=== PATIENT | male | born 1965 | race Caucasian/White ===

== ENCOUNTER 2019-10-26 20:51 | Inpatient (IN) ==
[2019-10-26] MEDS ORDERED: SODIUM CHLORIDE 0.9% 1000ML 1,000 ML IV ONE ×2 (21:19→22:14)
--- NOTE | 2019-10-26 21:23 | Emergency Department Note ---
History of Present Illness General Chief complaint: Weakness Stated complaint: AMS Time Seen by Provider: 10/26/19 21:08 Source: patient and family Limitations: altered mental status History of Present Illness Provider complaint: Foot pain Onset (ago): month(s) Location: lower extremity and right Radiation: non-radiation Severity: moderate Pain Consistency: + constant Exacerbated By: + movement Associated symptoms: + confusion; no chest pain, no cough, no fever/chills, no headaches, no nausea/vomiting and no shortness of breath This is a 54-year-old male brought in by his daughter after they found him in his house jaundiced and lethargic. The family has not seen him in 3 days. They state that he has had a prior history of alcohol abuse but has not drank for 3 weeks. Today he was in his house and his eyes were yellow and his skin was jaundiced. He has no known history of liver disease. He denies drinking alcohol today. His only complaint is that he has right foot pain after he fell on it weeks ago. He states he was seen here and was told he broke several toes. He denies falling again. He has no headache, chest pain, shortness of breath, fever, cough or cold symptoms, abdominal pain, vomiting, diarrhea or recent alcohol use. The patient's daughter states that his right leg has been hubert colored for several weeks and was like that before he came to the emergency department for his fracture. The patient also states he has not been eating or drinking very much for a while as he has trouble walking to a stove because of his leg pain. Home Medications Home Medications Medication Instructions Recorded Confirmed Type No Known Home Medications 09/25/19 10/26/19 History Allergies Allergy/AdvReac Type Severity Reaction Status Date / Time No Known Allergies Allergy Unverified 10/26/19 21:35 Past Med/Surg History Medical History No significant past medical history Surgical History No significant past surgical history Social History Smoking Status: Current every day smoker marital status: Single Current Living Situation: Alone current occupational status: unemployed Feels Safe at Home: Yes Review of Systems See HPI for pertinent positives & negatives. and A total of 10 systems reviewed and were otherwise negative Physical Exam Vital Signs Vital Signs - 24 hr 10/26/19 21:00 10/26/19 21:02 10/26/19 21:04 Temperature 34.1 C L Temperature Source Rectal Pulse Rate 71 74 70 Pulse Rate from SpO2 Sensor 71 71 Respiratory Rate 36 H 30 H 31 H Respiratory Depth Shallow Respiratory Pattern Tachypnea Blood Pressure 83/50 L 94/57 L Blood Pressure Mean 67 69 Blood Pressure Position Sitting Pulse Oximetry 96 96 96 Oxygen Delivery Method Room Air Sepsis Recent Fever Within 48 Hours No Sepsis New/Unexplained Change in Mental Status Yes Sepsis Action Taken by Nursing Physician Notified 10/26/19 21:06 10/26/19 21:08 10/26/19 21:10 Temperature 34.1 C L Temperature Source Rectal Pulse Rate 72 71 Pulse Rate from SpO2 Sensor 72 71 Respiratory Rate 25 H 25 H Respiratory Depth Respiratory Pattern Blood Pressure 89/55 L Blood Pressure Mean 58 Blood Pressure Position Pulse Oximetry 96 96 Oxygen Delivery Method Sepsis Recent Fever Within 48 Hours Sepsis New/Unexplained Change in Mental Status Sepsis Action Taken by Nursing 10/26/19 21:15 10/26/19 21:20 10/26/19 21:28 Temperature Temperature Source Pulse Rate 69 71 Pulse Rate from SpO2 Sensor 69 71 Respiratory Rate 25 H 31 H Respiratory Depth Respiratory Pattern Blood Pressure 80/50 L Blood Pressure Mean 56 Blood Pressure Position Pulse Oximetry 97 96 97 Oxygen Delivery Method Room Air Sepsis Recent Fever Within 48 Hours Sepsis New/Unexplained Change in Mental Status Sepsis Action Taken by Nursing 10/26/19 21:30 10/26/19 21:31 10/26/19 21:40 Temperature Temperature Source Pulse Rate 69 67 68 Pulse Rate from SpO2 Sensor 69 67 Respiratory Rate 29 H 28 H 21 Respiratory Depth Respiratory Pattern Blood Pressure 75/52 L Blood Pressure Mean 58 Blood Pressure Position Pulse Oximetry 96 97 Oxygen Delivery Method Sepsis Recent Fever Within 48 Hours Sepsis New/Unexplained Change in Mental Status Sepsis Action Taken by Nursing 10/26/19 21:41 10/26/19 21:50 10/26/19 21:51 Temperature Temperature Source Pulse Rate 78 60 70 Pulse Rate from SpO2 Sensor 72 62 70 Respiratory Rate 29 H 27 H 28 H Respiratory Depth Respiratory Pattern Blood Pressure 66/44 L 63/34 L Blood Pressure Mean 52 36 Blood Pressure Position Pulse Oximetry 97 94 96 Oxygen Delivery Method Sepsis Recent Fever Within 48 Hours Sepsis New/Unexplained Change in Mental Status Sepsis Action Taken by Nursing 10/26/19 22:00 10/26/19 22:01 10/26/19 22:10 Temperature Temperature Source Pulse Rate 69 68 67 Pulse Rate from SpO2 Sensor 67 Respiratory Rate 28 H 24 23 Respiratory Depth Respiratory Pattern Blood Pressure 77/40 L 63/42 L Blood Pressure Mean 45 43 Blood Pressure Position Pulse Oximetry 95 Oxygen Delivery Method Sepsis Recent Fever Within 48 Hours Sepsis New/Unexplained Change in Mental Status Sepsis Action Taken by Nursing 10/26/19 22:11 10/26/19 22:15 10/26/19 22:20 Temperature Temperature Source Pulse Rate 67 74 77 Pulse Rate from SpO2 Sensor 67 74 Respiratory Rate 29 H 24 30 H Respiratory Depth Respiratory Pattern Blood Pressure 89/59 L Blood Pressure Mean 63 Blood Pressure Position Pulse Oximetry 97 97 Oxygen Delivery Method Sepsis Recent Fever Within 48 Hours Sepsis New/Unexplained Change in Mental Status Sepsis Action Taken by Nursing 10/26/19 22:22 10/26/19 22:23 10/26/19 22:30 Temperature Temperature Source Pulse Rate 79 78 78 Pulse Rate from SpO2 Sensor 78 78 78 Respiratory Rate 23 31 H 30 H Respiratory Depth Respiratory Pattern Blood Pressure 97/65 L 103/61 Blood Pressure Mean 82 68 Blood Pressure Position Pulse Oximetry 97 96 95 Oxygen Delivery Method Sepsis Recent Fever Within 48 Hours Sepsis New/Unexplained Change in Mental Status Sepsis Action Taken by Nursing 10/26/19 22:31 10/26/19 22:40 10/26/19 22:41 Temperature 34.0 C L Temperature Source Pulse Rate 79 74 75 Pulse Rate from SpO2 Sensor 79 74 Respiratory Rate 26 H 28 H 27 H Respiratory Depth Respiratory Pattern Blood Pressure 98/60 L Blood Pressure Mean 68 Blood Pressure Position Pulse Oximetry 95 95 Oxygen Delivery Method Sepsis Recent Fever Within 48 Hours Sepsis New/Unexplained Change in Mental Status Sepsis Action Taken by Nursing 10/26/19 22:51 10/26/19 23:01 10/26/19 23:02 Temperature Temperature Source Pulse Rate 77 79 80 Pulse Rate from SpO2 Sensor 79 Respiratory Rate 22 21 30 H Respiratory Depth Respiratory Pattern Blood Pressure 87/55 L 71/55 L Blood Pressure Mean 63 65 Blood Pressure Position Pulse Oximetry 95 95 95 Oxygen Delivery Method Room Air Room Air Sepsis Recent Fever Within 48 Hours Sepsis New/Unexplained Change in Mental Status Sepsis Action Taken by Nursing 10/26/19 23:08 Temperature Temperature Source Pulse Rate Pulse Rate from SpO2 Sensor Respiratory Rate Respiratory Depth Respiratory Pattern Blood Pressure Blood Pressure Mean Blood Pressure Position Pulse Oximetry Oxygen Delivery Method Room Air Sepsis Recent Fever Within 48 Hours Sepsis New/Unexplained Change in Mental Status Sepsis Action Taken by Nursing Constitutional: Vital signs reviewed. Patient is hypotensive and hypothermic. Eyes: Pupils are equal round reactive to light. Sclera are icteric. ENT: Pharynx is clear without erythema or exudate. Mucous membranes are dry. Neck supple without meningeal signs. Respiratory: Clear to auscultation bilaterally. Breath sounds are equal bilaterally. Cardiovascular: Regular rate and rhythm. No rubs or gallops. GI: Soft, nondistended and nontender. Bowel sounds are present. Musculoskeletal: Violaceous discoloration of the right lower extremity extending into the foot but not including the toes. Distal cap refill is less than 2 seconds. Diffuse swelling of the right lower extremity and foot. Integumentary: Jaundiced. Neurological: The patient is somnolent but easily arousable. He answers all questions. Psychiatric: Unable to assess. Course Administered Medications Norepinephrine Bitartrate 8 mg (/ Dextrose) 508 mls @ 10.001 mls/hr IV .Q24H PIEDAD; Protocol Stop: 11/25/19 21:59 Last Titration: 10/26/19 23:00 Dose: 0.07 mcg/kg/min, 14 mls/hr Documented by: [id number] Admin: 10/26/19 22:07 Dose: 0.05 mcg/kg/min, 10 mls/hr Documented by: [id number] Cosigned by: [id number] Albumin Human (Albumin 25%) 50 mls @ 50 mls/hr IV Q1H PIEDAD Stop: 10/27/19 00:44 Last Admin: 10/26/19 23:22 Dose: 50 mls/hr Documented by: [id number] Infusion: 10/26/19 23:21 Dose: 0 mls/hr Documented by: [id number] Admin: 10/26/19 22:42 Dose: 50 mls/hr Documented by: [id number] Infusion: 10/26/19 22:42 Dose: 50 mls/hr Documented by: [id number] Admin: 10/26/19 21:52 Dose: 50 mls/hr Documented by: [id number] Discontinued Medications Sodium Chloride (Nss 1000ml) 1,000 mls @ 999 mls/hr IV .Q1H1M ONE Stop: 10/26/19 22:19 Last Infusion: 10/26/19 22:53 Dose: 0 mls/hr Documented by: [id number] Admin: 10/26/19 21:27 Dose: 999 mls/hr Documented by: [id number] Piperacillin Sod/Tazobactam Sod (Zosyn) 4.5 gm in 120 mls @ 240 mls/hr IV NOW ONE Stop: 10/26/19 22:42 Last Infusion: 10/26/19 23:15 Dose: 0 mls/hr Documented by: [id number] Admin: 10/26/19 22:40 Dose: 240 mls/hr Documented by: [id number] Sodium Chloride (Nss 1000ml) 1,000 mls @ 999 mls/hr IV .Q1H1M ONE Stop: 10/26/19 23:14 Last Admin: 10/26/19 22:40 Dose: Not Given Documented by: [id number] Miscellaneous () 1 ea N/A NOW STA Stop: 10/26/19 21:42 Last Admin: 10/26/19 21:55 Dose: Not Given Documented by: [id number] Critical Care Time Critical Care Time: Yes Total Critical Care Time: 40 I have personally spent approximately 40 minutes of critical care time in the direct management of this patient. This includes bedside care, interpretation of diagnostic studies, and testing, discussion with consultants, patient, and family members, and other required patient management activities. These minutes are in excess of all separately billable procedures. Medical Decision Making Differential Diagnosis Acute kidney injury, metabolic derangement, electrolyte abnormality, dehydration, sepsis, DVT, rhabdomyolysis Medical Records Attestation: I reviewed the patient's medical records. The patient was seen here September 22 after an injury to his right leg. He had x- rays of the foot and tib-fib which demonstrated metatarsal fractures. No fractures in the tibia or fibula. Home Medications Current Medication List: was personally reviewed by me Laboratory Data Attestation: I reviewed the patient's lab results. Result diagrams: 10/26/19 22:56 10/26/19 22:03 Lab Results 10/26/19 10/26/19 10/26/19 Range/Units 21:49 22:02 22:03 WBC (4.8-10.8) K/uL RBC (4.7-6.1) M/uL Hgb (14.0-18.0) g/dL POC Hgb (14.0-18.0) g/dl Hct (42-52) % POC Hct (42-52) % MCV (80-100) fL MCH (25-34) pg MCHC (32-36) g/dL RDW Std Deviation (36.4-46.3) fL RDW Coeff of Bina (11.5-14.5) % Plt Count (130-400) K/uL MPV (7.4-10.4) fL Immature Gran % (Auto) % Neut % (Auto) % Lymph % (Auto) % Ceiba % (Auto) % Eos % (Auto) % Baso % (Auto) % Neut # (Auto) (1.4-6.5) K/uL Lymph # (Auto) (1.2-3.4) K/uL Ceiba # (Auto) (0.11-0.59) K/uL Eos # (Auto) (0-0.5) K/uL Baso # (Auto) (0-0.2) K/uL Immature Gran # (Auto) (0.00-0.02) K/uL Platelet Estimate (Normal) Echinocytes PT (9.0-12.0) Seconds INR (0.9-1.1) APTT (21.0-31.0) Seconds PTT Ratio POC pH (7.35-7.45) POC pCO2 (35-46) mmHg POC pO2 (80-95) mmHg POC HCO3 (19-24) eddie/L POC Total CO2 (24-31) mmol/L POC Base Excess (-9-1.8) eddie/L POC ABG O2 Sat (90-95) % POC Sodium (135-144) mmol/L Sodium 119 L* (136-145) mmol/L POC Potassium (3.3-5.0) mmol/L Potassium 3.4 L (3.5-5.1) mmol/L Chloride 92 L (98-107) mmol/L Carbon Dioxide 12 L (21-32) mmol/L Anion Gap 15.0 H (3-11) BUN 18 (7-18) mg/dl Creatinine 0.98 (0.6-1.4) mg/dl Est Cr Clr Drug Dosing 62.3 ml/min Est GFR ( Amer) 99.5 Est GFR (Non-Af Amer) 85.8 BUN/Creatinine Ratio 18.9 (10-20) Glucose 87 (70-99) mg/dl Lactate (0.4-2.0) mmol/L Calcium 7.3 L (8.5-10.1) mg/dl Magnesium 1.9 (1.8-2.4) mg/dl Total Bilirubin 3.0 H (0.2-1) mg/dl AST 68 H (15-37) U/L ALT 23 (12-78) U/L Alkaline Phosphatase 93 (45-117) U/L Ammonia (11-32) umol/L Total Creatine Kinase 562 H (39-308) U/L Troponin I 0.090 H* (0-0.045) ng/ml Total Protein 4.8 L (6.4-8.2) gm/dl Albumin 1.9 L (3.4-5.0) gm/dl Globulin 2.9 (2.5-4.0) gm/dl Albumin/Globulin Ratio 0.6 L (0.9-2) Ethyl Alcohol mg/dL (0-3) mg/dl COVID-19 PCR NEGATIVE (Negative) Blood Type O Positive Antibody Screen NEGATIVE Crossmatch See Detail 10/26/19 10/26/19 10/26/19 Range/Units 22:03 22:03 22:03 WBC 2.50 L (4.8-10.8) K/uL RBC 1.54 L (4.7-6.1) M/uL Hgb 4.9 L* (14.0-18.0) g/dL POC Hgb (14.0-18.0) g/dl Hct 13.6 L* (42-52) % POC Hct (42-52) % MCV 88.3 (80-100) fL MCH 31.8 (25-34) pg MCHC 36.0 (32-36) g/dL RDW Std Deviation 43.7 (36.4-46.3) fL RDW Coeff of Bina 13.6 (11.5-14.5) % Plt Count 96 L (130-400) K/uL MPV 10.7 H (7.4-10.4) fL Immature Gran % (Auto) 0.8 % Neut % (Auto) 73.2 % Lymph % (Auto) 21.6 % Ceiba % (Auto) 3.6 % Eos % (Auto) 0.8 % Baso % (Auto) 0.0 % Neut # (Auto) 1.83 (1.4-6.5) K/uL Lymph # (Auto) 0.54 L (1.2-3.4) K/uL Ceiba # (Auto) 0.09 L (0.11-0.59) K/uL Eos # (Auto) 0.02 (0-0.5) K/uL Baso # (Auto) 0.00 (0-0.2) K/uL Immature Gran # (Auto) 0.02 (0.00-0.02) K/uL Platelet Estimate Decreased L (Normal) Echinocytes 1+ PT 15.6 H (9.0-12.0) Seconds INR 1.5 H (0.9-1.1) APTT 35.4 H (21.0-31.0) Seconds PTT Ratio 1.3 POC pH (7.35-7.45) POC pCO2 (35-46) mmHg POC pO2 (80-95) mmHg POC HCO3 (19-24) eddie/L POC Total CO2 (24-31) mmol/L POC Base Excess (-9-1.8) eddie/L POC ABG O2 Sat (90-95) % POC Sodium (135-144) mmol/L Sodium (136-145) mmol/L POC Potassium (3.3-5.0) mmol/L Potassium (3.5-5.1) mmol/L Chloride (98-107) mmol/L Carbon Dioxide (21-32) mmol/L Anion Gap (3-11) BUN (7-18) mg/dl Creatinine (0.6-1.4) mg/dl Est Cr Clr Drug Dosing ml/min Est GFR ( Amer) Est GFR (Non-Af Amer) BUN/Creatinine Ratio (10-20) Glucose (70-99) mg/dl Lactate 1.9 (0.4-2.0) mmol/L Calcium (8.5-10.1) mg/dl Magnesium (1.8-2.4) mg/dl Total Bilirubin (0.2-1) mg/dl AST (15-37) U/L ALT (12-78) U/L Alkaline Phosphatase (45-117) U/L Ammonia (11-32) umol/L Total Creatine Kinase (39-308) U/L Troponin I (0-0.045) ng/ml Total Protein (6.4-8.2) gm/dl Albumin (3.4-5.0) gm/dl Globulin (2.5-4.0) gm/dl Albumin/Globulin Ratio (0.9-2) Ethyl Alcohol mg/dL (0-3) mg/dl COVID-19 PCR (Negative) Blood Type Antibody Screen Crossmatch 10/26/19 10/26/19 10/26/19 Range/Units 22:03 22:03 22:03 WBC (4.8-10.8) K/uL RBC (4.7-6.1) M/uL Hgb (14.0-18.0) g/dL POC Hgb (14.0-18.0) g/dl Hct (42-52) % POC Hct (42-52) % MCV (80-100) fL MCH (25-34) pg MCHC (32-36) g/dL RDW Std Deviation (36.4-46.3) fL RDW Coeff of Bina (11.5-14.5) % Plt Count (130-400) K/uL MPV (7.4-10.4) fL Immature Gran % (Auto) % Neut % (Auto) % Lymph % (Auto) % Ceiba % (Auto) % Eos % (Auto) % Baso % (Auto) % Neut # (Auto) (1.4-6.5) K/uL Lymph # (Auto) (1.2-3.4) K/uL Ceiba # (Auto) (0.11-0.59) K/uL Eos # (Auto) (0-0.5) K/uL Baso # (Auto) (0-0.2) K/uL Immature Gran # (Auto) (0.00-0.02) K/uL Platelet Estimate (Normal) Echinocytes PT (9.0-12.0) Seconds INR (0.9-1.1) APTT (21.0-31.0) Seconds PTT Ratio POC pH (7.35-7.45) POC pCO2 (35-46) mmHg POC pO2 (80-95) mmHg POC HCO3 (19-24) eddie/L POC Total CO2 (24-31) mmol/L POC Base Excess (-9-1.8) eddie/L POC ABG O2 Sat (90-95) % POC Sodium (135-144) mmol/L Sodium (136-145) mmol/L POC Potassium (3.3-5.0) mmol/L Potassium (3.5-5.1) mmol/L Chloride (98-107) mmol/L Carbon Dioxide (21-32) mmol/L Anion Gap (3-11) BUN (7-18) mg/dl Creatinine (0.6-1.4) mg/dl Est Cr Clr Drug Dosing ml/min Est GFR ( Amer) Est GFR (Non-Af Amer) BUN/Creatinine Ratio (10-20) Glucose (70-99) mg/dl Lactate (0.4-2.0) mmol/L Calcium (8.5-10.1) mg/dl Magnesium Cancelled (1.8-2.4) mg/dl Total Bilirubin (0.2-1) mg/dl AST (15-37) U/L ALT (12-78) U/L Alkaline Phosphatase (45-117) U/L Ammonia 14.5 (11-32) umol/L Total Creatine Kinase Cancelled (39-308) U/L Troponin I (0-0.045) ng/ml Total Protein (6.4-8.2) gm/dl Albumin (3.4-5.0) gm/dl Globulin (2.5-4.0) gm/dl Albumin/Globulin Ratio (0.9-2) Ethyl Alcohol mg/dL < 3.0 (0-3) mg/dl COVID-19 PCR (Negative) Blood Type Antibody Screen Crossmatch 10/26/19 10/26/19 Range/Units 22:03 22:56 WBC (4.8-10.8) K/uL RBC (4.7-6.1) M/uL Hgb 5.4 L* (14.0-18.0) g/dL POC Hgb 5.4 L* (14.0-18.0) g/dl Hct 16.0 L* (42-52) % POC Hct 16 L* (42-52) % MCV (80-100) fL MCH (25-34) pg MCHC (32-36) g/dL RDW Std Deviation (36.4-46.3) fL RDW Coeff of Bina (11.5-14.5) % Plt Count (130-400) K/uL MPV (7.4-10.4) fL Immature Gran % (Auto) % Neut % (Auto) % Lymph % (Auto) % Ceiba % (Auto) % Eos % (Auto) % Baso % (Auto) % Neut # (Auto) (1.4-6.5) K/uL Lymph # (Auto) (1.2-3.4) K/uL Ceiba # (Auto) (0.11-0.59) K/uL Eos # (Auto) (0-0.5) K/uL Baso # (Auto) (0-0.2) K/uL Immature Gran # (Auto) (0.00-0.02) K/uL Platelet Estimate (Normal) Echinocytes PT (9.0-12.0) Seconds INR (0.9-1.1) APTT (21.0-31.0) Seconds PTT Ratio POC pH 7.52 H* (7.35-7.45) POC pCO2 15 L (35-46) mmHg POC pO2 78 L (80-95) mmHg POC HCO3 12 L (19-24) eddie/L POC Total CO2 12 L (24-31) mmol/L POC Base Excess -11.0 L (-9-1.8) eddie/L POC ABG O2 Sat 97.0 H (90-95) % POC Sodium 117 L* (135-144) mmol/L Sodium (136-145) mmol/L POC Potassium 3.6 (3.3-5.0) mmol/L Potassium (3.5-5.1) mmol/L Chloride (98-107) mmol/L Carbon Dioxide (21-32) mmol/L Anion Gap (3-11) BUN (7-18) mg/dl Creatinine (0.6-1.4) mg/dl Est Cr Clr Drug Dosing ml/min Est GFR ( Amer) Est GFR (Non-Af Amer) BUN/Creatinine Ratio (10-20) Glucose (70-99) mg/dl Lactate (0.4-2.0) mmol/L Calcium (8.5-10.1) mg/dl Magnesium (1.8-2.4) mg/dl Total Bilirubin (0.2-1) mg/dl AST (15-37) U/L ALT (12-78) U/L Alkaline Phosphatase (45-117) U/L Ammonia (11-32) umol/L Total Creatine Kinase (39-308) U/L Troponin I (0-0.045) ng/ml Total Protein (6.4-8.2) gm/dl Albumin (3.4-5.0) gm/dl Globulin (2.5-4.0) gm/dl Albumin/Globulin Ratio (0.9-2) Ethyl Alcohol mg/dL (0-3) mg/dl COVID-19 PCR (Negative) Blood Type Antibody Screen Crossmatch Imaging Data Attestation: I personally reviewed and interpreted this imaging study as follows: My Impression: Chest x-ray per my interpretation shows a left lower lobe infiltrate concerning for pneumonia. No pneumothorax. X-ray of the right foot demonstrates fractures of the second and third metatars al bones. ECG Data Attestation: I personally reviewed and interpreted this ECG as follows: Indication: + other (Hypotension) Rate (beats per minute): 71 Rhythm: + normal sinus ECG Intervals/blocks: + Prolonged QT ECG ST segments: no ST elevation ECG Findings: + Other (Baseline motion artifact); no PVCs Blood Pressure Blood Pressure Findings: Low blood pressure Blood Pressure Disposition: further management by hospitalist [facility] Gayathri I did evaluate the patient as noted above. The patient is hypotensive and hypothermic. He is tachypneic as well. He was placed on a warming blanket. I did order sepsis labs. IV access was established. He was given 2 L of normal saline IV. I did place an order for continuous cardiac monitoring. The monitor showed normal sinus rhythm at a rate of 80. I did order and personally review the patient's 12-lead EKG as described above. There is some baseline motion artifact but there is no evidence of ST elevations or acute ischemia. I did order and personally reviewed the images of the patient's right foot/chest x-ray as described above. He does have metatarsal fractures to the right foot. He appears to have a left lower lobe infiltrate. He was placed in respiratory isolation. A COVID test was obtained which was negative. I did order a urine analysis. Blood cultures were ordered. I did treat him with Levaquin and Zosyn IV. I did order and review the patient's blood work as noted in the electronic medical record. He has a sodium of 119. He does not require hypertonic saline at this time. He is able to answer questions and has had no history of seizures. His troponin is slightly elevated but he does not have any chest pain or shortness of breath or acute ischemia on twelve-lead EKG. CPK is 562. Blood gas shows a pH of 7.52. CO2 is 15. Hemoglobin is 5.4. Dr. Eaton saw the patient and consulted the ICU. He did obtain informed consent for blood transfusion from the daughter. He was placed on Levophed IV for blood pressure control. I did order a CT of the head. I did review the images myself. Radiology report is pending at this time. The patient was transferred to the ICU for further care and placement of a central line. Impression & Plan Septic shock, Sepsis, Left lower lobe pneumonia, Severe anemia, Acute hyponatremia, Hyperbilirubinemia Discharge Plan Visit Data Chief Complaint: Weakness Stated Complaint: AMS ED Provider: Ariel Garcia Discharge Problem: Septic shock, Sepsis, Left lower lobe pneumonia, Severe anemia, Acute hyponatremia, Hyperbilirubinemia Discharge Instructions Interventions: ED Discharge Assessment Last Done: 10/26/19 23:08 Forms Stand Alone Forms: [employer] Prescriptions Prescriptions: No Action No Known Home Medications RF: 0 Referrals Referrals: PCP,NO [Primary Care Provider] - Discharge Problem: Sepsis Qualifiers: Sepsis type: sepsis due to unspecified organism Sepsis acute organ dysfunction status: with acute organ dysfunction Severe sepsis acute organ dysfunction type: encephalopathy Severe sepsis shock status: with septic shock Qualified Code(s): A41.9 - Sepsis, unspecified organism Left lower lobe pneumonia Qualifiers: Pneumonia type: due to unspecified organism Qualified Code(s): J18.9 - Pne umonia, unspecified organism
[2019-10-26] MEDS ORDERED: STAT IV Infusion **Titration per Protocol STA (21:41)
[2019-10-26] MEDS: ALBUMIN 25% 50 ML IV SCH ×3 (21:52→23:22)
[2019-10-26] MEDS: NOREPINEPHRINE BIT INJ 8 MG in DEXTROSE 5% 500 ML IV SCH (22:07)
[2019-10-26] MEDS ORDERED: PIPERACILLIN/TAZOBACTAM 4.5 GM/120 ML BAG IV ONE (22:13)
[2019-10-26] MEDS ORDERED: LEVOFLOXACIN/D5W 750 MG/150 ML BAG IV STA (22:13)
[2019-10-26] MEDS ORDERED: PIPERACILL/TAZOBAC CONSULT ACTIVE PRN ×2 (22:13→22:15)
[2019-10-26] MEDS ORDERED: VANCOMYCIN CONSULT ACTIVE PRN (22:15)
[2019-10-26 22:19] LABS: iSTAT Arterial Blood Gas HCO3 12 meg/L (19-24); iSTAT Arterial Blood Gas pCO2 15 mmHg (35-46); iSTAT Arterial Blood Gas pH 7.52 (7.35-7.45); iSTAT Arterial Blood Gas pO2 78 mmHg (80-95); iSTAT Carbon Dioxide 12 mmol/L (24-31); iSTAT Hematocrit 16 % (42-52); iSTAT Hemoglobin 5.4 g/dl (14.0-18.0); iSTAT Potassium 3.6 mmol/L (3.3-5.0); iSTAT Sodium 117 mmol/L (135-144)
[2019-10-26 22:29] LABS: Mean Corpuscular Hemoglobin 31.8 pg (25-34); Mean Corpuscular Volume 88.3 fL (80-100); Mean Platelet Volume 10.7 fL (7.4-10.4); Platelet Count 96 K/uL (130-400); RDW Coefficient of Variation 13.6 % (11.5-14.5); RDW Standard Deviation 43.7 fL (36.4-46.3); Red Blood Count 1.54 M/uL (4.7-6.1)
[2019-10-26 22:30] LABS: INR 1.5 (0.9-1.1); Partial Thromboplastin Ratio 1.3; Partial Thromboplastin Time 35.4 Seconds (21.0-31.0); Prothrombin Time 15.6 Seconds (9.0-12.0)
[2019-10-26] MEDS ORDERED: SODIUM CHLORIDE 0.9% 250 ML IV PRN ×3 (22:33→23:57)
[2019-10-26] MEDS ORDERED: PANTOPRAZOLE BOLUS/DRIP 1 EA IV STA (22:34)
[2019-10-26] MEDS ORDERED: PANTOprazole 80 MG in DEXTROSE 5% 100 ML IV STA (22:42)
[2019-10-26 22:53] LABS: Albumin Globulin Ratio 0.6 (0.9-2); Albumin Level 1.9 gm/dl (3.4-5.0); BUN Creatinine Ratio 18.9 (10-20); Calcium 7.3 mg/dl (8.5-10.1); Creatinine Clr Calc Pharmacy 62.3 ml/min; Eosinophils # (auto) 0.02 K/uL (0-0.5); Eosinophils % (auto) 0.8 %; Est GFR (African American) 99.5; Est GFR (Non-African American) 85.8; Globulin 2.9 gm/dl (2.5-4.0); Immature Granulocytes # (auto) 0.02 K/uL (0.00-0.02); Immature Granulocytes % (auto) 0.8 %; Lymphocytes # (auto) 0.54 K/uL (1.2-3.4); Lymphocytes % (auto) 21.6 %; Magnesium 1.9 mg/dl (1.8-2.4); Monocytes # (auto) 0.09 K/uL (0.11-0.59); Monocytes % (auto) 3.6 %; Neutrophils # (auto) 1.83 K/uL (1.4-6.5); Neutrophils % (auto) 73.2 %; Potassium 3.4 mmol/L (3.5-5.1); Total Protein 4.8 gm/dl (6.4-8.2); Troponin I 0.09 ng/ml (0-0.045)
[2019-10-26 22:54] LABS: Hematocrit (blood only) 13.6 % (42-52); Hemoglobin 4.9 g/dL (14.0-18.0)
[2019-10-26 22:56] LABS: Echinocytes 1+; Platelet Estimate Decreased (Normal)
[2019-10-26] MEDS ORDERED: OCTREOTIDE ACETATE 50 MCG in SYRINGE 9.5 ML IV STA (22:58)
--- NOTE | 2019-10-26 23:03 | History & Physical Report ---
Date of Service October 26, 2019 Assessment & Plan (1) Septic shock: Septic shock/left lower lobe pneumonia/hypovolemia- COVID-19 testing negative in the ED Continue Levophed infusion begun in the ED. Continue aggressive fluid rehydration: Received 2 L normal saline in the ED, followed by NSS plus KCl 20 mEq at 150 mils per hour. Placed on vancomycin IV per pharmacokinetic monitoring. Zosyn 4.5 g IV every 8 hours Levofloxacin 5 mg IV daily Duonebs every 4 hours while awake and every 2 hours when necessary. Nasal cannula 2 L oxygen, titrate to keep pulse ox 94 to 95%. Consult flight information expediter team Dr. Wheeler. Present on Admission?: Yes (2) Left lower lobe pneumonia: See above Present on Admission?: Yes (3) Severe anemia: Hemoglobin 4.9 upon admission. Patient typed and crossed for 3 units PRBCs. H&H every 6 hours x4 Repeat laboratories 1 hour after third unit. Patient's daughter notes that he did have a transfusion in 2018 at [facility]. With associated alcohol history, it is possible he may have some esophageal varices. He has been started on Protonix bolus then drip. If any obvious signs of bleeding, may require the addition of an octreotide drip CT imaging whole body to assess for potential loss of blood Present on Admission?: Yes (4) Acute hyponatremia: Sodium 117 upon admission. He received initial normal saline IV fluid rehydration due to hypotension and sepsis protocol. Follow BMP, phosphorus and magnesium levels every 6 hours. NSS + KCl 20 mEq at 150 mils per hour Present on Admission?: Yes (5) Hyperbilirubinemia: History of alcoholism. Ordered CT of abdomen pelvis for this look at liver structure. With associated coagulopathy, may expect some element of cirrhosis. Present on Admission?: Yes (6) Admitted to intensive care unit: Consulted ICU team as noted above Present on Admission?: Yes (7) Coagulopathy: INR 1.5 upon admission. We will do a trial of vitamin K 10 mg IV Present on Admission?: Yes (8) Hypokalemia: Potassium 3.4 upon admission. We will replace with IV fluids as noted and follow serially Present on Admission?: Yes (9) Non-STEMI (non-ST elevated myocardial infarction): Follow serial troponins, and monitor for arrhythmias. Order complete echocardiogram Consult cardiology. Present on Admission?: Yes (10) Hypoalbuminemia: Albumin 1.9 upon admission. Patient did receive empirically albumin 25 g IV x3 due to hypotension in the ED. Present on Admission?: Yes (11) COVID-19 ruled out by laboratory testing: COVID-19 testing negative while in the ED Present on Admission?: Yes History of Present Illness Chief Complaint: The patient is brought into the emergency department by his daughter after they found him in his house lethargic, unkempt, and appearing jaundiced. Primary Care Provider: NO PCP The patient is a 54-year-old male with a past medical history significant for alcohol abuse, and daughter reports that he does not follow with any physician or office routinely in the medical system. The daughter brought the patient into the ED after checking on him, when she had not seen him for 3 days, and found that he was lethargic, unkempt and jaundiced in his house. She reports that has not had alcohol to drink in 3 weeks. He was in the emergency department on 09/25/2019, and was noted to have twisted his ankle 1 week previous to that visit, and x-rays performed on 09/25/2019 revealed nondisplaced fractures in the distal aspects of the second and third metatarsals with a potential cortical fracture at the base of the proximal phalanx of the second toe. The patient did not follow-up with orthopedic surgery as advised. Upon arrival in the ED, he was noted to have a severe cellulitis of the right lower extremity, and the patient's blood pressure was noted to be 80/50. Despite the first 1 L of IV normal saline, his pressure continued to decrease to 63/43, and he was empirically started on Levophed infusion for blood pressure support at that time, and the ICU was called to be notified of his impending admission. Allergies Allergy/AdvReac Type Severity Reaction Status Date / Time No Known Allergies Allergy Unverified 10/26/19 21:35 Home Medications Home Medications Medication Instructions Recorded Confirmed Type No Known Home Medications 09/25/19 10/26/19 History Past Med/Surg History Medical History No significant past medical history Surgical History No significant past surgical history Social History Smoking Status: Current every day smoker Cigarettes Per Day: 20; Second Hand Exposure: No; Do You Dip or Chew Tobacco: No; Tobacco Cessation Education Requested by Patient: No Hx Alcohol Use: Yes Alcohol type: beer Hx Substance Use: Yes Last Used Substance: Unknown Preferred Language: Chinese Communication Ability: Effective Vision Rehabilitation Therapist Required: No Beliefs That Will Affect Care: None marital status: Single Current Living Situation: Alone current occupational status: unemployed Other Information That Helps Us Care for You: No Feels Safe at Home: Yes Safety Concerns: Feels Safe At This Time Review of Systems Review of Systems: Review of systems is somewhat limited due to cognitive state. Physical Exam Physical Exam: The patient is awake, lethargic, unkempt, emaciated appearing, pale, normocephalic and atraumatic, lying in bed and in no acute distress. HEENT--PERRL, EOMI, mucous membranes and oropharynx dry. Neck--supple. No JVD. No bruits. Thyroid normal, trachea midline, no adenopathy. Heart--normal S1 and S2. No murmurs, rubs or gallops. Lungs--decreased breath sounds left base, with scattered coarse breath sounds throughout. No respiratory distress, no accessory muscle use. Abdomen--normal bowel sounds and soft. Nontender. Nondistended. Extremities/dermatologic-moderately severe erythema right lower extremity. 3+ pitting edema right lower extremity. Skin is jaundiced Neurologic--cranial nerves II through XII grossly intact. Rheumatologic--limited exam Psychiatric--lethargic Results & Data Results & Data ([facility]) Vital Signs (Past 12 Hours) Vital Signs Temp Pulse Resp BP Pulse Ox 10/26/19 22:41 93.2 F L 75 27 H 10/26/19 22:40 74 28 H 98/60 L 95 10/26/19 22:31 79 26 H 95 10/26/19 22:30 78 30 H 103/61 95 10/26/19 22:23 78 31 H 96 10/26/19 22:22 79 23 97/65 L 97 10/26/19 22:20 77 30 H 10/26/19 22:15 74 24 89/59 L 97 10/26/19 22:11 67 29 H 97 10/26/19 22:10 67 23 63/42 L 95 10/26/19 22:01 68 24 10/26/19 22:00 69 28 H 77/40 L 10/26/19 21:51 70 28 H 96 10/26/19 21:50 60 27 H 63/34 L 94 10/26/19 21:41 78 29 H 66/44 L 97 10/26/19 21:40 68 21 10/26/19 21:31 67 28 H 97 10/26/19 21:30 69 29 H 75/52 L 96 10/26/19 21:28 97 10/26/19 21:20 71 31 H 96 10/26/19 21:15 69 25 H 80/50 L 97 10/26/19 21:10 71 25 H 96 10/26/19 21:08 72 25 H 89/55 L 96 10/26/19 21:06 93.4 F L 10/26/19 21:04 70 31 H 96 10/26/19 21:02 93.4 F L 74 30 H 94/57 L 96 10/26/19 21:00 71 36 H 83/50 L 96 Laboratory Results Laboratory Results WBC 2.50 K/uL (4.8-10.8) L 10/26/19 22:03 RBC 1.54 M/uL (4.7-6.1) L 10/26/19 22:03 Hgb 5.4 g/dL (14.0-18.0) L* 10/26/19 22:56 POC Hgb 5.4 g/dl (14.0-18.0) L* 10/26/19 22:03 Hct 16.0 % (42-52) L* 10/26/19 22:56 POC Hct 16 % (42-52) L* 10/26/19 22:03 MCV 88.3 fL (80-100) 10/26/19 22:03 MCH 31.8 pg (25-34) 10/26/19 22:03 MCHC 36.0 g/dL (32-36) 10/26/19 22:03 RDW Std Deviation 43.7 fL (36.4-46.3) 10/26/19 22:03 RDW Coeff of Bina 13.6 % (11.5-14.5) 10/26/19 22:03 Plt Count 96 K/uL (130-400) L 10/26/19 22:03 MPV 10.7 fL (7.4-10.4) H 10/26/19 22:03 Immature Gran % (Auto) 0.8 % 10/26/19 22:03 Neut % (Auto) 73.2 % 10/26/19 22:03 Lymph % (Auto) 21.6 % 10/26/19 22:03 [place] % (Auto) 3.6 % 10/26/19 22:03 Eos % (Auto) 0.8 % 10/26/19 22:03 Baso % (Auto) 0.0 % 10/26/19 22:03 Neut # (Auto) 1.83 K/uL (1.4-6.5) 10/26/19 22:03 Lymph # (Auto) 0.54 K/uL (1.2-3.4) L 10/26/19 22:03 [place] # (Auto) 0.09 K/uL (0.11-0.59) L 10/26/19 22:03 Eos # (Auto) 0.02 K/uL (0-0.5) 10/26/19 22:03 Baso # (Auto) 0.00 K/uL (0-0.2) 10/26/19 22:03 Immature Gran # (Auto) 0.02 K/uL (0.00-0.02) 10/26/19 22:03 Platelet Estimate Decreased (Normal) L 10/26/19 22:03 Echinocytes 1+ 10/26/19 22:03 PT 15.6 Seconds (9.0-12.0) H 10/26/19 22:03 INR 1.5 (0.9-1.1) H 10/26/19 22:03 APTT 35.4 Seconds (21.0-31.0) H 10/26/19 22:03 PTT Ratio 1.3 10/26/19 22:03 POC pH 7.52 (7.35-7.45) H* 10/26/19 22:03 POC pCO2 15 mmHg (35-46) L 10/26/19 22:03 POC pO2 78 mmHg (80-95) L 10/26/19 22:03 POC HCO3 12 eddie/L (19-24) L 10/26/19 22:03 POC Total CO2 12 mmol/L (24-31) L 10/26/19 22:03 POC Base Excess -11.0 eddie/L (-9-1.8) L 10/26/19 22:03 POC ABG O2 Sat 97.0 % (90-95) H 10/26/19 22:03 POC Sodium 117 mmol/L (135-144) L* 10/26/19 22:03 Sodium 120 mmol/L (136-145) L 10/27/19 01:17 POC Potassium 3.6 mmol/L (3.3-5.0) 10/26/19 22:03 Potassium 3.6 mmol/L (3.5-5.1) 10/27/19 01:17 Chloride 92 mmol/L (98-107) L 10/27/19 01:17 Carbon Dioxide 12 mmol/L (21-32) L 10/27/19 01:17 Anion Gap 16.0 (3-11) H 10/27/19 01:17 BUN 18 mg/dl (7-18) 10/27/19 01:17 Creatinine 1.00 mg/dl (0.6-1.4) 10/27/19 01:17 Est Cr Clr Drug Dosing 60.8 ml/min 10/27/19 01:17 Est GFR ( Amer) 97.1 10/27/19 01:17 Est GFR (Non-Af Amer) 83.8 10/27/19 01:17 BUN/Creatinine Ratio 18.3 (10-20) 10/27/19 01:17 Glucose 115 mg/dl (70-99) H 10/27/19 01:17 Lactate 1.9 mmol/L (0.4-2.0) 10/26/19 22:03 Calcium 7.0 mg/dl (8.5-10.1) L 10/27/19 01:17 Phosphorus 4.6 mg/dl (2.5-4.9) 10/27/19 01:17 Magnesium 1.9 mg/dl (1.8-2.4) 10/27/19 01:17 Total Bilirubin 3.0 mg/dl (0.2-1) H 10/26/19 22:03 AST 68 U/L (15-37) H 10/26/19 22:03 ALT 23 U/L (12-78) 10/26/19 22:03 Alkaline Phosphatase 93 U/L (45-117) 10/26/19 22:03 Ammonia 14.5 umol/L (11-32) 10/26/19 22:03 Total Creatine Kinase 560 U/L (39-308) H 10/27/19 01:17 Troponin I 0.099 ng/ml (0-0.045) H* 10/26/19 22:56 Total Protein 4.8 gm/dl (6.4-8.2) L 10/26/19 22:03 Albumin 1.9 gm/dl (3.4-5.0) L 10/26/19 22:03 Globulin 2.9 gm/dl (2.5-4.0) 10/26/19 22:03 Albumin/Globulin Ratio 0.6 (0.9-2) L 10/26/19 22:03 Vitamin B12 1749 pg/ml (211-911) H 10/26/19 22:56 Folate 4.52 ng/ml (>5.38) L 10/26/19 22:56 Procalcitonin 0.69 ng/ml (0-0.5) H 10/26/19 22:56 Random Cortisol 21.66 mcg/dl 10/26/19 22:56 Urine Color [place] 10/27/19 00:55 Urine Appearance Turbid (Clear) A 10/27/19 00:55 Urine pH 5.0 (4.5-7.5) 10/27/19 00:55 Ur Specific [place] 1.021 (1.000-1.030) 10/27/19 00:55 Urine Protein 2+ (Negative) H 10/27/19 00:55 Urine Glucose (UA) Negative (Negative) 10/27/19 00:55 Urine Ketones Trace (Negative) H 10/27/19 00:55 Urine Blood Negative (Negative) 10/27/19 00:55 Urine Nitrite Positive (Negative) A 10/27/19 00:55 Urine Bilirubin 2+ (Negative) H 10/27/19 00:55 Urine Urobilinogen Negative (Negative) 10/27/19 00:55 Ur Leukocyte Esterase 1+ (Negative) H 10/27/19 00:55 Nasal Screen MRSA (PCR) Negative (Negative) 10/27/19 00:05 Salicylates Cancelled 10/27/19 01:17 Acetaminophen Cancelled 10/27/19 01:17 Ethyl Alcohol mg/dL < 3.0 mg/dl (0-3) 10/26/19 22:03 COVID-19 PCR NEGATIVE (Negative) 10/26/19 21:49 Hep Bs Antigen Neg (Neg) 10/27/19 01:17 Hepatitis C Ab Screen Neg (Neg) 10/27/19 01:17 Hepatitis C Antibody Neg (Neg) 10/27/19 01:17 Blood Type O Positive 10/26/19 22:02 Blood Type Recheck O Positive 10/26/19 22:57 Antibody Screen NEGATIVE 10/26/19 22:02 Crossmatch See Detail 10/26/19 22:02 Code Status & VTE Plan Code Status Full code VTE Prophylaxis Plan VTE Prophylaxis will be ordered: Yes Critical Care Time Critical Care Time: Yes Total Critical Care Time: 70 Total critical care time was 70 minutes PG Care Time/CCT Total # of Minutes Spent Total Time Spent with Patient: Total time spent is greater than 50% in coordination of care (as documented) at patient's floor/unit and/or counseling patient: Critical Care Time: Yes Total Critical Care Time: 70 Coding Level of Care Code 10387 Initial Inpt Care Lvl 3 Diagnoses Septic shock A41.9; R65.21 Left lower lobe pneumonia J18.9 Pneumonia type: due to unspecified organism Severe anemia D64.9 Acute hyponatremia E87.1 Hyperbilirubinemia E80.6 Admitted to intensive care unit Z78.9 Coagulopathy D68.9 Hypokalemia E87.6 Non-STEMI (non-ST elevated myocardial infarction) I21.4 Hypoalbuminemia E88.09 COVID-19 ruled out by laboratory testing Z03.818 Additional Codes Critical Care Time - Critical Care Time: Yes ([id number]) Time Spent (min) 70 (1) Left lower lobe pneumonia Pneumonia type: due to unspecified organism Qualified Code(s): J18.9 - Pneumonia, unspecified organism
[2019-10-26 23:14] LABS: Hemoglobin 5.4 g/dL (14.0-18.0)
[2019-10-26] MEDS ORDERED: VANCOMYCIN HCL 1,250 MG in SODIUM CHLORIDE 0.9% 250 ML IV STA (23:25)
[2019-10-26 23:40] LABS: Folate (Folic Acid) 4.52 ng/ml (>5.38)
[2019-10-26] MEDS ORDERED: ICU PROTOCOL FOR HYPERGLYCEMIA PRN (23:57)
[2019-10-27] MEDS: OCTREOTIDE ACETATE 500 MCG in 0.9 % SODIUM CHLORIDE 100 ML IV SCH ×3 (00:06→19:06)
[2019-10-27] MEDS: PANTOprazole 40 MG in DEXTROSE 5% 100 ML IV SCH ×5 (00:13→19:05)
[2019-10-27] MEDS: NSS + 20MEQ KCL 20 MEQ/1,000 ML BAG IV SCH ×2 (00:47→07:44)
--- NOTE | 2019-10-27 00:50 | Critical Care Consultation ---
Date of Consultation October 27, 2019 Assessment & Plan (1) Admitted to intensive care unit: Reason Critically Ill: 54-year-old male presenting with profound weakness and jaundice he was found to be profoundly anemic with elevated troponin, LEFT lower lobe pneumonia, septic shock, hyponatremia, and hypokalemia NEURO - * CAM ICU: POSITIVE * Altered mental status: * Multifactorial in the setting of severe sepsis as well as profound anemia and possible alcohol withdrawal. * CT head unremarkable. * No focal neurological deficits. * Consider contribution from hyponatremia as well. CARDIAC/VASCULAR - * Hypotension: * Secondary to severe sepsis from pulmonary versus integumentary versus both sources. * Additionally, patient with profound hypovolemic state in the setting of profound anemia. * Initially resuscitated with crystalloid boluses. * Currently on Levophed. * Hopes for improvement of blood pressure with blood product volume expansion. * NSTEMI: * Without acute EKG changes or complaints of chest pain. * Likely global ischemia in the profoundly anemic patient. * Trend troponins. * Hopeful for resolve with transfusion of PRBCs. * EKG: Normal sinus rhythm without acute ST or T wave changes. * Monitor on telemetry. RESPIRATORY - * LEFT lower lobe pneumonia: * Concerns for aspiration in the alcoholic patient. * Currently covered with Levaquin, vancomycin, and Zosyn. * Would continue Zosyn for anaerobic coverage with suspicion of aspiration. * Daily smoker. GI/NUTRITION - * Jaundice with concerns for liver failure: * LFTs relatively normal. * Concerning elevated INR and jaundice. * Evaluate other possible sources including acetaminophen and hepatitis. * GI bleed: * Scantly Hemoccult positive on exam. * Previously started on Protonix and octreotide. * Per conversation with daughter, the patient has had anemia secondary to alcoholism in the past. She is uncertain of any prior GI procedures. * Patient is certainly at high risk for varices. RENAL/LYTES - * Hyponatremia: * ??Beer potomania. * Clinically, patient appears malnourished. * Certainly could be secondary to poor diet intake as well. * Regardless, patient received 2 L IV crystalloid bolus in the emergency department. * Will hold off on further crystalloid replacement as to avoid ODS. * Hypokalemia: * Replace appropriately. - * Ceja in place - Strict I&Os. ENDO - * No history of diabetes or thyroid disease. * BSGs per unit protocol. ISS --> gtt per unit policy. HEME - * Symptomatic anemia: * Profound anemia of uncertain ideology at this time. * Question degree of bone marrow suppression in the chronic alcoholic given pancytopenic presentation with thrombocytopenia as well. * Stool slightly positive on Hemoccult testing. * Do not disagree with GI bleeding coverage in the acutely ill patient. * Transfuse PRBCs. ID - * Severe sepsis with septic shock: * Secondary to pulmonary versus integumentary sources. * Initially received vancomycin, Zosyn, and Levaquin. * Can likely discontinue vancomycin with negative nasal MRSA. * Consider transitioning from Levaquin to doxycycline which may offer incr easing benefits from the patient's RIGHT lower extremity cellulitis. * Would remain with Zosyn currently given his high risk for aspiration event. * Repeat lactate. * Procalcitonin mildly elevated. LINES/IV ACCESS - * PIVs x2 * Ceja catheter * RIGHT IJ * LEFT radial art line DVT PROPHYLAXIS - * Hold secondary to profound anemia and currently elevated INR. * SCDs I have personally spent 65 minutes of critical care time in the direct management of this patient. This is a life/limb threatening event. This includes time spent evaluating patient, direct bedside care, chart review, placing orders, interpretation of diagnostic studies, discussion with consultants, patient, and family members, as well as other required patient management activities. This time is exclusive of all separately billable procedures, and teaching time and separate from and in addition to any other critical care service time. Thank you for allowing us to participate in the care of this patient. Please refer to my attending physician's documentation for any further recommendations. (2) Severe sepsis: (3) Septic shock: (4) Severe anemia: (5) Left lower lobe pneumonia: (6) Acute hyponatremia: (7) Hypokalemia: (8) Non-STEMI (non-ST elevated myocardial infarction): (9) Cellulitis of right leg: (10) Alcohol abuse: Supervising Physician Co-Signing Physician Notes I have personally evaluated and examined this patient. I agree with assessment and plan of Diamond Moore PA-C. I was advised of this patient via telephone, see supplemental communication for additional critical care time which was performed after signout. History of Present Illness Attending Physician: Steve Reardon MD History of Present Illness Patient is a 54-year-old male with a past medical history of alcoholism who presents to the emergency department with a chief complaint of weakness. Patient was also felt to be altered from baseline per his family. In conversation with the patient's daughter, she reports that she had last seen him on Wednesday. He did not reach out to her by phone over the last few days which prompted her to evaluate him in his home. She found him to be jaundiced and appearing generally weak. She states that he had a fracture to his RIGHT foot approximately 1 month ago, and since that time he has had decreased ambulation and she is afraid that he has not eaten or drank much in the last few days. Patient complains of pain to the RIGHT foot. He is pleasantly confused. He does not provide significant historical information for past medical history. He denies any other complaints of pain otherwise. Allergies Allergy/AdvReac Type Severity Reaction Status Date / Time No Known Allergies Allergy Unverified 10/26/19 21:35 Home Medications Home Medications Medication Instructions Recorded Confirmed Type No Known Home Medications 09/25/19 10/26/19 History Patient History Medical History No significant past medical history Surgical History No significant past surgical history Social History Smoking Status: Current every day smoker Cigarettes Per Day: 20; Second Hand Exposure: No; Do You Dip or Chew Tobacco: No; Tobacco Cessation Education Requested by Patient: No Hx Alcohol Use: Yes Alcohol type: beer Hx Substance Use: Yes Last Used Substance: Unknown Preferred Language: Peruvian Communication 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 All else were negative. Physical Exam Physical Exam: VITAL SIGNS - Vital signs and nursing notes were reviewed. GENERAL - 54-year-old male appearing older than his stated age who is in moderate distress. Pleasantly confused, but does answer simple questions appropriately. Occasionally nonsensical. SKIN -circumferential erythema from the RIGHT foot extending to just below the knee. Warm to touch. No serosanguineous drainage appreciated. HEAD - NC/AT. EYES - PERRL with EOMI bilaterally. Sclera mildly icteric. Palpebral conjunctiva pink and moist with no injection noted. EARS - No deformities of external structures noted on gross examination bilaterally. NOSE - Midline and without cyanosis. No epistaxis or purulent drainage noted. MOUTH/OROPHARYNX - Without perioral cyanosis. Buccal mucosa pink and dry. Tongue midline with equal elevation of palate bilaterally. NECK - Neck with FROM. Supple to palpation. No nuchal rigidity. LUNGS - Chest wall symmetric without accessory muscle use, intercostals retractions, or central cyanosis. Coarse rhonchi noted at the LEFT lung base. CARDIAC - RRR with S1/S2. No murmur, rubs, or gallops appreciated. ABDOMEN - Abdominal contour flat without pulsations or visible masses. BS normoactive all four quadrants. No tenderness, palpable masses, hepatosplenomegaly, or ascites noted. EXTREMITIES -circumferential erythema with warmth to touch noted to the RIGHT lower extremity extending from just below the knee to the foot. Area is warm to touch and tender to palpation. No clubbing or peripheral cyanosis. No pretibial edema present. +3/5 radial pulses palpated throughout. Dopplerable pedal pulses bilaterally. NEUROLOGIC - Cranial nerves II through XII grossly intact. Sensory intact to light touch throughout. PSYCH -Patient is awake and alert. He is oriented to name, location, and year. He is uncertain of the date. He answers simple questions appropriately. He is occasionally nonsensical and difficult to understand. Results & Data Results & Data ([facility]) Vital Signs (Past 12 Hours) Vital Signs Temp Pulse Pulse Resp BP BP Pulse Ox 10/27/19 00:30 35.0 C L 10/27/19 00:26 80 10/27/19 00:16 84 22 104/69 92 10/27/19 00:15 86 19 93 10/27/19 00:08 34.7 C L 83 18 109/68 93 10/27/19 00:01 92 H 30 H 109/68 87 L 10/26/19 23:53 87 25 H 99/61 L 95 10/26/19 23:47 84 27 H 10/26/19 23:02 80 30 H 95 10/26/19 23:01 79 21 71/55 L 95 10/26/19 22:51 77 22 87/55 L 95 10/26/19 22:41 34.0 C L 75 27 H 10/26/19 22:40 74 28 H 98/60 L 95 10/26/19 22:31 79 26 H 95 10/26/19 22:30 78 30 H 103/61 95 10/26/19 22:23 78 31 H 96 10/26/19 22:22 79 23 97/65 L 97 10/26/19 22:20 77 30 H 10/26/19 22:15 74 24 89/59 L 97 10/26/19 22:11 67 29 H 97 10/26/19 22:10 67 23 63/42 L 95 10/26/19 22:01 68 24 10/26/19 22:00 69 28 H 77/40 L 10/26/19 21:51 70 28 H 96 10/26/19 21:50 60 27 H 63/34 L 94 10/26/19 21:41 78 29 H 66/44 L 97 10/26/19 21:40 68 21 10/26/19 21:31 67 28 H 97 10/26/19 21:30 69 29 H 75/52 L 96 10/26/19 21:28 97 10/26/19 21:20 71 31 H 96 10/26/19 21:15 69 25 H 80/50 L 97 10/26/19 21:10 71 25 H 96 10/26/19 21:08 72 25 H 89/55 L 96 10/26/19 21:06 34.1 C L 10/26/19 21:04 70 31 H 96 10/26/19 21:02 34.1 C L 74 30 H 94/57 L 96 10/26/19 21:00 71 36 H 83/50 L 96 Coding Level of Care Code Critical Care 1st 30-74 mins Diagnoses Admitted to intensive care unit Z78.9 Severe sepsis A41.9; R65.20 Septic shock A41.9; R65.21 Severe anemia D64.9 Left lower lobe pneumonia J18.9 Pneumonia type: due to unspecified organism Acute hyponatremia E87.1 Hypokalemia E87.6 Non-STEMI (non-ST elevated myocardial infarction) I21.4 Cellulitis of right leg L03.115 Alcohol abuse F10.10 Time Spent (min) 65 (1) Left lower lobe pneumonia Pneumonia type: due to unspecified organism Qualified Code(s): J18.9 - Pneumonia, unspecified organism
--- NOTE | 2019-10-27 00:54 | Procedure Note ---
Procedure Note Date of Service October 27, 2019 Procedure: Internal Jugular Central Line Placement Attending: Dr. Wheeler APC: Kaiser Moore PA-C Indication: Central Drug Administration, Poor Venous Access, Multiple Lab Draws Necessary, etc. Anesthesia: Lidocaine 1% Emergent consent implied in the setting of ultimately status, sepsis, h ypotension, need for vasopressors, frequent blood draws, etc. This was discussed with the patient healthcare proxy, Sarai. Additionally, I discussed this with the patient. The verbal consent. They agree and understand risks, benefits, alternatives, and possible complications. Despite this, they agree with proceeding. A time-out was completed verifying correct patient, procedure, site, posit ioning, and implants(s) or special equipment if applicable. Patients RIGHT Neck was cleansed and draped in the typical sterile fashion using Chloraprep. The Internal Jugular Vein and Carotid Artery were identified using ultrasound. The superficial tissue was anesthetized using 3.0 mL of 1% lidocaine without epinephrine under direct visualization with the ultrasound. After adequate anesthetization was achieved, the Internal Jugular vein was cannulated under direct ultrasound guidance using an introducer needle on a syringe. Good venous blood return was maintained prior to removal of syringe from introducer needle. Using Seldinger Technique, a guide wire was advanced through the introducer needle without resistance. The introducer needle was removed and ultrasound images were obtained of the guide wire within the Internal Jugular Vein and saved to the patients medical record. The dilator was advanced to the vessel without resistance. The dilator was exchanged for the triple lumen catheter which was advanced into the vessel without resistance. The guide wire was removed intact from the catheter without issue. Claves were placed on each catheter tip with confirmation of good blood flow from each lumen. Each port was easily flushed with sterile saline. The catheter was placed at 15 cm and sutured in place. BioPatch was applied to the catheter and a sterile Tegaderm dressing was applied over the catheter with careful attention to sterility. Patient tolerated procedure well. No immediate complications were met. Post procedure x-ray was completed, placement was appropriate and no pneumothorax was noted. Images obtained are saved for permanent record Procedural Ultrasound Guidance: Procedure Date: 10/27/2019 Indication: Pressors, Blood, Multiple Drugs, Frequent Labs, Poor peripheral access Attending: Dr. Wheeler APC: Kaiser Moore PA-C Artery AND Vein visualized: YES Compressible Vein: YES Guidewire or Short Catheter seen in vein prior to dilation: YES Line confirmed in Vein with ultrasound: YES Images obtained are saved for permanent record. Coding CPT Codes Tubes, Drains, and Vasc Access - Tubes, Drains, and Vasc Access: [id number] Insertion Of Non-tunneled Catheter Age 5 Yrs> ([id number]) Tubes, Drains, and Vasc Access - Tubes, Drains, and Vasc Access: [id number] Ultrasound Guidance For Vascular ([id number]) [facility] [place] Procedure Codes (Charges) Tubes, Drains, and Vasc Access Procedure 1: Tubes, Drains, and Vasc Access: [id number] Insertion Of Non-tunneled Catheter Age 3 Yrs> Procedure 2: Tubes, Drains, and Vasc Access: [id number] Ultrasound Guidance For Vascular
[2019-10-27 01:08] LABS: Appearance Urine Turbid (Clear); Blood Urine Negative (Negative); Color Urine Orange; Glucose Urine UA Negative (Negative); Ketones Urine Trace (Negative); Leukocyte Esterase Urine 1+ (Negative); Nitrite Urine Positive (Negative); Protein Urine 2+ (Negative); Specific Gravity Urine 1.021 (1.000-1.030); Urobilinogen Urine Negative (Negative)
[2019-10-27 01:23] LABS: Bilirubin Urine 2+ (Negative)
[2019-10-27 01:25] LABS: Ictotest Urine Positive (Negative)
[2019-10-27] MEDS ORDERED: LEVOFLOXACIN/D5W 500 MG/100 ML BAG IV SCH (02:00)
[2019-10-27 02:02] LABS: BUN Creatinine Ratio 18.3 (10-20); Creatinine Clr Calc Pharmacy 60.8 ml/min; Est GFR (African American) 97.1; Est GFR (Non-African American) 83.8; Magnesium 1.9 mg/dl (1.8-2.4); Potassium 3.6 mmol/L (3.5-5.1)
[2019-10-27 02:05] LABS: Phosphorus 4.6 mg/dl (2.5-4.9)
[2019-10-27 02:22] LABS: Hepatitis B Surface Antigen Neg (Neg)
[2019-10-27] MEDS ORDERED: IOVERSOL 100ml IV ONE (02:32)
[2019-10-27 02:51] LABS: Hepatitis C IgG 13Yrs+Old_Rflx Neg (Neg)
--- NOTE | 2019-10-27 03:11 | Procedure Note ---
Procedure Note Date of Service October 27, 2019 Procedure: Arterial Line Placement Attending: Dr. Wheeler APC: Kaiser Moore PA-C Indication: Monitoring on Pressors Anesthesia: Lidocaine 1% Emergent consent implied in the setting of need for vasoactive medications, frequent lab draws, close hemodynamic monitoring, and poor peripheral access. Verbal consent obtained from healthcare proxy prior to performing procedure as patient is pleasantly altered. A time-out was completed verifying correct patient, procedure, site, positioning, and implant(s) or special equipment if applicable. Allens test was performed to ensure adequate perfusion. Patients LEFT wrist was prepped and draped in the usual sterile fashion. Ultrasound guidance was used to aid needle placement. A 20g Arrow arterial line was introduced into the LEFT Radial artery. Catheter was threaded, and the needle was removed with appropriate blood return. Good waveform was observed. The patient tolerated the procedure well. Confirmation of placement with ultrasound. Blood Loss: Minimal Complications: None Procedural Ultrasound Guidance: Procedure Date: 10/27/2019 Indication: Pressors, Frequent labs, hemodynamic monitoring Attending: Dr. Wheeler APC: Kaiser Moore PA-C Artery Identified: YES Line confirmed in Artery with ultrasound: YES Complications: NONE Patient tolerated procedure: WELL Coding CPT Codes Tubes, Drains, and Vasc Access - Tubes, Drains, and Vasc Access: [id number] Place Catheter In Artery ([id number]) [facility] [place] Procedure Codes (Charges) Tubes, Drains, and Vasc Access Procedure 3: Tubes, Drains, and Vasc Access: [id number] Place Catheter In Artery
[2019-10-27] MEDS: PIPERACILLIN/TAZOBACTAM 4.5 GM in DEXTROSE 5% 100 ML IV SCH ×3 (04:24→19:06)
--- NOTE | 2019-10-27 06:24 | Communication Note ---
Date of Service: October 27, [address] studies obtained, there is concern for multiple rib fractures as well as possible hemothorax as well as prior sternal fracture. Given this amount of trauma and concerns for profound anemia with possible hemothorax, I did feel that it was appropriate to obtain repeat imaging modalities of the chest to include IV contrast for possible sources of intrathoracic bleeding. CT of the chest and abdomen were obtained with IV contrast. Additionally, completion of trauma scans were obtained including cervical, thoracic, and lumbar spines. On reassessment of the patient at bedside, he does appear to have some slight bruising to the LEFT-sided chest wall with mild tenderness to palpation. Otherwise, no significant findings. Patient is titrating down his Levophed at this point. He is resting comfortably. I have personally spent 32 minutes of critical care time in the direct management of this patient. This is a life/limb threatening event. This includes time spent evaluating patient, direct bedside care, chart review, placing orders, interpretation of diagnostic studies, discussion with consultants, patient, and family members, as well as other required patient management activities. This time is exclusive of all separately billable procedures, and teaching time and separate from and in addition to any other critical care service time. Coding Level of Care Code Critical Care char zapatat'l 30 min Time Spent (min) 32
--- NOTE | 2019-10-27 06:52 | XRay Report ---
XR foot RT min 3V routine CLINICAL HISTORY: Right foot pain. Possible fracture COMPARISON: 09/25/2019 DISCUSSION: The bones are severely osteopenic. There are subacute fractures of the second and third m etatarsal necks. There is no dislocation.. IMPRESSION: 1. Subacute fractures of the right second and third metatarsal necks. 2. Severe osteopenia ACT 112: Negative or not required by law. Electronically signed by: Hector Tomas M.D. 10/27/2019 6:51 AM
--- NOTE | 2019-10-27 06:54 | XRay Report ---
XR chest 1V portable CLINICAL HISTORY: SEPSIS COMPARISON STUDY: No previous studies for comparison. FINDINGS: The heart is normal in size. There are multiple bilateral rib fractures and differing stage s of healing. There is a small left pleural effusion with associated left basilar airspace opacities. No pneumothorax is visualized IMPRESSION: Small left pleural effusion with associated left basilar airspace opacities, atelectasis versus pneumonia ACT 112: Negative or not required by law. Electronically signed by: Hector Tomas M.D. 10/27/2019 6:53 AM
--- NOTE | 2019-10-27 06:58 | Ultrasound Report ---
US venous doppler LE RT CLINICAL HISTORY: Right leg swelling COMPARISON STUDY: No previous studies for comparison. FINDINGS: Real-time and color flow Doppler imaging were performed. Flow was seen within the femoral, popliteal and calf veins with no intraluminal thrombus demonstrated. The saphenous vein is patent. Th ere is minor chronic wall thickening. IMPRESSION: No evidence of right lower extremity DVT ACT 112: Negative or not required by law. Electronically signed by: Hector Tomas M.D. 10/27/2019 6:56 AM
--- NOTE | 2019-10-27 06:59 | XRay Report ---
XR chest 1V portable CLINICAL HISTORY: S/P central line placement COMPARISON STUDY: 10/26/2019 FINDINGS: There are persistent left basilar airspace opacities. Multiple rib fractures again evident. There is been interval placement of a right internal jugular central venous catheter. The tip projec ts at the superior vena cava. There is no pneumothorax.[ IMPRESSION: No pneumothorax status post placement of right internal jugular central venous catheter. ACT 112: Negative or not required by law. Electronically signed by: Hector Tomas M.D. 10/27/2019 6:57 AM
--- NOTE | 2019-10-27 07:01 | Ultrasound Report ---
US gallbladder CLINICAL HISTORY: Elevated LFTs. Alcohol abuse. COMPARISON STUDY: CT scan dated 10/27/2019 FINDINGS: The study was difficult for technical standpoint. The patient was unable to cooperate with breath-hol ding. The pancreas appears sonographically normal. No focal hepatic masses were visualized. There is no ductal dilatation. The common bile duct measured 4 mm. There is no right-sided hydronephrosis. There was cholelithiasis. There is no gallbladder wall thickening. Technologist reports a negative so nographic Briscoe sign. IMPRESSION: Cholelithiasis. No evidence of ductal dilatation. ACT 112: Negative or not required by law. Electronically signed by: Hector Tomas M.D. 10/27/2019 6:59 AM
[2019-10-27] MEDS ORDERED: PERFLUTREN LIPID MICROSPHERE (DEFINITY) IV ONE (07:06)
--- NOTE | 2019-10-27 07:14 | Critical Care Progress Note ---
Date of Service October 27, 2019 Assessment & Plan (1) Septic shock: Reason Critically Ill: 54 yo M no noted PMHx presenting with profound weakness and AMS, found to be severely anemic and hypotensive. Admitted for severe sepsis, symptomatic anemia, and AMS. NEURO - CAM ICU: POSITIVE Altered mental status: - Differentials include severe sepsis, hyponatremia, severe anemia, alcohol withdrawal. - Treatment for these outlined below. - CT Head negative for acute process. - No focal neurological deficits on physical exam. - At time of interview patient alert and fairly oriented, improved from ER and admission exam. History of chronic alcohol abuse at risk of withdrawal: - Though the patient's family reports that he has not had alcohol in a week, this AM he reports having had alcohol as recently as day of admission. - 2:1 AST/ALT ratio suggestive of alcohol abuse. T Bili elevated on admission and further elevated this AM to 5.7 - Alcohol level in ER negative. - No outward signs of withdrawal on admission, however this AM with AWSS score 8. - AWSS at risk IV Ativan protocol started. - No history of seizures, and no seizures while in hospital. - Thiamine, folate daily. - Hepatitis panel pending. - Care Management to discuss alcohol rehabilitation options with patient while admitted. CARDIOVASCULAR - Hypotension: - On admission with severe sepsis from pulmonary vs. skin/soft tissue infection. - Also likely 2/2 volume depletion given severe anemia with Hgb 5.4; patient is s/p 3u PRBCs. - In ED received NSS 2L bolus, and overnight was on NSS with KCl 20meq @ 150cc/hr. - Transitioned this AM to Normosol 100cc/hr, held at this time due to hyponatremia. - Was on Levophed overnight, however was weaned off this afternoon with BP 100s/50s. - A line in place for close BP monitoring. NSTEMI: - Elevated troponin on arrival to 0.090 -> 0.099 - 0.188 -> 0.215. - EKG without ST elevation this AM, nonspecific T wave abnormality in anterior leads. - Patient is without complaints of chest pain or anginal equivalents. - Echo this AM: EF >70%, LV hyperdynamic, no wall motion abnormalities, no valvular abnormalities. - Elevated troponin likely 2/2 severe anemia vs. severe sepsis and hypotension causing demand ischemia. - Continue telemetry monitoring, trend troponin q8h to peak. RESPIRATORY - ? Pneumonia: - CXR showed small left pleural effusion with associated left basilar airspace opacities, atelectasis versus pneumonia. - CT Chest showed left lower lobe airspace opacities, atelectasis vs. pneumonia. - On review with Dr. Wheeler, lung opacity possible 2/2 hemothorax. - Given alcoholic patient with weakness and confusion, aspiration event is possible. - Initial antibiotic coverage was Levaquin, vancomycin, Zosyn. - MRSA nares negative, vancomycin discontinued. - Levaquin d/c'ed as unlikely to be atypical bacterial pneumonia, continue Zosyn monotherapy. - Biofire panel negative. - COVID 19 testing negative. - Currently on Oxymask 6L, continue to wean as tolerated. Hx Smoking Abuse: - Patient is a daily smoker and has findings on CT Chest suggestive of emphysema. - Continue to wean oxygen as tolerated. - Encourage smoking cessation. GI/NUTRITION - Jaundice with Hx chronic alcohol abuse: - LFTs with AST minimal elevation, however with AST:ALT >2:1 ratio suggestive of alcoholic cirrhosis. - Elevated T Bili and INR, as well as jaundice also support likelihood of alcoholic cirrhosis. - Acetaminophen level negative. - Acute Hepatitis panel negative. - Encourage alcohol cessation while admitted. GI bleed: - Scantly Hemoccult positive on exam. - Continue Protonix and Octreotide. - Patient's daughter relays that patient has "a history of anemia from alcohol abuse". - Reticulocyte count normal. - Hemoglobin stable following 3u PRBCs (~10). - Continue to monitor CBC. RENAL/LYTES - Hyponatremia: - Etiologies include beer potomania, as patient appears malnourished and drinks a 6 pack or more per day, as well as malnutrition. - Patient received 2 L IV crystalloid bolus in the emergency department. - This AM NSS transitioned to normosol @ decreased rate of 100cc/hr, and then held in the setting of Hypokalemia: Replace appropriately. - - Ceja in place - Strict I&Os. ENDO - - No history of diabetes or thyroid disease, however has not seen a PCP in over 10 years. - ICU hyperglycemia protocol. HEME - Pancytopenia with symptomatic anemia: - Profound anemia to ~5 on admission, increased to ~10 with 3u PRBCs. - No signs of bleeding on CT Head, CTAP. - Possible source of bleeding could be hemothorax as above. - Likely 2/2 bone marrow suppression in the chronic alcoholic given pancytopenic presentation. - Reticulocyte count is normal, unlikely to be 2/2 myeloproliferative disorder. - Stool slightly positive on Hemoccult testing. - Octreotide/PPI for potential GIB. - No melena, bloody vomitus, or bright red blood in stool. - Completed transfusion, monitor CBC daily. ID - Severe sepsis with septic shock: - Secondary to pulmonary vs SSI vs UTI source. - With mild elevation in procalcitonin. - Initially received vancomycin, Zosyn, and Levaquin. - Vancomycin discontinued due to negative MRSA nares. - Levaquin d/c'ed, continue Zosyn monotherapy. TRAUMA/MSK - Severe Osteopenia on Imaging with Multiple Fractures: - Patient with several rib fractures, healing sternal fracture, and several RLE metatarsal fractures. - no signs of flail chest. - Likely due to frequent falls while intoxicated. - Patient has severe osteopenia on imaging, putting him at increased fracture risk. - Patient is without pain. Consider PRN pain medication. LINES/IV ACCESS - - PIVs x2. - R IJ triple lumen. - L radial arterial line. DVT PROPHYLAXIS - - Holding Heparin DVT prophylaxis due to significant anemia and elevated INR. - SCDs. Thank you for allowing us to participate in the care of this patient. Please refer to Dr. Wheeler's documentation for any further recommendations. (2) Severe anemia: (3) Acute hyponatremia: (4) Hyperbilirubinemia: (5) Hypokalemia: (6) Non-STEMI (non-ST elevated myocardial infarction): (7) COVID-19 ruled out by laboratory testing: (8) Cellulitis of right leg: (9) Alcohol abuse: (10) Ribs, multiple fractures: (11) Metatarsal stress fracture of right foot: (12) Left lower lobe pneumonia: (13) Sternal fracture: (14) Altered mental state: Admission and Anticipated Discharge Date Admission Date: October 26, 2019 Supervising Physician Co-Signing Physician Notes Dr. Suazo was resident physician during care of patient. I separately evaluated patient for zavaleta portions of the history and the exam. I was present during the critical portion of medical decision making, and I discussed the case with the resident. I generally agree with the findings and plan. Severe hyponatremia, improving with crystalloid infusion and DDAVP. critically ill, alcohol withdrawal precautions. Subjective Patient was admitted overnight for confusion and weakness via EMS, found to be hypotensive, hypothermic, severely anemic, and with several fractures. Stable at this time, alert to name, city but not that he is in the hospital. Complaining of R leg pain. States that about 4 weeks ago he was walking outside and he twisted his R leg in a hole in the ground, but did not want to see a doctor. States it hurts less now than it did several weeks ago. At time of interview denies CP, SOB, fevers or chills, constipation or diarrhea, nausea, headache or dizziness, anxiety, agitation, hallucinations. States that last alcohol beverage (he usually drinks "a bunch of Regina") was yesterday early in the day prior to arrival in the ER. Denies ingestion of other types of alcohol, and denies ingestion of other substances such as hand pamphlet distributor, mouthwash, windshield washer fluid. Review of Systems Review of Systems: All systems reviewed & are unremarkable except as noted in Subjective Physical Exam Constitutional: well developed, + ill appearing and + thin Eyes: scleral icterus PERRL No scleral abnormality ENMT: external ear and nose normal poor dentition Neck: normal visual inspection Respiratory: + cough Normal respiratory effort, though tachypneic Bilateral diffuse coarse crackles/rhonchi inspiratory>expiratory O2 saturation 94% on 6L Oxymask Cardiovascular: Rate/Rhythm: regular rate and regular rhythm Heart Sounds: no murmur Extremities: no edema Bilateral DP/PT pulses nonpalpable Bilateral DP/PT pulses dopplerable Gastrointestinal (Abdomen): Inspection/Auscultation: abdomen normal to inspection and normal bowel sounds Percussion/Palpation: abdomen soft and + hepatomegaly; abdomen nontender Musculoskeletal: Head/Neck/Chest: normocephalic Extremities: no clubbing Skin: RLE red, warm to the touch diffuse ecchymoses at different levels of healing on bilateral arms, legs Jaundice diffuse Neurologic: moves all extremities Speech / Cognition: + abnormal speech No asterixis Mild tremor Does not know the date Psychiatric: Orientation: alert Affect: + anxious affect Oriented to name, city. Did not know he was in the hospital or what day it is. Tangential but redirectable. Genitourinary: Ceja draining clear yellow urine Results & Data Results & Data ([facility]) Vital Signs (Past 12 Hours) Vital Signs Temp Pulse Pulse Resp BP BP Pulse Ox 10/27/19 06:48 35.6 C L 92 H 28 H 114/55 L 90 10/27/19 06:18 35.6 C L 90 27 H 106/49 L 91 10/27/19 06:03 35.4 C L 87 28 H 106/47 L 93 10/27/19 05:48 35.2 C L 84 29 H 96/45 L 94 10/27/19 05:43 35.2 C L 84 23 98/42 L 94 10/27/19 05:38 35.2 C L 86 34 H 99/71 L 94 10/27/19 05:00 78 25 H 96 10/27/19 04:45 84 23 94 10/27/19 04:38 35.0 C L 85 32 H 121/78 93 10/27/19 04:30 85 25 H 92 10/27/19 04:28 88 20 121/78 92 10/27/19 04:15 83 26 H 94 10/27/19 04:08 35.1 C L 83 28 H 133/57 L 94 10/27/19 04:00 86 23 91 10/27/19 03:53 35.2 C L 85 20 119/59 L 91 10/27/19 03:45 87 21 94 10/27/19 03:32 35.2 C L 85 29 H 125/59 L 94 10/27/19 03:30 83 21 94 10/27/19 03:28 83 23 111/69 94 10/27/19 03:22 35.3 C L 83 34 H 124/58 L 93 10/27/19 03:21 35.3 C L 83 30 H 113/71 93 10/27/19 03:16 86 30 H 113/71 93 10/27/19 03:04 35.3 C L 85 22 111/41 L 90 10/27/19 03:01 89 29 H 113/67 91 10/27/19 03:00 89 20 89 L 10/27/19 02:46 88 24 97/64 L 91 10/27/19 02:33 88 30 H 98/60 L 92 10/27/19 02:15 77/46 L 10/27/19 02:04 35.7 C L 84 20 77/46 L 95 10/27/19 01:34 35.6 C L 90 30 H 82/61 L 93 10/27/19 01:31 89 22 82/61 L 93 10/27/19 01:30 89 25 H 94 10/27/19 01:19 35.6 C L 86 20 93/65 L 94 10/27/19 01:16 88 28 H 93/65 L 94 10/27/19 01:15 88 24 94 10/27/19 01:03 35.5 C L 85 20 89/62 L 94 10/27/19 01:01 86 28 H 89/62 L 92 10/27/19 01:00 86 23 92 10/27/19 00:46 85 23 82/62 L 93 10/27/19 00:45 83 22 93 10/27/19 00:31 87 26 H 98/66 L 96 10/27/19 00:30 35.0 C L 87 19 97 10/27/19 00:26 80 10/27/19 00:17 88 23 92 10/27/19 00:16 84 22 104/69 92 10/27/19 00:15 86 19 93 10/27/19 00:08 34.7 C L 83 18 109/68 93 10/27/19 00:01 92 H 30 H 109/68 87 L 10/26/19 23:53 87 25 H 99/61 L 95 10/26/19 23:47 84 27 H 10/26/19 23:02 80 30 H 95 10/26/19 23:01 79 21 71/55 L 95 10/26/19 22:51 77 22 87/55 L 95 10/26/19 22:41 34.0 C L 75 27 H 10/26/19 22:40 74 28 H 98/60 L 95 10/26/19 22:31 79 26 H 95 10/26/19 22:30 78 30 H 103/61 95 10/26/19 22:23 78 31 H 96 10/26/19 22:22 79 23 97/65 L 97 10/26/19 22:20 77 30 H 10/26/19 22:15 74 24 89/59 L 97 10/26/19 22:11 67 29 H 97 10/26/19 22:10 67 23 63/42 L 95 10/26/19 22:01 68 24 10/26/19 22:00 69 28 H 77/40 L 10/26/19 21:51 70 28 H 96 10/26/19 21:50 60 27 H 63/34 L 94 10/26/19 21:41 78 29 H 66/44 L 97 10/26/19 21:40 68 21 10/26/19 21:31 67 28 H 97 10/26/19 21:30 69 29 H 75/52 L 96 10/26/19 21:28 97 10/26/19 21:20 71 31 H 96 10/26/19 21:15 69 25 H 80/50 L 97 10/26/19 21:10 71 25 H 96 10/26/19 21:08 72 25 H 89/55 L 96 10/26/19 21:06 34.1 C L 10/26/19 21:04 70 31 H 96 10/26/19 21:02 34.1 C L 74 30 H 94/57 L 96 10/26/19 21:00 71 36 H 83/50 L 96 Resident Activity Tracking Resident Involvement: Resident Care Provided Care Provided: Adult Hospital Medicine (1) Ribs, multiple fractures Encounter type: initial encounter Fracture type: closed Laterality: unspecified laterality Qualified Code(s): S22.49XA - Multiple fractures of ribs, unspecified side, initial encounter for closed fracture (2) Metatarsal stress fracture of right foot Encounter type: initial encounter Qualified Code(s): M84.374A - Stress fracture, right foot, initial encounter for fracture (3) Altered mental state Altered mental status type: delirium Qualified Code(s): R41.0 - Disorientation, unspecified (4) Sternal fracture Encounter type: initial encounter Fracture type: closed Sternal location: unspecified Qualified Code(s): S22.20XA - Unspecified fracture of sternum, initial encounter for closed fracture (5) Left lower lobe pneumonia Pneumonia type: due to unspecified organism Qualified Code(s): J18.9 - Pneumonia, unspecified organism
--- NOTE | 2019-10-27 07:14 | CT Scan Report ---
CT SCAN OF THE BRAIN WITHOUT IV CONTRAST CLINICAL HISTORY: Change in mental status. COMPARISON STUDY: No priors. TECHNIQUE: Unenhanced axial CT scan of the brain is performed from the vertex to the skull base. A do se lowering technique was utilized adhering to the principles of ALARA. FINDINGS: Brain parenchyma: There is mild subcortical and periventricular microangiopathic change. There is no hemorrhage, mass effect, or evidence of acute territorial ischemia by CT criteria. Valdez-white matter differentiation is preserved. No extra-axial fluid collection is seen. Ventricles, sulci, cisterns: Prominent secondary to involutional change. Intracranial vasculature: There is atherosclerotic calcification of the cavernous carotid and vertebr al arteries. Calvarium: Unremarkable. Sinuses and mastoids: The visualized paranasal sinuses are clear. There are small mastoid effusions. Orbits: The bony orbits are grossly intact. IMPRESSION: There is no hemorrhage, mass effect, or evidence of acute territorial ischemia by CT ab josue. ACT 112: Negative or not required by law. Electronically signed by: Glenroy Henry M.D. 10/27/2019 7:13 AM
--- NOTE | 2019-10-27 07:25 | CT Scan Report ---
CT chest wo con CLINICAL HISTORY: pneumonia COMPARISON STUDY: Chest x-ray dated 10/26/2019 CT DOSE: 539.87 mGy.cm TECHNIQUE: CT of the thorax was performed from the thoracic inlet to the lung bases. Images are revi ewed in the axial, sagittal, and coronal planes. IV contrast was not administered for this examinatio n. A dose lowering technique was utilized adhering to the principles of ALARA. FINDINGS: Thyroid: Imaged portions of the thyroid gland are normal in appearance. Thoracic aorta: The thoracic aorta is normal in course and caliber, noting standard 3 vessel arch emily fern. Heart: Heart is normal in size. There is no pericardial effusion. There are coronary artery calcifica tions. Lungs and pleural spaces: There is a left pleural effusion. There is pulmonary emphysema. There are l eft lower lobe airspace opacities, atelectasis versus pneumonia. There is moderate respiratory motion artifact. There is minor groundglass opacity within the anterior aspect of both upper lobes. Mediastinum: There is a subcarinal lymph node the upper limits of normal in size. Alia: There is no evidence of pathologic hilar adenopathy given the limitations of a noncontrast stud y Axilla: There is no evidence of pathologic axillary lymphadenopathy Upper abdomen: Partially visualized upper abdominal viscera is within normal limits. Skeletal structures: There are multiple rib fractures of differing ages. The left rib fractures appea r acute/subacute with adjacent pleural reaction. There is a comminuted ununited sternal body fracture . IMPRESSION: 1. Motion degraded study 2. Left pleural effusion with associated left lower lobe airspace opacities, atelectasis versus pneum onia 3. Multiple bilateral rib fractures. The left fractures appear acute/subacute with adjacent pleural r eaction 4. Ununited sternal fracture 5. Nonspecific subpleural groundglass opacities within the lungs. Diagnostic considerations include p ulmonary contusion, atelectasis, or atypical infection. ACT 112: Negative or not required by law. Electronically signed by: Hector Tomas M.D. 10/27/2019 7:24 AM
--- NOTE | 2019-10-27 07:26 | CT Scan Report ---
CT SCAN OF THE CERVICAL SPINE CLINICAL HISTORY: Falls. COMPARISON STUDY: No priors. TECHNIQUE: CT scan of the cervical spine is performed from the skull base to the upper thoracic spine . Images are reviewed in the axial, sagittal, and coronal planes. IV contrast was not administered fo r this examination. A dose lowering technique was utilized adhering to the principles of ALARA. CT DOSE: 261.36 mGy.cm FINDINGS: Skeletal structures: The skeletal structures are osteopenic. There is no evidence of fracture or subl uxation involving the cervical spine. Vertebral body height and alignment are maintained. Small anter ior osteophytes are noted in the lower cervical region. The odontoid process and lateral masses are i ntact. The atlantoaxial articulation is preserved noting productive degenerative change. The spinous processes appear intact. Mild facet arthropathy is noted. Intervertebral discs: The disc spaces are maintained. Central canal: Grossly patent. Soft tissues: The prevertebral and paraspinous soft tissues are within normal limits. There is athero sclerotic calcification of the carotid bulbs. A right internal jugular central venous catheter is in place. Calvarium: The visualized calvarium at the skull base appears intact. Brain parenchyma: Partially visualized brain parenchyma the skull base is within normal limits. Sinuses and mastoids: The visualized paranasal sinuses are clear. There are trace mastoid effusions. Lung apices: Emphysematous change is noted at the apices. Apical lung parenchyma is otherwise clear. IMPRESSION: There is no evidence of fracture or subluxation involving the cervical spine ACT 112: Negative or not required by law. Electronically signed by: Glenroy Henry M.D. 10/27/2019 7:25 AM
--- NOTE | 2019-10-27 07:28 | CT Scan Report ---
CT SCAN OF THE ABDOMEN AND PELVIS WITHOUT CONTRAST CLINICAL HISTORY: hypovolemic shock COMPARISON STUDY: No previous studies for comparison. TECHNIQUE: CT scan of the abdomen and pelvis was performed from the lung bases to the proximal femurs . Images are reviewed in the axial, sagittal, and coronal planes. IV contrast was not administered fo r this examination. A dose lowering technique was utilized adhering to the principles of ALARA. CT DOSE: FINDINGS: Lower chest: There is a left pleural effusion with associated left lower lobe atelectasis/consolidati on. Liver: The unenhanced liver is normal in size, contour, and attenuation. There is no intrahepatic ammon iary ductal dilatation. Gallbladder: Cholelithiasis Spleen: Normal in size and attenuation. Pancreas: Unremarkable. Adrenal glands: Unremarkable. Kidneys: The unenhanced kidneys are normal in size without hydronephrosis. There is no contour deform ing renal mass lesion. No renal calculi are identified. Bowel: There are no transition zones indicate bowel obstruction. No acute inflammatory changes are vi sualized Peritoneum: There is a small amount of pelvic free fluid. No free intraperitoneal air is visualized Vasculature: The abdominal aorta is normal in course and caliber. Adenopathy: None. Pelvic viscera: The bladder, and pelvic viscera are unremarkable. Skeletal structures: There are bilateral rib fractures IMPRESSION: 1. Significantly motion degraded study 2. Cholelithiasis 3. No evidence of bowel obstruction. No evidence of free air 4. Small amount of free pelvic fluid. ACT 112: Negative or not required by law. Electronically signed by: Hector Tomas M.D. 10/27/2019 7:26 AM
--- NOTE | 2019-10-27 07:33 | CT Scan Report ---
CT OF THE CHEST WITH IV CONTRAST CLINICAL HISTORY: Left-sided rib fractures. Possible hemothorax. COMPARISON STUDY: 10/26/2019 TECHNIQUE: Following the IV administration of 92 mL of Optiray-320, CT of the thorax was performed f rom the thoracic inlet to the lung bases. Images are reviewed in the axial, sagittal, and coronal [place]. IV contrast was administered without complication. A dose lowering technique was utilized adher ing to the principles of ALARA. CT DOSE: FINDINGS: Thyroid: Imaged portions of the thyroid gland are normal in appearance. Thoracic aorta: The thoracic aorta is normal in course and caliber, noting standard 3-vessel arch emily fern. No aneurysm or dissection is seen. Pulmonary vasculature: The pulmonary trunk is normal in caliber. There are no central filling defects identified to suggest pulmonary embolus. Note that this examination was not protocoled for the evalu ation of pulmonary emboli. HEART: The heart is normal in size and configuration, without pericardial effusion. Lungs and pleural spaces: There is a small left pleural effusion and trace right pleural effusion. Th ere are left lower lobe airspace opacities, atelectasis versus pneumonia. There are a few scattered g roundglass opacities present with a subpleural distribution. These can be atelectatic, secondary to p ulmonary contusion, or secondary to atypical infectious process. Mediastinum: Mediastinal lymph nodes are the upper limits of normal in size Alia: There is no evidence of pathologic hilar adenopathy Axilla: There is no evidence of pathologic axillary lymphadenopathy Upper abdomen: Cholelithiasis Skeletal structures: There are multiple bilateral rib fractures. The left-sided rib fractures appear acute/subacute with adjacent pleural reaction. There is an ununited sternal fracture. There is a right internal jugular central venous catheter within the superior vena cava IMPRESSION: 1. Acute/subacute distracted left fourth through seventh rib fractures with associated pleural reacti on 2. Additional old bilateral rib fractures 3. Ununited old sternal fracture 4. Bilateral pleural effusions left greater than right 5. Left lower lobe airspace opacities, atelectasis versus pneumonia 6. Scattered subpleural groundglass opacities, likely atelectatic although pulmonary contusion or an atypical infection could appear similar 7. Cholelithiasis ACT 112: Negative or not required by law. Electronically signed by: Hector Tomas M.D. 10/27/2019 7:31 AM
--- NOTE | 2019-10-27 07:39 | CT Scan Report ---
CT SCAN OF THE ABDOMEN AND PELVIS WITH IV CONTRAST; CT SCAN OF THE LUMBAR SPINE CLINICAL HISTORY: Fall. Trauma. COMPARISON STUDY: Abdominal CT dated 10/26/2019. TECHNIQUE: Following the IV administration of 92 cc of Optiray 320, CT scan of the abdomen and pelvi s is performed from the lung bases to the proximal femora. Additionally, CT scan of the lumbar spine is performed from the lower thoracic spine to the sacrum. Images for both examinations are reviewed i n the axial, sagittal, and coronal planes. IV contrast was administered without complication. A dose lowering technique was utilized adhering to the principles of ALARA. The examination is degraded by s treak artifact from the arms which could not be elevated above the chest. FINDINGS: Lung bases: The heart is normal in size and without pericardial effusion. There are small left and tr aracely right pleural effusions with associated left basilar consolidation. A small hiatal hernia is note d. Liver: The contrast-enhanced liver is normal in size, contour, and attenuation. There is no intrahepa tic biliary ductal dilatation. The hepatic veins and portal veins are patent. Gallbladder: There are calcified gallstones with no CT evidence of acute cholecystitis. Spleen: Normal in size and attenuation. There is a calcified splenic granuloma. Pancreas: Moderately atrophic and grossly unremarkable. Adrenal glands: Unremarkable. Kidneys: The contrast enhanced kidneys demonstrate mild cortical atrophy and are without hydronephros is. The kidneys enhance symmetrically. Abdominal vasculature: The abdominal aorta is normal in course and caliber noting advanced atheroscle rotic calcification. Bowel: The small bowel and colon are normal in course and caliber. The appendix is normal as visuali zed. Peritoneum: No intraperitoneal free air is seen. There is a small volume of pelvic ascites. There is a small fat-containing umbilical hernia. Lymphadenopathy: None. Pelvic viscera: The bladder is decompressed around a Ceja catheter and not well evaluated. Foci of i ntraluminal gas are likely related to instrumentation. The prostate and seminal vesicles are normal a s imaged. Skeletal structures: The skeletal structures are osteopenic. There are subacute to chronic bilateral rib fractures. No acute fracture is clearly identified. See below for discussion of the lumbar spine. The sacrum, bony pelvis, and proximal femora appear intact. No lytic or blastic lesions are seen. LUMBAR SPINE: Vertebral body height and alignment are maintained throughout the lumbar spine. Small a nterior and lateral marginal osteophytes are seen throughout. The transverse and spinous processes ar e intact. There is no evidence of spondylolysis. The disc spaces are preserved. A posterior disc bulg e is noted at L4-L5. The paraspinous soft tissues are within normal limits. IMPRESSION: 1. There is no evidence of solid organ injury in the abdomen or pelvis. 2. Small volume of pelvic ascites. 3. Small left and trace right pleural effusions with associated left basilar consolidation. This coul d represent atelectasis versus an infectious/inflammatory pneumonitis and clinical correlation will b e required. 4. There is no evidence of fracture or malalignment involving the lumbar spine. 5. Cholelithiasis. 6. Additional findings as above. ACT 112: Negative or not required by law. Electronically signed by: Glenroy Henry M.D. 10/27/2019 7:37 AM
--- NOTE | 2019-10-27 08:00 | Ultrasound Report ---
DOPPLER ULTRASOUND OF THE HEPATIC AND PORTAL VASCULATURE CLINICAL HISTORY: Elevated hepatic transaminases. COMPARISON STUDY: Abdominal CT performed the same day 10/27/2019. FINDINGS: Real-time, grayscale, and color Doppler sonography of the hepatic and portal vasculature is performed. The hepatic veins and portal veins are patent with normal direction of flow. The hepatic artery is patent IMPRESSION: Normal Doppler ultrasound of the hepatic and portal vasculature. This was better assessed on today's contrast-enhanced abdominal CT scan. Electronically signed by: Glenroy Henry M.D. 10/27/2019 7:59 AM
--- NOTE | 2019-10-27 08:43 | CT Scan Report ---
CT SCAN OF THE THORACIC SPINE WITHOUT IV CONTRAST CLINICAL HISTORY: Trauma. Falls. COMPARISON STUDY: Chest CT performed concurrently on 10/27/2019. TECHNIQUE: CT scan of the thoracic spine is performed from the lower cervical spine to the upper lumb ar spine. Images are reviewed in the axial, sagittal, and coronal planes. IV contrast was not adminis tered specifically for this examination. A dose lowering technique was utilized adhering to the princ iplari of YARIEL. CT DOSE: 617.38 mGy.cm FINDINGS: The skeletal structures are osteopenic. There are minimal and chronic appearing superior en dplate compression deformities of T2 and T3. Vertebral body height is otherwise maintained throughout the thoracic spine. Alignment is preserved. Mild hyperkyphosis is observed. Small anterior osteophyt es are seen throughout. The transverse and spinous processes appear intact. No lytic or blastic lesio n is seen. The disc spaces appear maintained. There is no CT evidence of central canal stenosis. Ther e are healed bilateral posterior rib fractures. The paraspinous soft tissues are normal as imaged. Em physematous change is noted. There are small to moderate left and small right pleural effusions with associated left basilar consolidation. IMPRESSION: 1. There is no evidence of acute fracture or malalignment involving the thoracic spine. 2. Osteopenia and chronic changes as above. 3. Emphysema. 4. Left larger than right pleural effusions with associated left basilar consolidation. ACT 112: Negative or not required by law. Dictated: 10/27/2019 7:49 AM Transcribed: 10/27/2019 8:33 AM Yoli [id number] [email or web address] Electronically signed by: Glenroy Henry M.D. 10/27/2019 8:42 AM
[2019-10-27 08:53] LABS: Base Excess ABG -11.8 mEq/L (-9-1.8); HCO3 ABG 12 mmol/L (19-24); PCO2 ABG 20 mmHg (35-46); PO2 ABG 68 mmHg (80-95); pH ABG 7.38 (7.35-7.45)
[2019-10-27 08:54] LABS: Allen Test ALINE (Pos)
[2019-10-27 09:10] LABS: INR 1.4 (0.9-1.1); Partial Thromboplastin Ratio 1.3; Partial Thromboplastin Time 36.8 Seconds (21.0-31.0); Prothrombin Time 14.8 Seconds (9.0-12.0)
[2019-10-27 09:22] LABS: Hematocrit (blood only) 29.9 % (42-52); Hemoglobin 10.5 g/dL (14.0-18.0); Mean Corpuscular Hemoglobin 30.3 pg (25-34); Mean Corpuscular Hgb Conc 35.1 g/dL (32-36); Mean Corpuscular Volume 86.2 fL (80-100); Mean Platelet Volume 11.1 fL (7.4-10.4); Platelet Count 93 K/uL (130-400); RDW Coefficient of Variation 13.4 % (11.5-14.5); RDW Standard Deviation 41.7 fL (36.4-46.3); Red Blood Count 3.47 M/uL (4.7-6.1); White Blood Count 3.54 K/uL (4.8-10.8)
[2019-10-27 09:24] LABS: Albumin Globulin Ratio 0.8 (0.9-2); Albumin Level 2.4 gm/dl (3.4-5.0); BUN Creatinine Ratio 13.9 (10-20); Bilirubin,Total 5.7 mg/dl (0.2-1); Calcium 7.4 mg/dl (8.5-10.1); Creatinine Clr Calc Pharmacy 60.2 ml/min; Est GFR (African American) 95.9; Est GFR (Non-African American) 82.8; Globulin 3.2 gm/dl (2.5-4.0); Magnesium 1.9 mg/dl (1.8-2.4); Phosphorus 3.6 mg/dl (2.5-4.9); Total Protein 5.6 gm/dl (6.4-8.2)
[2019-10-27 09:48] LABS: Echinocytes 1+; Eosinophils # (auto) 0.04 K/uL (0-0.5); Eosinophils % (auto) 1.1 %; Immature Granulocytes # (auto) 0.02 K/uL (0.00-0.02); Immature Granulocytes % (auto) 0.6 %; Lymphocytes % (auto) 16.9 %; Monocytes # (auto) 0.21 K/uL (0.11-0.59); Monocytes % (auto) 5.9 %; Neutrophils # (auto) 2.67 K/uL (1.4-6.5); Neutrophils % (auto) 75.5 %
[2019-10-27] MEDS ORDERED: PHYTONADIONE 5 MG in SODIUM CHLORIDE 0.9% 50 ML IV STA (09:53)
[2019-10-27] MEDS ORDERED: NORMOSOL-R 1,000 ML IV SCH (10:00)
[2019-10-27] MEDS ORDERED: HYDROCORTISONE SOD 100 MG in SYRINGE 0 ML IV ONE (10:00)
[2019-10-27 10:03] LABS: Reticulocyte % 2.6 % (0.5-2.0); Reticulocytes # 0.09 10^6/uL (0.02-0.10)
[2019-10-27 10:17] LABS: iSTAT Blood Urea Nitrogen 16 mg/dl (7-18); iSTAT Carbon Dioxide 12 mmol/L (24-31); iSTAT Chloride 89 mmol/L (101-112); iSTAT Creatinine 1.1 mg/dl (0.6-1.3); iSTAT Glucose 89 mg/dl (70-99); iSTAT Hematocrit < 15 % (42-52); iSTAT Potassium 3.4 mmol/L (3.3-5.0); iSTAT Sodium 117 mmol/L (135-144)
--- NOTE | 2019-10-27 10:42 | XCELERA ---
[id number]
[2019-10-27] MEDS: THIAMINE HCL 100 MG TAB PO SCH (11:15)
[2019-10-27] MEDS: FOLIC ACID 1 MG TAB PO SCH (11:15)
[2019-10-27] MEDS: INSULIN ASPART 100 UNITS/ML 3 ML PEN SC SCH ×3 (11:19→21:03)
[2019-10-27 11:22] LABS: Estimated Average Glucose 80 mg/dl; Hemoglobin A1C 4.4 % (4.5-5.6)
[2019-10-27 12:55] LABS: Adenovirus PCR Not Detected (NotDetected); Bordetella parapertussis PCR Not Detected (NotDetected); Bordetella pertussis PCR Not Detected (NotDetected); Chlamydia pneumoniae PCR Not Detected (NotDetected); Coronavirus 229E PCR Not Detected (NotDetected); Coronavirus HKU1 PCR Not Detected (NotDetected); Coronavirus NL63 PCR Not Detected (NotDetected); Coronavirus OC43PCR Not Detected (NotDetected); Human Metapneumovirus PCR Not Detected (NotDetected); Influenza A PCR Not Detected (NotDetected); Influenza B PCR Not Detected (NotDetected); Mycoplasma pneumoniae PCR Not Detected (NotDetected); Parainfluenza Virus 1 PCR Not Detected (NotDetected); Parainfluenza Virus 2 PCR Not Detected (NotDetected); Parainfluenza Virus 3 PCR Not Detected (NotDetected); Parainfluenza Virus 4 PCR Not Detected (NotDetected); Respiratory Syncytial VirusPCR Not Detected (NotDetected); Rhinovirus/Enterovirus PCR Not Detected (NotDetected)
[2019-10-27 13:06] LABS: Calcium 7.1 mg/dl (8.5-10.1); Creatinine Clr Calc Pharmacy 67.5 ml/min; Est GFR (African American) 110.3; Est GFR (Non-African American) 95.1
--- NOTE | 2019-10-27 13:24 | Electrocardiogram Report ---
Test Reason : Blood Pressure : / mmHG Vent. Rate : 071 BPM Atrial Rate : 071 BPM P-R Int : 170 ms QRS Dur : 080 ms QT Int : 456 ms P-R-T Axes : 053 069 079 degrees QTc Int : 495 ms Normal sinus rhythm Prolonged QT Abnormal ECG No previous ECGs available Confirmed by Charles Caballero ([id number]) on 10/27/2019 1:24:43 PM Referred By: REFERRED SELF Confirmed By:Peter Caballero
--- NOTE | 2019-10-27 13:28 | Electrocardiogram Report ---
Test Reason : Blood Pressure : / mmHG Vent. Rate : 090 BPM Atrial Rate : 090 BPM P-R Int : 210 ms QRS Dur : 066 ms QT Int : 376 ms P-R-T Axes : 055 061 082 degrees QTc Int : 459 ms Sinus rhythm with 1st degree A-V block Low voltage QRS Borderline ECG When compared with ECG of 26-OCT-2019 21:00, (unconfirmed) GA interval has increased ST no longer elevated in Inferior leads ST no longer elevated in Lateral leads Nonspecific T wave abnormality now evident in Anterior leads Confirmed by Charles Caballero ([id number]) on 10/27/2019 1:28:18 PM Referred By: REFERRED SELF Confirmed By:Peter Caballero
[2019-10-27] MEDS: DESMOPRESSIN ACETATE 2 MCG in SODIUM CHLORIDE 0.9% 50 ML IV SCH ×2 (14:03→20:40)
[2019-10-27 16:14] LABS: Hematocrit (blood only) 28.6 % (42-52); Hemoglobin 10.2 g/dL (14.0-18.0)
--- NOTE | 2019-10-27 16:23 | Hospitalist Progress Note ---
Date of Service October 27, 2019 Assessment & Plan (1) Septic shock: abx coverage, supportive care, appears to be improving (2) Left lower lobe pneumonia: See above (3) Severe anemia: Hemoglobin 4.9 upon admission. Patient typed and crossed for 3 units PRBCs. continue to follow closely but appears to be stabilizing (4) Acute hyponatremia: Sodium 117 upon admission. follow closely w fluids/fluid shifting (5) Hyperbilirubinemia: follow along with other liver markers (6) Admitted to intensive care unit: care predominantly managed by ICU at this time (7) Coagulopathy: only minimally corrected w vitamin K (8) Hypokalemia: Potassium 3.4 upon admission. We will replace with IV fluids as noted and follow serially (9) Non-STEMI (non-ST elevated myocardial infarction): likely demand (10) Hypoalbuminemia: likely relates to liver disease (11) COVID-19 ruled out by laboratory testing: COVID-19 testing negative while in the ED Admission and Anticipated Discharge Date Admission Date: October 26, 2019 Subjective awake and talkative, but either large communication barrier or quite confused - as he asks for coffee, and when i inform him that we'll have to hold off on that for now (and try to explain why) he then explains that he likes cream and a little sugar. (later it appears that ICU advanced diet to regular) Review of Systems Review of Systems: All systems reviewed & are unremarkable except as noted in HPI & below Physical Exam Physical Exam: gen awake, pleasant frail and fairly disheveled appearing but nad. heent nc at mmm breathing unlabored no accessory muscles good effort. Results & Data Results & Data ([facility]) Vital Signs (Past 12 Hours) Vital Signs Temp Pulse Resp BP Pulse Ox 10/27/19 16:02 98.6 F 88 24 113/61 97 10/27/19 16:00 89 116/74 10/27/19 15:00 97.9 F 89 27 H 132/79 92 10/27/19 14:00 96.6 F L 89 27 H 116/74 90 10/27/19 13:00 95.5 F L 87 34 H 118/86 89 L 10/27/19 12:00 95.9 F L 88 30 H 112/71 90 10/27/19 11:00 96.3 F L 87 31 H 106/78 93 10/27/19 10:00 96.8 F L 92 H 30 H 110/71 92 10/27/19 09:00 97.3 F L 93 H 35 H 103/95 93 10/27/19 08:00 97.7 F 90 24 111/98 92 10/27/19 07:35 97.5 F L 89 29 H 122/57 L 92 10/27/19 07:28 97.2 F L 88 28 H 129/82 92 10/27/19 06:48 96.1 F L 92 H 28 H 114/55 L 90 10/27/19 06:18 96.1 F L 90 27 H 106/49 L 91 10/27/19 06:03 95.7 F L 87 28 H 106/47 L 93 10/27/19 05:48 95.4 F L 84 29 H 96/45 L 94 10/27/19 05:43 95.4 F L 84 23 98/42 L 94 10/27/19 05:38 95.4 F L 86 34 H 99/71 L 94 10/27/19 05:00 78 25 H 96 10/27/19 04:45 84 23 94 10/27/19 04:38 95.0 F L 85 32 H 121/78 93 10/27/19 04:30 85 25 H 92 10/27/19 04:28 88 20 121/78 92 PG Care Time/CCT Total # of Minutes Spent Total Time Spent with Patient: Total time spent is greater than 50% in coordination of care (as documented) at patient's floor/unit and/or counseling patient: Coding Level of Care Code 35504 Subseq Hosp Care Lvl 1 Diagnoses Septic shock A41.9; R65.21 Left lower lobe pneumonia J18.9 Pneumonia type: due to unspecified organism Severe anemia D64.9 Acute hyponatremia E87.1 Hyperbilirubinemia E80.6 Admitted to intensive care unit Z78.9 Coagulopathy D68.9 Hypokalemia E87.6 Non-STEMI (non-ST elevated myocardial infarction) I21.4 Hypoalbuminemia E88.09 COVID-19 ruled out by laboratory testing Z03.818 (1) Left lower lobe pneumonia Pneumonia type: due to unspecified organism Qualified Code(s): J18.9 - Pne umonia, unspecified organism
[2019-10-27 16:37] LABS: BUN Creatinine Ratio 12.2 (10-20); Calcium 7.2 mg/dl (8.5-10.1); Creatinine Clr Calc Pharmacy 66.1 ml/min; Est GFR (African American) 107.4; Est GFR (Non-African American) 92.6; Potassium 4.1 mmol/L (3.5-5.1)
[2019-10-27] MEDS: NOREPINEPHRINE BIT INJ 8 MG in DEXTROSE 5% 500 ML IV SCH (21:03)
[2019-10-27 21:19] LABS: Hematocrit (blood only) 28.3 % (42-52); Hemoglobin 10.1 g/dL (14.0-18.0)
[2019-10-27 21:40] LABS: BUN Creatinine Ratio 11.1 (10-20); Calcium 7.4 mg/dl (8.5-10.1); Creatinine Clr Calc Pharmacy 63.3 ml/min; Magnesium 1.9 mg/dl (1.8-2.4); Phosphorus 3.5 mg/dl (2.5-4.9); Potassium 4.2 mmol/L (3.5-5.1)
[2019-10-28] MEDS: PANTOprazole 40 MG in DEXTROSE 5% 100 ML IV SCH ×5 (00:10→19:39)
[2019-10-28] MEDS: PIPERACILLIN/TAZOBACTAM 4.5 GM in DEXTROSE 5% 100 ML IV SCH ×3 (03:32→19:40)
[2019-10-28 04:18] LABS: Hematocrit (blood only) 29.1 % (42-52); Hemoglobin 9.9 g/dL (14.0-18.0); Mean Corpuscular Hemoglobin 29.5 pg (25-34); Mean Corpuscular Volume 86.6 fL (80-100); RDW Coefficient of Variation 14.2 % (11.5-14.5); RDW Standard Deviation 44.3 fL (36.4-46.3); Red Blood Count 3.36 M/uL (4.7-6.1); White Blood Count 3.15 K/uL (4.8-10.8)
[2019-10-28 04:22] LABS: Base Excess ABG -9.5 mEq/L (-9-1.8); HCO3 ABG 15 mmol/L (19-24); PCO2 ABG 25 mmHg (35-46); PO2 ABG 67 mmHg (80-95); pH ABG 7.37 (7.35-7.45)
[2019-10-28 04:29] LABS: INR 1.4 (0.9-1.1); Partial Thromboplastin Ratio 1.3; Partial Thromboplastin Time 36.1 Seconds (21.0-31.0); Prothrombin Time 14.4 Seconds (9.0-12.0)
[2019-10-28 04:35] LABS: Allen Test POS (Pos)
[2019-10-28 04:40] LABS: Albumin Globulin Ratio 0.7 (0.9-2); Albumin Level 2.1 gm/dl (3.4-5.0); Bilirubin,Total 8.5 mg/dl (0.2-1); Calcium 6.7 mg/dl (8.5-10.1); Creatinine Clr Calc Pharmacy 73.2 ml/min; Est GFR (Non-African American) 98.4; Globulin 3.2 gm/dl (2.5-4.0); Magnesium 1.8 mg/dl (1.8-2.4); Phosphorus 3.3 mg/dl (2.5-4.9); Potassium 4.2 mmol/L (3.5-5.1); Total Protein 5.3 gm/dl (6.4-8.2)
[2019-10-28 04:42] LABS: Platelet Count 84 K/uL (130-400)
[2019-10-28 04:43] LABS: Immature Granulocytes # (auto) 0.04 K/uL (0.00-0.02); Immature Granulocytes % (auto) 1.3 %; Lymphocytes # (auto) 0.41 K/uL (1.2-3.4); Monocytes # (auto) 0.16 K/uL (0.11-0.59); Monocytes % (auto) 5.1 %; Neutrophils # (auto) 2.54 K/uL (1.4-6.5); Neutrophils % (auto) 80.6 %
[2019-10-28] MEDS: DESMOPRESSIN ACETATE 2 MCG in SODIUM CHLORIDE 0.9% 50 ML IV SCH (05:01)
[2019-10-28 05:26] LABS: Hepatitis A Antibody IgM NON-REACTIVE (NON-REACTIVE); Hepatitis B Core Antibody IgM NON-REACTIVE (NON-REACTIVE)
[2019-10-28] MEDS: OCTREOTIDE ACETATE 500 MCG in 0.9 % SODIUM CHLORIDE 100 ML IV SCH ×2 (05:43→15:30)
--- NOTE | 2019-10-28 07:03 | Critical Care Progress Note ---
Date of Service October 28, 2019 Assessment & Plan (1) Septic shock: Reason Critically Ill: 54 yo M no noted PMHx presenting with profound weakness and AMS, found to be severely anemic and hypotensive. Admitted for severe sepsis, symptomatic anemia, and AMS. NEURO - CAM ICU: NEGATIVE Altered mental status: - Differentials include severe sepsis, hyponatremia, severe anemia, alcohol withdrawal. - Treatment for these outlined below. - CT Head negative for acute process. - No focal neurological deficits on physical exam. - With continued improvement in his mental status. History of chronic alcohol abuse at risk of withdrawal: - Though the patient's family reports that he has not had alcohol in a week, the patient reports having had alcohol as recently as day of admission. - 2:1 AST/ALT ratio suggestive of alcohol abuse. T Bili elevated on admission and further elevated this AM to 8.5. - Alcohol level in ER negative. - No outward signs of withdrawal on admission, however 10/27 AM with AWSS score 8. - AWSS at risk IV Ativan protocol started. Has not required any Ativan PRN overnight. - No history of seizures, and no seizures while in hospital. - Thiamine, folate daily. - Hepatitis panel negative. - Care Management to discuss alcohol rehabilitation options with patient while admitted. CARDIOVASCULAR - Hypotension: - On admission with severe sepsis from pulmonary vs. skin/soft tissue infection. - Also likely 2/2 volume depletion given severe anemia with Hgb 5.4; patient is s/p 3u PRBCs. - In ED received NSS 2L bolus, and overnight was on NSS with KCl 20meq @ 150cc/hr. - Patient was not on Levophed overnight, with BP 80-90s/40-50s, asymptomatic. - Arterial line in place for close BP monitoring. - Fluids held for most of 10/26 due to close monitoring of hyponatremia and increase in Na. - Resume fluids this AM, Normosol 80cc/hr. - Consider downgrade later today if patient improves with gentle fluids. NSTEMI: - Patient is without complaints of chest pain or anginal equivalents. - Elevated troponin on arrival to 0.090 -> 0.099 - 0.188 -> 0.215 -> 0.117. - EKG without ST elevation, nonspecific T wave abnormality in anterior leads. - Echo this AM: EF >70%, LV hyperdynamic, no wall motion abnormalities, no v alvular abnormalities. - Elevated troponin likely 2/2 severe anemia vs. severe sepsis and hypotension causing demand ischemia. - Continue telemetry monitoring. RESPIRATORY - ? Pneumonia: - CXR showed small left pleural effusion with associated left basilar airspace opacities, atelectasis versus pneumonia. - CT Chest showed left lower lobe airspace opacities, atelectasis vs. pneumonia. - On review with Dr. Wheeler, lung opacity possibly 2/2 hemothorax. - Given alcoholic patient with weakness and confusion, aspiration event is possible. - Initial antibiotic coverage was Levaquin, vancomycin, Zosyn. - MRSA nares negative, vancomycin discontinued. - Levaquin d/c'ed as unlikely to be atypical bacterial pneumonia, continue Zosyn monotherapy. - Biofire panel negative. - COVID 19 testing negative. - Currently on Oxymask 6L, continue to wean as tolerated. - Expect continued improvement with resolution of ? hemothorax vs. pneumonia. Hx Smoking Abuse: - Patient is a daily smoker and has findings on CT Chest suggestive of emphysema. - Continue to wean oxygen as tolerated. - Encourage smoking cessation. - Patient may have an element of underlying COPD/emphysema given robust smoking for decades. - May benefit from sleep study in outpatient setting to determine need for CPAP. GI/NUTRITION - Jaundice with Hx chronic alcohol abuse: - LFTs with AST minimal elevation, however with AST:ALT >2:1 ratio suggestive of alcoholic cirrhosis. - Elevated T Bili and INR, as well as jaundice also support likelihood of alcoholic cirrhosis. - CTAP and gallbladder US showed cholelithiasis but no evidence of ductal dilatation. - Acute Hepatitis panel negative. - Encourage alcohol cessation while admitted. GI bleed: - Scantly Hemoccult positive on exam. - Continue Protonix and Octreotide. - Patient's daughter relays that patient has "a history of anemia from alcohol abuse". - Reticulocyte count high, likely 2/2 increased RBC production in the setting of severe anemia. - Hemoglobin stable following 3u PRBCs (~10). - Continue to monitor CBC. RENAL/LYTES - Hyponatremia: - Etiologies include beer potomania, as patient drinks a 6 pack or more per day, as well as malnutrition. - Patient received 2 L IV crystalloid bolus in the emergency department. - Yesterday fluids held for large portion of the day with close Na monitoring to ensure no rapid overcorrection. - Na 120 -> 127 over 24 hours. - Resume Normosol at rate of 80cc/hr, recheck BMP 4 hours later (4PM today). - Goal of increase 6-8mmol/L in 24 hour period. - Encourage PO intake of fluids. Hypokalemia: - Replace as needed to maintain K > 4. - - Ceja in place - Strict Is/Os. ENDO - - No history of diabetes or thyroid disease, however has not seen a PCP in over 10 years. - ICU hyperglycemia protocol. HEME - Pancytopenia with symptomatic anemia: - Profound anemia to ~5 on admission, increased to ~10 with 3u PRBCs. - No signs of bleeding on CT Head, CTAP. - Possible source of bleeding could be hemothorax as above. - Likely some element of chronic bone marrow suppression due to chronic alcohol abuse given pancytopenic presentation. - Reticulocyte count is appropriately elevated in the setting of acute bleeding. - Stool slightly positive on Hemoccult testing. - Octreotide/PPI for potential GIB. - No melena, bloody vomitus, or bright red blood in stool. - Completed transfusions and H/H stable; monitor CBC daily. ID - Severe sepsis with septic shock: - Secondary to pulmonary vs SSI vs UTI source. - With mild elevation in procalcitonin, which did downtrend slightly on repeat check. - Initially received vancomycin, Zosyn, and Levaquin. - Vancomycin discontinued due to negative MRSA nares. - Levaquin d/c'ed, continue Zosyn monotherapy. TRAUMA/MSK - Severe Osteopenia on Imaging with Multiple Fractures: - Patient with several rib fractures, healing sternal fracture, and several RLE metatarsal fractures. - no signs of flail chest on exam. - Likely due to frequent falls while intoxicated. - Patient has severe osteopenia on imaging, putting him at increased fracture risk. - Patient is without pain. LINES/IV ACCESS - - PIVs x2. - R IJ triple lumen. - L radial arterial line. DVT PROPHYLAXIS - - Resume Heparin DVT ppx (5000u SQ q12h). - SCDs. For possible downgrade later today if continued improvement with regard to hyp otension and hyponatremia. Thank you for allowing us to participate in the care of this patient. Please refer to Dr. Shippert's documentation for any further recommendations. (2) Severe anemia: (3) Acute hyponatremia: (4) Hyperbilirubinemia: (5) Hypokalemia: (6) Non-STEMI (non-ST elevated myocardial infarction): (7) COVID-19 ruled out by laboratory testing: (8) Cellulitis of right leg: (9) Alcohol abuse: (10) Ribs, multiple fractures: (11) Metatarsal stress fracture of right foot: (12) Left lower lobe pneumonia: (13) Sternal fracture: (14) Altered mental state: Admission and Anticipated Discharge Date Admission Date: October 26, 2019 Supervising Physician Co-Signing Physician Notes Dr. Suazo was resident physician during care of patient. I separately evaluated patient for zavaleta portions of the history and the exam. I was present during the critical portion of medical decision making, and I discussed the case with the resident. I generally agree with the findings and plan. Hyponatremia has improved, encourage p.o. intake. Stable for downgrade. Subjective Patient overnight had an episode of bradycardia to the 40s, though at the time was asymptomatic and this quickly improved. He has had BP 80s/40s overnight, not on Levophed drip. Feels comfortable in bed, no complaints of SOB on 6L Oxymask, no chest pain or palpitations. Denies fevers or chills, dizziness or headaches, nausea. Denies pain in his leg. Knows he is at [facility], but does not know what day it is. Review of Systems Review of Systems: All systems reviewed & are unremarkable except as noted in Subjective Physical Exam Constitutional: well developed and + thin Eyes: scleral icterus PERRL ENMT: external ear and nose normal poor dentition Neck: normal visual inspection Respiratory: + cough Normal respiratory effort, RR 23 Bilateral diffuse coarse crackles/rhonchi inspiratory>expiratory; improved from yesterday O2 saturation 91% on 6L Oxymask Cardiovascular: Rate/Rhythm: regular rate and regular rhythm Heart Sounds: no murmur Extremities: no edema Bilateral DP/PT pulses nonpalpable Bilateral DP/PT pulses dopplerable Gastrointestinal (Abdomen): Inspection/Auscultation: abdomen normal to inspection and normal bowel sounds Percussion/Palpation: abdomen soft and + hepatomegaly; abdomen nontender Musculoskeletal: Head/Neck/Chest: normocephalic Extremities: no clubbing Skin: RLE red, warm to the touch diffuse ecchymoses at different levels of healing on bilateral arms, legs Jaundice diffuse Neurologic: moves all extremities Speech / Cognition: + abnormal speech (some garbled speech, but this is not acute) No asterixis No tremor Psychiatric: Orientation: alert, oriented to person, oriented to place and oriented to time (not to date) Tangential but redirectable. Genitourinary: Ceja draining clear yellow urine Results & Data Results & [facility] ([facility]) Vital Signs (Past 12 Hours) Vital Signs Temp Pulse Resp BP Pulse Ox 10/28/19 06:30 35.6 C L 77 31 H 93 10/28/19 06:00 35.6 C L 79 27 H 97/63 L 96 10/28/19 05:30 35.6 C L 82 22 94 10/28/19 05:00 35.7 C L 79 25 H 90/56 L 86 L 10/28/19 04:30 35.7 C L 76 23 91 10/28/19 04:00 35.7 C L 78 19 94/59 L 92 10/28/19 03:31 35.8 C L 79 22 86/60 L 93 10/28/19 03:00 35.6 C L 75 20 93 10/28/19 02:30 35.6 C L 78 28 H 94 10/28/19 02:01 35.6 C L 79 26 H 101/64 93 10/28/19 01:30 35.5 C L 77 27 H 94 10/28/19 01:01 35.6 C L 79 30 H 107/66 91 10/28/19 00:30 35.6 C L 79 21 90 10/28/19 00:03 35.5 C L 80 24 90/50 L 91 10/28/19 00:01 35.5 C L 79 24 80/64 L 90 10/28/19 00:00 35.5 C L 78 26 H 90 10/27/19 23:30 35.5 C L 81 27 H 85 L 10/27/19 23:01 35.6 C L 80 17 92/67 L 90 10/27/19 23:00 35.6 C L 79 24 90 10/27/19 22:30 35.6 C L 82 23 93 10/27/19 22:00 35.7 C L 83 20 101/75 93 10/27/19 21:30 35.7 C L 83 19 94 10/27/19 21:01 35.7 C L 83 30 H 109/73 92 10/27/19 21:00 35.7 C L 84 24 92 10/27/19 20:30 35.7 C L 83 22 96 10/27/19 20:02 35.9 C L 84 29 H 95 10/27/19 20:01 35.9 C L 84 21 106/75 95 10/27/19 20:00 35.9 C L 84 25 H 95 Resident Activity Tracking Resident Involvement: Resident Care Provided Care Provided: Adult Hospital Medicine (1) Ribs, multiple fractures Encounter type: initial encounter Fracture type: closed Laterality: unspecified laterality Qualified Code(s): S22.49XA - Multiple fractures of ribs, unspecified side, initial encounter for closed fracture (2) Metatarsal stress fracture of right foot Encounter type: initial encounter Qualified Code(s): M84.374A - Stress fracture, right foot, initial encounter for fracture (3) Altered mental state Altered mental status type: delirium Qualified Code(s): R41.0 - Disorien tation, unspecified (4) Sternal fracture Encounter type: initial encounter Fracture type: closed Sternal location: unspecified Qualified Code(s): S22.20XA - Unspecified fracture of sternum, initial encounter for closed fracture (5) Left lower lobe pneumonia Pneumonia type: due to unspecified organism Qualified Code(s): J18.9 - Pneumonia, unspecified organism
--- NOTE | 2019-10-28 07:05 | XRay Report ---
XR chest 1V portable CLINICAL HISTORY: f/u dyspnea COMPARISON STUDY: 10/27/2019 FINDINGS: Central catheter in superior vena cava. Interstitial changes throughout the left hemithorax persist and are unchanged. Right lateral disc time is grossly clear. Slight interstitial parenchymal prominence right midlung. Several left-sided rib fractures which have been described previously. IMPRESSION: Central catheter remains in superior vena cava. No evidence pneumothorax. Unchanging the left and to a lesser extent right parenchymal interstitial infiltrative change. Multiple left-sided rib fractures with no evidence of pneumothorax. ACT 112: Negative or not required by law. The above report was generated using voice recognition software. It may contain grammatical, syntax or spelling errors. Electronically signed by: Mukund Brower M.D. 10/28/2019 7:04 AM
[2019-10-28] MEDS: FOLIC ACID 1 MG TAB PO SCH (08:07)
[2019-10-28] MEDS: INSULIN ASPART 100 UNITS/ML 3 ML PEN SC SCH ×4 (08:07→21:00)
[2019-10-28] MEDS: THIAMINE HCL 100 MG TAB PO SCH (08:07)
--- NOTE | 2019-10-28 10:23 | Electrocardiogram Report ---
Test Reason : Blood Pressure : / mmHG Vent. Rate : 073 BPM Atrial Rate : 073 BPM P-R Int : 202 ms QRS Dur : 078 ms QT Int : 470 ms P-R-T Axes : 065 070 065 degrees QTc Int : 517 ms Normal sinus rhythm with 1st degree AV block T wave abnormality, consider anterior ischemia Prolonged QT Abnormal ECG When compared with ECG of 27-OCT-2019 07:17, T wave inversion now evident in Anterior leads QT has lengthened Confirmed by Charles Caballero ([id number]) on 10/28/2019 10:23:12 AM Referred By: REFERRED SELF Confirmed By:Peter Caballero
--- NOTE | 2019-10-28 11:31 | Billing Data ---
Date of Service October 28, 2019 Coding Level of Care Code 14376 Subseq Hosp Care Lvl 3
[2019-10-28] MEDS: NORMOSOL-R 1,000 ML IV SCH (12:09)
--- NOTE | 2019-10-28 13:08 | Hospitalist Progress Note ---
Date of Service October 28, 2019 Assessment & Plan (1) Septic shock: abx coverage, supportive care, shows improvement (2) Left lower lobe pneumonia: See above (3) Severe anemia: Hemoglobin 4.9 upon admission. Patient typed and crossed for 3 units PRBCs. stabilizing (4) Acute hyponatremia: Sodium 117 upon admission now up to 127 follow closely w fluids/fluid shifting (5) Hyperbilirubinemia: follow along with other liver markers (6) Admitted to intensive care unit: care predominantly managed by ICU at this time (7) Coagulopathy: only minimally corrected w vitamin K (8) Hypokalemia: Potassium 3.4 upon admission, now 4.2 (9) Non-STEMI (non-ST elevated myocardial infarction): likely demand related (10) Hypoalbuminemia: likely relates to liver disease (11) COVID-19 ruled out by laboratory testing: COVID-19 testing negative while in the ED Admission and Anticipated Discharge Date Admission Date: October 26, 2019 Subjective sleeping comfortably. doesn't really arouse to stim - but in d/w nursing no new problems or issues noted. pt progressing well. ICU management greatly appreciated Physical Exam Physical Exam: sleeping comfortably no distress breathing unlabored no accessory muscles good spontaneous effort no rashes no pallor or icterus no focal neuro deficits Results & Data [facility] ([facility]) Vital Signs (Past 12 Hours) Vital Signs Temp Pulse Resp BP Pulse Ox 10/28/19 10:00 95.7 F L 78 20 93/61 L 91 10/28/19 09:00 95.9 F L 78 24 90/61 L 94 10/28/19 08:00 95.7 F L 77 19 93/67 L 93 10/28/19 07:01 95.9 F L 80 31 H 85/69 L 90 10/28/19 06:30 96.1 F L 77 31 H 93 10/28/19 06:00 96.1 F L 79 27 H 97/63 L 96 10/28/19 05:30 96.1 F L 82 22 94 10/28/19 05:00 96.3 F L 79 25 H 90/56 L 86 L 10/28/19 04:30 96.3 F L 76 23 91 10/28/19 04:00 96.3 F L 78 19 94/59 L 92 10/28/19 03:31 96.4 F L 79 22 86/60 L 93 10/28/19 03:00 96.1 F L 75 20 93 10/28/19 02:30 96.1 F L 78 28 H 94 10/28/19 02:01 96.1 F L 79 26 H 101/64 93 10/28/19 01:30 95.9 F L 77 27 H 94 PG Care Time/CCT Total # of Minutes Spent Total Time Spent with Patient: Total time spent is greater than 50% in coordination of care (as documented) at patient's floor/unit and/or counseling patient: Coding Level of Care Code 62347 Subseq Hosp Care Lvl 1 Diagnoses Septic shock A41.9; R65.21 Left lower lobe pneumonia J18.9 Pneumonia type: due to unspecified organism Severe anemia D64.9 Acute hyponatremia E87.1 Hyperbilirubinemia E80.6 Admitted to intensive care unit Z78.9 Coagulopathy D68.9 Hypokalemia E87.6 Non-STEMI (non-ST elevated myocardial infarction) I21.4 Hypoalbuminemia E88.09 COVID-19 ruled out by laboratory testing Z03.818 (1) Left lower lobe pneumonia Pneumonia type: due to unspecified organism Qualified Code(s): J18.9 - Pneumonia, unspecified organism
[2019-10-28] MEDS ORDERED: MoRPHine SULFATE 2 MG/ML CARP IV STA (15:02)
[2019-10-28 17:03] LABS: BUN Creatinine Ratio 11.6 (10-20); Calcium 7.7 mg/dl (8.5-10.1); Creatinine Clr Calc Pharmacy 67.8 ml/min; Est GFR (African American) 110.3; Est GFR (Non-African American) 95.1; Potassium 3.8 mmol/L (3.5-5.1)
[2019-10-28] MEDS: HEPARIN SOD 5,000 UNIT/0.5 ML VIAL SQ SCH (21:00)
[2019-10-28 22:56] LABS: BUN Creatinine Ratio 11.4 (10-20); Calcium 7.6 mg/dl (8.5-10.1); Creatinine Clr Calc Pharmacy 67.1 ml/min; Est GFR (African American) 108.8; Est GFR (Non-African American) 93.9; Potassium 3.6 mmol/L (3.5-5.1)
[2019-10-29] MEDS: NORMOSOL-R 1,000 ML IV SCH ×2 (00:31→18:04)
[2019-10-29] MEDS: PANTOprazole 40 MG in DEXTROSE 5% 100 ML IV SCH ×2 (01:58→07:40)
[2019-10-29] MEDS: OCTREOTIDE ACETATE 500 MCG in 0.9 % SODIUM CHLORIDE 100 ML IV SCH (01:59)
--- NOTE | 2019-10-29 03:00 | Critical Care Progress Note ---
Date of Service October 29, 2019 Assessment & Plan (1) Septic shock: Reason Critically Ill: 54 yo M no noted PMHx presenting with profound weakness and AMS, found to be severely anemic and hypotensive. Admitted for severe sepsis, symptomatic anemia, and AMS. NEURO - CAM ICU: NEGATIVE Altered mental status: - Differentials include severe sepsis, hyponatremia, severe anemia, alcohol withdrawal. - Treatment for these outlined below. - CT Head negative for acute process. - No focal neurological deficits on physical exam. - With continued improvement in his mental status with hydration and antibiotics. History of chronic alcohol abuse at risk of withdrawal: - Though the patient's family reports that he has not had alcohol in a week, the patient reports having had alcohol as recently as day of admission. - 2:1 AST/ALT ratio suggestive of alcohol abuse. T Bili elevated on admission and further elevated this AM to 8.5. - Alcohol level in ER negative. - No outward signs of withdrawal on admission, however 10/26 AM with AWSS score 8. - AWSS at risk IV Ativan protocol started. Has not required any Ativan PRN overnight. - No history of seizures, and no seizures while in hospital. - Thiamine, folate daily. - Hepatitis panel negative. - Care Management to discuss alcohol rehabilitation options with patient while admitted. CARDIOVASCULAR - Hypotension: - On admission with severe sepsis from pulmonary vs. skin/soft tissue infection. - Also likely 2/2 volume depletion given severe anemia with Hgb 5.4; patient is s/p 3u PRBCs. - With frequent changes in his fluid type and infusion rate since admission to titrate based on Na level. - Patient has not been on Levophed for over 24 hours, with stable BP in the 90-100s/50-60s. - Arterial line in place for close BP monitoring. - Fluids held for most of 10/26 due to close monitoring of hyponatremia and increase in Na. - Continue Normosol, titrating as needed to correct Na appropriately and fluid replete. NSTEMI: - Patient is without complaints of chest pain or anginal equivalents. - Elevated troponin on arrival to 0.090 -> 0.099 - 0.188 -> 0.215 -> 0.117. - EKG without ST elevation, nonspecific T wave abnormality in anterior leads. - Echo this AM: EF >70%, LV hyperdynamic, no wall motion abnormalities, no valvular abnormalities. - Elevated troponin likely 2/2 severe anemia vs. severe sepsis and hypotension causing demand ischemia. - Continue telemetry monitoring. RESPIRATORY - ? Pneumonia: - CXR showed small left pleural effusion with associated left basilar airspace opacities, atelectasis versus pneumonia. - CT Chest showed left lower lobe airspace opacities, atelectasis vs. pneumonia. - On review with Dr. Wheeler, lung opacity possibly 2/2 hemothorax. - Given alcoholic patient with weakness and confusion, aspiration event is p ossible. - Initial antibiotic coverage was Levaquin, vancomycin, Zosyn. - MRSA nares negative, vancomycin discontinued. - Levaquin d/c'ed as unlikely to be atypical bacterial pneumonia, continue Zo syn monotherapy. - Biofire panel negative. - COVID 19 testing negative. - Continue to wean oxygen as tolerated. Patient is not on O2 at home. - Expect continued improvement with resolution of ? hemothorax vs. pneumonia. - Lung findings on exam suggestive of secretions in the lungs that the patient is struggling to clear. - Chest percussion, incentive spirometry if patient will tolerate. Hx Smoking Abuse: - Patient is a daily smoker and has findings on CT Chest suggestive of emphysema. - Continue to wean oxygen as tolerated. - Encourage smoking cessation. - Patient may have an element of underlying COPD/emphysema given robust smoking for decades. - May benefit from sleep study in outpatient setting to determine need for CPAP. GI/NUTRITION - Jaundice with Hx chronic alcohol abuse: - LFTs with AST minimal elevation, however with AST:ALT >2:1 ratio suggestive of alcoholic cirrhosis. - Elevated T Bili and INR, as well as jaundice also support likelihood of alcoholic cirrhosis. - CTAP and gallbladder US showed cholelithiasis but no evidence of ductal dilatation. - Acute Hepatitis panel negative. - TBili has started to downtrend this AM from a peak of 8.5 to 6.8 this AM. - Encourage alcohol cessation while admitted. GI bleed: - Scantly Hemoccult positive on exam. - Hgb on arrival as below, this AM with slight decrease however has been receiving fluids, and all cell counts are down. - Complete 3 days Octreotide and Protonix high dose therapy. - Patient's daughter relays that patient has "a history of anemia from alcohol abuse". - Reticulocyte count high, likely 2/2 increased RBC production in the setting of severe anemia. - Hemoglobin stable following 3u PRBCs (~10). - Continue to monitor CBC. RENAL/LYTES - Hyponatremia: - Etiologies include beer potomania, as patient drinks a 6 pack or more per day, as well as malnutrition. - Patient received 2 L IV crystalloid bolus in the emergency department. - Has had continued close Na monitoring to ensure no rapid overcorrection. - Na 130 from admission level of 119. - Continue Normosol at rate of 80cc/hr, recheck BMP this afternoon. - Goal of increase 6-8mmol/L in 24 hour period. - Encourage PO intake of fluids. Hypokalemia: - Replace as needed to maintain K > 4. - - Ceja in place - Strict Is/Os. ENDO - - No history of diabetes or thyroid disease, however has not seen a PCP in over 10 years. - ICU hyperglycemia protocol. HEME - Pancytopenia with symptomatic anemia: - Profound anemia to ~5 on admission, increased to ~10 with 3u PRBCs. - This AM with slight decrease to 9.2 however has been receiving fluids, and all cell counts are down from yesterday. - No signs of bleeding on CT Head, CTAP. - Possible source of bleeding could be hemothorax as above. - Likely some element of chronic bone marrow suppression due to chronic alcohol abuse given pancytopenic presentation. - Reticulocyte count is appropriately elevated in the setting of acute bleeding. - Stool slightly positive on Hemoccult testing. - Octreotide/PPI as above. for potential GIB. - No melena, bloody vomitus, or bright red blood in stool. - Completed transfusions and H/H relatively stable; monitor CBC daily. ID - Severe sepsis with septic shock: - Secondary to pulmonary vs SSI vs UTI source. - With mild elevation in procalcitonin, which did downtrend slightly on repeat check. - Initially received vancomycin, Zosyn, and Levaquin. - Vancomycin discontinued due to negative MRSA nares. - Levaquin d/c'ed, continue Zosyn monotherapy. - Continue Normosol gentle fluid resuscitation as above given hyponatremia correction. TRAUMA/MSK - Severe Osteopenia on Imaging with Multiple Fractures: - Patient with several rib fractures, healing sternal fracture, and several RLE metatarsal fractures. - no signs of flail chest on exam. - Likely due to frequent falls while intoxicated. - Patient has severe osteopenia on imaging, putting him at increased fracture risk. - Patient is without pain. LINES/IV ACCESS - - PIVs x2. - R IJ triple lumen. - L radial arterial line will be discontinued later today. DVT PROPHYLAXIS - - Continue Heparin DVT ppx (5000u SQ q12h). - SCDs. At this time, patient is stable for downgrade from ICU status. Will continue to follow patient until downgraded, and then will sign off. Thank you for allowing us to participate in the care of this patient. Please refer to Dr. Wheeler's documentation for any further recommendations. (2) Severe anemia: (3) Acute hyponatremia: (4) Hyperbilirubinemia: (5) Hypokalemia: (6) Non-STEMI (non-ST elevated myocardial infarction): (7) COVID-19 ruled out by laboratory testing: (8) Cellulitis of right leg: (9) Alcohol abuse: (10) Ribs, multiple fractures: (11) Metatarsal stress fracture of right foot: (12) Left lower lobe pneumonia: (13) Sternal fracture: (14) Altered mental state: Admission and Anticipated Discharge Date Admission Date: October 26, 2019 Supervising Physician Co-Signing Physician Notes Dr. Suazo was resident physician during care of patient. I separately evaluated patient for zavaleta portions of the history and the exam. I was present during the critical portion of medical decision making, and I discussed the case with the resident. I generally agree with the findings and plan. Increased activity today, PT OT consults, no growth in cultures, will discontinue antibiotics. Do not believe he has a gastric ulcer or bleeding varices as a cause of his anemia, bone marrow suppression from heavy alcohol consumption is most likely I will discontinue the PPI and octreotide today. Stable for downgrade out of ICU Subjective Patient without acute events overnight. BP overnight consistently in the 90-100s/50-60s. Oxygen was weaned from 6L Oxymask to 2LNC overnight with good saturation. This morning was sleepy but arousable. Denies CP, SOB, nausea, abdominal pain, dizziness or headache, fevers or chills. Endorses some intermittent R leg pain with certain positions. Review of Systems Review of Systems: All systems reviewed & are unremarkable except as noted in Subjective Physical Exam Constitutional: well developed and + thin Eyes: scleral icterus PERRL ENMT: external ear and nose normal poor dentition Neck: normal visual inspection Respiratory: + cough Normal respiratory effort, RR 23 Bilateral diffuse coarse crackles/rhonchi inspiratory>expiratory O2 saturation 4% on 2LNC Weak cough Cardiovascular: Rate/Rhythm: regular rate and regular rhythm Heart Sounds: no murmur Extremities: no edema Bilateral DP/PT pulses weakly palpable Gastrointestinal (Abdomen): Inspection/Auscultation: abdomen normal to inspection and normal bowel sounds Percussion/Palpation: abdomen soft and + hepatomegaly; abdomen nontender Musculoskeletal: Head/Neck/Chest: normocephalic Extremities: no clubbing Skin: RLE red, warm to the touch diffuse ecchymoses at different levels of healing on bilateral arms, legs Jaundice diffuse Neurologic: moves all extremities Speech / Cognition: + abnormal speech (some garbled speech, but this is not acute) No asterixis No tremor Psychiatric: Orientation: alert, oriented to person, oriented to place and oriented to time (not to date) Tangential but redirectable. Tired this AM and so not amenable to many questions being answered. Genitourinary: Ceja draining clear yellow urine Results & Data Results & Data ([facility]) Vital Signs (Past 12 Hours) Vital Signs Temp Pulse Resp BP Pulse Ox 10/29/19 01:50 37.2 C 85 26 H 94/67 L 94 10/29/19 01:20 37.1 C 87 25 H 109/66 94 10/29/19 00:49 37.1 C 84 29 H 103/70 93 10/29/19 00:20 37.0 C 85 29 H 93/63 L 93 10/29/19 00:00 87 10/28/19 23:50 37.0 C 85 32 H 100/61 94 10/28/19 23:20 37.1 C 85 28 H 97/56 L 90 10/28/19 22:49 37.2 C 86 31 H 100/67 88 L 10/28/19 22:19 37.1 C 83 25 H 94/57 L 89 L 10/28/19 21:50 37.1 C 82 31 H 89/64 L 93 10/28/19 21:20 37.1 C 83 30 H 98/68 L 92 10/28/19 20:49 37.1 C 82 28 H 95/68 L 94 08/08/20 20:19 37.1 C 82 26 H 90/68 L 96 10/28/19 19:49 37.2 C 82 26 H 87/63 L 96 10/28/19 19:19 37.2 C 85 26 H 94/59 L 91 10/28/19 19:12 37.2 C 87 28 H 101/68 89 L 10/28/19 19:01 37.2 C 85 27 H 95/67 L 90 10/28/19 18:00 37.1 C 77 22 98/71 L 95 10/28/19 17:30 37.0 C 81 24 94 10/28/19 17:18 36.9 C 82 26 H 90/60 L 96 10/28/19 17:01 36.9 C 78 21 84/61 L 95 10/28/19 16:45 36.8 C 78 24 95 10/28/19 16:00 36.8 C 80 19 100/63 96 10/28/19 15:45 36.8 C 78 17 94 10/28/19 15:37 71 93/61 L 10/28/19 15:01 36.2 C L 74 24 86/59 L 98 Resident Activity Tracking Resident Involvement: Resident Care Provided Care Provided: Adult Hospital Medicine (1) Ribs, multiple fractures Encounter type: initial encounter Fracture type: closed Laterality: unspecified laterality Qualified Code(s): S22.49XA - Multiple fractures of ribs, unspecified side, initial encounter for closed fracture (2) Metatarsal stress fracture of right foot Encounter type: initial encounter Qualified Code(s): M84.374A - Stress fracture, right foot, initial encounter for fracture (3) Altered mental state Altered mental status type: delirium Qualified Code(s): R41.0 - Disorientation, unspecified (4) Sternal fracture Encounter type: initial encounter Fracture type: closed Sternal location: unspecified Qualified Code(s): S22.20XA - Unspecified fracture of sternum, initial encounter for closed fracture (5) Left lower lobe pneumonia Pneumonia type: due to unspecified organism Qualified Code(s): J18.9 - Pneumonia, unspecified organism
[2019-10-29] MEDS: PIPERACILLIN/TAZOBACTAM 4.5 GM in DEXTROSE 5% 100 ML IV SCH ×2 (03:50→20:58)
[2019-10-29 04:33] LABS: Hematocrit (blood only) 26.1 % (42-52); Hemoglobin 9.2 g/dL (14.0-18.0); Mean Corpuscular Hemoglobin 30.5 pg (25-34); Mean Corpuscular Hgb Conc 35.2 g/dL (32-36); Mean Corpuscular Volume 86.4 fL (80-100); RDW Coefficient of Variation 14.7 % (11.5-14.5); RDW Standard Deviation 45.6 fL (36.4-46.3); Red Blood Count 3.02 M/uL (4.7-6.1); White Blood Count 2.28 K/uL (4.8-10.8)
[2019-10-29 04:43] LABS: Mean Platelet Volume 10.6 fL (7.4-10.4); Platelet Count 66 K/uL (130-400)
[2019-10-29 04:44] LABS: INR 1.3 (0.9-1.1); Partial Thromboplastin Ratio 1.2; Partial Thromboplastin Time 32.8 Seconds (21.0-31.0); Prothrombin Time 13.7 Seconds (9.0-12.0)
[2019-10-29 04:53] LABS: Echinocytes 2+; Eosinophils # (auto) 0.01 K/uL (0-0.5); Eosinophils % (auto) 0.4 %; Giant Platelets 1+; Immature Granulocytes # (auto) 0.03 K/uL (0.00-0.02); Immature Granulocytes % (auto) 1.3 %; Lymphocytes # (auto) 0.46 K/uL (1.2-3.4); Lymphocytes % (auto) 20.2 %; Monocytes # (auto) 0.18 K/uL (0.11-0.59); Monocytes % (auto) 7.9 %; Neutrophils % (auto) 70.2 %
[2019-10-29 05:07] LABS: Albumin Globulin Ratio 0.7 (0.9-2); BUN Creatinine Ratio 10.5 (10-20); Bilirubin,Total 6.8 mg/dl (0.2-1); Calcium 7.2 mg/dl (8.5-10.1); Creatinine Clr Calc Pharmacy 72.6 ml/min; Est GFR (African American) 113.4; Est GFR (Non-African American) 97.9; Potassium 3.6 mmol/L (3.5-5.1)
[2019-10-29] MEDS: INSULIN ASPART 100 UNITS/ML 3 ML PEN SC SCH ×4 (08:32→20:31)
[2019-10-29] MEDS: THIAMINE HCL 100 MG TAB PO SCH (08:33)
[2019-10-29] MEDS: HEPARIN SOD 5,000 UNIT/0.5 ML VIAL SQ SCH ×2 (08:33→20:30)
[2019-10-29] MEDS: FOLIC ACID 1 MG TAB PO SCH (08:33)
--- NOTE | 2019-10-29 09:53 | Hospitalist Progress Note ---
Date of Service October 29, 2019 Assessment & Plan (1) Septic shock: Ariel Solis is a 54 y/o male who presentedwith profound weakness and AMS, found to be severely anemic (Hgb 4.9) and hypotensive. Admitted for severe sepsis, symptomatic anemia, and AMS. Downgraded from ICU on 10/28. - Septic Shock Resolved - antibiotic coverage with Zosyn started 10/26, will continue for pulmonary coverage - Required pressors during ICU stay, has not needed since yesterday AM, has soft BPs but suspected he has a lower baseline blood pressure. - continues to show improvement - No known past medical hx but appears to have poor chronic baseline health, tobacco/alcohol abuse - Currently getting Normosol @ 80ml/hr, will continue on floor on transfer. - PT/OT ordered - With suspected long standing smoking history, want to prevent over oxygenation, Supplemental oxygen to goal of 90% - Insulin SS coverage DVT ppx: Heparin FENGI: DM2/Heart Healthy Diet, Normosol @80ml/hr, Pantoprazole 40mg PO Dispo: PCU/tele Code: Full Code (2) Left lower lobe pneumonia: - CXR from today: Unchanging the left and to a lesser extent right parenchymal interstitial infiltrative change. Multiple left-sided rib fractures with no evidence of pneumothorax. - Choking this AM on liquids, speech swallow eval ordered, prone to aspiration from alcoholism, aspiration precautions - Continue with Zosyn since providing Aspiration Anaerobic coverage. CT Chest from two days ago 10/26 1. Acute/subacute distracted left fourth through seventh rib fractures with associated pleural reaction 2. Additional old bilateral rib fractures 3. Ununited old sternal fracture 4. Bilateral pleural effusions left greater than right 5. Left lower lobe airspace opacities, atelectasis versus pneumonia 6. Scattered subpleural groundglass opacities, likely atelectatic although pulmonary contusion or an atypical infection could appear similar 7. 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 Folate 1gm qAM. (4) Acute hyponatremia: Na was 117 upon admission, 130 today suspect from dietary/poor sodium content in alcohol Continuing with Normsol @80ml/hr for gentle correction (5) Hypokalemia: 3.4 on admission, now 3.6 (6) COVID-19 ruled out by laboratory testing: negative testing in ED (7) Coagulopathy: minimal correction with Vitamin K from INR 1.5 to 1.3 today's value (8) Admitted to intensive care unit: upon admission has been in ICU. (9) Hyperbilirubinemia: most likely secondary to liver disease, follow LFTs TBili 3.9 on admission, now 6.8. (10) Non-STEMI (non-ST elevated myocardial infarction): etiology considered demand ischemia (11) Hypoalbuminemia: suspected from liver impairment (12) Alcohol abuse: Suspected long standing alcohol abuse which led to Liver disease Currently on Thiamine 100mg PO qAM and and Folate 1gm PO qAM AST: ALT 2:1 ratio consistent with alcohol abuse Negative EtOH upon admission C/w Alcohol AWSS Potocol with Ativan IV protocol, unclear when last drink was, one week prior from admission per family, day of admission per patient. (13) Ribs, multiple fractures: Multiple rib fractures as noted above Tylenol PRN PO for mild pain, avoiding NSAIDs because of coagulopathy and bleeding risk. Oxycodone IR 5mg PO for Moderate and Severe pain, analgesics important to limit atelectasis from pain; did receive Morphine yesterday. Admission and Anticipated Discharge Date Admission Date: October 26, 2019 Supervising Physician Co-Signing Physician Notes I personally examined the patient and verified all zavaleta points of history and exam, discussed case, and agree with decision making with Dr Sheppard. still mostly worried about getting coffee. no other acute complaints vitals noted nad heent nc at mmm breathing unlabored notable icterus shock - improved. overall doing better. continue current care. otherwise as above Subjective Mr. Mendoza had some choking with liquid intake this morning. When inquiring about complaints, he only notes he "feels like shit." Either not interested in talking or feeling too ill to offer more conversation. Nursing reports he has been off supplemental Oxygen and has required no pressors since yesterday morning. He was lethargic yesterday with some suspicious soft BPs, seems more alert today. Physical Exam Constitutional: + ill appearing, + disheveled and comfortable; no acute distress Eyes: + scleral abnormality (icteric) Neck: normal visual inspection and trachea midline Respiratory: diffuse coarse breath sounds Cardiovascular: Rate/Rhythm: regular rate and regular rhythm Extremities: no edema Gastrointestinal (Abdomen): Percussion/Palpation: abdomen nontender, no guarding and abdomen not rigid Musculoskeletal: Head/Neck/Chest: normocephalic and head atraumatic Skin: no rashes, warm and dry bennett Neurologic: moves all extremities and awake Psychiatric: Orientation: alert Genitourinary: montez cath in place Results & Data Results & Data ([facility]) Vital Signs (Past 12 Hours) Vital Signs Temp Pulse Resp BP Pulse Ox 10/29/19 06:20 37.2 C 83 26 H 98/58 L 92 10/29/19 05:50 37.2 C 83 22 87/59 L 93 10/29/19 05:20 37.2 C 83 31 H 86/64 L 96 10/29/19 04:50 37.3 C 86 18 104/71 95 10/29/19 04:20 37.2 C 84 24 89/59 L 95 10/29/19 03:50 37.2 C 84 29 H 90/63 L 95 10/29/19 03:20 37.2 C 86 23 96/66 L 93 10/29/19 02:49 37.2 C 84 25 H 97/67 L 92 10/29/19 02:20 37.2 C 84 25 H 102/63 94 10/29/19 01:50 37.2 C 85 26 H 94/67 L 94 10/29/19 01:20 37.1 C 87 25 H 109/66 94 10/29/19 00:49 37.1 C 84 29 H 103/70 93 10/29/19 00:20 37.0 C 85 29 H 93/63 L 93 10/29/19 00:00 87 10/28/19 23:50 37.0 C 85 32 H 100/61 94 10/28/19 23:20 37.1 C 85 28 H 97/56 L 90 10/28/19 22:49 37.2 C 86 31 H 100/67 88 L 10/28/19 22:19 37.1 C 83 25 H 94/57 L 89 L 10/28/19 21:50 37.1 C 82 31 H 89/64 L 93 Laboratory Results Laboratory Results - last 24 hr 10/28/19 10/28/19 10/28/19 12:11 16:33 16:36 WBC RBC Hgb Hct MCV MCH MCHC RDW Std Deviation RDW Coeff of Bina Plt Count MPV Immature Gran % (Auto) Neut % (Auto) Lymph % (Auto) Kay % (Auto) Eos % (Auto) Baso % (Auto) Neut # (Auto) Lymph # (Auto) Kay # (Auto) Eos # (Auto) Baso # (Auto) Immature Gran # (Auto) Giant Platelets Echinocytes PT INR APTT PTT Ratio Sodium 125 L Potassium 3.8 Chloride 100 Carbon Dioxide 16 L Anion Gap 9.0 BUN 10 Creatinine 0.90 Est Cr Clr Drug Dosing 67.8 Est GFR ( Amer) 110.3 Est GFR (Non-Af Amer) 95.1 BUN/Creatinine Ratio 11.6 Glucose 124 H POC Glucose 159 H 140 H Calcium 7.7 L Phosphorus Magnesium Total Bilirubin AST ALT Alkaline Phosphatase Total Protein Albumin Globulin Albumin/Globulin Ratio 10/28/19 10/28/19 10/28/19 20:27 22:21 23:21 WBC RBC Hgb Hct MCV MCH MCHC RDW Std Deviation RDW Coeff of Bina Plt Count MPV Immature Gran % (Auto) Neut % (Auto) Lymph % (Auto) Kay % (Auto) Eos % (Auto) Baso % (Auto) Neut # (Auto) Lymph # (Auto) Kay # (Auto) Eos # (Auto) Baso # (Auto) Immature Gran # (Auto) Giant Platelets Echinocytes PT INR APTT PTT Ratio Sodium 127 L Potassium 3.6 Chloride 101 Carbon Dioxide 17 L Anion Gap 9.0 BUN 10 Creatinine 0.91 Est Cr Clr Drug Dosing 67.1 Est GFR ( Amer) 108.8 Est GFR (Non-Af Amer) 93.9 BUN/Creatinine Ratio 11.4 Glucose 117 H POC Glucose 140 H 129 H Calcium 7.6 L Phosphorus Magnesium Total Bilirubin AST ALT Alkaline Phosphatase Total Protein Albumin Globulin Albumin/Globulin Ratio 10/29/19 10/29/19 10/29/19 04:18 04:18 04:18 WBC 2.28 L RBC 3.02 L Hgb 9.2 L Hct 26.1 L MCV 86.4 MCH 30.5 MCHC 35.2 RDW Std Deviation 45.6 RDW Coeff of Bina 14.7 H Plt Count 66 L MPV 10.6 H Immature Gran % (Auto) 1.3 Neut % (Auto) 70.2 Lymph % (Auto) 20.2 Kay % (Auto) 7.9 Eos % (Auto) 0.4 Baso % (Auto) 0.0 Neut # (Auto) 1.60 Lymph # (Auto) 0.46 L Kay # (Auto) 0.18 Eos # (Auto) 0.01 Baso # (Auto) 0.00 Immature Gran # (Auto) 0.03 H Giant Platelets 1+ Echinocytes 2+ PT 13.7 H INR 1.3 H APTT 32.8 H PTT Ratio 1.2 Sodium 130 L Potassium 3.6 Chloride 103 Carbon Dioxide 16 L Anion Gap 11.0 BUN 9 Creatinine 0.84 Est Cr Clr Drug Dosing 72.6 Est GFR ( Amer) 113.4 Est GFR (Non-Af Amer) 97.9 BUN/Creatinine Ratio 10.5 Glucose 113 H POC Glucose Calcium 7.2 L Phosphorus 2.0 L D Magnesium 2.0 Total Bilirubin 6.8 H AST 87 H ALT 29 Alkaline Phosphatase 87 Total Protein 5.0 L Albumin 2.0 L Globulin 3.0 Albumin/Globulin Ratio 0.7 L 10/29/19 10/29/19 05:59 07:38 WBC RBC Hgb Hct MCV MCH MCHC RDW Std Deviation RDW Coeff of Bina Plt Count MPV Immature Gran % (Auto) Neut % (Auto) Lymph % (Auto) Kay % (Auto) Eos % (Auto) Baso % (Auto) Neut # (Auto) Lymph # (Auto) Kay # (Auto) Eos # (Auto) Baso # (Auto) Immature Gran # (Auto) Giant Platelets Echinocytes PT INR APTT PTT Ratio Sodium Potassium Chloride Carbon Dioxide Anion Gap BUN Creatinine Est Cr Clr Drug Dosing Est GFR ( Amer) Est GFR (Non-Af Amer) BUN/Creatinine Ratio Glucose POC Glucose 136 H 132 H Calcium Phosphorus Magnesium Total Bilirubin AST ALT Alkaline Phosphatase Total Protein Albumin Globulin Albumin/Globulin Ratio Medications Administered Folic [facility] ([facility]) [facility] [place] Stop: 11/26/19 08:59 Last Admin: 10/29/19 08:33 Dose: 1 mg Documented by: [id number] Admin: 10/28/19 08:07 Dose: 1 mg Documented by: [id number] Admin: 10/27/19 11:15 Dose: 1 mg Documented by: [id number] Heparin Sodium (Porcine) (Heparin Sodium (Porcine)) 5,000 units SQ Q12 [facility] Stop: 11/27/19 20:59 Last Admin: 10/29/19 08:33 Dose: 5,000 units Documented by: [id number] Cosigned by: [id number] Admin: 10/28/19 21:00 Dose: 5,000 units Documented by: [id number] Cosigned by: [id number] Piperacillin Sod/Tazobactam (Sod 4.5 gm/ Dextrose) 120 mls @ 30 mls/hr IV Q8H [facility]; Protocol Stop: 11/03/19 03:59 Last Infusion: 10/29/19 07:50 Dose: 0 mls/hr Documented by: [id number] Admin: 10/29/19 03:50 Dose: 30 mls/hr Documented by: [id number] Infusion: 10/28/19 23:50 Dose: 0 mls/hr Documented by: [id number] Admin: 10/28/19 19:40 Dose: 30 mls/hr Documented by: [id number] Infusion: 10/28/19 16:09 Dose: 0 mls/hr Documented by: [id number] Admin: 10/28/19 12:09 Dose: 30 mls/hr Documented by: [id number] Infusion: 10/28/19 08:07 Dose: 0 mls/hr Documented by: [id number] Admin: 10/28/19 03:32 Dose: 30 mls/hr Documented by: [id number] Infusion: 10/27/19 23:06 Dose: 0 mls/hr Documented by: [id number] Admin: 10/27/19 19:06 Dose: 30 mls/hr Documented by: [id number] Infusion: 10/27/19 16:22 Dose: 0 mls/hr Documented by: [id number] Admin: 10/27/19 11:39 Dose: 30 mls/hr Documented by: [id number] Infusion: 10/27/19 08:02 Dose: 0 mls/hr Documented by: [id number] Admin: 10/27/19 04:24 Dose: 30 mls/hr Documented by: [id number] Pantoprazole Sodium 40 mg/ (Dextrose) 100 mls @ 20 mls/hr IV Q5H [facility] Stop: 11/25/19 22:49 Last Admin: 10/29/19 07:40 Dose: 8 mg/hr, 20 mls/hr Documented by: [id number] Infusion: 10/29/19 06:58 Dose: 8 mg/hr, 20 mls/hr Documented by: [id number] Admin: 10/29/19 01:58 Dose: 8 mg/hr, 20 mls/hr Documented by: [id number] Infusion: 10/29/19 01:55 Dose: 8 mg/hr, 20 mls/hr Documented by: [id number] Admin: 10/28/19 19:39 Dose: 8 mg/hr, 20 mls/hr Documented by: [id number] Infusion: 10/28/19 19:39 Dose: 8 mg/hr, 20 mls/hr Documented by: [id number] Admin: 10/28/19 15:30 Dose: 8 mg/hr, 20 mls/hr Documented by: [id number] Infusion: 10/28/19 14:54 Dose: 8 mg/hr, 20 mls/hr Documented by: [id number] Admin: 10/28/19 09:54 Dose: 8 mg/hr, 20 mls/hr Documented by: [id number] Infusion: 10/28/19 09:54 Dose: 8 mg/hr, 20 mls/hr Documented by: [id number] Admin: 10/28/19 05:00 Dose: 8 mg/hr, 20 mls/hr Documented by: [id number] Infusion: 10/28/19 05:00 Dose: 8 mg/hr, 20 mls/hr Documented by: [id number] Admin: 10/28/19 00:10 Dose: 8 mg/hr, 20 mls/hr Documented by: [id number] Infusion: 10/28/19 00:05 Dose: 8 mg/hr, 20 mls/hr Documented by: [id number] Admin: 10/27/19 19:05 Dose: 8 mg/hr, 20 mls/hr Documented by: [id number] Infusion: 10/27/19 19:03 Dose: 8 mg/hr, 20 mls/hr Documented by: [id number] Admin: 10/27/19 14:03 Dose: 8 mg/hr, 20 mls/hr Documented by: [id number] Infusion: 10/27/19 13:18 Dose: 8 mg/hr, 20 mls/hr Documented by: [id number] Admin: 10/27/19 08:18 Dose: 8 mg/hr, 20 mls/hr Documented by: [id number] Infusion: 10/27/19 08:18 Dose: 8 mg/hr, 20 mls/hr Documented by: [id number] Infusion: 10/27/19 07:14 Dose: 8 mg/hr, 20 mls/hr Documented by: [id number] Admin: 10/27/19 04:24 Dose: 8 mg/hr, 20 mls/hr Documented by: [id number] Infusion: 10/27/19 04:24 Dose: 8 mg/hr, 20 mls/hr Documented by: [id number] Admin: 10/27/19 00:13 Dose: 8 mg/hr, 20 mls/hr Documented by: [id number] Octreotide Acetate 500 mcg/ (Sodium Chloride) 105 mls @ 10.5 mls/hr IV .Q10H [facility] Stop: 11/25/19 22:59 Last Admin: 10/29/19 01:59 Dose: 50 mcg/hr, 10.5 mls/hr Documented by: [id number] Infusion: 10/29/19 01:55 Dose: 50 mcg/hr, 10.5 mls/hr Documented by: [id number] Admin: 10/28/19 15:30 Dose: 50 mcg/hr, 10.5 mls/hr Documented by: [id number] Infusion: 10/28/19 15:30 Dose: 50 mcg/hr, 10.5 mls/hr Documented by: [id number] Admin: 10/28/19 05:43 Dose: 50 mcg/hr, 10.5 mls/hr Documented by: [id number] Infusion: 10/28/19 05:06 Dose: 50 mcg/hr, 10.5 mls/hr Documented by: [id number] Admin: 10/27/19 19:06 Dose: 50 mcg/hr, 10.5 mls/hr Documented by: [id number] Infusion: 10/27/19 18:18 Dose: 50 mcg/hr, 10.5 mls/hr Documented by: [id number] Admin: 10/27/19 08:18 Dose: 50 mcg/hr, 10.5 mls/hr Documented by: [id number] Infusion: 10/27/19 08:18 Dose: 50 mcg/hr, 10.5 mls/hr Documented by: [id number] Infusion: 10/27/19 07:14 Dose: 50 mcg/hr, 10.5 mls/hr Documented by: [id number] Admin: 10/27/19 00:06 Dose: 50 mcg/hr, 10.5 mls/hr Documented by: [id number] Parenteral Electrolytes (Normosol-R) 1,000 mls @ 80 mls/hr IV .[id number] [facility] Stop: 11/27/19 11:29 Last Admin: 10/29/19 00:31 Dose: 80 mls/hr Documented by: [id number] Infusion: 10/29/19 00:31 Dose: 80 mls/hr Documented by: [id number] Admin: 10/28/19 12:09 Dose: 80 mls/hr Documented by: [id number] Insulin Aspart (Novolog Flexpen) 0 units SC ACHS [facility] Stop: 11/26/19 11:29 Last Admin: 10/29/19 08:32 Dose: Not Given Documented by: [id number] Admin: 10/28/19 21:00 Dose: Not Given Documented by: [id number] Cosigned by: [id number] Admin: 10/28/19 17:11 Dose: Not Given Documented by: [id number] Admin: 10/28/19 12:12 Dose: 2 units Documented by: [id number] Cosigned by: [id number] Admin: 10/28/19 08:07 Dose: Not Given Documented by: [id number] Cosigned by: [id number] Admin: 10/27/19 21:03 Dose: 1 units Documented by: [id number] Cosigned by: [id number] Admin: 10/27/19 17:16 Dose: Not Given Documented by: [id number] Cosigned by: [id number] Admin: 10/27/19 11:19 Dose: Not Given Documented by: [id number] Cosigned by: [id number] Thiamine HCl (Vitamin B-1) 100 mg PO QAM [facility] Stop: 11/26/19 08:59 Last Admin: 10/29/19 08:33 Dose: 100 mg Documented by: [id number] Admin: 10/28/19 08:07 Dose: 100 mg Documented by: [id number] Admin: 10/27/19 11:15 Dose: 100 mg Documented by: [id number] Resident Activity Tracking Resident Involvement: Resident Care Provided Care Provided: Adult Hospital Medicine (1) Ribs, multiple fractures Encounter type: initial encounter Fracture type: closed Laterality: unspecified laterality Qualified Code(s): S22.49XA - Multiple fractures of ribs, unspecified side, initial encounter for closed fracture (2) Left lower lobe pneumonia Pneumonia type: due to unspecified organism Qualified Code(s): J18.9 - Pneumonia, unspecified organism
--- NOTE | 2019-10-29 10:43 | Billing Data ---
Date of Service October 29, 2019 Coding Level of Care Code 41000 Subseq Hosp Care Lvl 3
[2019-10-29] MEDS ORDERED: PIPERACILL/TAZOBAC CONSULT ACTIVE PRN (16:01)
[2019-10-29] MEDS ORDERED: POLYETHYLENE (MIRALAX) 17 GM PACK PO PRN (16:01)
[2019-10-29] MEDS ORDERED: OXYCODONE HCL IR 5 MG TAB (IMMEDIATE RELEASE) PO PRN (16:01)
[2019-10-29] MEDS ORDERED: ACETAMINOPHEN 325 MG TAB PO PRN (16:01)
[2019-10-29] MEDS ORDERED: ONDANSETRON INJ 2 MG/ML 2 ML VIAL IV PRN (16:01)
--- NOTE | 2019-10-29 16:22 | Billing Data ---
Date of Service October 29, 2019 Coding Level of Care Code 35764 Subseq Hosp Care Lvl 1
[2019-10-29] MEDS ORDERED: PIPERACILLIN/TAZOBACTAM 4.5 GM in DEXTROSE 5% 100 ML IV ONE (17:15)
[2019-10-29] MEDS: NICOTINE 21 MG/24 HR TDSY TD SCH (18:18)
[2019-10-30] MEDS: LORazepam 1 MG/2 ML VIAL IV PRN (00:30)
[2019-10-30] MEDS ORDERED: LEVALBUTEROL HCL 1.25 MG/3 ML NEB NEB PRN (04:21)
[2019-10-30] MEDS ORDERED: FUROSEMIDE 20 MG in SYRINGE 0 ML IV ONE (04:26)
[2019-10-30] MEDS ORDERED: FUROSEMIDE 40 MG/4 ML VIAL IV ONE (04:45)
[2019-10-30] MEDS: ALBUMIN 25% 50 ML IV SCH ×2 (04:54→05:25)
[2019-10-30 05:54] LABS: Hematocrit (blood only) 27.3 % (42-52); Hemoglobin 9.4 g/dL (14.0-18.0); Mean Corpuscular Hemoglobin 30.2 pg (25-34); Mean Corpuscular Hgb Conc 34.4 g/dL (32-36); Mean Corpuscular Volume 87.8 fL (80-100); RDW Coefficient of Variation 15.1 % (11.5-14.5); Red Blood Count 3.11 M/uL (4.7-6.1); White Blood Count 2.38 K/uL (4.8-10.8)
[2019-10-30 06:09] LABS: INR 1.3 (0.9-1.1); Prothrombin Time 13.9 Seconds (9.0-12.0)
[2019-10-30 06:15] LABS: Platelet Count 56 K/uL (130-400)
[2019-10-30] MEDS: NORMOSOL-R 1,000 ML IV SCH (06:33)
[2019-10-30] MEDS: PIPERACILLIN/TAZOBACTAM 4.5 GM in DEXTROSE 5% 100 ML IV SCH ×3 (06:37→21:11)
[2019-10-30 06:43] LABS: Albumin Globulin Ratio 0.8 (0.9-2); Albumin Level 2.3 gm/dl (3.4-5.0); BUN Creatinine Ratio 10.5 (10-20); Bilirubin,Total 7.1 mg/dl (0.2-1); Calcium 7.6 mg/dl (8.5-10.1); Creatinine Clr Calc Pharmacy 103.4 ml/min; Est GFR (African American) 131.2; Est GFR (Non-African American) 113.2; Magnesium 2.2 mg/dl (1.8-2.4); Potassium 3.3 mmol/L (3.5-5.1); Total Protein 5.3 gm/dl (6.4-8.2)
[2019-10-30 07:11] LABS: Eosinophils # (auto) 0.01 K/uL (0-0.5); Eosinophils % (auto) 0.4 %; Immature Granulocytes # (auto) 0.05 K/uL (0.00-0.02); Immature Granulocytes % (auto) 2.1 %; Lymphocytes # (auto) 0.54 K/uL (1.2-3.4); Lymphocytes % (auto) 22.7 %; Monocytes # (auto) 0.23 K/uL (0.11-0.59); Monocytes % (auto) 9.7 %; Neutrophils # (auto) 1.55 K/uL (1.4-6.5); Neutrophils % (auto) 65.1 %
--- NOTE | 2019-10-30 08:12 | XRay Report ---
SINGLE VIEW CHEST CLINICAL HISTORY: Coarse breath sounds. FINDINGS: An AP, portable, upright chest radiograph is compared to study dated 10/28/2019 and correlate d with chest CT dated 10/27/2019. The examination is significantly degraded by portable technique and p atient rotation. A right internal jugular central venous catheter has been removed. The cardiomediast inal silhouette is unremarkable noting atherosclerotic calcification of the thoracic aorta. There are diffuse bilateral airspace opacities which are new from previous. There is a layering left pleural e ffusion. No pneumothorax is seen. The skeletal structures are osteopenic. There are numerous left-stefany ed rib fractures. IMPRESSION: 1. There are diffuse bilateral groundglass opacities which have significantly increased from 10/28/2019 . The appearance suggests developing interstitial edema. Multifocal pneumonia could have a similar ap pearance and clinical correlation will be required. 2. Left pleural effusion with associated left basilar consolidation. 3. A right internal jugular central venous catheter has been removed. 4. Numerous left-sided rib fractures. ACT 112: Negative or not required by law. Electronically signed by: Glenroy Henry M.D. 10/30/2019 8:11 AM
[2019-10-30] MEDS: INSULIN ASPART 100 UNITS/ML 3 ML PEN SC SCH ×3 (08:20→17:31)
[2019-10-30] MEDS ORDERED: PANTOprazole 40 MG TAB PO SCH (09:00)
--- NOTE | 2019-10-30 10:02 | Hospitalist Progress Note ---
Date of Service October 30, 2019 Assessment & Plan (1) Septic shock: Ariel Mendoza is a 54 y/o male who was admitted for septic shock on 10/25 and directly sent to ICU for vasopressors. Source of sepsis thought to be aspiration PNA and cellulitis, currently on IV zosyn. Patient was weaned off pressors and downgraded from ICU on 10/28. Overnight he had difficulty breathing, CXR was obtained and showed progression of b/l lower lobar opacities with pulmonary vasculr congestion. Patient likely 3rd spacing fluid due to hypoalbuminemia. IVF were discontinued and patient was treated with one dose of lasix with albumin. Bipap ordered and placed in room. Septic Shock - Resolved - Required pressors during ICU stay, has not needed since Wednesday (10/27) - IVF discontinued due to pulmonary vascular congestion - BP stable despite lasix dose (2) Left lower lobe pneumonia: - CXR 10/29 showing progressive b/l lower lobar opacities - Choking this AM on liquids, speech swallow eval ordered, recommended making patient NPO - prone to aspiration from alcoholism, aspiration precautions - Continue with Zosyn since providing Anaerobic coverage - O2 saturation 92% on RA (3) Severe anemia: - Hgb was 4.9 on admission, now 9.2, no active signs of bleeding - Suspect longstanding chronic decline since appeared to have been able to tolerate/survive - 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 - Folate 1gm qAM. (4) Acute hyponatremia: - Na was 117 upon admission, 130 today - suspect from dietary/poor sodium content in alcohol - IVF discontinued as patient was volume overloaded (5) Hypokalemia: - K at 3.3; IV replacement ordered - mag normal at 2.2 (6) COVID-19 ruled out by laboratory testing: negative testing in ED (7) Coagulopathy: INR at 1.3 today, improved form 1.5 with Vitamin K therapy (8) Admitted to intensive care unit: upon admission has been in ICU. (9) Hyperbilirubinemia: - most likely secondary to liver disease - MELD score of 18 (10) Non-STEMI (non-ST elevated myocardial infarction): etiology considered demand ischemia (11) Hypoalbuminemia: - albumin 2.0 on admission - suspected from liver impairment/ inadequate protein calorie intake - commercial litigation associate consult placed (12) Alcohol abuse: - Suspected long standing alcohol abuse which led to Liver disease - Currently on Thiamine 100mg PO qAM and and Folate 1gm PO qAM - AST: ALT 2:1 ratio consistent with alcohol abuse - Negative EtOH upon admission - C/w Alcohol AWSS Potocol with Ativan IV protocol, unclear when last drink was, one week prior from admission per family, day of admission per patient. (13) Ribs, multiple fractures: - Multiple rib fractures as noted above - Tylenol PRN PO for mild pain, avoiding NSAIDs because of coagulopathy and bleeding risk. - Oxycodone IR 5mg PO for Moderate and Severe pain, analgesics important to limit atelectasis from pain DVT ppx: Heparin FENGI: NPO Dispo: PCU/tele Code: Full Code Admission and Anticipated Discharge Date Admission Date: October 26, 2019 Supervising Physician Co-Signing Physician Notes Attending attestation Pt seen and examined in concert with Dr. Stephenson. In agreement with the documented findings as noted in the resident documentation with any exceptions or additions as noted here. At bedside, patient still delirious ("those things are alive and they shouldn't be", "babies on the wall"). Still very concerned about getting coffee. On examination, S1/S2 nl RRR no MCG. Abd NT/ND BS+ve. Scattered rhonchi bilaterally worse at the bases. Septic shock - resolved, still somewhat hypotensive LLL Pneumonia with suspected aspiration episode - S/S evaluation appreciated - NPO for now with mentation monitoring - continue Zosyn. Would consider evaluation for TPN, but with comorbidities would be concerned either way. Anemia, severe - continue monitor CBC Hyponatremia, acute on chronic - improved to 130, monitor BMP daily Alcohol abuse - continue thiamine/folate and AWSS protocol Else see resident documentation as noted. Subjective Overnight nursing noted hallucinations. Night doc paged with breathing difficulties, patient lungs were wet on exam, 1 dose of Lasix with albumin was ordered. Patient with obvious hallucinations on exam, but unable to properly articulate them. Review of Systems Review of Systems: Unobtainable due to cognitive status Physical Exam Constitutional: WD/WN, vitals as above + cachectic and + disheveled Eyes: sclerae not anicteric ENMT: external ear and nose normal, oropharynx normal Neck: normal visual inspection and trachea midline Respiratory: no respiratory distress Auscultation: + rhonchi Cardiovascular: Rate/Rhythm: regular rate and regular rhythm Heart Sounds: normal S1 and normal S2 Extremities: no pedal edema Gastrointestinal (Abdomen): normal bowel sounds, soft, nontender, no hepatosplenomegaly Skin: L LE with fading erythema Neurologic: awake Psychiatric: Orientation: + not alert and + not oriented x 3 Thought Process: + perseveration Hallucinations: + visual hallucinations Genitourinary: Ceja catheter in place draining yellow urine Results & Data Results & [facility]) Vital Signs (Past 12 Hours) Vital Signs Temp Pulse Pulse Resp BP Pulse Ox 10/30/19 07:49 36.8 C 87 107/65 91 10/30/19 05:55 106/69 10/30/19 05:28 96/61 L 10/30/19 04:41 88 20 95 10/30/19 04:21 107/65 10/30/19 03:33 36.4 C L 79 18 85/57 L 93 10/30/19 00:23 36.3 C L 88 20 107/61 94 Resident Activity Tracking Resident Involvement: Resident Care Provided Care Provided: Adult Hospital Medicine (1) Ribs, multiple fractures Encounter type: initial encounter Fracture type: closed Laterality: unspecified laterality Qualified Code(s): S22.49XA - Multiple fractures of ribs, unspecified side, initial encounter for closed fracture (2) Left lower lobe pneumonia Pneumonia type: due to unspecified organism Qualified Code(s): J18.9 - Pneu monia, unspecified organism
[2019-10-30] MEDS: NICOTINE 21 MG/24 HR TDSY TD SCH (10:36)
[2019-10-30] MEDS: HEPARIN SOD 5,000 UNIT/0.5 ML VIAL SQ SCH ×2 (10:37→21:10)
[2019-10-30] MEDS: FOLIC ACID 1 MG TAB PO SCH (10:48)
[2019-10-30] MEDS: THIAMINE HCL 100 MG TAB PO SCH (10:48)
[2019-10-30] MEDS ORDERED: PANTOprazole 40 MG in SYRINGE 0 ML IV ONE (11:30)
[2019-10-30] MEDS ORDERED: FOLIC ACID 1 MG in SYRINGE 9.8 ML IV ONE (11:30)
[2019-10-30] MEDS ORDERED: THIAMINE HCL 100 MG in SYRINGE 9 ML IV ONE (11:30)
[2019-10-30] MEDS ORDERED: POTASSIUM PHOS 3 MMOL/1 ML INFUSION IV STA (15:11)
[2019-10-30] MEDS ORDERED: ALBUMIN 25% 50 ML with FUROSEMIDE 40 MG IV ONE (15:30)
[2019-10-30] MEDS: POTASSIUM CHLORIDE / WTR 10 MEQ/100 ML PLCT IV SCH ×4 (15:52→19:35)
[2019-10-30] MEDS ORDERED: HALOPERIDOL LACTATE 5 MG/ML 1 ML VIAL IM PRN (18:22)
[2019-10-30] MEDS ORDERED: POTASSIUM PHOSPHATE 15 MMOL in SODIUM CHLORIDE 0.9% 250 ML IV ONE (19:30)
[2019-10-30] MEDS ORDERED: Nursing to Pharmacy Communication SCH (20:00)
[2019-10-31] MEDS: INSULIN ASPART 100 UNITS/ML 3 ML PEN SC SCH ×4 (00:22→17:48)
[2019-10-31] MEDS: PIPERACILLIN/TAZOBACTAM 4.5 GM in DEXTROSE 5% 100 ML IV SCH ×3 (05:45→22:13)
--- NOTE | 2019-10-31 07:06 | Hospitalist Progress Note ---
Date of Service October 31, 2019 Assessment & Plan (1) Septic shock: Ariel Mendoza is a 54 y/o male who was admitted for septic shock on 10/25 and directly sent to ICU for vasopressors. Source of sepsis thought to be aspiration PNA and cellulitis, currently on IV zosyn. Patient was weaned off pressors and downgraded from ICU on 10/28. In the past few days he has had pulmonary vascular congestion, likely 3rd spacing fluid due to hypoalbuminemia. IVF were discontinued and patient was treated with two dose of lasix with albumin. Blood pressure stable despite lasix dosing. Bipap ordered and placed in room prn. Patient much more alert on exam today, speech to re-evaluate today. Septic Shock - Resolved - Required pressors during ICU stay, has not needed since Wednesday (10/27) - IVF discontinued due to pulmonary vascular congestion - BP stable despite lasix dose (2) Left lower lobe pneumonia: - CXR 10/29 showing progressive b/l lower lobar opacities - speech made him NPO yesterday with concerns for aspiration, to re-evaluate him today - prone to aspiration from alcoholism, aspiration precautions - Continue with Zosyn since providing Anaerobic coverage (currently on day 5) - O2 saturation 91% on RA (3) Severe anemia: - Hgb was 4.9 on admission, now 9.3, no active signs of bleeding - Suspect longstanding chronic decline since appeared to have been able to tolerate/survive - 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 - Folate 1gm qAM. (4) Acute hyponatremia: - Na was 117 upon admission, up to 132 today - suspect from dietary/poor sodium content in alcohol - IVF discontinued as patient was volume overloaded (5) Hypokalemia: - K at 2.8; IV replacement ordered - mag normal at 2.2 (6) COVID-19 ruled out by laboratory testing: negative testing in ED (7) Coagulopathy: INR at 1.3 today, improved form 1.5 with Vitamin K therapy (8) Admitted to intensive care unit: upon admission has been in ICU. (9) Hyperbilirubinemia: - most likely secondary to liver disease - MELD score of 18 (10) Non-STEMI (non-ST elevated myocardial infarction): etiology considered demand ischemia (11) Hypoalbuminemia: - albumin 2.0 on admission - suspected from liver impairment/ inadequate protein calorie intake - airport baggage screener consult placed (12) Alcohol abuse: - Suspected long standing alcohol abuse which led to Liver disease - Currently on Thiamine 100mg PO qAM and and Folate 1gm PO qAM - AST: ALT 2:1 ratio consistent with alcohol abuse - Negative EtOH upon admission - C/w Alcohol AWSS Potocol with Ativan IV protocol, unclear when last drink was, one week prior from admission per family, day of admission per patient. (13) Wound of foot: - wound care consulted (14) Dystrophic nail: - will consult podiatry (15) Ribs, multiple fractures: - Multiple rib fractures as noted above - Tylenol PRN PO for mild pain, avoiding NSAIDs because of coagulopathy and bleeding risk. - Oxycodone IR 5mg PO for Moderate and Severe pain, analgesics important to limit atelectasis from pain DVT ppx: Heparin FENGI: NPO Dispo: PCU/tele. will ask therapy to re-evaluate him today Code: Full Code Admission and Anticipated Discharge Date Admission Date: October 26, 2019 Supervising Physician Co-Signing Physician Notes Attending attestation Pt seen and examined in concert with Dr. Stephenson. In agreement with the documented findings as noted in the resident documentation with any exceptions or additions as noted here. At bedside, patient is more focused today, though still with slurred speech, but oriented to self and place, as well as year. Requesting coffee. On examination, S1/S2 nl RRR no MCG. Abd NT/ND BS+ve. Scattered rhonchi bilaterally worse at the bases improved from yesterday Septic shock - resolved, still somewhat hypotensive LLL Pneumonia with suspected aspiration episode - S/S evaluation appreciated - continue NPO, hopefully mentation will continue to improve - continue Zosyn. Would consider evaluation for TPN vs. PEG if no improvement tomorrow. Anemia, severe - continue monitor CBC Hyponatremia, acute on chronic - improved to 132, monitor BMP daily Alcohol abuse - continue thiamine/folate and AWSS protocol Metatarsal fx from September imaging - ortho eval tomorrow Else see resident documentation as noted. Subjective no acute events overnight. much more alert today: reports nothing is bothering him, although he does ask for coffee. Review of Systems Review of Systems: Unobtainable due to cognitive status Physical Exam Constitutional: WD/WN, vitals as above + cachectic and + disheveled Eyes: sclerae not anicteric ENMT: external ear and nose normal, oropharynx normal Neck: normal visual inspection and trachea midline Respiratory: no respiratory distress Auscultation: + rhonchi Cardiovascular: Rate/Rhythm: regular rate and regular rhythm Heart Sounds: normal S1 and normal S2 Extremities: no pedal edema Gastrointestinal (Abdomen): normal bowel sounds, soft, nontender, no hepatosplenomegaly Skin: + wound (dorsal aspect of R foot) and + nails dystrophic Neurologic: awake Psychiatric: Orientation: + not alert and + not oriented x 3 Thought Process: + perseveration Hallucinations: + visual hallucinations Results & Data Results & Data ([facility]) Vital Signs (Past 12 Hours) Vital Signs Temp Pulse Resp BP Pulse Ox 10/31/19 03:22 37.1 C 96 H 18 105/63 91 10/30/19 23:16 37 C 921 H 18 103/63 95 10/30/19 19:14 36.9 C 90 19 102/66 92 Resident Activity Tracking Resident Involvement: Resident Care Provided Care Provided: Adult Hospital Medicine (1) Ribs, multiple fractures Encounter type: initial encounter Fracture type: closed Laterality: unspecified laterality Qualified Code(s): S22.49XA - Multiple fractures of ribs, unspecified side, initial encounter for closed fracture (2) Left lower lobe pneumonia Pneumonia type: due to unspecified organism Qualified Code(s): J18.9 - Pneumonia, unspecified organism
[2019-10-31 07:29] LABS: Hematocrit (blood only) 26.7 % (42-52); Hemoglobin 9.3 g/dL (14.0-18.0); Mean Corpuscular Hemoglobin 30.9 pg (25-34); Mean Corpuscular Hgb Conc 34.8 g/dL (32-36); Mean Corpuscular Volume 88.7 fL (80-100); RDW Coefficient of Variation 15.1 % (11.5-14.5); RDW Standard Deviation 47.1 fL (36.4-46.3); Red Blood Count 3.01 M/uL (4.7-6.1); White Blood Count 2.87 K/uL (4.8-10.8)
[2019-10-31 07:33] LABS: Mean Platelet Volume 11.1 fL (7.4-10.4); Platelet Count 61 K/uL (130-400)
[2019-10-31 07:38] LABS: INR 1.3 (0.9-1.1); Prothrombin Time 13.6 Seconds (9.0-12.0)
[2019-10-31 08:00] LABS: Basophils # (auto) 0.01 K/uL (0-0.2); Basophils % (auto) 0.3 %; Eosinophils # (auto) 0.04 K/uL (0-0.5); Eosinophils % (auto) 1.4 %; Immature Granulocytes # (auto) 0.02 K/uL (0.00-0.02); Immature Granulocytes % (auto) 0.7 %; Lymphocytes # (auto) 0.78 K/uL (1.2-3.4); Lymphocytes % (auto) 27.2 %; Monocytes # (auto) 0.45 K/uL (0.11-0.59); Monocytes % (auto) 15.7 %; Neutrophils # (auto) 1.57 K/uL (1.4-6.5); Neutrophils % (auto) 54.7 %
[2019-10-31 08:03] LABS: Albumin Globulin Ratio 0.8 (0.9-2); Albumin Level 2.4 gm/dl (3.4-5.0); Bilirubin,Total 7.5 mg/dl (0.2-1); Calcium 8.4 mg/dl (8.5-10.1); Creatinine Clr Calc Pharmacy 95.3 ml/min; Est GFR (African American) 126.9; Est GFR (Non-African American) 109.5; Globulin 3.1 gm/dl (2.5-4.0); Phosphorus 2.9 mg/dl (2.5-4.9); Potassium 2.8 mmol/L (3.5-5.1); Total Protein 5.5 gm/dl (6.4-8.2)
[2019-10-31] MEDS ORDERED: POTASSIUM CHLORIDE 20 MEQ TABCR PO STA (08:49)
[2019-10-31] MEDS: HEPARIN SOD 5,000 UNIT/0.5 ML VIAL SQ SCH ×2 (09:43→20:17)
[2019-10-31] MEDS: POTASSIUM CHLORIDE / WTR 10 MEQ/100 ML PLCT IV SCH ×7 (09:43→23:55)
[2019-10-31] MEDS: NICOTINE 21 MG/24 HR TDSY TD SCH (09:44)
[2019-10-31] MEDS ORDERED: DEXTROSE 50% 50 ML SYRINGE IV STA (11:51)
--- NOTE | 2019-10-31 15:52 | Podiatry Consultation ---
Date of Consultation October 31, 2019 Assessment & Plan (1) Dystrophic nail: (2) Alcohol abuse: (3) Septic shock: History of Present Illness Attending Physician: Jose G Vides MD Patient was seen at bedside this afternoon, care was request by his family for care of his toenails. Patient had his family by his side during the duration of my visit with him as he was still confused. Patient and patient's family gave verbal consent for debridement of toenails 1-5 of both feet, they were debrided to tolerance with nail nippers without bleeding =, no infection or ingrown toenails noted on examination, patient may follow up for continued toenail care on the outpatient setting. Thank you for this consult. Allergies Allergy/AdvReac Type Severity Reaction Status Date / Time No Known Allergies Allergy Unverified 10/26/19 21:35 Home Medications Home Medications Medication Instructions Recorded Confirmed Type No Known Home Medications 09/25/19 10/26/19 History Patient History Medical History No significant past medical history Surgical History No significant past surgical history Social History Smoking Status: Current every day smoker Cigarettes Per Day: 20; Second Hand Exposure: No; Do You Dip or Chew Tobacco: No; Tobacco Cessation Education Requested by Patient: No Hx Alcohol Use: Yes Alcohol type: beer Hx Substance Use: Yes Last Used Substance: Unknown Preferred Language: German Communication Ability: Impaired Fiber Locking Supervisor Required: No Beliefs That Will Affect Care: None marital status: Current Living Situation: Alone current occupational status: unemployed How many Children do You have: 3 Other Information That Helps Us Care for You: No Feels Safe at Home: Yes Safety Concerns: Feels Safe At This Time Review of Systems Review of Systems: All systems reviewed & are unremarkable except as noted in HPI & below Physical Exam Skin: patient has very dry thin skin, pedal pulses were not palpable of the DP or PT, scaling was noted with dorsal foot wound right foot which was treated with dressings from wound care toenails are elongated, thickened with discoloration and subungual debris, they are very painful for the patient due to lack of self care. Toenails 1-5 of both feet in need of debridement today. patient had heel protectors on both heel while in bed. Results & Data Vital Signs (Past 12 Hours) Vital Signs Temp Pulse Pulse Resp BP BP Pulse Ox 10/31/19 15:26 92 H 10/31/19 11:06 36.7 C 90 19 104/67 91 10/31/19 08:00 96 H 10/31/19 07:08 36.8 C 94 H 19 106/64 90
[2019-10-31] MEDS: AMMONIUM LACTATE 12% LOTION 225 GM BTL EXT SCH ×2 (17:48→20:17)
[2019-10-31] MEDS ORDERED: VANCOMYCIN HCL 1,250 MG in SODIUM CHLORIDE 0.9% 250 ML IV SCH (19:30)
[2019-10-31 19:36] LABS: Albumin Globulin Ratio 0.8 (0.9-2); Albumin Level 2.3 gm/dl (3.4-5.0); BUN Creatinine Ratio 8.1 (10-20); Bilirubin,Total 7.9 mg/dl (0.2-1); Calcium 8.3 mg/dl (8.5-10.1); Creatinine Clr Calc Pharmacy 103.4 ml/min; Est GFR (African American) 131.2; Est GFR (Non-African American) 113.2; Potassium 2.8 mmol/L (3.5-5.1); Total Protein 5.3 gm/dl (6.4-8.2)
[2019-10-31] MEDS: POTASSIUM CHLORIDE 20 MEQ TABCR PO SCH (21:31)
[2019-10-31] MEDS: LORazepam 1 MG/2 ML VIAL IV PRN (22:43)
[2019-11-01] MEDS: INSULIN ASPART 100 UNITS/ML 3 ML PEN SC SCH ×5 (00:46→23:59)
[2019-11-01] MEDS: POTASSIUM CHLORIDE 20 MEQ TABCR PO SCH ×3 (00:56→11:15)
[2019-11-01] MEDS: POTASSIUM CHLORIDE / WTR 10 MEQ/100 ML PLCT IV SCH ×3 (00:56→23:07)
[2019-11-01] MEDS: PIPERACILLIN/TAZOBACTAM 4.5 GM in DEXTROSE 5% 100 ML IV SCH ×3 (05:33→22:09)
[2019-11-01 07:21] LABS: Hematocrit (blood only) 28.6 % (42-52); Hemoglobin 9.7 g/dL (14.0-18.0); Mean Corpuscular Hemoglobin 30.8 pg (25-34); Mean Corpuscular Hgb Conc 33.9 g/dL (32-36); Mean Corpuscular Volume 90.8 fL (80-100); RDW Coefficient of Variation 15.7 % (11.5-14.5); RDW Standard Deviation 49.3 fL (36.4-46.3); Red Blood Count 3.15 M/uL (4.7-6.1)
[2019-11-01 07:42] LABS: Mean Platelet Volume 10.9 fL (7.4-10.4); Platelet Count 55 K/uL (130-400)
[2019-11-01 07:43] LABS: Basophils # (auto) 0.02 K/uL (0-0.2); Basophils % (auto) 0.6 %; Eosinophils # (auto) 0.07 K/uL (0-0.5); Eosinophils % (auto) 2.1 %; Immature Granulocytes # (auto) 0.03 K/uL (0.00-0.02); Immature Granulocytes % (auto) 0.9 %; Lymphocytes # (auto) 0.78 K/uL (1.2-3.4); Lymphocytes % (auto) 22.9 %; Monocytes # (auto) 0.55 K/uL (0.11-0.59); Monocytes % (auto) 16.2 %; Neutrophils # (auto) 1.95 K/uL (1.4-6.5); Neutrophils % (auto) 57.3 %
[2019-11-01 11:16] LABS: BUN Creatinine Ratio 9.7 (10-20); Calcium 7.7 mg/dl (8.5-10.1); Creatinine Clr Calc Pharmacy 115.1 ml/min; Est GFR (African American) 137.1; Est GFR (Non-African American) 118.3; Potassium 3.7 mmol/L (3.5-5.1)
[2019-11-01 11:19] LABS: Albumin Globulin Ratio 0.6 (0.9-2); Bilirubin,Total 7.5 mg/dl (0.2-1); Globulin 3.2 gm/dl (2.5-4.0); Total Protein 5.2 gm/dl (6.4-8.2)
[2019-11-01] MEDS: NICOTINE 21 MG/24 HR TDSY TD SCH (11:56)
[2019-11-01] MEDS: AMMONIUM LACTATE 12% LOTION 225 GM BTL EXT SCH ×2 (11:56→20:48)
[2019-11-01] MEDS: HEPARIN SOD 5,000 UNIT/0.5 ML VIAL SQ SCH ×2 (11:57→20:49)
--- NOTE | 2019-11-01 12:44 | Hospitalist Progress Note ---
Date of Service November 01, 2019 Assessment & Plan (1) Septic shock: Ariel Mendoza is a 54 y/o male who was admitted for septic shock on 10/25 and directly sent to ICU for vasopressors. Source of sepsis thought to be aspiration PNA (left lower lobe) and cellulitis, currently on IV zosyn. Patient was weaned off pressors and downgraded from ICU on 10/28. Speech evaluation showed patient is recurrently aspirating, video swallow ordered for today but had to be canceled due to his lethargy. We are nearing the point of needing TPN/PEG placement, asking GI to come onboard for recommendations. Repeat CXR was ordered due to ongoing lethargy/AMS - showing progressive right sided opacities concerning for recurrent aspiration pneumonitis. Patient began to have increased work of breathing, heart rate dropped to 40s. Bioengineer consulted, decision was made to re-admit patient to ICU for further management. Communicated with family regarding needs of goals of care discussion. Septic Shock - Resolved - Required pressors during ICU stay, has not needed since Wednesday (10/27) - IVF discontinued due to pulmonary vascular congestion - on Iv zosyn Altered Mental Status - etiology unknown, seems to have a waxing and waning quality - patient received 1 dose of IV Ativan 2mg on 10/30 - no additional doses of given since - Head CT on admission negative - Hepatic etiology seems unlikely. AST elevated as high as 87, trending down. ALT normal. Ammonia level normal on admission, at 31 today. Tbili as high as 8.5, down to 7 today. Direct bili 4.6. Liver normal in appearance on CT of abdomen, no evidence of cirrhosis. - electrolytes stable, mild hyponatremia, although sodium level improved from admission (correcting at appropriate rate) - WBC low, patient afebrile, hemodynamically stable. COVID 19 negative. 1 of 2 blood cultures grew gram + cocci in cluster on 10/30. Nasal MRSA neg. Per micro department, no MRSA DNA detected in blood. Ordered vancomycin loading dose on 10/30. UA ordered to assess for zosyn-resistant UTI - Repeat CXR 10/31 showed improved aeration of left lung, but progressive right lower lobar opacity, concerning for recurrent aspiration pneumonitis - Currently on day 6 of zosyn for RLL PNA. 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 Repeat CXR today showing improved aeration of left lung, but progressive right lower lobar opacity. 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 - Folate 1gm qAM. Acute hyponatremia: - Na was 117 upon admission, up to 135 today - suspect from dietary/poor sodium content in alcohol - IVF discontinued as patient was volume overloaded Hypokalemia: resolved - K normal at 3.7 - mag normal at 2.2 Coagulopathy: INR at 1.3 today, improved from 1.5 with Vitamin K therapy Hyperbilirubinemia: - T bili trending down since admission, now at 7, direct at 4.6 - most likely secondary to liver disease - MELD score of 18 Non-STEMI (non-ST elevated myocardial infarction): etiology considered demand ischemia Hypoalbuminemia: - albumin 2.0 on admission - suspected from liver impairment/ inadequate protein calorie intake - outbound sales agent consult placed Alcohol abuse: - Suspected long standing alcohol abuse which led to Liver disease - Currently on Thiamine 100mg PO qAM and and Folate 1gm PO qAM - AST: ALT 2:1 ratio consistent with alcohol abuse - Negative EtOH upon admission - patient was initially placed on protocol, but Ativan d/c due to AMS Wound of foot: - wound care consulted Dystrophic nail: - appreciate podiatry consult Ribs, multiple fractures - Multiple rib fractures as noted above - Tylenol PRN PO for mild pain, avoiding NSAIDs because of coagulopathy and bleeding risk. - Oxycodone IR d/c due to AMS Dispo: ICU Diet: NPO Code: Full Admission and Anticipated Discharge Date Admission Date: October 26, 2019 Supervising Physician Co-Signing Physician Notes Attending attestation Pt seen and examined in concert with Dr. Stephenson. In agreement with the documented findings as noted in the resident documentation with any exceptions or additions as noted here. Waning mental status today with inability to tolerate video swallow. Worsening mental status columnated in call to bedside for patient unresponsive requiring BIPAP for appropriate oxygenation with episode of bradycardia. On examination, S1/S2 nl RRR no MCG. Abd NT/ND BS+ve. Scattered rhonchi bilaterally worse at the bases, now worse on the right Acute hypoxic respiratory failure - brazing machine feeder consultation, on BIPAP - transition to ICU for respiratory support. Exensive discussion with family regarding goals of care and likelihood of recurrence of aspiration episode in the setting of consequences of chronic alcohol abuse RLL pneumonia w/ aspiration episode - ICU transfer - add vancomycin, continue Zosyn, BIPAP with likely need for intubation. ABG as noted. Follow up labs LLL Pneumonia with suspected aspiration episode - improved on Zosyn, continue as above Anemia, severe - continue monitor CBC Hyponatremia, acute on chronic - trend BMP Alcohol abuse - continue thiamine/folate and AWSS protocol. No recent ativan requirement Metatarsal fx from September imaging - ortho eval when able. Else see resident documentation as noted. Subjective No acute events overnight. Patient is lethargic and difficult to arouse on exam Review of Systems Review of Systems: Unobtainable due to cognitive status Physical Exam Constitutional: WD/WN, vitals as above + cachectic, + disheveled and + lethargic Eyes: sclerae not anicteric ENMT: external ear and nose normal, oropharynx normal Neck: normal visual inspection and trachea midline Respiratory: no respiratory distress (lungs much clearer today) Cardiovascular: Rate/Rhythm: regular rate and regular rhythm Heart Sounds: normal S1 and normal S2 Extremities: no pedal edema Gastrointestinal (Abdomen): normal bowel sounds, soft, nontender, no hepatosplenomegaly Skin: + wound (dorsal aspect of R foot), + purpura (R LE) and + nails dystrophic Neurologic: awake Psychiatric: Orientation: + not alert and + not oriented x 3 Thought Process: + perseveration Results & Data Results & Data ([place]) Vital Signs (Past 12 Hours) Vital Signs Temp Pulse Resp BP BP Pulse Ox 11/01/19 12:00 36.8 C 77 20 113/70 95 11/01/19 05:38 92 11/01/19 03:15 36.3 C L 96 H 18 131/83 94 Resident Activity Tracking Resident Involvement: Resident Care Provided Care Provided: Adult Hospital Medicine
[2019-11-01 13:38] LABS: Base Excess ABG 1.3 mEq/L (-9-1.8); HCO3 ABG 25 mmol/L (19-24); Oxygen Saturation ABG 86.4 % (90-95); PCO2 ABG 33 mmHg (35-46); PO2 ABG 53 mmHg (80-95); pH ABG 7.48 (7.35-7.45)
[2019-11-01 14:02] LABS: Allen Test Pos (Pos)
--- NOTE | 2019-11-01 14:06 | XRay Report ---
XR chest 1V portable HISTORY: 54 years-old Male current pneumonia follow-up study in a patient with pneumonia COMPARISON: Chest radiograph 10/30/2019 TECHNIQUE: Portable AP view of the chest FINDINGS: Cardiac silhouette is enlarged. Pulmonary vascular congestion. No pneumothorax. Small left and small to moderate right pleural effusions. The right pleural effusion has increased in size from comparison . Right midlung and right lung base opacities have progressively worsened. There is moderately improv ed aeration of the left lung. Background interstitial opacities. Degenerative changes of the shoulder s and spine. Numerous displaced left-sided rib fractures redemonstrated IMPRESSION: 1. Increased size of the right pleural effusion with progressively worsened right midlung and right l mallika base consolidation. 2. Moderately improved aeration of the left lung. 3. Numerous displaced left-sided rib fractures redemonstrated. No pneumothorax. ACT 112: Negative or not required by law. The above report was generated using voice recognition software. It may contain grammatical, syntax o r spelling errors. Electronically signed by: Ernesto Aguilar M.D. 11/01/2019 2:05 PM
[2019-11-01 14:13] LABS: Bilirubin Direct 4.6 mg/dl (0-0.2)
--- NOTE | 2019-11-01 16:05 | Critical Care Consultation ---
Date of Consultation November 01, 2019 Assessment & Plan (1) Acute respiratory failure with hypoxia: Chest x-ray 11/01/2019 portable personally reviewed: Obtunded right costophrenic angle, increasing opacities on the right side. Left costophrenic angle is also blunted. This is significantly worsened compared to chest x-ray done 10/28/2019. CT chest 10/27/2019 showed left-sided pleural effusion centrilobular emphysema mild groundglass opacities in the left upper lobe -- Acute Hypoxic respiratory failure Likely sec to pneumonia with right-sided pleural effusion likely aspiration with possible fluid overload Continue with antibiotics, add vancomycin Maintain SPO2 between 88 to 92% BiPAP nightly and as needed shortness of breath Follow-up sputum culture. If there is any worsening in respiratory distress will need intubation Family at bedside was made aware about the plan. PCT: 0.5, BNP>7000 Diuretics as tolerated to keep negative balance -- Right sided pleural effusion will perform thoracentesis once if it doesn't resolve with diuretics -- Cellulitis of RLE has been on chronic antibiotics since this admission need to rule out PAD as there is no significant improvement on Abx --Elevated LFT with elevated bilirubin Patient likely has Liver cirrhosis from chronic alcohol use low platelets, low albumin goes with it MELD 19 Child Gregory class C -- Coagulopathy likely from above -- AMS ammonia within normal limit. TSH:1.3 on 10/27/19 Calcium within normal limit --Prophylaxis DVT: Heparin GI: No need Plan: C/w BiPAP, f/u septic work up Diuretics to negative balance If no improvement in pleural effusion then plan to do thoracentesis I have personally spent 63 minutes of critical care time in the direct management of this patient. This is a life/limb threatening event. This includes time spent evaluating patient, direct bedside care, chart review, placing orders, interpretation of diagnostic studies, discussion with consultants, patient, and family members, as well as other required patient management activities. This time is exclusive of all separately billable procedures, and teaching time and separate from and in addition to any other critical care service time. Please note the above document was generated using voice recognition software. It may contain grammatical, syntax or spelling errors. (2) Cellulitis of right leg: (3) Alcohol abuse: (4) Pleural effusion: History of Present Illness Attending Physician: Jose G Vides MD History of Present Illness 54-year-old male who was initially admitted to the ICU on 10 25 with septic shock secondary cellulitis of the right lower extremity as well as left lower lobe pneumonia. He was weaned off pressors and downgraded on 10/29/2019. Patient also has history of chronic alcohol abuse and his left findings go with cirrhotic liver. His mental status is always been an issue and there is high likelihood that he is aspirating. ICU was recalled as the patient was complaining of shortness of breath and was in respiratory distress. Chest x-ray was done today which showed worsening right-sided infiltrate along with right-sided pleural effusion. As per the team taking care of the patient patient was bit restless yesterday and was given a dose of Ativan. He also had water to drink and there is possibility that he might have aspirated on top of that. At the time of examination patient was somnolent on BiPAP. Responding to deep stimuli. Able to recognize his daughter and answer simple questions. He was getting good tidal volumes on BiPAP 12 x 6 40%. Saturating well. Plan was made to take the patient to the ICU to have a close monitoring. And if he is status does not improve with BiPAP then plan for intubation. Allergies Allergy/AdvReac Type Severity Reaction Status Date / Time No Known Allergies Allergy Unverified 10/26/19 21:35 Home Medications Home Medications Medication Instructions Recorded Confirmed Type No Known Home Medications 09/25/19 10/26/19 History Patient History Medical History No significant past medical history Surgical History No significant past surgical history Social History Smoking Status: Current every day smoker Cigarettes Per Day: 20; Second Hand Exposure: No; Do You Dip or Chew Tobacco: No; Tobacco Cessation Education Requested by Patient: No Hx Alcohol Use: Yes Alcohol type: beer Hx Substance Use: Yes Last Used Substance: Unknown Preferred Language: [place]se Communication Ability: Impaired Pet Care Attendant Required: No Beliefs That Will Affect Care: None marital status: Current Living Situation: Alone current occupational status: unemployed How many Children do You have: 3 Other Information That Helps Us Care for You: No Feels Safe at Home: Yes Safety Concerns: Feels Safe At This Time Review of Systems Review of Systems: Unobtainable due to cognitive status Physical Exam Physical Exam: Constitutional: In respiratory distress HEENT: EOMI, PERRLA, scleral icterus Respiratory system: Decreased air entry bilaterally, more decreased on the right side, positive crackles bilateral lower lobes more on the right side, no wheeze, no rhonchi CVS: S1-S2 positive, no murmurs or gallops Abdomen: Soft, nontender, nondistended, positive bowel sounds x4 Extremities: +2 pulses bilaterally radialis/ dorsalis pedis, no cyanosis, no edema Neuro: Somnolent, arousable to deep stimuli, moves all extremities on awakening, recognizes his daughter Psych: Flat mood and affect Patient was BiPAP at the time of examination 12/24 getting tidal volumes of 400. Respiratory rate was 26-28. Bedside US: Lung: B lines appreciated b/l LL and Right anteriorly. + Right sided pleural effusion Heart: Goof EF, No pericardial effusion, RVOT normal in size Skin: no rashes, warm and dry Lymphatic: no cervical or axillary lymphadenopathy Results & Data Results & Data ([facility]) Vital Signs (Past 12 Hours) Vital Signs Temp Pulse Pulse Resp BP Pulse Ox 11/01/19 15:46 36.0 C L 91 H 18 133/81 95 11/01/19 15:40 95 H 26 H 96 11/01/19 12:00 36.8 C 77 20 113/70 95 11/01/19 05:38 92 11/01/19 06:58 11/01/19 06:57 [facility] Procedure Codes (Charges) Pulmonary/Thoracic Procedure 1: Pulmonary and Thoracic: 86083 US, Chest, real time with imaging documentation Coding Level of Care Code Critical Care 1st 30-74 mins Diagnoses Acute respiratory failure with hypoxia J96.01 Cellulitis of right leg L03.115 Alcohol abuse F10.10 Pleural effusion J90 CPT Codes Pulmonary/Thoracic - Pulmonary and Thoracic: 70583 US, Chest, real time with imaging documentation ([id number]) Time Spent (min) 63
[2019-11-01 16:42] LABS: C Reactive Protein 12.2 mg/dl (0-0.29)
--- NOTE | 2019-11-01 16:46 | Gastrointestinal Consultation ---
Date of Consultation November 01, 2019 Assessment & Plan (1) Altered mental state: -Patient is being transferred back to the ICU during the time of our visit due to respiratory distress. GI was asked about hepatic encephalopathy which is possible, however the only liver imaging during this admission was a CT scan that indicated an unremarkable appearing liver. Can consider a non-emergent US for further evaluation of liver texture. As for the request for a PEG tube, patient is currently not a candidate for PEG placement with an active pneumonia and subsequent respiratory distress requiring transfer back to the ICU today. Further evaluation can occur when patient is stabilized by his primary team. Supervising Physician Co-Signing Physician Notes Agree with SAPNA Jay as above Recommend Palliative care consult and NG tube feedings until his medical conditions improve. History of Present Illness Attending Physician: Jose G Vides MD History of Present Illness Patient is a 54 yo male with a complex medical picture currently admitted for septic shock thought to be related to an underlying left lower lobe pneumonia. He was admitted to the ICU on pressors and was eventually transferred out of the ICU on 10/29/2019. He reportedly has continued to be encephalopathic with unclear etiology. Liver imaging from a CT scan during this admission was unremarkable. He reportedly drinks a significant amount of alcohol. GI has also been asked to assess candidacy for a PEG. Unfortunately at the time of our visit, the patient was being sent back to the ICU due to respiratory failure. He was unable to provide any further history. T Bili is elevated to 7. D bili 4.2. AST mildly bumped but ALT wnl. INR 1.3. Patient continues antibiotic therapy and is reportedly a full code. Allergies Allergy/AdvReac Type Severity Reaction Status Date / Time No Known Allergies Allergy Unverified 10/26/19 21:35 Home Medications Home Medications Medication Instructions Recorded Confirmed Type No Known Home Medications 09/25/19 10/26/19 History Patient History Medical History No significant past medical history Surgical History No significant past surgical history Social History Smoking Status: Current every day smoker Cigarettes Per Day: 20; Second Hand Exposure: No; Do You Dip or Chew Tobacco: No; Tobacco Cessation Education Requested by Patient: No Hx Alcohol Use: Yes Alcohol type: beer Hx Substance Use: Yes Last Used Substance: Unknown Preferred Language: Northern Irish Communication Ability: Impaired Dispute Coordinator Required: No Beliefs That Will Affect Care: None marital status: Current Living Situation: Alone current occupational status: unemployed How many Children do You have: 3 Other Information That Helps Us Care for You: No Feels Safe at Home: Yes Safety Concerns: Feels Safe At This Time Review of Systems Review of Systems: Unobtainable due to cognitive status and Unobtainable due to endotracheal tube (bipap) Physical Exam Constitutional: + ill appearing Neck: normal visual inspection Respiratory: + respiratory distress Results & Data ([facility]) Vital Signs (Past 12 Hours) Vital Signs Temp Pulse Pulse Resp BP Pulse Ox 11/01/19 15:46 36.0 C L 91 H 18 133/81 95 11/01/19 15:40 95 H 26 H 96 11/01/19 12:00 36.8 C 77 20 113/70 95 11/01/19 05:38 92 PG Care Time/CCT Total # of Minutes Spent Total Time Spent with Patient: Total time spent is greater than 50% in coordination of care (as documented) at patient's floor/unit and/or counseling patient: Coding Level of Care Code 29840 Inpt Consult Level 3 Diagnoses Altered mental state R41.0 Altered mental status type: delirium (1) Altered mental state Altered mental status type: delirium Qualified Code(s): R41.0 - Disorientation, unspecified
[2019-11-01] MEDS ORDERED: VANCOMYCIN CONSULT ACTIVE PRN (18:00)
[2019-11-01] MEDS ORDERED: VANCOMYCIN HCL 1,250 MG in SODIUM CHLORIDE 0.9% 250 ML IV ONE (18:15)
[2019-11-01] MEDS ORDERED: FUROSEMIDE 40 MG in SYRINGE 0 ML IV ONE (18:30)
--- NOTE | 2019-11-01 20:51 | Pharmacy Report ---
Pharmacy Abx Initial Consult - Date of Service November 01, 2019 - Pharmacy Dosing Scope Date of Consult: [] Consultation requested by: [] Pharmacy is consulted to initiate [] IV/PO dosing therapy, order appropriate labs and adjust drug dose/frequency. - Subjective The patient is a 54 year old M admitted on 10/26/19 22:48. - Objective Height: 5 ft 1 in Weight: 53.4 kg Vital Signs (Past 12hrs): Vital Signs Temp Pulse Pulse Resp BP BP BP 11/01/19 20:33 36.7 C 95 H 21 100/71 11/01/19 19:27 86 18 11/01/19 18:46 95 H 26 H 116/74 11/01/19 18:00 37 C 90 18 144/82 H 11/01/19 17:00 37 C 96 H 18 142/87 H 11/01/19 16:45 91 H 34 H 11/01/19 15:46 36.0 C L 91 H 18 133/81 11/01/19 15:40 95 H 26 H 11/01/19 12:00 36.8 C 77 20 113/70 Pulse Ox 11/01/19 20:33 95 11/01/19 19:27 90 11/01/19 18:46 91 11/01/19 18:00 98 11/01/19 17:00 98 11/01/19 16:45 97 11/01/19 15:46 95 11/01/19 15:40 96 11/01/19 12:00 95 Lab Results (24hrs): Laboratory Tests (24 Hours) 11/01/19 11/01/19 11/01/19 13:24 13:20 06:58 WBC Neut # (Auto) ESR 11 Creatinine Est Cr Clr Drug Dosing C-Reactive Protein 12.20 H Procalcitonin 0.50 11/01/19 11/01/19 06:58 06:57 WBC 3.40 L Neut # (Auto) 1.95 ESR Creatinine 0.53 L Est Cr Clr Drug Dosing 115.1 C-Reactive Protein Procalcitonin Micro Results: 10/26/19 22:03 Aerobic Blood Culture - Final Blood No growth in Aerobic bottle after 5 days. Anaerobic Blood Culture - Final No growth in Anaerobic bottle after 5 days. 10/27/19 00:55 Urine Culture - Final Urine,Straight Cath No growth - less than 1,000 colonies/mL. - Risk Factors for Resistance * Current hospitalization > 5 days * Antimicrobial use within the last 90 days: * Levofloxacin + Zosyn + Vancomycin - Assessment & Plan Assessment 54 year old M being restarted on Vancomycin for pulmonary indication * 1/4 bottles from blood culture is growing gram positive cocci * Patient is afebrile. Procalcitonin was 0.50 today. Plan Vancomycin + Zosyn for treatment of pneumonia + bacteremia Vancomycin IV * Patient meets criteria for vancomycin AUC dosing nomogram * AUC/KEVAN is the preferred PK/PD target for vancomycin * Target AUC/KEVAN = 400-600 * AUC guided dosing is effective and associated with decreased risk of nephrotoxicity Piperacillin/tazobactam * 4.5 g bolus administered over 30 minutes, then 4.5 g IV extended infusion every 8 hours for CrCl greater than 20 mL/min * Aggressive dosing selected due to critically ill status. Pharmacy will continue to follow and will adjust dose/frequency as necessary. Thank you.
[2019-11-02] MEDS: VANCOMYCIN HCL 1,000 MG in SODIUM CHLORIDE 0.9% 250 ML IV SCH ×3 (02:12→18:31)
[2019-11-02 04:45] LABS: Hematocrit (blood only) 29.1 % (42-52); Mean Corpuscular Hemoglobin 30.7 pg (25-34); Mean Corpuscular Hgb Conc 34.4 g/dL (32-36); Mean Corpuscular Volume 89.3 fL (80-100); RDW Coefficient of Variation 15.5 % (11.5-14.5); Red Blood Count 3.26 M/uL (4.7-6.1); White Blood Count 2.55 K/uL (4.8-10.8)
[2019-11-02 04:47] LABS: Mean Platelet Volume 9.9 fL (7.4-10.4); Platelet Count 46 K/uL (130-400)
[2019-11-02 04:52] LABS: INR 1.3 (0.9-1.1); Prothrombin Time 13.3 Seconds (9.0-12.0)
[2019-11-02 05:06] LABS: BUN Creatinine Ratio 14.5 (10-20); Calcium 7.6 mg/dl (8.5-10.1); Est GFR (African American) 140.4; Est GFR (Non-African American) 121.1; Magnesium 1.4 mg/dl (1.8-2.4); Phosphorus 3.3 mg/dl (2.5-4.9); Potassium 2.9 mmol/L (3.5-5.1)
[2019-11-02 05:25] LABS: Basophils # (auto) 0.01 K/uL (0-0.2); Basophils % (auto) 0.4 %; Eosinophils # (auto) 0.05 K/uL (0-0.5); Giant Platelets 1+; Immature Granulocytes # (auto) 0.01 K/uL (0.00-0.02); Immature Granulocytes % (auto) 0.4 %; Lymphocytes # (auto) 0.63 K/uL (1.2-3.4); Lymphocytes % (auto) 24.7 %; Monocytes # (auto) 0.29 K/uL (0.11-0.59); Monocytes % (auto) 11.4 %; Neutrophils # (auto) 1.56 K/uL (1.4-6.5); Neutrophils % (auto) 61.1 %
[2019-11-02] MEDS ORDERED: GLUCAGON FOR INJ 1 MG VIAL SQ PRN (05:40)
[2019-11-02] MEDS ORDERED: DEXTROSE 50% 50 ML SYRINGE IV PRN (05:40)
[2019-11-02] MEDS ORDERED: GLUCOSE 40% GEL 15 GM TUBE PO PRN (05:40)
[2019-11-02] MEDS ORDERED: GLUCOSE 10 TABS/TUBE PO PRN (05:40)
[2019-11-02] MEDS ORDERED: CARBOHYDRATES FOR HYPOGLYCEMIA PO PRN (05:40)
[2019-11-02] MEDS ORDERED: DEXTROSE 50% 50 ML SYRINGE IV ONE (05:42)
[2019-11-02 05:49] LABS: iSTAT Allen Test Pass; iSTAT Art Bld Gas pCO2 Correct 29 mmHg (35-46); iSTAT Art Bld Gas pH Corrected 7.547 (7.35-7.45); iSTAT Arterial Blood Gas HCO3 26 meg/L (19-24); iSTAT Arterial Blood Gas pCO2 30 mmHg (35-46); iSTAT Arterial Blood Gas pH 7.54 (7.35-7.45); iSTAT Arterial Blood Gas pO2 80 mmHg (80-95); iSTAT Arterial Blood Gas pO2 C 76; iSTAT Carbon Dioxide 26 mmol/L (24-31); iSTAT FiO2 30 %; iSTAT Hematocrit 28 % (42-52); iSTAT Hemoglobin 9.5 g/dl (14.0-18.0); iSTAT Potassium 2.7 mmol/L (3.3-5.0); iSTAT Site R Radial; iSTAT Sodium 132 mmol/L (135-144)
[2019-11-02] MEDS: MAGNESIUM SULFATE / D5W 1 GM/100 ML BAG IV SCH ×2 (05:55→08:10)
[2019-11-02] MEDS: POTASSIUM CHLORIDE / WTR 10 MEQ/100 ML PLCT IV SCH ×8 (05:55→13:34)
[2019-11-02] MEDS: PIPERACILLIN/TAZOBACTAM 4.5 GM in DEXTROSE 5% 100 ML IV SCH ×3 (06:01→21:12)
[2019-11-02] MEDS: INSULIN ASPART 100 UNITS/ML 3 ML PEN SC SCH ×3 (06:02→17:21)
--- NOTE | 2019-11-02 07:42 | Critical Care Progress Note ---
Date of Service November 02, 2019 Assessment & Plan (1) Acute respiratory failure with hypoxia: Reason Critically Ill: 54 yo M with no prior medical care presented with profound weakness and AMS, found to be severely anemic and hypotensive. Admitted for severe sepsis, symptomatic anemia, and AMS. Downgraded due to improvement in mental status and no further need for pressors. Yesterday readmitted to ICU for further worsening respiratory distress for close monitoring, with intention to intubate if respiratory status continued to decline, and to perform thoracentesis if pleural effusion did not improve on diuretics. NEURO - CAM ICU: NEGATIVE Altered mental status: - Likely multifactorial, with likely hepatic encephalopathy, pneumonia and cellulitis of bilateral LE, acute but improving hyponatremia, severe anemia on admission. - Treatment for these outlined below. - Admission imaging with multiple fractures at different levels of healing suggests it is possible that he has had altered mentation and difficulty ambulating for some time. - CT Head negative for acute process. - No focal neurological deficits on physical exam. - Calcium within normal limits accounting for albumin level. - TSH normal, ammonia level normal. History of chronic alcohol abuse at risk of withdrawal: - Though the patient's family reported on admission that he had not had alcohol in a week prior to admission, the patient reports having had alcohol as recently as day of admission. - 2:1 AST/ALT ratio on admission suggestive of alcohol abuse. T Bili with significant elevation this admission. - Alcohol level in ER negative, ammonia level negative. - No outward signs of withdrawal on admission, and since downgrade has not required Ativan for AWSS protocol. - No history of seizures, and no seizures while in hospital. - Thiamine, folate daily. CARDIOVASCULAR - Hypotension: - On admission with severe sepsis with hypotension from pulmonary vs. skin/soft tissue infection. - Also likely 2/2 volume depletion given severe anemia with Hgb 5.4; patient is s/p 3u PRBCs. - With frequent changes in his fluid type and infusion rate since admission to titrate based on Na level. - Continue Normosol 80cc/hr, titrating as needed to correct Na appropriately and fluid replete. - BP normotensive this afternoon. Continue light hydration. NSTEMI: - Patient is without complaints of chest pain or anginal equivalents. - Elevated troponin on arrival which peaked several days ago. - EKG without ST elevation, nonspecific T wave abnormality in anterior leads. - Echo this admission: EF >70%, LV hyperdynamic, no wall motion abnormalities, no valvular abnormalities. - Elevated troponin likely 2/2 severe anemia vs. severe sepsis and hypotension causing demand ischemia. - Continue telemetry monitoring. RESPIRATORY - Acute hypoxemic respiratory failure: - 10/[address] chest performed which showed L pleural effusion, centrilobular emphysema, mild ground glass opacities in the L upper lobe. - While on medical floor patient was noted to have difficulty swallowing, and yesterday was unable to perform video swallow study due to AMS and agitation. - Yesterday patient developed respiratory distress and required BiPAP for respi ratory support. - CXR performed 10/31 showing obtunded R costophrenic angle with increased opacities on the R side, L costophrenic angle blunting, all worsened since prior CXR. - Worsening of respiratory status and findings on CXR likely due to aspiration as patient is at increased risk due hepatic encephalopathy. - Patient failed swallow study this afternoon, alternate modes of nutrition were suggested. - Have added vancomycin to Zosyn for suspected aspiration pneumonia. - Biofire panel negative. - COVID 19 testing negative. - Continue to wean oxygen as tolerated. Goal oxygenation 88-92%. - Bedside US later today to determine if pleural effusion requires thoracentesis. Hx Smoking Abuse: - Patient is a daily smoker and has findings on CT Chest suggestive of emphysema. - Continue to wean oxygen as tolerated. - Patient likely has an element of underlying COPD/emphysema given robust smoking for decades. - BiPAP when sleeping or PRN respiratory distress. GI/NUTRITION - Severe protein calorie malnutrition: - Patient has been acutely unable to tolerate PO intake adequately for several days due to suspected aspiration, mental status, and acute illness. - Patient was also admitted with signs of chronic malnutrition likely 2/2 alcohol abuse (severe osteopenia, hypoalbuminemia, hyponatremia, hypokalemia). - Patient failed swallow study this afternoon, NPO at this time. - GI consulted for PEG given inability to tolerate PO intake. - Palliative care consult placed for goals of care discussion given inability to tolerate PO intake due to aspiration. Jaundice with Hx chronic alcohol abuse: - LFTs with AST minimal elevation this admission, however on admission with AST:ALT >2:1 ratio suggestive of alcoholic cirrhosis. - Elevated T Bili and INR, pancytopenia, low albumin, jaundice all support diagnosis of alcoholic cirrhosis. - CTAP and gallbladder US showed cholelithiasis but no evidence of ductal dilatation. - MELD score 19, Child Gregory class C. - 3 Month Mortality 6%. - Poor candidate for transplant given significant comorbidities, active alcohol use. - Acute Hepatitis panel negative. - Encourage alcohol cessation while admitted. - Palliative consult placed as above. GI bleed: - Scantly Hemoccult positive on admission exam. - Hgb on arrival ~5, stable at ~10 since receiving 3u PRBCs. - Completed 3 days Octreotide and Protonix high dose therapy in ICU earlier this admission. - Reticulocyte count high, likely 2/2 increased RBC production in the setting of severe anemia. - Continue to monitor CBC. RENAL/LYTES - Hyponatremia: - Likely secondary to chronic malnutrition, decreased eating of fortified foods in leiu of significant beer intake. - Patient with appropriate rate of correction throughout admission from 119 on arrival to 135 this AM. - Continue Normosol 80mL/hr for gentle hydration. - NPO. - Repeat BMP tomorrow AM. Hypokalemia: - Replace as needed to maintain K > 4. - - Ceja in place - Strict Is/Os. ENDO - - No history of diabetes or thyroid disease, however has not seen a PCP in over 10 years. - ICU hyperglycemia protocol. HEME - Symptomatic anemia: - Profound anemia to ~5 on admission, increased to ~10 with 3u PRBCs. - No signs of bleeding on CT Head, CTAP. - Likely 2/2 chronic bone marrow suppression due to chronic alcohol abuse given pancytopenic presentation. - Reticulocyte count appropriately elevated in the setting of acute bleeding. - Octreotide/PPI given for total 3 days for possible GIB. - No melena, bloody vomitus, or bright red blood in stool. - Completed transfusions and H/H stable; monitor CBC daily. Thrombocytopenia: - On arrival with plts 96, down to 46 today. - Likely due to chronic bone marrow suppression. - No active bleeding at this time. - May require thoracentesis later today despite bleeding risk to improve respiratory status. ID - Severe sepsis with septic shock: - Secondary to pulmonary vs LE cellulitis source. - Earlier this admission with 1/4 BCx growing Micrococcus, likely contaminate. - Repeat BCx x2 pending. - Currently on Zosyn/vancomycin for aspiration pneumonia and for cellulitis coverage, will complete a total of 10 days of treatment. - Will need to r/o PAD this admission as he has had minimal improvement in b/l LE cellulitis despite several days of IV Abx. - Follow up sputum and blood cultures. - Continue Normosol gentle fluid resuscitation as above. TRAUMA/MSK - Severe Osteopenia on Imaging with Multiple Fractures: - Patient with several rib fractures, healing sternal fracture, and several RLE metatarsal fractures. - Likely due to frequent falls while intoxicated. - Patient has severe osteopenia on imaging, putting him at increased fracture risk. - Patient is without pain. LINES/IV ACCESS - - PIVs x2. DVT PROPHYLAXIS - - Holding Heparin DVT ppx given severe thrombocytopenia. - SCDs. Thank you for allowing us to participate in the care of this patient. Please refer to Dr. Stuart's documentation for any further recommendations. (2) Altered mental state: (3) Pleural effusion: (4) Sternal fracture: (5) Metatarsal stress fracture of right foot: (6) Ribs, multiple fractures: (7) Alcohol abuse: (8) Cellulitis of right leg: (9) Severe sepsis: (10) Hypoalbuminemia: (11) Non-STEMI (non-ST elevated myocardial infarction): (12) Pneumonia: (13) Severe anemia: (14) Hyponatremia: Admission and Anticipated Discharge Date Admission Date: October 26, 2019 Supervising Physician Co-Signing Physician Notes Barbara Montiel was the resident-physician during care of patient. I separately evaluated patient for zavaleta portions of the history and the exam. I was present during the critical portion of medical decision making, and I discussed the case with the resident. I generally agree with the findings and plan except for any additions/exceptions noted. In/out: -1.6 L, urine output 2815 Patient seen and examined at bedside. Patient used BiPAP overnight. He diuresed well to Lasix given yesterday. Chest x-ray from today shows improvement in the bilateral pulmonary edema as well as decrease in size of the right-sided pleural effusion. Continue with diuretics as tolerated. Continue with antibiotics for the time being as there is possibility of aspiration pneumonia. Continue with aspiration precautions. Keep the patient n.p.o. Potassium and magnesium has been replaced. Patient had swallow eval today which he failed. He will need most likely PEG placement for nutrition. PEG placement does not decrease the chances of aspiration. Overall patient prognosis is very poor given cirrhosis, waxing and waning mental status. Palliative care has been consulted. I have personally spent 31 minutes of critical care time in the direct management of this patient. This is a life/limb threatening event. This includes time spent evaluating patient, direct bedside care, chart review, placing orders, interpretation of diagnostic studies, discussion with consultants, patient, and/or family members regarding treatment decisions, as well as other required patient management activities. This time is exclusive of all separately billable procedures, and teaching time and separate from and in addition to any other critical care service time. Subjective Overnight without acute events. Continued episodes of hypotension to systolic 90s. HR did not drop overnight. Has been afebrile. Had video swallow performed today which he failed. Today spoke with family at length regarding worsening mental status and concern for quality of life at home. Patient's family would like to speak with palliative care to have goals of care discussion. In room patient is more alert today than yesterday, however confused and often does not answer questions appropriately. Does deny SOB, CP, abdominal pain, nausea, chills, fever, headache. Some leg pain. Review of Systems Review of Systems: All systems reviewed & are unremarkable except as noted in Subjective Physical Exam Physical Exam: Constitutional: resting comfortably on room air, in no acute distress HEENT: EOMI, PERRLA, scleral icterus Respiratory system: Decreased air movement bilaterally, positive crackles bilateral lower lobes more pronounced on the right side CVS: RRR no murmurs, no peripheral edema Abdomen: Soft, nontender, nondistended, positive bowel sounds x4 Extremities: DP/PT pulses palpable bilateral LE; bilateral LE with erythema, decreased hair from knee down Neuro: Tired appearing, but arousable and can answer some questions Psych: Flat mood and affect Skin: no rashes, warm and dry Lymphatic: no cervical or axillary lymphadenopathy Results & Data Results & Data ([facility]) Vital Signs (Past 12 Hours) Vital Signs Temp Pulse Resp BP Pulse Ox 11/02/19 05:46 97 H 24 105/61 95 11/02/19 04:46 94 H 22 96/65 L 98 11/02/19 04:42 100 H 24 97 11/02/19 03:46 36.6 C 97 H 21 112/64 97 11/02/19 02:46 101 H 21 106/71 97 11/02/19 01:46 97 H 25 H 102/64 98 11/02/19 01:25 89 23 99 11/02/19 00:46 91 H 24 97/66 L 99 11/02/19 00:00 36.6 C 95 H 17 103/67 99 11/01/19 23:46 91 H 24 87/57 L 99 11/01/19 23:00 94 H 21 94/60 L 99 11/01/19 22:46 97 H 23 99 11/01/19 21:46 92 H 23 109/69 96 11/01/19 20:46 93 H 24 111/69 97 11/01/19 20:33 36.7 C 95 H 21 100/71 95 Resident Activity Tracking Resident Involvement: Resident Care Provided Care Provided: Adult Hospital Medicine (1) Ribs, multiple fractures Encounter type: initial encounter Fracture type: closed Laterality: unspecified laterality Qualified Code(s): S22.49XA - Multiple fractures of ribs, unspecified side, initial encounter for closed fracture (2) Metatarsal stress fracture of right foot Encounter type: initial encounter Qualified Code(s): M84.374A - Stress fracture, right foot, initial encounter for fracture (3) Altered mental state Altered mental status type: delirium Qualified Code(s): R41.0 - Disorientation, unspecified (4) Sternal fracture Encounter type: initial encounter Fracture type: closed Sternal location: unspecified Qualified Code(s): S22.20XA - Unspecified fracture of sternum, initial encounter for closed fracture
--- NOTE | 2019-11-02 07:58 | XRay Report ---
XR chest 1V portable CLINICAL HISTORY: f/u dyspnea COMPARISON STUDY: 11/01/2019 FINDINGS: Improving interstitial changes throughout both hemithoraces. Improved pleural reactive ro ge and effusion right as well as left lung base. Pre-existing left rib fractures unchanged. No evidence for pneumothorax. IMPRESSION: Improving exam with diminished interstitial as well as basilar pleural reactive change/e ffusion type change as compared to the prior exam. ACT 112: Negative or not required by law. The above report was generated using voice recognition software. It may contain grammatical, syntax or spelling errors. Electronically signed by: Mukund Brower M.D. 11/02/2019 7:57 AM
[2019-11-02] MEDS ORDERED: Nursing to Pharmacy Communication SCH (08:30)
[2019-11-02] MEDS: NICOTINE 21 MG/24 HR TDSY TD SCH (08:35)
[2019-11-02] MEDS: AMMONIUM LACTATE 12% LOTION 225 GM BTL EXT SCH ×2 (08:35→20:18)
[2019-11-02] MEDS: HEPARIN SOD 5,000 UNIT/0.5 ML VIAL SQ SCH (08:36)
[2019-11-02 12:13] LABS: Appearance Urine Clear (Clear); Blood Urine Negative (Negative); Color Urine Dark Yellow; Glucose Urine UA Negative (Negative); Ketones Urine Trace (Negative); Leukocyte Esterase Urine Negative (Negative); Nitrite Urine Negative (Negative); Protein Urine Negative (Negative); Specific Gravity Urine 1.017 (1.000-1.030); Urobilinogen Urine Negative (Negative); pH Urine >= 9.0 (4.5-7.5)
--- NOTE | 2019-11-02 12:20 | Fluoroscopy Report ---
VIDEO SWALLOW STUDY CLINICAL HISTORY: Aspiration. COMPARISON STUDY: No priors. Fluoroscopy time: 2.6 minutes. FINDINGS: Fluoroscopic guidance is provided to the department of speech pathology in performing a vid eo swallow study. The patient consumed barium-impregnated cracker paste, pudding, honey thick liquid, and nectar thick liquid. There was significant pharyngeal retention with the more solid textures wit h subsequent aspiration. Aspiration was also seen with the nectar thick liquid and honey thick liquid textures. IMPRESSION: 1. Aspiration was seen with all the sampled textures. 2. See dedicated speech pathology report for detailed findings and recommendations. Dictated: 11/02/2019 11:41 AM Transcribed: 11/02/2019 11:53 AM Yoli [id number] [email or web address]_[email or web address] Electronically signed by: Glenroy Henry M.D. 11/02/2019 12:18 PM
[2019-11-02 12:31] LABS: Bilirubin Urine 1+ (Negative); Ictotest Urine Positive (Negative)
[2019-11-02] MEDS: FUROSEMIDE 40 MG in SYRINGE 0 ML IV SCH (13:34)
--- NOTE | 2019-11-02 15:52 | Billing Data ---
Date of Service November 02, 2019 Coding Level of Care Code Critical Care 1st 30-74 mins Time Spent (min) 34
[2019-11-02 15:53] LABS: BUN Creatinine Ratio 10.5 (10-20); Calcium 8.4 mg/dl (8.5-10.1); Creatinine Clr Calc Pharmacy 81.2 ml/min; Est GFR (African American) 120.9; Est GFR (Non-African American) 104.3; Magnesium 2.1 mg/dl (1.8-2.4); Phosphorus 2.1 mg/dl (2.5-4.9); Potassium 3.5 mmol/L (3.5-5.1)
--- NOTE | 2019-11-02 17:06 | Hospitalist Progress Note ---
Date of Service November 02, 2019 Assessment & Plan (1) Septic shock: Ariel Mendoza is a 54 y/o male who was admitted for septic shock on 10/25 and directly sent to ICU for vasopressors. Source of sepsis thought to be aspiration PNA (left lower lobe) and cellulitis, was placed on IV zosyn. Patient was weaned off pressors and downgraded from ICU on 10/28. Patient was transferred back to ICU on 10/31 for worsening respiratory status, with CXR suspicious for progressive aspiration pneumonitis. Iv vancomycin added. Video swallow today showing aspiration with all textures. Palliative consult placed to facilitate goals of care discussion. Primary team following, prepared for downgrade. Septic Shock - Resolved - Required pressors during ICU stay, has not needed since Wednesday (10/27) - IVF discontinued due to pulmonary vascular congestion - on Iv zosyn + vancomycin Altered Mental Status - etiology unknown, seems to have a waxing and waning quality - suspect some element of underlying alcohol dementia vs. acute metabolic process (recurrent aspiration pneumonitis) - palliative care consulted Left lower lobe pneumonia: - CXR 10/29 showing progressive b/l lower lobar opacities. Repeat CXR today showing improved aeration of left lung, but progressive right lower lobar opacity. Highly suspicious for aspiration pneumonitis - video swallow 11/01 showing aspiration to all textures - prone to aspiration from alcoholism, aspiration precautions - Continue with Zosyn since providing Anaerobic coverage (currently on day 6) + vancomycin added - NAN level normal Severe anemia: - Hgb was 4.9 on admission, now 9.3, no active signs of bleeding - Suspect longstanding chronic decline since appeared to have been able to tolerate/survive - 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 - Folate 1gm qAM. Acute hyponatremia: - Na was 117 upon admission, up to 135 today - suspect from dietary/poor sodium content in alcohol - IVF discontinued as patient was volume overloaded Hypokalemia: resolved - K normal at 3.7 - mag normal at 2.2 Coagulopathy: INR at 1.3 today, improved from 1.5 with Vitamin K therapy Hyperbilirubinemia: - T bili trending down since admission, now at 7, direct at 4.6 - most likely secondary to liver disease - MELD score of 18 Non-STEMI (non-ST elevated myocardial infarction): etiology considered demand ischemia Hypoalbuminemia: - albumin 2.0 on admission - suspected from liver impairment/ inadequate protein calorie intake - assistant professor of history consult placed Alcohol abuse: - Suspected long standing alcohol abuse which led to Liver disease - Currently on Thiamine 100mg PO qAM and and Folate 1gm PO qAM - AST: ALT 2:1 ratio consistent with alcohol abuse - Negative EtOH upon admission - patient was initially placed on protocol, but Ativan d/c due to AMS Wound of foot: - wound care consulted Dystrophic nail: - appreciate podiatry consult Ribs, multiple fractures - Multiple rib fractures as noted above - Tylenol PRN PO for mild pain, avoiding NSAIDs because of coagulopathy and bleeding risk. - Oxycodone IR d/c due to AMS Dispo: ICU Diet: NPO Code: Full Admission and Anticipated Discharge Date Admission Date: October 26, 2019 Supervising Physician Co-Signing Physician Notes Attending attestation Pt seen and examined in concert with Dr. Stephenson. In agreement with the documented findings as noted in the resident documentation with any exceptions or additions as noted here. Off bipap and arousable but still unfocused and unable to answer questions. On examination, S1/S2 nl RRR no MCG. Abd NT/ND BS+ve. 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 Follow up video swallow LLL Pneumonia with suspected aspiration episode - as above Anemia, severe - continue monitor CBC Hyponatremia, acute on chronic - trend BMP Alcohol abuse - continue thiamine/folate and AWSS protocol. No recent ativan requirement Metatarsal fx from September imaging - ortho eval when able. Else see resident documentation as noted. Subjective Patient in ICU Physical Exam Constitutional: WD/WN, vitals as above + cachectic, + disheveled and + lethargic Eyes: sclerae not anicteric ENMT: external ear and nose normal, oropharynx normal Neck: normal visual inspection and trachea midline Respiratory: no respiratory distress (lungs much clearer today) Auscultation: + rhonchi Cardiovascular: Rate/Rhythm: regular rate and regular rhythm Heart Sounds: normal S1 and normal S2 Extremities: no pedal edema Gastrointestinal (Abdomen): normal bowel sounds, soft, nontender, no hepatosplenomegaly Skin: + wound (dorsal aspect of R foot), + purpura (R LE) and + nails dystrophic Neurologic: awake Psychiatric: Orientation: + not alert and + not oriented x 3 Thought Process: + perseveration Hallucinations: + visual hallucinations Results & Data Results & Data ([facility]) Vital Signs (Past 12 Hours) Vital Signs Temp Pulse Resp BP Pulse Ox 11/02/19 14:50 92 11/02/19 13:30 36.4 C L 92 H 22 98/60 L 95 11/02/19 12:02 37.0 C 101 H 24 80/57 L 93 11/02/19 11:16 104 H 27 H 87/58 L 90 11/02/19 10:00 37.1 C 95 H 27 H 92 11/02/19 09:46 37.1 C 93 H 25 H 113/70 92 11/02/19 09:00 37.3 C 94 H 17 91 11/02/19 08:47 37.4 C 95 H 24 101/59 L 90 11/02/19 08:00 94 H 18 96 11/02/19 07:46 93 H 117/67 97 11/02/19 07:00 107 H 94 11/02/19 05:46 97 H 24 105/61 95 Resident Activity Tracking Resident Involvement: Resident Care Provided Care Provided: Adult Hospital Medicine
[2019-11-02] MEDS ORDERED: VANCOMYCIN TROUGH ONE (17:30)
[2019-11-02] MEDS ORDERED: POTASSIUM PHOS 3 MMOL/1 ML INFUSION IV STA (17:52)
--- NOTE | 2019-11-02 17:53 | Billing Data ---
Date of Service November 02, 2019 Coding Level of Care Code Critical Care 1st 30-74 mins Time Spent (min) 31
[2019-11-02] MEDS ORDERED: POTASSIUM PHOSPHATE 30 MMOL in SODIUM CHLORIDE 0.9% 500 ML IV ONE (18:30)
[2019-11-02] MEDS ORDERED: VANCOMYCIN HCL 1,000 MG in SODIUM CHLORIDE 0.9% 250 ML IV SCH (23:00)
--- NOTE | 2019-11-02 23:11 | Pharmacy Report ---
Pharmacy Abx Dose Short Note - Date of Service November 02, 2019 - Assessment & Plan Assessment 54 year old M ordered empiric antibiotics for sepsis, suspected source of pneumonia/cellulitis * 1/4 bottles from blood culture is growing micrococcus species * day #2 of antibiotic therapy Current hospitalization > 5 days * Antimicrobial use within the last 90 days: * Levofloxacin + Zosyn + Vancomycin Plan Vancomycin * Trough level of 27 mcg/mL is supratherapeutic (of note, level was drawn prior to steady state, therefore steady state trough would likely be higher) * Patient only received about 10 min of the dose ordered for today @ 1800. I c ontacted RN and instructed to d/c the infusion. * Change to 1000 mg IV every 12 hours (~33% decrease in total daily dose) * Goal trough level: >/= 15 mcg/mL * Repeat trough level will be ordered with continued therapy/significant change in renal function Piperacillin/tazobactam * Continue 4.5 g IV extended infusion every 8 hours for CrCl greater than 20 mL/min * Aggressive dosing selected due to critically ill status. Pharmacy will continue to follow and will adjust dose/frequency as necessary. Thank you.
[2019-11-03] MEDS: INSULIN ASPART 100 UNITS/ML 3 ML PEN SC SCH ×5 (00:24→23:12)
[2019-11-03 04:34] LABS: Hematocrit (blood only) 29.4 % (42-52); Hemoglobin 9.6 g/dL (14.0-18.0); Mean Corpuscular Hemoglobin 29.4 pg (25-34); Mean Corpuscular Hgb Conc 32.7 g/dL (32-36); Mean Corpuscular Volume 89.9 fL (80-100); RDW Coefficient of Variation 15.8 % (11.5-14.5); RDW Standard Deviation 49.5 fL (36.4-46.3); Red Blood Count 3.27 M/uL (4.7-6.1); White Blood Count 2.85 K/uL (4.8-10.8)
[2019-11-03 04:41] LABS: INR 1.2 (0.9-1.1)
[2019-11-03 04:44] LABS: Mean Platelet Volume 10.6 fL (7.4-10.4); Platelet Count 50 K/uL (130-400)
[2019-11-03 04:53] LABS: iSTAT Allen Test Pass; iSTAT Arterial Blood Gas HCO3 22 meg/L (19-24); iSTAT Arterial Blood Gas pCO2 25 mmHg (35-46); iSTAT Arterial Blood Gas pH 7.55 (7.35-7.45); iSTAT Arterial Blood Gas pO2 55 mmHg (80-95); iSTAT Carbon Dioxide 22 mmol/L (24-31); iSTAT Site R Radial
[2019-11-03 04:56] LABS: Basophils # (auto) 0.05 K/uL (0-0.2); Basophils % (auto) 1.8 %; Eosinophils # (auto) 0.05 K/uL (0-0.5); Eosinophils % (auto) 1.8 %; Immature Granulocytes # (auto) 0.01 K/uL (0.00-0.02); Immature Granulocytes % (auto) 0.4 %; Lymphocytes # (auto) 0.55 K/uL (1.2-3.4); Lymphocytes % (auto) 19.3 %; Monocytes # (auto) 0.24 K/uL (0.11-0.59); Monocytes % (auto) 8.4 %; Neutrophils # (auto) 1.95 K/uL (1.4-6.5); Neutrophils % (auto) 68.3 %; RBC Morphology Unremarkable
[2019-11-03 04:59] LABS: Albumin Level 1.9 gm/dl (3.4-5.0); BUN Creatinine Ratio 13.2 (10-20); Calcium 7.5 mg/dl (8.5-10.1); Creatinine Clr Calc Pharmacy 91.3 ml/min; Est GFR (African American) 126.9; Est GFR (Non-African American) 109.5; Magnesium 1.7 mg/dl (1.8-2.4); Potassium 3.5 mmol/L (3.5-5.1)
[2019-11-03 05:03] LABS: Albumin Globulin Ratio 0.6 (0.9-2); Bilirubin,Total 4.6 mg/dl (0.2-1); Globulin 3.3 gm/dl (2.5-4.0); Phosphorus 5.7 mg/dl (2.5-4.9); Total Protein 5.2 gm/dl (6.4-8.2)
--- NOTE | 2019-11-03 05:55 | Electrocardiogram Report ---
Test Reason : Blood Pressure : / mmHG Vent. Rate : 090 BPM Atrial Rate : 090 BPM P-R Int : 158 ms QRS Dur : 072 ms QT Int : 366 ms P-R-T Axes : 062 053 049 degrees QTc Int : 447 ms Poor data quality, interpretation may be adversely affected Normal sinus rhythm Possible Anterior infarct , age undetermined Abnormal ECG When compared with ECG of 28-OCT-2019 06:27, QT has shortened T wave inversion less evident in Anterior leads Confirmed by Homer Azul ([id number]) on 11/03/2019 5:54:35 AM Referred By: REFERRED SELF Confirmed By:Homer Azul
[2019-11-03] MEDS: MAGNESIUM SULFATE / D5W 1 GM/100 ML BAG IV SCH ×2 (06:14→08:49)
[2019-11-03] MEDS: PIPERACILLIN/TAZOBACTAM 4.5 GM in DEXTROSE 5% 100 ML IV SCH ×3 (06:15→22:22)
--- NOTE | 2019-11-03 07:58 | XRay Report ---
XR chest 1V portable CLINICAL HISTORY: Respiratory failure dyspnea COMPARISON STUDY: 11/02/2019 FINDINGS: Subtle improvement in aeration right lung base. Interstitial changes throughout both hemithoraces considered stable. No evidence pneumothorax. Rib fractures previously described are unaltered. IMPRESSION: 1. Continued slight interval improvement in aeration right lung base. 2. Unchanging diffuse interstitial infiltrative change throughout both hemithoraces. ACT 112: Negative or not required by law. The above report was generated using voice recognition software. It may contain grammatical, syntax or spelling errors. Electronically signed by: Mukund Brower M.D. 11/03/2019 7:56 AM
--- NOTE | 2019-11-03 08:45 | Critical Care Progress Note ---
Date of Service November 03, 2019 Assessment & Plan (1) Acute respiratory failure with hypoxia: Reason Critically Ill: 54 yo M with no prior medical care presented with profound weakness and AMS, found to be severely anemic and hypotensive. Admitted for severe sepsis, symptomatic anemia, and AMS. Downgraded due to improvement in mental status and no further need for pressors. Yesterday readmitted to ICU for further worsening respiratory distress for close monitoring, with intention to intubate if respiratory status continued to decline, and to perform thoracentesis if pleural effusion did not improve on diuretics. NEURO - Altered mental status: - Likely multifactorial, with likely hepatic encephalopathy, pneumonia and cellulitis of bilateral LE, acute but improving hyponatremia, severe anemia on admission. - Treatment for these outlined below. - Admission imaging with multiple fractures at different levels of healing suggests it is possible that he has had altered mentation and difficulty ambulating for some time. - CT Head negative for acute process. - No focal neurological deficits on physical exam. - Calcium within normal limits accounting for albumin level. - TSH normal, ammonia level normal. History of chronic alcohol abuse at risk of withdrawal: - Patient was drinking alcohol as recently as day of admission. - 2:1 AST/ALT ratio on admission suggestive of alcohol abuse. T Bili with significant elevation this admission. - Alcohol level in ER negative, ammonia level negative. - No outward signs of withdrawal on admission, and has not required Ativan for AWSS protocol. - No history of seizures, and no seizures while in hospital. - Thiamine, folate IV daily given NPO. CARDIOVASCULAR - Hypotension: - On admission with severe sepsis with hypotension from pulmonary vs. skin/soft tissue infection. - Also likely 2/2 volume depletion given severe anemia with Hgb 5.4; patient is s/p 3u PRBCs. - With frequent changes in his fluid type and infusion rate since admission to titrate based on Na level. - Holding Normosol. - BP low normal this AM. NSTEMI: - Patient is without complaints of chest pain or anginal equivalents. - Elevated troponin on arrival which peaked several days ago. - EKG without ST elevation, nonspecific T wave abnormality in anterior leads. - Echo this admission: EF >70%, LV hyperdynamic, no wall motion abnormalities, no valvular abnormalities. - Elevated troponin likely 2/2 severe anemia vs. severe sepsis and hypotension causing demand ischemia. - Continue telemetry monitoring. RESPIRATORY - Acute hypoxemic respiratory failure: - 10/[address] chest performed which showed L pleural effusion, centrilobular emphysema, mild ground glass opacities in the L upper lobe. - While on medical floor patient was noted to have difficulty swallowing, and yesterday was unable to perform video swallow study due to AMS and agitation. -Subsequently patient developed respiratory distress and required BiPAP for respiratory support. - CXR performed 10/31 showing obtunded R costophrenic angle with increased opacities on the R side, L costophrenic angle blunting, all worsened since prior CXR. - Worsening of respiratory status and findings on CXR likely due to aspiration as patient is at increased risk due hepatic encephalopathy. - Patient failed swallow study 11/01 to all textures, alternate modes of nutrition were suggested. - Vanc/Zosyn for suspected aspiration pneumonia and cellulitis. - Biofire panel negative. - COVID 19 testing negative. - Goal oxygenation 88-92%. - CXR this AM relatively unchanged from previous. Lasix 40mg IV this AM, evaluate respiratory status at that time and determine if further Lasix will be given. Hx Smoking Abuse: - Patient is a daily smoker and had findings on CT Chest suggestive of emphysema. - Continue to wean oxygen as tolerated. - Patient likely has an element of underlying COPD/emphysema given robust smoking for decades. - BiPAP when sleeping or PRN respiratory distress. GI/NUTRITION - Severe protein calorie malnutrition: - Patient has been acutely unable to tolerate PO intake adequately for several days due to suspected aspiration, mental status, and acute illness. - Patient was also admitted with signs of chronic malnutrition likely 2/2 alcohol abuse (severe osteopenia, hypoalbuminemia, hyponatremia, hypokalemia). - Patient failed swallow study 11/01, NPO at this time. - GI consulted for PEG given inability to tolerate PO intake. However, PEG tube does not prevent aspiration, only provides nutritional support. - Palliative care consult placed for goals of care discussion given inability to tolerate PO intake due to aspiration. Jaundice with Hx chronic alcohol abuse: - LFTs with AST minimal elevation this admission, however on admission with AST:ALT >2:1 ratio suggestive of alcoholic cirrhosis. - Elevated T Bili and INR, pancytopenia, low albumin, jaundice all support diagnosis of alcoholic cirrhosis. - CTAP and gallbladder US showed cholelithiasis but no evidence of ductal dilatation. - MELD score 19, Child Gregory class C. - 3 Month Mortality 6%. - Poor candidate for transplant given significant comorbidities, active alcohol use. - Acute Hepatitis panel negative. - Palliative consult placed as above. GI bleed: - Scantly Hemoccult positive on admission exam. - Hgb on arrival ~5, stable at ~10 since receiving 3u PRBCs. - Completed 3 days Octreotide and Protonix high dose therapy in ICU earlier this admission. - Reticulocyte count high, likely 2/2 increased RBC production in the setting of severe anemia. - Continue to monitor CBC. RENAL/LYTES - Hyponatremia: - Likely secondary to chronic malnutrition, decreased consumption of fortified foods in leiu of significant beer intake. - Patient with appropriate rate of correction throughout admission from 119 on arrival to 135 this AM. - Holding Normosol at this time. - NPO. - Repeat BMP 3PM. Hypokalemia: - Replace as needed to maintain K > 4. - - Ceja in place - Strict Is/Os. ENDO - - No history of diabetes or thyroid disease, however has not seen a PCP in over 10 years. - ICU hyperglycemia protocol. HEME - Symptomatic anemia: - Profound anemia to ~5 on admission, increased to ~10 with 3u PRBCs. - No signs of bleeding on CT Head, CTAP. - Likely 2/2 chronic bone marrow suppression due to chronic alcohol abuse given pancytopenic presentation. - Reticulocyte count appropriately elevated in the setting of acute bleeding. - Octreotide/PPI given for total 3 days for possible GIB. - No melena, bloody vomitus, or bright red blood in stool. - Completed transfusions and H/H stable; monitor CBC daily. Thrombocytopenia: - On arrival with plts 96, down to 50 today. - Likely due to chronic bone marrow suppression from alcohol abuse causing cirrhosis. - No active bleeding at this time. - Holding anticoagulants for DVT ppx given thrombocytopenia. ID - Severe sepsis with septic shock: - Secondary to pulmonary vs LE cellulitis source. - Earlier this admission with 1/4 BCx growing Micrococcus, likely contaminate. - Repeat BCx x2 negative to date. - Currently on Zosyn/vancomycin for aspiration pneumonia and for cellulitis coverage, will complete a total of 10 days of treatment. - Will need to r/o PAD this admission as he has had minimal improvement in b/l LE cellulitis despite several days of IV Abx. - Follow up sputum and blood cultures. TRAUMA/MSK - Severe Osteopenia on Imaging with Multiple Fractures: - Patient with several rib fractures, healing sternal fracture, and several RLE metatarsal fractures. - Likely due to frequent falls while intoxicated. - Patient has severe osteopenia on imaging, putting him at increased fracture risk. - Patient is without pain. LINES/IV ACCESS - - PIVs x2. DVT PROPHYLAXIS - - Holding Heparin DVT ppx given severe thrombocytopenia. - SCDs. Thank you for allowing us to participate in the care of this patient. Please refer to Dr. Stuart's documentation for any further recommendations. (2) Altered mental state: (3) Pleural effusion: (4) Sternal fracture: (5) Metatarsal stress fracture of right foot: (6) Ribs, multiple fractures: (7) Alcohol abuse: (8) Cellulitis of right leg: (9) Severe sepsis: (10) Hypoalbuminemia: (11) Non-STEMI (non-ST elevated myocardial infarction): etiology considered demand ischemia (12) Pneumonia: (13) Severe anemia: (14) Hyponatremia: Admission and Anticipated Discharge Date Admission Date: October 26, 2019 Supervising Physician Co-Signing Physician Notes Barbara Montiel was the resident-physician during care of patient. I separately evaluated patient for zavaleta portions of the history and the exam. I was present during the critical portion of medical decision making, and I discussed the case with the resident. I generally agree with the findings and plan except for any additions/exceptions noted. In/out: +335, urine output 1975 Patient seen and examined at bedside. Overall patient's respiratory status seems to be improved. Chest x-ray from today shows improvement in the vascular congestion as well as a right-sided pleural effusion. Continue with diuretics as tolerated to keep negative balance. Continue with BiPAP nightly and PRN shortness of breath. Patient had swallow eval today which he failed. He will need most likely PEG placement for nutrition. PEG placement does not decrease the chances of aspiration. Palliative care did see the patient and the family today. Plan is to start him on PPN first and then decide a PEG in future if need be. Hypokalemia and hypomagnesemia has been replaced. Will DC heparin given that the patient has thrombocytopenia (pancytopenia) Given the improvement and stability of the patient respiratory status. I think patient is stable enough to be downgraded back to medical floor. Overall patient prognosis is very poor given cirrhosis, waxing and waning mental status. I have personally spent 32 minutes of critical care time in the direct management of this patient. This is a life/limb threatening event. This includes time spent evaluating patient, direct bedside care, chart review, placing orders, interpretation of diagnostic studies, discussion with consultants, patient, and/or family members regarding treatment decisions, as well as other required patient management activities. This time is exclusive of all separately billable procedures, and teaching time and separate from and in addition to any other critical care service time. Subjective Patient without acute events overnight. Stable on telemetry and vitals were stable. This morning is alert but oriented only to name and that he is in a hospital. Denies SOB, CP, abdominal pain, nausea. Review of Systems Review of Systems: All systems reviewed & are unremarkable except as noted in Subjective Physical Exam Physical Exam: Constitutional: resting comfortably in bed, in no acute distress HEENT: EOMI, PERRLA, scleral icterus Respiratory system: Crackles bilateral lower lobes CVS: RRR, no murmurs, no peripheral edema Abdomen: Soft, nontender, nondistended, +BS Extremities: DP/PT pulses palpable bilateral LE; bilateral LE with erythema, decreased hair from knee down Neuro: Tired appearing, but arousable and can answer some questions appropriately Psych: Flat affect Skin: no rashes, warm and dry Lymphatic: no cervical or axillary lymphadenopathy Results & Data Results & Data ([facility]) Vital Signs (Past 12 Hours) Vital Signs Temp Pulse Resp BP Pulse Ox 11/03/19 06:03 37.5 C 99 H 19 105/72 97 11/03/19 05:02 37.3 C 89 19 98/58 L 94 11/03/19 04:02 37.2 C 95 H 20 87/54 L 91 11/03/19 03:02 37.2 C 93 H 22 99/67 L 99 11/03/19 02:03 37.0 C 97 H 19 112/83 99 11/03/19 01:37 92 H 24 99 11/03/19 01:02 36.8 C 89 22 95/59 L 98 11/03/19 00:02 36.6 C 94 H 26 H 97/65 L 99 11/02/19 23:25 93 H 26 H 96 11/02/19 23:02 36.4 C L 91 H 25 H 82/55 L 96 11/02/19 22:02 36.3 C L 94 H 23 116/70 96 11/02/19 21:05 94 H 22 98 11/02/19 21:02 35.8 C L 91 H 22 115/76 98 Resident Activity Tracking Resident Involvement: Resident Care Provided Care Provided: Adult Hospital Medicine (1) Ribs, multiple fractures Encounter type: initial encounter Fracture type: closed Laterality: unspecified laterality Qualified Code(s): S22.49XA - Multiple fractures of ribs, unspecified side, initial encounter for closed fracture (2) Metatarsal stress fracture of right foot Encounter type: initial encounter Qualified Code(s): M84.374A - Stress fracture, right foot, initial encounter for fracture (3) Altered mental state Altered mental status type: delirium Qualified Code(s): R41.0 - Disorientation, unspecified (4) Sternal fracture Encounter type: initial encounter Fracture type: closed Sternal location: unspecified Qualified Code(s): S22.20XA - Unspecified fracture of sternum, initial encounter for closed fracture
[2019-11-03] MEDS: POTASSIUM CHLORIDE / WTR 10 MEQ/100 ML PLCT IV SCH ×6 (08:49→14:14)
[2019-11-03] MEDS: FUROSEMIDE 40 MG in SYRINGE 0 ML IV SCH (08:49)
[2019-11-03] MEDS: FOLIC ACID 1 MG in SYRINGE 9.8 ML IV SCH (08:50)
[2019-11-03] MEDS: THIAMINE HCL 100 MG in SYRINGE 9 ML IV SCH (08:50)
[2019-11-03] MEDS: NICOTINE 21 MG/24 HR TDSY TD SCH (08:50)
[2019-11-03] MEDS: AMMONIUM LACTATE 12% LOTION 225 GM BTL EXT SCH ×2 (08:53→20:24)
[2019-11-03] MEDS: PANTOprazole 40 MG in SYRINGE 0 ML IV SCH (12:08)
[2019-11-03] MEDS ORDERED: DEXTROSE 10% 1,000 ML IV PRN (15:02)
[2019-11-03] MEDS ORDERED: TPN/PPN CONSULT PHARMACY PRN (15:10)
[2019-11-03 15:29] LABS: BUN Creatinine Ratio 11.2 (10-20); Creatinine Clr Calc Pharmacy 82.3 ml/min; Est GFR (African American) 121.6; Est GFR (Non-African American) 104.9; Magnesium 3.1 mg/dl (1.8-2.4); Potassium 3.9 mmol/L (3.5-5.1)
[2019-11-03 15:39] LABS: Phosphorus 4.9 mg/dl (2.5-4.9)
[2019-11-03] MEDS ORDERED: Custom Peripheral Pn 1 ML in TPN BAG 0 ML IV SCH (16:00)
--- NOTE | 2019-11-03 16:53 | Palliative Care Consultation ---
Date of Consultation November 03, 2019 Assessment & Plan (1) Goals of care, counseling/discussion: This is an unfortunate 54 year old male who was brought to the [facility] via EMS after his daughter discovered him at his home unkempt and jaundiced. She had seen him three days prior to that encounter. He has a recent admission in September 2019 where he sustained a fall, twisting his right ankle. Multiple fractures were discovered, but he did not follow up outpatient with orthopedics. On admission, his RLE had severe cellulitis and he was hypotensive. He was taken to the ICU and placed on Levophed, which was discontinued on 11/01. He is AAOx1. Per staff, his mental status waxes and wanes. A video swallow was performed yesterday indicating aspiration. He is currently receiving antibiotics for overall septic shock. He has been on/off BiPAP over the past 2 days. 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 His electrolytes are relatively normal aside from his MG+ and Ca+ being slightly low. Multiple conversations were held with the patients two daughters; Sarai ([phone]) and Nasima ([phone]) and another son regarding nutritional needs and options. For now, the patients family has decided to pursue PPN. Palliative Care was consulted to discuss overall goals of care. -I met with the patient in room 109. He was awake, sitting upright in his bed, trying to kick his SCD's off, or as he puts it "These blue rats stuck to my legs". He is oriented to person only; however, he was able to tell me his one daughter, Sarai's name. Otherwise, he was confused and it was impossible to have a meaningful conversation with him. -The patient has been off of Bipap for the past 24 hours. Last ABG results indicate uncompensated respiratory alkalosis (pH 7.55, CO2 25, pO2 55, HCO3 22) -Overall, I have multiple concerns for this patient. It is imperative to have a family meeting to discuss goals of care. Ultimately, we have a non-compliant pat ient who appears to be jaundiced and with encephalopathy. We need to consider the patients safety for return to home with careful consideration as to what his home restrictions may be. Does he have access to transportation for appointments, etc. -I called both of his daughters Sarai and Nasima ([phone]) and left them VM's. -I, unfortunately, think that in order for someone to participate in the Help at Home (office of aging) program, you need to be 60 years old. -We need to assess how patient responds to current abx regimen and how his mental status improves; understanding that the family appears to have decided to pursue PPN, lengthy conversation needs to be held regarding benefits vs risks of said interventions, along with long-term options. I do not forsee a PEG tube being a viable option for this patient giving his non-compliance and low likelihood he would be able to care for it independently. -With goals of care discussion, we need to take careful consideration into options which could include alf placement. Case management will need to confirm the patients insurance benefit to assist with determining options to present to the family. -For now, patient to remain a Full Code since we can not have a conversation with him to discuss this due to his altered cognitive state. We will await direction from family. If no official advanced director in place, all 3 children will need to agree on code status and goals of care. Nursing to contact palliative care cell if family arrives this weekend. -The above discussed with the patients nurse Ernesto Glez and the pulm/critcare Dr. Stuart. -30% (2) Pneumonia: (3) Acute respiratory failure with hypoxia: (4) Altered mental state: Altered mental status type: delirium Qualified Code(s): R41.0 - Disorientation, unspecified (5) Septic shock: History of Present Illness Reason for Consultation: Goals of Care Requesting Physician: Dr. Johnson Attending Physician: Orlando Landon, DO History of Present Illness This is an unfortunate 54 year old male who was brought to the [facility] via EMS after his daughter discovered him at his home unkempt and jaundiced. She had seen him three days prior to that encounter. He has a recent admission in September 2019 where he sustained a fall, twisting his right ankle. Multiple fractures were discovered, but he did not follow up outpatient with orthopedics. On admission, his RLE had severe cellulitis and he was hypotensive. He was taken to the ICU and placed on Levophed, which was discontinued on 11/01. He is AAOx1. Per staff, his mental status waxes and wanes. A video swallow was performed yesterday indicating aspiration. He is currently receiving antibiotics for overall septic shock. He has been on/off BiPAP. It is questionable whether he has alcohol mitochondrial bone marrow toxicity. Multiple conversations were held with the patients two daughters; Sarai ([phone]) and Nasima ([phone]) and another son regarding nutritional needs and options. For now, the patients family has decided to pursue PPN. Palliative Care was consulted to discuss overall goals of care. Please see A/P for further details. Thank you for involving us in this unfortunate gentlemans care. We will follow. Allergies Allergy/AdvReac Type Severity Reaction Status Date / Time No Known Allergies Allergy Unverified 10/26/19 21:35 Home Medications Home Medications Medication Instructions Recorded Confirmed Type No Known Home Medications 09/25/19 10/26/19 History Patient History Medical History No significant past medical history Surgical History No significant past surgical history Social History Smoking Status: Current every day smoker Cigarettes Per Day: 20; Second Hand Exposure: No; Do You Dip or Chew Tobacco: No; Tobacco Cessation Education Requested by Patient: No Hx Alcohol Use: Yes Alcohol type: beer Hx Substance Use: Yes Last Used Substance: Unknown Preferred Language: Greenlandic Communication Ability: Impaired Sales Project Engineer Required: No Beliefs That Will Affect Care: None marital status: Current Living Situation: Alone current occupational status: unemployed How many Children do You have: 3 Other Information That Helps Us Care for You: No Feels Safe at Home: Yes Safety Concerns: Feels Safe At This Time Review of Systems Review of Systems: Unobtainable due to cognitive status Physical Exam Constitutional: + ill appearing, + thin, + frail appearing, + disheveled and comfortable Eyes: + anicteric sclerae Respiratory: normal respiratory effort and + cough Auscultation: + rhonchi and + wheezes Cardiovascular: RRR, no murmur, no edema Gastrointestinal (Abdomen): normal bowel sounds, soft, nontender, no hepatosplenomegaly Psychiatric: Orientation: alert, oriented to person and cooperative Eye Contact: + fair eye contact Insight: + impaired insight Judgement: + impaired judgement Lymphatic: no cervical or axillary lymphadenopathy Results & Data ([facility]) Vital Signs (Past 12 Hours) Vital Signs Temp Pulse Resp BP Pulse Ox 11/03/19 16:02 37.4 C 102 H 24 106/75 11/03/19 16:00 37.4 C 103 H 30 H 11/03/19 15:45 37.4 C 99 H 27 H 11/03/19 15:30 37.3 C 102 H 33 H 11/03/19 15:15 37.3 C 99 H 14 11/03/19 15:04 37.3 C 104 H 17 11/03/19 15:03 37.3 C 99 H 24 104/67 11/03/19 15:00 37.3 C 101 H 19 11/03/19 14:45 37.2 C 102 H 17 11/03/19 14:30 37.2 C 101 H 18 11/03/19 14:15 37.1 C 102 H 21 11/03/19 14:02 37.1 C 101 H 26 H 107/70 11/03/19 14:00 37.1 C 100 H 27 H 11/03/19 13:45 37.1 C 101 H 21 11/03/19 13:30 37.0 C 101 H 29 H 11/03/19 13:15 37.0 C 101 H 23 11/03/19 13:02 37.0 C 102 H 24 105/74 11/03/19 13:00 37.0 C 103 H 28 H 11/03/19 12:45 37.0 C 101 H 27 H 11/03/19 12:30 37.0 C 101 H 28 H 11/03/19 12:02 37.0 C 101 H 27 H 105/67 11/03/19 12:00 36.9 C 102 H 28 H 11/03/19 11:30 36.9 C 96 H 28 H 11/03/19 11:02 37.0 C 94 H 22 86/53 L 11/03/19 11:00 37.0 C 94 H 22 11/03/19 10:30 37.1 C 106 H 24 11/03/19 10:02 37.3 C 100 H 18 96/71 L 92 11/03/19 10:00 37.3 C 104 H 23 94 11/03/19 09:30 37.5 C 105 H 24 98 11/03/19 09:02 37.6 C H 101 H 32 H 116/67 96 11/03/19 09:00 37.7 C H 101 H 21 11/03/19 08:30 37.7 C H 93 H 24 95 11/03/19 08:02 37.6 C H 96 H 29 H 97/60 L 96 11/03/19 08:00 37.7 C H 99 H 25 H 95 11/03/19 07:56 37.7 C H 95 H 28 H 93/61 L 97 11/03/19 07:30 37.7 C H 95 H 19 98 11/03/19 07:02 37.7 C H 95 H 27 H 88/57 L 97 11/03/19 07:00 37.5 C 101 H 23 95 11/03/19 06:45 37.6 C H 96 H 23 95 11/03/19 06:03 37.5 C 99 H 19 105/72 97 11/03/19 05:02 37.3 C 89 19 98/58 L 94 PG Care Time/CCT Total # of Minutes Spent Total Time Spent with Patient: Total time spent is greater than 50% in coordination of care (as documented) at patient's floor/unit and/or counseling patient: 70 Coding Level of Care Code 46654 Inpt Consult Level 3 Diagnoses Goals of care, counseling/discussion Z71.89 Pneumonia J18.9 Acute respiratory failure with hypoxia J96.01 Altered mental state R41.0 Altered mental status type: delirium Septic shock A41.9; R65.21 Time Spent (min) 70 Time Spent Midlevel Total time spent 70 minutes with > 50% of that time spent assessing the patient, discussing plan of care with IDT and attempting to reach the patients family to discuss goals of care.
--- NOTE | 2019-11-03 17:53 | Hospitalist Progress Note ---
Date of Service November 03, 2019 Assessment & Plan (1) Septic shock: Ariel Mendoza is a 54 y/o male who was admitted for septic shock on 10/25 and directly sent to ICU for vasopressors. Source of sepsis thought to be aspiration PNA (left lower lobe) and R LE cellulitis, was placed on IV zosyn. Patient was weaned off pressors and downgraded from ICU on 10/28. Patient was transferred back to ICU on 10/31 for worsening respiratory status, with CXR suspicious for progressive aspiration pneumonitis. IV doxycycline was subsequently added. Video swallow on 11/01 showing aspiration with all textures. Recurrent aspiration thought to be from diminished cognitive status. Palliative consult placed to fa cilitate goals of care discussion, however will not be available until Wednesday, 11/05. Primary team met with family today at bedside who are in agreement with a trial of PPN in order to "buy time" in hopes his cognitive status improves/returns to baseline level. However, patient with liver cirrhosis (MELD score 18)- looking at limited life expectancy regardless. Downgraded to PCU today. Septic Shock - Resolved - Required pressors during ICU stay, has not needed since Wednesday (10/27) - IVF discontinued due to pulmonary vascular congestion - on Iv zosyn + doxycycline Altered Mental Status - etiology unknown, seems to have a waxing and waning quality. Much more awake/alert on exam today, indicative of possible improvement? 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 acute metabolic process (recurrent aspiration pneumonitis, ICU delirium, etc) + hepatic encephalopathy (patient with alcoholic cirrhosis) - Head CT on admission WNL - ammonia level WNL - no recent sedating medications given Bilateral pneumonia/aspiration pneumonitis: - CXR today showing continued slight interval improvement in aeration right lung base - video swallow 11/01 showing aspiration to all textures: NPO, starting PPN 11/03 - prone to aspiration from alcoholism, aspiration precautions - Continue with Zosyn since providing Anaerobic coverage (currently on day 7) + doxycycline added Liver Cirrhosis - likely related to longstanding alcoholic abuse - INR elevated, low albumin, suppressed blood cell lines - liver enzymes not elevated, although this is expected - Liver not cirrhotic in appearance on CT scan Severe anemia: - Hgb was 4.9 on admission, now 9.6, no active signs of bleeding - Suspect longstanding chronic decline since appeared to have been able to tolerate/survive - 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 Acute hyponatremia: improving - Na was 117 upon admission, up to 133 today - suspect from dietary/poor sodium content in alcohol - IVF normsol ordered Hypokalemia: resolved - K normal at 3.9 Coagulopathy: INR at 1.2 today, improved from 1.5 with Vitamin K therapy - likely secondary to underlying liver cirrhosis Hyperbilirubinemia: - T bili trending down since admission, now at 7, direct at 4.6 - most likely secondary to liver disease (alcoholic cirrhosis) - MELD score of 18, poor prognosis in absence of other co-morbidities (6 months) - palliative care consult on Sunday 11/05 Non-STEMI (non-ST elevated myocardial infarction): - etiology considered demand ischemia Hypoalbuminemia: - albumin 2.0 on admission - suspected from liver impairment/ inadequate protein calorie intake - patient NPO, will start PPN tomorrow Alcohol abuse: - Suspected long standing alcohol abuse which led to Liver disease - Currently on Thiamine 100mg PO qAM and and Folate 1gm PO qAM - AST: ALT 2:1 ratio consistent with alcohol abuse - Negative EtOH upon admission - patient was initially placed on protocol, but Ativan d/c due to AMS Wound of foot: - wound care consulted Dystrophic nail: - appreciate podiatry consult Ribs, multiple fractures - Multiple rib fractures as noted above - Tylenol PRN PO for mild pain, avoiding NSAIDs because of coagulopathy and bleeding risk. - Oxycodone IR d/c due to AMS Dispo: downgraded from ICU to PCU today Diet: NPO, will start PPN on 11/03 Code: Full Admission and Anticipated Discharge Date Admission Date: October 26, 2019 Supervising Physician Co-Signing Physician Notes I saw the patient concurrent the resident physician and I confirmed zavaleta portions of the history and physical examination. I agree with the impression and plan as noted above. I was also present for a family meeting between 120 and 1:50 PM this afternoon with Dr. Stephenson, the patient, two of his daughters, and one son. The patient is more alert today -he is oriented to time, date, and place. Pneumonia, aspiration Delirium, on baseline dementia Cirrhosis Anemia Acute hyponatremia Continue antibiotics Discussed options and goals of care moving forward; PPN seems like a reasonable bridge -if his sensorium continues to improve he may regain some swallowing function. If his swelling does not improve, will need to make decision of PEG tube versus a more palliative approach. Risk and benefits were discussed with the family and patient. Stable for transfer to floor. Else see resident documentation as noted. Subjective No acute events overnight. Patient much more alert on exam today - family meeting held at bedside with POA (daughter Sarai), daughter Nasima and son Ariel. Family reports patient is largely independent at baseline, current cognitive status is largely diminished from his baseline. Review of Systems Review of Systems: Unobtainable due to cognitive status Physical Exam Constitutional: WD/WN, vitals as above + cachectic and + disheveled Eyes: scleral icterus resolving ENMT: external ear and nose normal, oropharynx normal Neck: normal visual inspection and trachea midline Respiratory: no respiratory distress Auscultation: + rhonchi Cardiovascular: Rate/Rhythm: regular rate and regular rhythm Heart Sounds: normal S1 and normal S2 Extremities: no pedal edema Gastrointestinal (Abdomen): normal bowel sounds, soft, nontender, no hepatosplenomegaly Skin: + wound (dorsal aspect of R foot), + purpura (R LE) and + nails dystrophic Neurologic: awake Psychiatric: Orientation: oriented to person, oriented to place and oriented to time Results & Data Results & Data ([facility]) Vital Signs (Past 12 Hours) Vital Signs Temp Pulse Resp BP Pulse Ox 11/03/19 17:15 37.2 C 108 H 18 11/03/19 17:02 37.3 C 103 H 19 122/76 11/03/19 17:00 37.3 C 102 H 27 H 11/03/19 16:45 37.3 C 102 H 15 11/03/19 16:30 37.4 C 108 H 34 H 11/03/19 16:15 37.4 C 102 H 16 11/03/19 16:02 37.4 C 102 H 24 106/75 11/03/19 16:00 37.4 C 103 H 30 H 11/03/19 15:45 37.4 C 99 H 27 H 11/03/19 15:30 37.3 C 102 H 33 H 11/03/19 15:15 37.3 C 99 H 14 11/03/19 15:04 37.3 C 104 H 17 11/03/19 15:03 37.3 C 99 H 24 104/67 11/03/19 15:00 37.3 C 101 H 19 11/03/19 14:45 37.2 C 102 H 17 11/03/19 14:30 37.2 C 101 H 18 11/03/19 14:15 37.1 C 102 H 21 11/03/19 14:02 37.1 C 101 H 26 H 107/70 11/03/19 14:00 37.1 C 100 H 27 H 11/03/19 13:45 37.1 C 101 H 21 11/03/19 13:30 37.0 C 101 H 29 H 11/03/19 13:15 37.0 C 101 H 23 11/03/19 13:02 37.0 C 102 H 24 105/74 11/03/19 13:00 37.0 C 103 H 28 H 11/03/19 12:45 37.0 C 101 H 27 H 11/03/19 12:30 37.0 C 101 H 28 H 11/03/19 12:02 37.0 C 101 H 27 H 105/67 11/03/19 12:00 36.9 C 102 H 28 H 11/03/19 11:30 36.9 C 96 H 28 H 11/03/19 11:02 37.0 C 94 H 22 86/53 L 11/03/19 11:00 37.0 C 94 H 22 11/03/19 10:30 37.1 C 106 H 24 11/03/19 10:02 37.3 C 100 H 18 96/71 L 92 11/03/19 10:00 37.3 C 104 H 23 94 11/03/19 09:30 37.5 C 105 H 24 98 11/03/19 09:02 37.6 C H 101 H 32 H 116/67 96 11/03/19 09:00 37.7 C H 101 H 21 11/03/19 08:30 37.7 C H 93 H 24 95 11/03/19 08:02 37.6 C H 96 H 29 H 97/60 L 96 11/03/19 08:00 37.7 C H 99 H 25 H 95 11/03/19 07:56 37.7 C H 95 H 28 H 93/61 L 97 11/03/19 07:30 37.7 C H 95 H 19 98 11/03/19 07:02 37.7 C H 95 H 27 H 88/57 L 97 11/03/19 07:00 37.5 C 101 H 23 95 11/03/19 06:45 37.6 C H 96 H 23 95 11/03/19 06:03 37.5 C 99 H 19 105/72 97 Resident Activity Tracking Resident Involvement: Resident Care Provided Care Provided: Adult Hospital Medicine
--- NOTE | 2019-11-03 19:06 | Billing Data ---
Date of Service November 03, 2019 Coding Level of Care Code Critical Care 1st 30-74 mins Time Spent (min) 32
[2019-11-03] MEDS: DOXYCYCLINE HYCLATE 100 MG in DEXTROSE 5% 100 ML IV SCH (20:25)
[2019-11-04] MEDS ORDERED: HALOPERIDOL LACTATE 5 MG/ML 1 ML VIAL IM STA (04:03)
[2019-11-04 05:02] LABS: Hematocrit (blood only) 31.5 % (42-52); Hemoglobin 10.2 g/dL (14.0-18.0); Mean Corpuscular Hemoglobin 29.6 pg (25-34); Mean Corpuscular Hgb Conc 32.4 g/dL (32-36); Mean Corpuscular Volume 91.3 fL (80-100); RDW Standard Deviation 51.6 fL (36.4-46.3); Red Blood Count 3.45 M/uL (4.7-6.1); White Blood Count 4.17 K/uL (4.8-10.8)
[2019-11-04 05:06] LABS: Platelet Count 66 K/uL (130-400)
[2019-11-04 05:26] LABS: BUN Creatinine Ratio 11.8 (10-20); Est GFR (African American) 119.5; Est GFR (Non-African American) 103.1; Potassium 3.5 mmol/L (3.5-5.1)
[2019-11-04 05:27] LABS: Phosphorus 4.4 mg/dl (2.5-4.9)
[2019-11-04 05:32] LABS: Basophils # (auto) 0.05 K/uL (0-0.2); Basophils % (auto) 1.2 %; Eosinophils # (auto) 0.04 K/uL (0-0.5); Giant Platelets 1+; Immature Granulocytes # (auto) 0.02 K/uL (0.00-0.02); Immature Granulocytes % (auto) 0.5 %; Lymphocytes # (auto) 0.72 K/uL (1.2-3.4); Lymphocytes % (auto) 17.3 %; Monocytes # (auto) 0.37 K/uL (0.11-0.59); Monocytes % (auto) 8.9 %; Neutrophils # (auto) 2.97 K/uL (1.4-6.5); Neutrophils % (auto) 71.1 %
[2019-11-04] MEDS: PIPERACILLIN/TAZOBACTAM 4.5 GM in DEXTROSE 5% 100 ML IV SCH ×3 (05:33→22:52)
[2019-11-04] MEDS: INSULIN ASPART 100 UNITS/ML 3 ML PEN SC SCH ×3 (05:34→18:24)
[2019-11-04] MEDS: DOXYCYCLINE HYCLATE 100 MG in DEXTROSE 5% 100 ML IV SCH ×2 (09:08→20:10)
[2019-11-04] MEDS: AMMONIUM LACTATE 12% LOTION 225 GM BTL EXT SCH ×2 (09:09→20:15)
[2019-11-04] MEDS: THIAMINE HCL 100 MG in SYRINGE 9 ML IV SCH (09:09)
[2019-11-04] MEDS: FUROSEMIDE 40 MG in SYRINGE 0 ML IV SCH (09:09)
[2019-11-04] MEDS: NICOTINE 21 MG/24 HR TDSY TD SCH (09:09)
[2019-11-04] MEDS: FOLIC ACID 1 MG in SYRINGE 9.8 ML IV SCH (09:09)
[2019-11-04] MEDS: PANTOprazole 40 MG in SYRINGE 0 ML IV SCH (12:04)
--- NOTE | 2019-11-04 14:05 | XRay Report ---
XR chest 1V portable CLINICAL HISTORY: Shortness of breath. Respiratory failure. COMPARISON STUDY: 11/03/2019 FINDINGS: The cardiac and mediastinal contours remain stable. The heart is normal in size. There is s light improvement in the diffuse bilateral pulmonary airspace opacities. Small pleural effusions are suspected.[ IMPRESSION: Persistent but improving bilateral pulmonary airspace opacities ACT 112: Negative or not required by law. Electronically signed by: Hector Tomas M.D. 11/04/2019 2:04 PM
[2019-11-04] MEDS ORDERED: Custom Peripheral Pn 1,500 ML in TPN BAG 0 ML IV SCH (16:00)
--- NOTE | 2019-11-04 16:17 | Hospitalist Progress Note ---
Date of Service November 04, 2019 Assessment & Plan (1) Septic shock: Ariel Mendoza is a 54 y/o male who was admitted for septic shock on 10/25 and directly sent to ICU for vasopressors. Source of sepsis thought to be aspiration PNA (left lower lobe) and R LE cellulitis, was placed on IV zosyn. Patient was weaned off pressors and downgraded from ICU on 10/28. Patient was transferred back to ICU on 10/31 for worsening respiratory status, with CXR suspicious for progressive aspiration pneumonitis. IV doxycycline was subsequently added. Video swallow on 11/01 showing aspiration with all textures. Recurrent aspiration thought to be from diminished cognitive status. Palliative consult placed to fa cilitate goals of care discussion, however will not be available until Wednesday, 11/05. Primary team met with family 11/02 at bedside who are in agreement with a trial of PPN in order to "buy time" in hopes his cognitive status improves/returns to baseline level. However, patient with liver cirrhosis (MELD score 18)- looking at limited life expectancy regardless. Still awaiting to speak with family so that they may had discussions with palliative care. Septic Shock - Resolved - Required pressors during ICU stay, has not needed since Wednesday (10/27) - IVF discontinued due to pulmonary vascular congestion - on IV zosyn + IV doxycycline Altered Mental Status - etiology unknown, seems to have a waxing and waning quality. Much more awake/alert on exam today, indicative of possible improvement? 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 acute metabolic process (recurrent aspiration pneumonitis, ICU delirium, etc) + hepatic enc ephalopathy (patient with alcoholic cirrhosis) - Head CT on admission WNL - ammonia level WNL - no recent sedating medications given Bilateral pneumonia/aspiration pneumonitis: - CXR today showing continued slight interval improvement in aeration right lung base - video swallow 11/01 showing aspiration to all textures: NPO, starting PPN 11/03. Patient is probably not a good candidate for PEG tube as he would be non- compliant and low likelihood he would be able to care for it independently - prone to aspiration from alcoholism, aspiration precautions - Continue with Zosyn since providing Anaerobic coverage (currently on day 8) + doxycycline added . We will continue with this regimen until patient shows any improvement in cognition. -Appreciate palliative consult. Left voicemail for 2 daughters. Need to have family discussion, pending. 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 Acute hyponatremia: improving - Na was 117 upon admission, up to 135 today - suspect from dietary/poor sodium content in alcohol - IVF normsol ordered Coagulopathy: - INR at 1.2 today, improved from 1.5 with Vitamin K therapy - likely secondary to underlying liver cirrhosis Hyperbilirubinemia: - T bili trending down since admission, now at 7, direct at 4.6 - most likely secondary to liver disease (alcoholic cirrhosis) - MELD score of 18, poor prognosis in absence of other co-morbidities (6 months) - palliative care consult ongoing Non-STEMI (non-ST elevated myocardial infarction): - etiology considered demand ischemia Hypoalbuminemia: - albumin 2.0 on admission - suspected from liver impairment/ inadequate protein calorie intake -Started PPN . Appreciate pharmacy assistance Alcohol abuse: - Suspected long standing alcohol abuse which led to Liver disease - Currently on Thiamine 100mg PO qAM and and Folate 1gm PO qAM - AST: ALT 2:1 ratio consistent with alcohol abuse - Negative EtOH upon admission - patient was initially placed on protocol, but Ativan d/c due to AMS Wound of foot/Dystrophic nail: - wound care consulted - appreciate podiatry consult Ribs, multiple fractures - Multiple rib fractures as noted above - Tylenol PRN PO for mild pain, avoiding NSAIDs because of coagulopathy and ble eding risk. - Oxycodone IR d/c due to AMS Diet: PPN Code: Full for now. Cannot have a conversation with him to discuss this due to his altered cognitive state. We will await direction from family. Dispo: downgraded from ICU to PCU today. Appreciate palliative consult, family discussion pending. Admission and Anticipated Discharge Date Admission Date: October 26, 2019 Supervising Physician Co-Signing Physician Notes I also saw the patient with the resident physician and confirmed zavaleta portions of the history and physical examination. I agree with the impression and plan as noted above. In my exam today compared to yesterday, the patient is much less alert. While yesterday he was able to tell me his name, location, and date -he is predominant sleeping for today's exam. PPN has been started and as discussed in the family meeting yesterday, will continue through the weekend and see if his mental status improves as the infection resolves. If he has no improvement or deterioration in his mental status, will likely pursue more of a palliative reason hospice approach. If he has some improvement in his cognitive function, consideration would then be for either a reevaluation of his swallowing function and or consideration for PEG tube placement. Subjective 54-year-old male found in bed this a.m. Reports of agitation last night that required 2.5 mg IV Haldol. Patient still has yet to coming to the hospital so ongoing discussions with palliative care unable to be had. Patient remains disoriented, not much in the way of conversation. Review of Systems Review of Systems: Unobtainable due to cognitive status Physical Exam Constitutional: + cachectic ENMT: external ear and nose normal, oropharynx normal Respiratory: no respiratory distress and no labored breathing Auscultation: + rhonchi Cardiovascular: Rate/Rhythm: regular rhythm and + tachycardic Gastrointestinal (Abdomen): normal bowel sounds, soft, nontender, no hepatosplenomegaly Skin: Right dorsal foot wound Right lower extremity purpura Psychiatric: Orientation: alert; + not oriented x 3 Results & Data Results & Data ([facility]) Vital Signs (Past 12 Hours) Vital Signs Temp Pulse Resp BP 11/04/19 13:30 37.6 C H 103 H 21 11/04/19 13:00 37.4 C 103 H 11/04/19 12:30 37.4 C 103 H 16 11/04/19 12:00 37.4 C 98 H 11/04/19 11:30 37.3 C 101 H 11/04/19 11:00 37.3 C 106 H 11/04/19 10:30 37.2 C 101 H 11/04/19 10:00 37.1 C 103 H 19 11/04/19 09:30 37.2 C 92 H 11/04/19 09:00 37.3 C 93 H 17 11/04/19 08:30 37.2 C 92 H 23 115/79 11/04/19 08:00 37.2 C 94 H 22 11/04/19 07:30 37.2 C 90 18 11/04/19 07:00 37.3 C 95 H 20 11/04/19 06:45 37.3 C 97 H 19 Laboratory Results Laboratory Results - last 24 hr 11/03/19 11/03/19 11/04/19 17:22 22:41 04:52 WBC 4.17 L RBC 3.45 L Hgb 10.2 L Hct 31.5 L MCV 91.3 MCH 29.6 MCHC 32.4 RDW Std Deviation 51.6 H RDW Coeff of Bina 16.0 H Plt Count 66 L MPV 11.0 H Immature Gran % (Auto) 0.5 Neut % (Auto) 71.1 Lymph % (Auto) 17.3 [place] % (Auto) 8.9 Eos % (Auto) 1.0 Baso % (Auto) 1.2 Neut # (Auto) 2.97 Lymph # (Auto) 0.72 L [place] # (Auto) 0.37 Eos # (Auto) 0.04 Baso # (Auto) 0.05 Immature Gran # (Auto) 0.02 Giant Platelets 1+ Sodium Potassium Chloride Carbon Dioxide Anion Gap BUN Creatinine Est Cr Clr Drug Dosing Est GFR ( Amer) Est GFR (Non-Af Amer) BUN/Creatinine Ratio Glucose POC Glucose 99 94 Calcium Phosphorus Magnesium 11/04/19 11/04/19 11/04/19 04:52 04:55 11:34 WBC RBC Hgb Hct MCV MCH MCHC RDW Std Deviation RDW Coeff of Bina Plt Count MPV Immature Gran % (Auto) Neut % (Auto) Lymph % (Auto) [place] % (Auto) Eos % (Auto) Baso % (Auto) Neut # (Auto) Lymph # (Auto) [place] # (Auto) Eos # (Auto) Baso # (Auto) Immature Gran # (Auto) Giant Platelets Sodium 135 L Potassium 3.5 Chloride 101 Carbon Dioxide 23 Anion Gap 11.0 BUN 9 Creatinine 0.74 Est Cr Clr Drug Dosing 79.0 Est GFR ( Amer) 119.5 Est GFR (Non-Af Amer) 103.1 BUN/Creatinine Ratio 11.8 Glucose 75 POC Glucose 82 92 Calcium 8.0 L Phosphorus 4.4 Magnesium 2.0 Medications Administered Current Inpatient Medications Dextrose (Dextrose 50% 50 Ml Syringe) 25 - 50 ml IV UD PRN; Protocol PRN Reason: Hypoglycemia Protocol Stop: 12/02/19 05:39 Glucagon (Glucagon For Inj 1 Mg Vial) 1 mg SQ UD PRN; Protocol PRN Reason: Hypoglycemia Protocol Stop: 12/02/19 05:39 Glucose (Glucose 10 Tabs/Tube) 4 - 8 tabs PO UD PRN; Protocol PRN Reason: Hypoglycemia Protocol Stop: 12/02/19 05:39 Glucose (Glucose 40% Gel 15 Gm Tube) 15 - 30 gm PO UD PRN; Protocol PRN Reason: Hypoglycemia Protocol Stop: 12/02/19 05:39 Heparin Sodium (Beef Lung) (Heparin Sod 10 Unit/Ml Flush) 5 ml FLUSH PRN PRN PRN Reason: Flush Stop: 11/27/19 01:02 Piperacillin Sod/Tazobactam (Sod 4.5 gm/ Dextrose) 120 mls @ 28.75 mls/hr IV Q8H [facility]; Protocol Stop: 11/05/19 21:59 Last Admin: 11/04/19 14:57 Dose: 28.8 mls/hr Documented by: Parenteral Electrolytes (Normosol-R) 1,000 mls @ 80 mls/hr IV .[id number] [facility] Stop: 11/28/19 16:00 Last Infusion: 10/30/19 19:58 Dose: Infused Documented by: Furosemide 40 mg/ Syringe 4 mls @ 4 mls/min IV DAILY [facility] Stop: 12/02/19 08:59 Last Admin: 11/04/19 09:09 Dose: 4 mls/min Documented by: Thiamine HCl 100 mg/ Syringe 10 mls @ 2 mls/min IV QAM [facility] Stop: 12/03/19 08:59 Last Admin: 11/04/19 09:09 Dose: 2 mls/min Documented by: Folic Acid 1 mg/ Syringe 10 mls @ 5 mls/min IV QAM [facility] Stop: 12/03/19 08:59 Last Admin: 11/04/19 09:09 Dose: 5 mls/min Documented by: Pantoprazole Sodium 40 mg/ (Syringe) 10 mls @ 5 mls/min IV DAILY@1100 [facility] Stop: 12/03/19 10:59 Last Admin: 11/04/19 12:04 Dose: 5 mls/min Documented by: Doxycycline Hyclate 100 mg/ (Dextrose) 110 mls @ 55 mls/hr IV BID [facility] Stop: 11/06/19 10:59 Last Infusion: 11/04/19 11:01 Dose: Infused Documented by: Dextrose (D10w) 1,000 mls @ 0 mls/hr IV .Q0M PRN PRN Reason: protocol (see label comments) Stop: 12/03/19 15:01 Nutrition (Parenteral) 1,500 (ml/ TPN BAG) 1,500 mls @ 62.5 mls/hr IV .Q24H [facility]; Protocol Stop: 11/05/19 15:59 Insulin Aspart (Novolog Flexpen) 0 units SC Q6 [facility] Stop: 11/30/19 00:00 Last Admin: 11/04/19 12:03 Dose: Not Given Documented by: Lactic Acid (Amlactin) 1 gm EXT BID [facility] Stop: 11/30/19 20:59 Last Admin: 11/04/19 09:09 Dose: 1 gm Documented by: Levalbuterol HCl (Xopenex 1.25mg/3ml Neb) 1.25 mg NEB Q6R PRN PRN Reason: wheezing Stop: 11/29/19 06:59 Last Admin: 10/30/19 04:38 Dose: 1.25 mg Documented by: Miscellaneous (Remove Nicoderm Patch) 1 ea N/A DAILY@0859 [facility] Stop: 11/28/19 16:43 Last Admin: 11/04/19 09:10 Dose: 1 ea Documented by: Miscellaneous (Carbohydrates For Hypoglycemia ) 15 - 30 gm PO UD PRN PRN Reason: Hypoglycemia Protocol Stop: 12/02/19 05:39 Miscellaneous Information (Consult) 1 ea N/A UD PRN PRN Reason: Consult Stop: 11/28/19 16:00 Miscellaneous Information (Tpn/Ppn Consult Pharmacy) 1 ea N/A UD PRN PRN Reason: Consult Stop: 12/03/19 15:09 Nicotine (Nicoderm Cq) 21 mg TD QAM [facility] Stop: 11/28/19 16:44 Last Admin: 11/04/19 09:09 Dose: 21 mg Documented by: Ondansetron HCl (Zofran) 4 mg IV Q6H PRN PRN Reason: Nausea Stop: 11/28/19 16:00 Resident Activity Tracking Resident Involvement: Resident Care Provided Care Provided: Adult Hospital Medicine
[2019-11-05] MEDS: INSULIN ASPART 100 UNITS/ML 3 ML PEN SC SCH ×4 (00:21→18:05)
[2019-11-05] MEDS: PIPERACILLIN/TAZOBACTAM 4.5 GM in DEXTROSE 5% 100 ML IV SCH ×3 (06:28→22:14)
[2019-11-05 07:18] LABS: Hemoglobin 10.4 g/dL (14.0-18.0); Mean Corpuscular Hemoglobin 30.5 pg (25-34); Mean Corpuscular Hgb Conc 33.5 g/dL (32-36); Mean Corpuscular Volume 90.9 fL (80-100); RDW Coefficient of Variation 15.7 % (11.5-14.5); RDW Standard Deviation 49.8 fL (36.4-46.3); Red Blood Count 3.41 M/uL (4.7-6.1); White Blood Count 3.33 K/uL (4.8-10.8)
[2019-11-05 07:25] LABS: Mean Platelet Volume 10.9 fL (7.4-10.4); Platelet Count 63 K/uL (130-400)
[2019-11-05 07:29] LABS: INR 1.2 (0.9-1.1); Prothrombin Time 12.9 Seconds (9.0-12.0)
[2019-11-05 07:57] LABS: Basophils # (auto) 0.02 K/uL (0-0.2); Basophils % (auto) 0.6 %; Eosinophils # (auto) 0.06 K/uL (0-0.5); Eosinophils % (auto) 1.8 %; Immature Granulocytes # (auto) 0.02 K/uL (0.00-0.02); Immature Granulocytes % (auto) 0.6 %; Lymphocytes # (auto) 0.85 K/uL (1.2-3.4); Lymphocytes % (auto) 25.5 %; Neutrophils # (auto) 2.18 K/uL (1.4-6.5); Neutrophils % (auto) 65.5 %
[2019-11-05 08:01] LABS: Calcium 8.2 mg/dl (8.5-10.1); Est GFR (African American) 121.6; Est GFR (Non-African American) 104.9; Magnesium 1.8 mg/dl (1.8-2.4)
[2019-11-05 08:15] LABS: Albumin Globulin Ratio 0.5 (0.9-2); Bilirubin,Total 3.1 mg/dl (0.2-1); Globulin 3.7 gm/dl (2.5-4.0); Phosphorus 3.8 mg/dl (2.5-4.9); Total Protein 5.7 gm/dl (6.4-8.2)
[2019-11-05] MEDS: FUROSEMIDE 40 MG in SYRINGE 0 ML IV SCH (08:26)
[2019-11-05] MEDS: FOLIC ACID 1 MG in SYRINGE 9.8 ML IV SCH (08:26)
[2019-11-05] MEDS: THIAMINE HCL 100 MG in SYRINGE 9 ML IV SCH (08:26)
[2019-11-05] MEDS: NICOTINE 21 MG/24 HR TDSY TD SCH (08:27)
[2019-11-05] MEDS: DOXYCYCLINE HYCLATE 100 MG in DEXTROSE 5% 100 ML IV SCH ×3 (08:28→20:24)
[2019-11-05] MEDS: AMMONIUM LACTATE 12% LOTION 225 GM BTL EXT SCH ×2 (08:29→20:23)
[2019-11-05] MEDS: POTASSIUM CHLORIDE / WTR 10 MEQ/100 ML PLCT IV SCH ×5 (08:41→12:55)
--- NOTE | 2019-11-05 09:34 | Pharmacy Report ---
PHA: Parenteral Nutrition Con - Date of Service November 05, 2019 - Scope Pharmacy was consulted on 11/03 to manage parenteral nutrition orders for this patient. - Subjective The patient is currently on day [#2] of [peripheral] parenteral nutrition for extended NPO status. - Objective Height: 5 ft 1 in Weight: 50.5 kg Diet: NPO Intake & Output (24hrs):: Intake & Output 11/03/19 11/04/19 11/05/19 11/06/19 06:59 06:59 06:59 06:59 Intake Total 2310 / 2310 1270.000 / 1270.000 580 / 580 Output Total 1974 / 1974 2102 / 2102 1800 / 1800 Balance 335 / 335 -832.000 / -832.000 -1220 / -1220 Weight 50.1 kg 48.2 kg 50.5 kg Laboratory Data (Last 24 Hr):: 11/05/19 06:56 Sodium 133 L Potassium 3.0 L Chloride 98 Carbon Dioxide 25 BUN 11 Creatinine 0.71 Glucose 104 H Calcium 8.2 L Phosphorus 3.8 Magnesium 1.8 Total Bilirubin 3.1 H AST 35 ALT 15 Alkaline Phosphatase 122 H Albumin 2.0 L Nutrition Assessment:: Please refer to the Notes section of the EMR for the most recent veterinary surgery technologist note. - Plan For day #2 of PN administration, the following will be ordered: 11/04: Patient is a 54 yeal old male admitted with septic shock 10/25. Had been transferred out of ICU, but then developed worsening respiratory status. Video swallow 11/01 showing aspiration with all textures. Patient with recurrent aspiration possibly from diminished cognitive status. Palliative care consulted to discuss goals of care on 11/05. Trial of PPN started 11/03 in hopes of improved mental status and until decision made regarding termite inspector goals. Per provider notes, patient not a good candidate for PEG tube. Discussed with provider, with PPN will not be able to provide macronutrient goal due to limited osmolarity with peripheral access. If termite inspector nutrition desired, will need central access. Macronutrients Amino acids 70 grams/day Dextrose 150 grams/day Lipids 50 grams/day Micronutrients Combined electrolytes 20 mL - contains 35 mEq Na, 20 meq K, 4.5 mEq Ca, 5 mEq Mg, 35 mEq Cl, 29.5 mEq acetate per 20 mL Sodium chloride 60 mEq Potassium phosphate 21 mMol Potassium chloride 30 mEq Magnesium sulfate 4.06 mEq Multivitamins 10 mL Trace Elements 1 mL Additional additives: thiamine, folic acid Total volume 2000 mL to be infused over 24 hrs will provide 1290 kcal/day Final osmolarity ~896 mOsm/L (maximum for PPN is 900 mOsm/L) Labs, as indicated, will be ordered per protocol Pharmacy will continue to follow and adjust parenteral nutrition orders on a daily basis. Thank you for allowing us to participate in the care of this patient.
[2019-11-05] MEDS: PANTOprazole 40 MG in SYRINGE 0 ML IV SCH (10:26)
--- NOTE | 2019-11-05 14:41 | Hospitalist Progress Note ---
Date of Service November 05, 2019 Assessment & Plan (1) Septic shock: Ariel Mendoza is a 54 y/o male who was admitted for septic shock on 10/25 and directly sent to ICU for vasopressors. Source of sepsis thought to be aspiration PNA (left lower lobe) and R LE cellulitis, was placed on IV zosyn. Patient was weaned off pressors and downgraded from ICU on 10/28. Patient was transferred back to ICU on 10/31 for worsening respiratory status, with CXR suspicious for progressive aspiration pneumonitis. IV doxycycline was subsequently added. Video swallow on 11/01 showing aspiration with all textures. Recurrent aspiration thought to be from diminished cognitive status. Palliative consult placed to fa cilitate goals of care discussion. Primary team met with family 11/02 at bedside who are in agreement with a trial of PPN in order to "buy time" in hopes his cognitive status improves/returns to baseline level. However, patient with liver cirrhosis (MELD score 18)- looking at limited life expectancy regardless. Still awaiting to speak with family so that they may had discussions with palliative care. Altered Mental Status - etiology unknown, seems to have a waxing and waning quality. Much more awake/alert on exam today, indicative of possible improvement? 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 acute metabolic process (recurrent aspiration pneumonitis, hospital delirium, etc) + hepatic encephalopathy (patient with alcoholic cirrhosis) - Head CT on admission WNL - ammonia level WNL - no recent sedating medications given Bilateral pneumonia/aspiration pneumonitis: - video swallow 11/01 showing aspiration to all textures: NPO initially, started PPN 11/03. Patient is probably not a good candidate for PEG tube as he would be non-compliant and low likelihood he would be able to care for it independently -May consider re-consulting speech tomorrow as patient's cognition has seemed to be improving - prone to aspiration from alcoholism, aspiration precautions - Continue with Zosyn since providing Anaerobic coverage (currently on day 9) + doxycycline added . We will continue with this regimen until patient shows sustained improvement in cognition -Appreciate palliative consult. Need to have family discussion, pending as they have not been in the hospital past few days and did not return to voicemail. Alcohol Abuse/Liver Cirrhosis - INR elevated, low albumin, suppressed blood cell lines - Suspected long standing alcohol abuse which led to Liver disease - Currently on IV thiamine / Folate - AST: ALT 2:1 ratio consistent with alcohol abuse - Negative EtOH upon admission - patient was initially placed on protocol, but Ativan d/c due to AMS Pancytopenia - Suspect longstanding chronic decline since appeared to have been able to tolerate/survive - Most likely from alcohol bone marrow toxicity and coagulopathy from liver disease making him prone to bleed -Trend CBC daily Acute hyponatremia: improving - Na was 117 upon admission, up to 133 today - suspect from dietary/poor sodium content in alcohol Hyperbilirubinemia: - T bili trending down since admission, now at 3.1 - most likely secondary to liver disease (alcoholic cirrhosis) - MELD score of 18, poor prognosis in absence of other co-morbidities (6 months) - palliative care consult ongoing Non-STEMI (non-ST elevated myocardial infarction): - etiology considered demand ischemia Hypoalbuminemia: - albumin 2.0 on admission - suspected from liver impairment/ inadequate protein calorie intake -Started PPN as above. Appreciate pharmacy assistance Wound of foot/Dystrophic nail: - wound care consulted - appreciate podiatry consult Ribs, multiple fractures - Multiple rib fractures as noted above - Tylenol PRN PO for mild pain, avoiding NSAIDs because of coagulopathy and bleeding risk. - Oxycodone IR d/c due to AMS Diet: PPN Code: Full for now. We will await direction from family Dispo: downgraded from ICU to PCU today. Appreciate palliative consult, family discussion pending. Admission and Anticipated Discharge Date Admission Date: October 26, 2019 Supervising Physician Co-Signing Physician Notes I also saw the patient with the resident physician and confirmed zavaleta portions of the history and physical examination. I agree with the impression and plan as noted above. His cognition continues to wax and wane; this morning when I saw him he was more like he was 2 days ago, improved compared to yesterday. He was awake, alert and will answer simple questions with yes/no. He is alert to name, date, and place. Remains hemodynamically stable Hemoglobin 10.4 Sodium 133 Potassium 3.0 PPN continues through the weekend and see if his mental status improves as the infection resolves. He appears euvolemic so could decrease or hold Lasix; monitor volume status. If he has no improvement or deterioration in his mental status, will likely pursue more of a palliative reason hospice approach. If he has some improvement in his cognitive function, consideration would then be for either a reevaluation of his swallowing function and or consideration for PEG tube placement. Subjective 54-year-old male found in bed this a.m. No reports of agitation overnight. Family still has yet to be coming to the hospital so ongoing discussions with palliative care unable to be had. Patient's orientation actually improved today, however not much in the way of meaningful conversation. Review of Systems Review of Systems: Unobtainable due to cognitive status Physical Exam Constitutional: + cachectic; no acute distress Eyes: + scleral abnormality (Icteric) ENMT: external ear and nose normal, oropharynx normal Respiratory: no respiratory distress and no labored breathing Auscultation: + rhonchi Cardiovascular: Rate/Rhythm: regular rhythm and + tachycardic Gastrointestinal (Abdomen): normal bowel sounds, soft, nontender, no hepatosplenomegaly Skin: Right dorsal foot wound Right lower extremity purpura Psychiatric: Orientation: alert and oriented x 3 Results & Data Results & Data ([facility]) Vital Signs (Past 12 Hours) Vital Signs Temp Pulse Pulse Resp BP Pulse Ox 11/05/19 11:55 36.5 C 93 H 17 115/78 99 11/05/19 07:08 36.8 C 95 H 18 94/55 L 98 11/05/19 03:16 36.6 C 107 H 18 101/65 96 Laboratory Results Laboratory Results - last 24 hr 11/04/19 11/05/19 11/05/19 18:09 00:20 06:41 WBC RBC Hgb Hct MCV MCH MCHC RDW Std Deviation RDW Coeff of Bina Plt Count MPV Immature Gran % (Auto) Neut % (Auto) Lymph % (Auto) [place] % (Auto) Eos % (Auto) Baso % (Auto) Neut # (Auto) Lymph # (Auto) [place] # (Auto) Eos # (Auto) Baso # (Auto) Immature Gran # (Auto) PT INR Sodium Potassium Chloride Carbon Dioxide Anion Gap BUN Creatinine Est Cr Clr Drug Dosing Est GFR ( Amer) Est GFR (Non-Af Amer) BUN/Creatinine Ratio Glucose POC Glucose 103 H 119 H 113 H Calcium Phosphorus Magnesium Total Bilirubin AST ALT Alkaline Phosphatase Total Protein Albumin Globulin Albumin/Globulin Ratio 11/05/19 11/05/19 11/05/19 06:56 06:56 06:56 WBC 3.33 L RBC 3.41 L Hgb 10.4 L Hct 31.0 L MCV 90.9 MCH 30.5 MCHC 33.5 RDW Std Deviation 49.8 H RDW Coeff of Bina 15.7 H Plt Count 63 L MPV 10.9 H Immature Gran % (Auto) 0.6 Neut % (Auto) 65.5 Lymph % (Auto) 25.5 [place] % (Auto) 6.0 Eos % (Auto) 1.8 Baso % (Auto) 0.6 Neut # (Auto) 2.18 Lymph # (Auto) 0.85 L [place] # (Auto) 0.20 Eos # (Auto) 0.06 Baso # (Auto) 0.02 Immature Gran # (Auto) 0.02 PT 12.9 H INR 1.2 H Sodium 133 L Potassium 3.0 L Chloride 98 Carbon Dioxide 25 Anion Gap 10.0 BUN 11 Creatinine 0.71 Est Cr Clr Drug Dosing 83.0 Est GFR ( Amer) 121.6 Est GFR (Non-Af Amer) 104.9 BUN/Creatinine Ratio 16.0 Glucose 104 H POC Glucose Calcium 8.2 L Phosphorus 3.8 Magnesium 1.8 Total Bilirubin 3.1 H AST 35 ALT 15 Alkaline Phosphatase 122 H Total Protein 5.7 L Albumin 2.0 L Globulin 3.7 Albumin/Globulin Ratio 0.5 L 11/05/19 12:06 WBC RBC Hgb Hct MCV MCH MCHC RDW Std Deviation RDW Coeff of Bina Plt Count MPV Immature Gran % (Auto) Neut % (Auto) Lymph % (Auto) [place] % (Auto) Eos % (Auto) Baso % (Auto) Neut # (Auto) Lymph # (Auto) [place] # (Auto) Eos # (Auto) Baso # (Auto) Immature Gran # (Auto) PT INR Sodium Potassium Chloride Carbon Dioxide Anion Gap BUN Creatinine Est Cr Clr Drug Dosing Est GFR ( Amer) Est GFR (Non-Af Amer) BUN/Creatinine Ratio Glucose POC Glucose 124 H Calcium Phosphorus Magnesium Total Bilirubin AST ALT Alkaline Phosphatase Total Protein Albumin Globulin Albumin/Globulin Ratio Medications Administered Current Inpatient Medications Dextrose (Dextrose 50% 50 Ml Syringe) 25 - 50 ml IV UD PRN; Protocol PRN Reason: Hypoglycemia Protocol Stop: 12/02/19 05:39 Glucagon (Glucagon For Inj 1 Mg Vial) 1 mg SQ UD PRN; Protocol PRN Reason: Hypoglycemia Protocol Stop: 12/02/19 05:39 Glucose (Glucose 10 Tabs/Tube) 4 - 8 tabs PO UD PRN; Protocol PRN Reason: Hypoglycemia Protocol Stop: 12/02/19 05:39 Glucose (Glucose 40% Gel 15 Gm Tube) 15 - 30 gm PO UD PRN; Protocol PRN Reason: Hypoglycemia Protocol Stop: 12/02/19 05:39 Heparin Sodium (Beef Lung) (Heparin Sod 10 Unit/Ml Flush) 5 ml FLUSH PRN PRN PRN Reason: Flush Stop: 11/27/19 01:02 Piperacillin Sod/Tazobactam (Sod 4.5 gm/ Dextrose) 120 mls @ 28.75 mls/hr IV Q8H [facility]; Protocol Stop: 11/08/19 21:59 Last Admin: 11/05/19 13:57 Dose: 28.8 mls/hr Documented by: Parenteral Electrolytes (Normosol-R) 1,000 mls @ 80 mls/hr IV .[id number] [facility]EDAD Stop: 11/28/19 16:00 Last Infusion: 10/30/19 19:58 Dose: Infused Documented by: Furosemide 40 mg/ Syringe 4 mls @ 4 mls/min IV DAILY [facility] Stop: 12/02/19 08:59 Last Admin: 11/05/19 08:26 Dose: 4 mls/min Documented by: Thiamine HCl 100 mg/ Syringe 10 mls @ 2 mls/min IV QAM [facility] Stop: 12/03/19 08:59 Last Admin: 11/05/19 08:26 Dose: 2 mls/min Documented by: Folic Acid 1 mg/ Syringe 10 mls @ 5 mls/min IV QAM [facility] Stop: 12/03/19 08:59 Last Admin: 11/05/19 08:26 Dose: 5 mls/min Documented by: Pantoprazole Sodium 40 mg/ (Syringe) 10 mls @ 5 mls/min IV DAILY@1100 [facility] Stop: 12/03/19 10:59 Last Admin: 11/05/19 10:26 Dose: 5 mls/min Documented by: Doxycycline Hyclate 100 mg/ (Dextrose) 110 mls @ 55 mls/hr IV BID [facility] Stop: 11/06/19 10:59 Last Infusion: 11/05/19 12:26 Dose: Infused Documented by: Dextrose (D10w) 1,000 mls @ 0 mls/hr IV .Q0M PRN PRN Reason: protocol (see label comments) Stop: 12/03/19 15:01 Nutrition (Parenteral) 1,500 (ml/ TPN BAG) 1,500 mls @ 62.5 mls/hr IV .Q24H [facility]AD; Protocol Stop: 11/05/19 15:59 Last Admin: 11/04/19 16:53 Dose: 62.5 mls/hr Documented by: Nutrition (Parenteral) 2,000 (ml/ TPN BAG) 2,000 mls @ 83.33 mls/hr IV .Q24H [facility]; Protocol Stop: 11/06/19 15:59 Insulin Aspart (Novolog Flexpen) 0 units SC Q6 [facility] Stop: 11/30/19 00:00 Last Admin: 11/05/19 12:23 Dose: Not Given Documented by: Lactic Acid (Amlactin) 1 gm EXT BID [facility] Stop: 11/30/19 20:59 Last Admin: 11/05/19 08:29 Dose: 1 gm Documented by: Levalbuterol HCl (Xopenex 1.25mg/3ml Neb) 1.25 mg NEB Q6R PRN PRN Reason: wheezing Stop: 11/29/19 06:59 Last Admin: 10/30/19 04:38 Dose: 1.25 mg Documented by: Miscellaneous (Remove Nicoderm Patch) 1 ea N/A DAILY@0859 [facility] Stop: 11/28/19 16:43 Last Admin: 11/05/19 08:25 Dose: 1 ea Documented by: Miscellaneous (Carbohydrates For Hypoglycemia ) 15 - 30 gm PO UD PRN PRN Reason: Hypoglycemia Protocol Stop: 12/02/19 05:39 Miscellaneous Information (Consult) 1 ea N/A UD PRN PRN Reason: Consult Stop: 11/28/19 16:00 Miscellaneous Information (Tpn/Ppn Consult Pharmacy) 1 ea N/A UD PRN PRN Reason: Consult Stop: 12/03/19 15:09 Nicotine (Nicoderm Cq) 21 mg TD QAM [facility] Stop: 11/28/19 16:44 Last Admin: 11/05/19 08:27 Dose: 21 mg Documented by: Ondansetron HCl (Zofran) 4 mg IV Q6H PRN PRN Reason: Nausea Stop: 11/28/19 16:00 Resident Activity Tracking Resident Involvement: Resident Care Provided Care Provided: Adult Hospital Medicine
[2019-11-05] MEDS ORDERED: Custom Peripheral Pn 2,000 ML in TPN BAG 0 ML IV SCH (16:00)
--- NOTE | 2019-11-05 21:31 | Palliative Care Progress Note ---
Date of Service November 05, 2019 Assessment & Plan (1) Goals of care, counseling/discussion: This is an unfortunate 54 year old male who was brought to the [facility] via EMS after his daughter discovered him at his home unkempt and jaundiced. She had seen him three days prior to that encounter. He has a recent admission in September 2019 where he sustained a fall, twisting his right ankle. Multiple fractures were discovered, but he did not follow up outpatient with orthopedics. On admission, his RLE had severe cellulitis and he was hypotensive. He was taken to the ICU and placed on Levophed, which was discontinued on 11/01. He is AAOx1. Per staff, his mental status waxes and wanes. A video swallow was performed yesterday indicating aspiration. He is currently receiving antibiotics for overall septic shock. He has been on/off BiPAP over the past 2 days. 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 His electrolytes are relatively normal aside from his MG+ and Ca+ being slightly low. Multiple conversations were held with the patients two daughters; Sarai ([phone]) and Nasima ([phone]) and another son regarding nutritional needs and options. For now, the patients family has decided to pursue PPN. Palliative Care was consulted to discuss overall goals of care. -I met with the patient in room 237. He was awake, sitting upright in his bed, He is oriented to person only; his mentation is improving; however, you can't have a meaningful conversation with him. -The patient has not required BiPAP. -Overall, I have multiple concerns for this patient. It is imperative to have a family meeting to discuss goals of care. Ultimately, we have a non-compliant patient who appears to be jaundiced and with encephalopathy. We need to consider the patients safety for return to home with careful consideration as to what his home restrictions may be. -At this time, it would not be deemed possible for him to return home and I really only see SNF placement as the only option for [facility] which likely could be arranged through Adult Services. -We need to assess how patient responds to current abx regimen and how his mental status improves; understanding that the family appears to have decided to pursue PPN, lengthy conversation needs to be held regarding benefits vs risks of said interventions, along with long-term options. I do not forsee a PEG tube being a viable option for this patient giving his non-compliance and low likelihood he would be able to care for it independently. -For now, patient to remain a Full Code since we can not have a conversation with him to discuss this due to his altered cognitive state. We will await direction from family. If no official advanced director in place, all 3 children will need to agree on code status and goals of care. -I called both of his daughters Sarai and Nasima ([phone]) and left them VM's on Wednesday. Today, I received a call from his RN that his son was coming in around 4:30-5:00. I stayed around the nursing station from 4:15- 5:20 and did not see any family. -Nursing to contact palliative care cell if family arrives this weekend. -The above discussed with the patients nurse Ralf Evans RN and case management. -30% (2) Pneumonia: (3) Acute respiratory failure with hypoxia: (4) Altered mental state: (5) Septic shock: Admission and Anticipated Discharge Date Admission Date: October 26, 2019 Subjective 54-year-old male found in bed this a.m. No reports of agitation overnight. Family still has yet to be coming to the hospital so ongoing discussions with palliative care unable to be had. Patient's orientation actually improved today, however not much in the way of meaningful conversation. Review of Systems Review of Systems: Unobtainable due to cognitive status Physical Exam Constitutional: + ill appearing, + thin, + frail appearing, + disheveled and comfortable Eyes: + anicteric sclerae Respiratory: normal respiratory effort and + cough Auscultation: + rhonchi and + wheezes Cardiovascular: RRR, no murmur, no edema Gastrointestinal (Abdomen): normal bowel sounds, soft, nontender, no hepatosplenomegaly Psychiatric: Orientation: alert, oriented to person and cooperative Eye Contact: + fair eye contact Insight: + impaired insight Judgement: + impaired judgement Lymphatic: no cervical or axillary lymphadenopathy Results & Data ([facility]) Vital Signs (Past 12 Hours) Vital Signs Temp Pulse Pulse Resp BP Pulse Ox 11/05/19 19:30 36.6 C 94 H 17 97/65 L 97 11/05/19 15:47 36.5 C 92 H 18 110/71 98 11/05/19 11:55 36.5 C 93 H 17 115/78 99 PG Care Time/CCT Total # of Minutes Spent Total Time Spent with Patient: Total time spent is greater than 50% in coordination of care (as documented) at patient's floor/unit and/or counseling patient: 35 Coding Level of Care Code 54691 Subseq Hosp Care Lvl 3 Diagnoses Goals of care, counseling/discussion Z71.89 Pneumonia J18.9 Acute respiratory failure with hypoxia J96.01 Altered mental state R41.0 Altered mental status type: delirium Septic shock A41.9; R65.21 Time Spent Midlevel Total time spent 35 minutes with > 50% of that time spent assessing the patient, & discussing goals of care with IDT (1) Altered mental state Altered mental status type: delirium Qualified Code(s): R41.0 - Disorientation, unspecified
[2019-11-05] MEDS ORDERED: HALOPERIDOL LACTATE 5 MG/ML 1 ML VIAL IM PRN (22:03)
[2019-11-06] MEDS: INSULIN ASPART 100 UNITS/ML 3 ML PEN SC SCH ×4 (00:04→18:37)
[2019-11-06] MEDS: PIPERACILLIN/TAZOBACTAM 4.5 GM in DEXTROSE 5% 100 ML IV SCH ×3 (05:45→22:06)
[2019-11-06 06:40] LABS: Hematocrit (blood only) 29.9 % (42-52); Hemoglobin 10.2 g/dL (14.0-18.0); Mean Corpuscular Hemoglobin 30.9 pg (25-34); Mean Corpuscular Hgb Conc 34.1 g/dL (32-36); Mean Corpuscular Volume 90.6 fL (80-100); RDW Coefficient of Variation 15.4 % (11.5-14.5); RDW Standard Deviation 49.3 fL (36.4-46.3); White Blood Count 3.49 K/uL (4.8-10.8)
[2019-11-06 06:46] LABS: Platelet Count 73 K/uL (130-400)
[2019-11-06 06:49] LABS: INR 1.2 (0.9-1.1); Prothrombin Time 12.2 Seconds (9.0-12.0)
[2019-11-06 07:03] LABS: BUN Creatinine Ratio 24.2 (10-20); Calcium 8.1 mg/dl (8.5-10.1); Creatinine Clr Calc Pharmacy 101.6 ml/min; Est GFR (African American) 132.1; Magnesium 1.9 mg/dl (1.8-2.4); Potassium 3.4 mmol/L (3.5-5.1)
[2019-11-06 07:06] LABS: Albumin Globulin Ratio 0.5 (0.9-2); Bilirubin,Total 2.5 mg/dl (0.2-1); Globulin 3.8 gm/dl (2.5-4.0); Phosphorus 4.2 mg/dl (2.5-4.9); Total Protein 5.8 gm/dl (6.4-8.2)
[2019-11-06 07:27] LABS: Basophils # (auto) 0.01 K/uL (0-0.2); Basophils % (auto) 0.3 %; Eosinophils # (auto) 0.05 K/uL (0-0.5); Eosinophils % (auto) 1.4 %; Immature Granulocytes # (auto) 0.02 K/uL (0.00-0.02); Immature Granulocytes % (auto) 0.6 %; Lymphocytes % (auto) 28.7 %; Monocytes # (auto) 0.27 K/uL (0.11-0.59); Monocytes % (auto) 7.7 %; Neutrophils # (auto) 2.14 K/uL (1.4-6.5); Neutrophils % (auto) 61.3 %
[2019-11-06] MEDS: NICOTINE 21 MG/24 HR TDSY TD SCH (07:45)
[2019-11-06] MEDS: AMMONIUM LACTATE 12% LOTION 225 GM BTL EXT SCH ×2 (07:45→22:07)
[2019-11-06] MEDS: THIAMINE HCL 100 MG in SYRINGE 9 ML IV SCH (09:58)
[2019-11-06] MEDS: FOLIC ACID 1 MG in SYRINGE 9.8 ML IV SCH (09:58)
[2019-11-06] MEDS: DOXYCYCLINE HYCLATE 100 MG in DEXTROSE 5% 100 ML IV SCH (09:58)
--- NOTE | 2019-11-06 10:14 | Hospitalist Progress Note ---
Date of Service November 06, 2019 Assessment & Plan (1) Septic shock: Ariel Mendoza is a 54 y/o male who was admitted for septic shock on 10/25 and directly sent to ICU for vasopressors. Source of sepsis thought to be aspiration PNA (left lower lobe) and R LE cellulitis, was placed on IV zosyn. Patient was weaned off pressors and downgraded from ICU on 10/28. Patient was transferred back to ICU on 10/31 for worsening respiratory status, with CXR suspicious for progressive aspiration pneumonitis. IV doxycycline was subsequently added. Video swallow on 11/01 showing aspiration with all textures. Recurrent aspiration thought to be from diminished cognitive status. Palliative consult placed to fa cilitate goals of care discussion. Primary team met with family 11/02 at bedside who are in agreement with a trial of PPN in order to "buy time" in hopes his cognitive status improves/returns to baseline level. However, patient with liver cirrhosis (MELD score 18)- looking at limited life expectancy regardless. Multiple discussions with son+daughter in law, and sister separately today, however no clear decision for care reached and continuing disagreement regarding primary decision maker for patient. 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 Waxes and wanes in between patient taking naps. - Head CT on admission WNL - ammonia level WNL - no recent sedating medications given Bilateral pneumonia/aspiration pneumonitis: - video swallow 11/01 showing aspiration to all textures: NPO initially, started PPN 11/03. Patient is probably not a good candidate for PEG tube as he would be non-compliant and low likelihood he would be able to care for it independently - Considering medi-port/PICC placement for care home TPN options - May consider re-consulting speech tomorrow as patient's cognition has seemed to be improving - prone to aspiration from alcoholism, aspiration precautions - Zosyn downgraded to Unasyn, low concern for pseudomonas . Alcohol Abuse/Liver Cirrhosis - INR elevated, low albumin, suppressed blood cell lines - Suspected long standing alcohol abuse which led to Liver disease - Currently on IV thiamine / Folate - AST: ALT 2:1 ratio consistent with alcohol abuse - Negative EtOH upon admission - patient was initially placed on protocol, but Ativan d/c due to AMS Pancytopenia - Suspect longstanding chronic decline since appeared to have been able to tolerate/survive - Most likely from alcohol bone marrow toxicity and coagulopathy from liver disease making him prone to bleed -Trend CBC daily Acute hyponatremia: improving - Na was 117 upon admission, up to 132 today - suspect from dietary/poor sodium content in alcohol Hyperbilirubinemia: - T bili trending down since admission, now at 2.5 - most likely secondary to liver disease (alcoholic cirrhosis) - MELD score of 18, poor prognosis in absence of other co-morbidities (6 months) - palliative care consult ongoing Non-STEMI (non-ST elevated myocardial infarction): - etiology considered demand ischemia Hypoalbuminemia: - albumin 2.0 on admission - suspected from liver impairment/ inadequate protein calorie intake -Started PPN as above. Appreciate pharmacy assistance Wound of foot/Dystrophic nail: - wound care consulted - appreciate podiatry consult Ribs, multiple fractures - Multiple rib fractures as noted above - Tylenol PRN PO for mild pain, avoiding NSAIDs because of coagulopathy and bleeding risk. - Oxycodone IR d/c due to AMS Diet: PPN (trying to switch to TPN) Code: Full for now. We will await direction from family Dispo:PCU. Appreciate palliative consult, family discussion pending. Admission and Anticipated Discharge Date Admission Date: October 26, 2019 Supervising Physician Co-Signing Physician Notes I personally examined the patient and verified all zavaleta points of history and exam, discussed case, and agree with decision making with Dr Aguilera. no meaningful HPI or ROS vitals noted nad sleeping does not really rouse to verbal stim breathing unlabored no accessory muscles good effort skin no rashes no pallor or icterus neuro no focal deficits at rest sepsis POA probable aspiration pneumonia, concern on EtOH induced dementia, severe dysphagia -ongoing discussions on goals of care, appears family divided, team continues to try to facilitate discussions, one family member apparently pursuing POA -ongoing supportive care, cautious trial off abx since has had a long course of Rx -otherwise as above Subjective No complaints this AM, continues to be mildly disoriented and incoherent when talking Review of Systems Review of Systems: Unobtainable due to cognitive status Physical Exam Physical Exam: Constitutional: jaundiced,thin, asleep, in no apparent distress, laying comfortably in bed. Eyes: + scleral icterus Cardiac: RRR, no murmurs, gallops or rubs. Normal S1, S2 Pulm: CTA BL, no wheezes, rhonchi, crackles or rubs, moving air well throughout both lungs Abd: soft, nontender, nondistended, normal bowel sounds, no rebound or guarding Extremities:poor peripheral pulses, marked venous insufficiency changes and t hinning/peeling of skin on anterior right penaloza Neuro: A&O to person and time, Results & Data Results & Data ([facility]) Vital Signs (Past 12 Hours) Vital Signs Temp Pulse Pulse Pulse Resp BP Pulse Ox 11/06/19 08:12 36.7 C 89 18 95/59 L 98 11/06/19 05:00 36.7 C 88 18 96/60 L 96 11/06/19 00:01 36.8 C 92 H 19 104/68 98 11/05/19 23:22 96 H Laboratory Results WBC 3.49 K/uL (4.8-10.8) L 11/06/19 06:22 RBC 3.30 M/uL (4.7-6.1) L 11/06/19 06:22 Hgb 10.2 g/dL (14.0-18.0) L 11/06/19 06:22 POC Hgb 9.5 g/dl (14.0-18.0) L 11/02/19 05:34 Hct 29.9 % (42-52) L 11/06/19 06:22 POC Hct 28 % (42-52) L 11/02/19 05:34 MCV 90.6 fL (80-100) 11/06/19 06:22 MCH 30.9 pg (25-34) 11/06/19 06:22 MCHC 34.1 g/dL (32-36) 11/06/19 06:22 RDW Std Deviation 49.3 fL (36.4-46.3) H 11/06/19 06:22 RDW Coeff of Bina 15.4 % (11.5-14.5) H 11/06/19 06:22 Plt Count 73 K/uL (130-400) L 11/06/19 06:22 MPV 11.0 fL (7.4-10.4) H 11/06/19 06:22 Immature Gran % (Auto) 0.6 % 11/06/19 06:22 Neut % (Auto) 61.3 % 11/06/19 06:22 Lymph % (Auto) 28.7 % 11/06/19 06:22 [place] % (Auto) 7.7 % 11/06/19 06:22 Eos % (Auto) 1.4 % 11/06/19 06:22 Baso % (Auto) 0.3 % 11/06/19 06:22 Reticulocyte % (Auto) 2.6 % (0.5-2.0) H 10/27/19 08:43 Neut # (Auto) 2.14 K/uL (1.4-6.5) 11/06/19 06:22 Lymph # (Auto) 1.00 K/uL (1.2-3.4) L 11/06/19 06:22 [place] # (Auto) 0.27 K/uL (0.11-0.59) 11/06/19 06:22 Eos # (Auto) 0.05 K/uL (0-0.5) 11/06/19 06:22 Baso # (Auto) 0.01 K/uL (0-0.2) 11/06/19 06:22 Reticulocyte # 0.09 10^6/uL (0.02-0.10) 10/27/19 08:43 Immature Gran # (Auto) 0.02 K/uL (0.00-0.02) 11/06/19 06:22 Platelet Estimate Decreased (Normal) L 10/26/19 22:03 Giant Platelets 1+ 11/04/19 04:52 RBC Morphology Unremarkable 11/03/19 04:16 Echinocytes 2+ 10/29/19 04:18 ESR 11 mm/hr (0-14) 11/01/19 06:58 PT 12.2 Seconds (9.0-12.0) H 11/06/19 06:22 INR 1.2 (0.9-1.1) H 11/06/19 06:22 APTT 32.8 Seconds (21.0-31.0) H 10/29/19 04:18 PTT Ratio 1.2 10/29/19 04:18 Sample Site R Radial 11/03/19 04:39 POC pH 7.55 (7.35-7.45) H* 11/03/19 04:39 POC pCO2 25 mmHg (35-46) L 11/03/19 04:39 POC pO2 55 mmHg (80-95) L 11/03/19 04:39 POC HCO3 22 eddie/L (19-24) 11/03/19 04:39 POC Total CO2 22 mmol/L (24-31) L 11/03/19 04:39 POC Base Excess -1.0 eddie/L (-9-1.8) 11/03/19 04:39 ABG pH 7.48 (7.35-7.45) H 11/01/19 13:20 ABG pH (Temp Correct) 7.547 (7.35-7.45) H* 11/02/19 05:34 ABG pCO2 33 mmHg (35-46) L 11/01/19 13:20 ABG pCO2 (Temp Corrct 29 mmHg (35-46) L 11/02/19 05:34 ABG pO2 53 mmHg (80-95) L 11/01/19 13:20 POC ABG pO2 at Pt Temp 76 11/02/19 05:34 ABG HCO3 25 mmol/L (19-24) H 11/01/19 13:20 POC ABG O2 Sat 93.0 % (90-95) 11/03/19 04:39 ABG O2 Saturation 86.4 % (90-95) L 11/01/19 13:20 ABG Base Excess 1.3 mEq/L (-9-1.8) 11/01/19 13:20 Anthony Test Pass 11/03/19 04:39 Barometric Pressure 733.7 mm/Hg 11/01/19 13:20 Oxygen Given 4L 11/01/19 13:20 O2 Delivery Device Room Air 11/03/19 04:39 POC O2 Rate 14 11/02/19 05:34 POC FiO2 30 % 11/02/19 05:34 IPAP 12 11/02/19 05:34 POC Sodium 132 mmol/L (135-144) L 11/02/19 05:34 Sodium 132 mmol/L (136-145) L 11/06/19 06:22 POC Potassium 2.7 mmol/L (3.3-5.0) L 11/02/19 05:34 Potassium 3.4 mmol/L (3.5-5.1) L 11/06/19 06:22 POC Chloride 89 mmol/L (101-112) L 10/26/19 22:13 Chloride 99 mmol/L (98-107) 11/06/19 06:22 Carbon Dioxide 25 mmol/L (21-32) 11/06/19 06:22 POC Total CO2 12 mmol/L (24-31) L 10/26/19 22:13 Anion Gap 8.0 (3-11) 11/06/19 06:22 POC Anion Gap 21.0 mmol/L (16-25) 10/26/19 22:13 POC BUN 16 mg/dl (7-18) 10/26/19 22:13 BUN 14 mg/dl (7-18) 11/06/19 06:22 Creatinine 0.58 mg/dl (0.6-1.4) L 11/06/19 06:22 POC Creatinine 1.1 mg/dl (0.6-1.3) 10/26/19 22:13 Est Cr Clr Drug Dosing 101.6 ml/min 11/06/19 06:22 Est GFR ( Amer) 132.1 11/06/19 06:22 Est GFR (Non-Af Amer) 114.0 11/06/19 06:22 BUN/Creatinine Ratio 24.2 (10-20) H 11/06/19 06:22 Glucose 102 mg/dl (70-99) H 11/06/19 06:22 POC Glucose 115 mg/dl (70-99) H 11/06/19 12:11 POC Glucose (other) 89 mg/dl (70-99) 10/26/19 22:13 Estimat Average Glucose 80 mg/dl 10/27/19 08:43 Hemoglobin A1c 4.4 % (4.5-5.6) L 10/27/19 08:43 Lactate 1.9 mmol/L (0.4-2.0) 10/26/19 22:03 Calcium 8.1 mg/dl (8.5-10.1) L 11/06/19 06:22 POC Ioniz Calcium [place] 1.00 mmol/l (1.12-1.32) L 10/26/19 22:13 Phosphorus 4.2 mg/dl (2.5-4.9) 11/06/19 06:22 Magnesium 1.9 mg/dl (1.8-2.4) 11/06/19 06:22 Total Bilirubin 2.5 mg/dl (0.2-1) H 11/06/19 06:22 Direct Bilirubin 4.6 mg/dl (0-0.2) H 11/01/19 13:20 AST 44 U/L (15-37) H 11/06/19 06:22 ALT 18 U/L (12-78) 11/06/19 06:22 Alkaline Phosphatase 112 U/L (45-117) 11/06/19 06:22 Ammonia 31.0 umol/L (11-32) 11/01/19 13:20 Total Creatine Kinase 560 U/L (39-308) H 10/27/19 01:17 Troponin I 0.117 ng/ml (0-0.045) H* 10/28/19 04:07 C-Reactive Protein 12.20 mg/dl (0-0.29) H 11/01/19 13:20 NT-Pro-B Natriuret Pep 7080 pg/ml (0-900) H 11/01/19 13:20 Total Protein 5.8 gm/dl (6.4-8.2) L 11/06/19 06:22 Albumin 2.0 gm/dl (3.4-5.0) L 11/06/19 06:22 Globulin 3.8 gm/dl (2.5-4.0) 11/06/19 06:22 Albumin/Globulin Ratio 0.5 (0.9-2) L 11/06/19 06:22 Angiotensin Convert Enz 30 U/L (9-67) 10/27/19 08:43 Vitamin B12 1749 pg/ml (211-911) H 10/26/19 22:56 Folate 4.52 ng/ml (>5.38) L 10/26/19 22:56 Procalcitonin 0.50 ng/ml (0-0.5) 11/01/19 13:24 TSH 1.300 uIu/ml (0.300-4.500) 10/27/19 08:43 Random Cortisol 21.66 mcg/dl 10/26/19 22:56 Specimen Hemolysis 11/02/19 15:10 Urine Color Dark Yellow 11/02/19 10:15 Urine Appearance Clear (Clear) 11/02/19 10:15 Urine pH >= 9.0 (4.5-7.5) H 11/02/19 10:15 Ur Specific [place] 1.017 (1.000-1.030) 11/02/19 10:15 Urine Protein Negative (Negative) 11/02/19 10:15 Urine Glucose (UA) Negative (Negative) 11/02/19 10:15 Urine Ketones Trace (Negative) H 11/02/19 10:15 Urine Blood Negative (Negative) 11/02/19 10:15 Urine Nitrite Negative (Negative) 11/02/19 10:15 Urine Bilirubin 1+ (Negative) H 11/02/19 10:15 Urine Urobilinogen Negative (Negative) 11/02/19 10:15 Ur Leukocyte Esterase Negative (Negative) 11/02/19 10:15 Nasal Screen MRSA (PCR) Negative (Negative) 10/27/19 00:05 Vancomycin Trough 27.0 mcg/ml (See Comment) 11/02/19 17:33 Salicylates Cancelled 10/27/19 01:17 Acetaminophen Cancelled 10/27/19 01:17 Ethyl Alcohol mg/dL < 3.0 mg/dl (0-3) 10/26/19 22:03 Adenovirus (PCR) Not Detected (NotDetected) 10/27/19 11:46 B. pertussis DNA (PCR) Not Detected (NotDetected) 10/27/19 11:46 B.parapertussis DNA PCR Not Detected (NotDetected) 10/27/19 11:46 C. pneumoniae DNA (PCR) Not Detected (NotDetected) 10/27/19 11:46 Coronavirus OC43 (PCR) Not Detected (NotDetected) 10/27/19 11:46 Coronavirus HKU1 (PCR) Not Detected (NotDetected) 10/27/19 11:46 Coronavirus 229E (PCR) Not Detected (NotDetected) 10/27/19 11:46 COVID-19 PCR NEGATIVE (Negative) 10/26/19 21:49 Coronavirus NL63 (PCR) Not Detected (NotDetected) 10/27/19 11:46 Hepatitis A IgM Ab NON-REACTIVE (NON-REACTIVE) 10/26/19 22:02 Hep Bs Antigen Neg (Neg) 10/27/19 01:17 Hep B Core IgM Ab NON-REACTIVE (NON-REACTIVE) 10/26/19 22:02 Hepatitis C Ab Screen Neg (Neg) 10/27/19 01:17 Hepatitis C Antibody Neg (Neg) 10/27/19 01:17 Human Metapneumovir PCR Not Detected (NotDetected) 10/27/19 11:46 Influenza Type A (PCR) Not Detected (NotDetected) 10/27/19 11:46 Influenza Type B (PCR) Not Detected (NotDetected) 10/27/19 11:46 M. pneumoniae (PCR) Not Detected (NotDetected) 10/27/19 11:46 Parainfluenza 1 (PCR) Not Detected (NotDetected) 10/27/19 11:46 Parainfluenza 2 (PCR) Not Detected (NotDetected) 10/27/19 11:46 Parainfluenza 3 (PCR) Not Detected (NotDetected) 10/27/19 11:46 Parainfluenza 4 (PCR) Not Detected (NotDetected) 10/27/19 11:46 RSV (PCR) Not Detected (NotDetected) 10/27/19 11:46 Entero/Rhino (PCR) Not Detected (NotDetected) 10/27/19 11:46 Bld Cult Staph aureus PCR Negative (Negative) 10/26/19 22:04 Blood Culture MRSA PCR Negative (Negative) 10/26/19 22:04 Blood Type O Positive 10/26/19 22:02 Blood Type Recheck O Positive 10/26/19 22:57 Antibody Screen NEGATIVE 10/26/19 22:02 Crossmatch See Detail 10/26/19 22:02 Resident Activity Tracking Resident Involvement: Resident Care Provided Care Provided: Adult Hospital Medicine
[2019-11-06] MEDS: PANTOprazole 40 MG in SYRINGE 0 ML IV SCH (11:42)
[2019-11-06] MEDS ORDERED: POTASSIUM CHLORIDE / WTR 10 MEQ/100 ML PLCT IV ONE (12:45)
[2019-11-06] MEDS ORDERED: Custom Peripheral Pn 2,000 ML in TPN BAG 0 ML IV SCH (16:00)
--- NOTE | 2019-11-06 18:40 | Billing Data ---
Date of Service November 06, 2019 Coding Level of Care Code 99655 Subseq Hosp Care Lvl 3
[2019-11-07] MEDS: INSULIN ASPART 100 UNITS/ML 3 ML PEN SC SCH ×4 (00:01→18:09)
[2019-11-07] MEDS: PIPERACILLIN/TAZOBACTAM 4.5 GM in DEXTROSE 5% 100 ML IV SCH ×3 (05:30→21:37)
[2019-11-07] MEDS: AMMONIUM LACTATE 12% LOTION 225 GM BTL EXT SCH ×2 (09:36→21:41)
[2019-11-07] MEDS: NICOTINE 21 MG/24 HR TDSY TD SCH (09:36)
--- NOTE | 2019-11-07 11:05 | Hospitalist Progress Note ---
Date of Service November 07, 2019 Assessment & Plan (1) Septic shock: Ariel Mendoza is a 54 y/o male who was admitted for septic shock on 10/25 and directly sent to ICU for vasopressors. Source of sepsis thought to be aspiration PNA (left lower lobe) and R LE cellulitis, was placed on IV zosyn. Patient was weaned off pressors and downgraded from ICU on 10/28. Patient was transferred back to ICU on 10/31 for worsening respiratory status, with CXR suspicious for progressive aspiration pneumonitis. IV doxycycline was subsequently added. Video swallow on 11/01 showing aspiration with all textures. Recurrent aspiration thought to be from diminished cognitive status. Palliative consult placed to fa cilitate goals of care discussion. Primary team met with family 11/02 at bedside who are in agreement with a trial of PPN in order to "buy time" in hopes his cognitive status improves/returns to baseline level. However, patient with liver cirrhosis (MELD score 18)- looking at limited life expectancy regardless. Multiple discussions with son+daughter in law, and sister separately today, however no clear decision for care reached and continuing disagreement regarding primary decision maker for patient. 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 Waxes and wanes in between patient taking naps. - Head CT on admission WNL - ammonia level WNL - no recent sedating medications given Bilateral pneumonia/aspiration pneumonitis: - video swallow 11/01 showing aspiration to all textures: NPO initially, started PPN 11/03. Patient is probably not a good candidate for PEG tube as he would be non-compliant and low likelihood he would be able to care for it independently - Considering medi-port/PICC placement for terminal gauger TPN options - May consider re-consulting speech tomorrow as patient's cognition has seemed to be improving - prone to aspiration from alcoholism, aspiration precautions - Zosyn downgraded to Unasyn, low concern for pseudomonas Alcohol Abuse/Liver Cirrhosis - INR elevated, low albumin, suppressed blood cell lines - Suspected long standing alcohol abuse which led to Liver disease - Currently on IV thiamine / Folate - AST: ALT 2:1 ratio consistent with alcohol abuse - Negative EtOH upon admission - patient was initially placed on protocol, but Ativan d/c due to AMS Pancytopenia - Suspect longstanding chronic decline since appeared to have been able to tolerate/survive - Most likely from alcohol bone marrow toxicity and coagulopathy from liver disease making him prone to bleed -Trend CBC daily Acute hyponatremia: improving - Na was 117 upon admission, up to 132 today - suspect from dietary/poor sodium content in alcohol Hyperbilirubinemia: - T bili trending down since admission, now at 2.5 - most likely secondary to liver disease (alcoholic cirrhosis) - MELD score of 18, poor prognosis in absence of other co-morbidities (6 months) - palliative care consult ongoing Non-STEMI (non-ST elevated myocardial infarction): - etiology considered demand ischemia Hypoalbuminemia: - albumin 2.0 on admission - suspected from liver impairment/ inadequate protein calorie intake -Started PPN as above. Appreciate pharmacy assistance Wound of foot/Dystrophic nail: - wound care consulted - appreciate podiatry consult Ribs, multiple fractures - Multiple rib fractures as noted above - Tylenol PRN PO for mild pain, avoiding NSAIDs because of coagulopathy and bleeding risk. - Oxycodone IR d/c due to AMS Diet: PPN (trying to switch to TPN) Code:DNR/DNI Dispo:medsurg. Appreciate palliative consult, family discussion pending. Admission and Anticipated Discharge Date Admission Date: October 26, 2019 Supervising Physician Co-Signing Physician Notes I personally examined the patient and verified all zavaleta points of history and exam, discussed case, and agree with decision making with Dr Aguilera. no meaningful HPI or ROS vitals noted nad breathing unlabored no accessory muscles good effort skin no rashes no pallor neuro no focal deficits at rest sepsis POA probable aspiration pneumonia, concern on EtOH induced dementia, severe dysphagia -ongoing discussions on goals of care, appears family divided, team continues to try to facilitate discussions, one family member apparently pursuing POA -nutrition support while family decides - unable to get PICC for TPN today - if can't by tomorrow will need to revisit NGT vs revisiting goals overall again -ongoing supportive care, appears to be doing ok off abx since has had a long course of Rx -otherwise as above Subjective continues to be delirious and incoherent. unsure of where he is, thinks it is the year [id number], mistook resident for someone else from his life. Review of Systems Review of Systems: Unobtainable due to cognitive status Physical Exam Physical Exam: Constitutional: jaundiced,thin, asleep, in no apparent distress, laying comfortably in bed. Eyes: + scleral icterus Cardiac: RRR, no murmurs, gallops or rubs. Normal S1, S2 Pulm: CTA BL, no wheezes, rhonchi, crackles or rubs, moving air well throughout both lungs Abd: soft, nontender, nondistended, normal bowel sounds, no rebound or guarding Extremities:poor peripheral pulses, marked venous insufficiency changes and thinning/peeling of skin on anterior right penaloza Neuro: A&O to person and time, Results & Data Results & Data ([facility]) Vital Signs (Past 12 Hours) Vital Signs Temp Pulse Pulse Resp BP Pulse Ox 11/07/19 08:28 36.5 C 86 20 119/77 99 11/07/19 03:07 36.8 C 96 H 18 106/62 97 11/07/19 00:00 98 H 11/06/19 23:58 36.9 C 96 H 16 99/61 L 98 Laboratory Results WBC 3.49 K/uL (4.8-10.8) L 11/06/19 06:22 RBC 3.30 M/uL (4.7-6.1) L 11/06/19 06:22 Hgb 10.2 g/dL (14.0-18.0) L 11/06/19 06:22 POC Hgb 9.5 g/dl (14.0-18.0) L 11/02/19 05:34 Hct 29.9 % (42-52) L 11/06/19 06:22 POC Hct 28 % (42-52) L 11/02/19 05:34 MCV 90.6 fL (80-100) 11/06/19 06:22 MCH 30.9 pg (25-34) 11/06/19 06:22 MCHC 34.1 g/dL (32-36) 11/06/19 06:22 RDW Std Deviation 49.3 fL (36.4-46.3) H 11/06/19 06:22 RDW Coeff of Bina 15.4 % (11.5-14.5) H 11/06/19 06:22 Plt Count 73 K/uL (130-400) L 11/06/19 06:22 MPV 11.0 fL (7.4-10.4) H 11/06/19 06:22 Immature Gran % (Auto) 0.6 % 11/06/19 06:22 Neut % (Auto) 61.3 % 11/06/19 06:22 Lymph % (Auto) 28.7 % 11/06/19 06:22 [place] % (Auto) 7.7 % 11/06/19 06:22 Eos % (Auto) 1.4 % 11/06/19 06:22 Baso % (Auto) 0.3 % 11/06/19 06:22 Reticulocyte % (Auto) 2.6 % (0.5-2.0) H 10/27/19 08:43 Neut # (Auto) 2.14 K/uL (1.4-6.5) 11/06/19 06:22 Lymph # (Auto) 1.00 K/uL (1.2-3.4) L 11/06/19 06:22 [place] # (Auto) 0.27 K/uL (0.11-0.59) 11/06/19 06:22 Eos # (Auto) 0.05 K/uL (0-0.5) 11/06/19 06:22 Baso # (Auto) 0.01 K/uL (0-0.2) 11/06/19 06:22 Reticulocyte # 0.09 10^6/uL (0.02-0.10) 10/27/19 08:43 Immature Gran # (Auto) 0.02 K/uL (0.00-0.02) 11/06/19 06:22 Platelet Estimate Decreased (Normal) L 10/26/19 22:03 Giant Platelets 1+ 11/04/19 04:52 RBC Morphology Unremarkable 11/03/19 04:16 Echinocytes 2+ 10/29/19 04:18 ESR 11 mm/hr (0-14) 11/01/19 06:58 PT 12.2 Seconds (9.0-12.0) H 11/06/19 06:22 INR 1.2 (0.9-1.1) H 11/06/19 06:22 APTT 32.8 Seconds (21.0-31.0) H 10/29/19 04:18 PTT Ratio 1.2 10/29/19 04:18 Sample Site R Radial 11/03/19 04:39 POC pH 7.55 (7.35-7.45) H* 11/03/19 04:39 POC pCO2 25 mmHg (35-46) L 11/03/19 04:39 POC pO2 55 mmHg (80-95) L 11/03/19 04:39 POC HCO3 22 eddie/L (19-24) 11/03/19 04:39 POC Total CO2 22 mmol/L (24-31) L 11/03/19 04:39 POC Base Excess -1.0 eddie/L (-9-1.8) 11/03/19 04:39 ABG pH 7.48 (7.35-7.45) H 11/01/19 13:20 ABG pH (Temp Correct) 7.547 (7.35-7.45) H* 11/02/19 05:34 ABG pCO2 33 mmHg (35-46) L 11/01/19 13:20 ABG pCO2 (Temp Corrct 29 mmHg (35-46) L 11/02/19 05:34 ABG pO2 53 mmHg (80-95) L 11/01/19 13:20 POC ABG pO2 at Pt Temp 76 11/02/19 05:34 ABG HCO3 25 mmol/L (19-24) H 11/01/19 13:20 POC ABG O2 Sat 93.0 % (90-95) 11/03/19 04:39 ABG O2 Saturation 86.4 % (90-95) L 11/01/19 13:20 ABG Base Excess 1.3 mEq/L (-9-1.8) 11/01/19 13:20 Anthony Test Pass 11/03/19 04:39 Barometric Pressure 733.7 mm/Hg 11/01/19 13:20 Oxygen Given 4L 11/01/19 13:20 O2 Delivery Device Room Air 11/03/19 04:39 POC O2 Rate 14 11/02/19 05:34 POC FiO2 30 % 11/02/19 05:34 IPAP 12 11/02/19 05:34 POC Sodium 132 mmol/L (135-144) L 11/02/19 05:34 Sodium 132 mmol/L (136-145) L 11/06/19 06:22 POC Potassium 2.7 mmol/L (3.3-5.0) L 11/02/19 05:34 Potassium 3.4 mmol/L (3.5-5.1) L 11/06/19 06:22 POC Chloride 89 mmol/L (101-112) L 10/26/19 22:13 Chloride 99 mmol/L (98-107) 11/06/19 06:22 Carbon Dioxide 25 mmol/L (21-32) 11/06/19 06:22 POC Total CO2 12 mmol/L (24-31) L 10/26/19 22:13 Anion Gap 8.0 (3-11) 11/06/19 06:22 POC Anion Gap 21.0 mmol/L (16-25) 10/26/19 22:13 POC BUN 16 mg/dl (7-18) 10/26/19 22:13 BUN 14 mg/dl (7-18) 11/06/19 06:22 Creatinine 0.58 mg/dl (0.6-1.4) L 11/06/19 06:22 POC Creatinine 1.1 mg/dl (0.6-1.3) 10/26/19 22:13 Est Cr Clr Drug Dosing 101.6 ml/min 11/06/19 06:22 Est GFR ( Amer) 132.1 11/06/19 06:22 Est GFR (Non-Af Amer) 114.0 11/06/19 06:22 BUN/Creatinine Ratio 24.2 (10-20) H 11/06/19 06:22 Glucose 102 mg/dl (70-99) H 11/06/19 06:22 POC Glucose 98 mg/dl (70-99) 11/07/19 18:00 POC Glucose (other) 89 mg/dl (70-99) 10/26/19 22:13 Estimat Average Glucose 80 mg/dl 10/27/19 08:43 Hemoglobin A1c 4.4 % (4.5-5.6) L 10/27/19 08:43 Lactate 1.9 mmol/L (0.4-2.0) 10/26/19 22:03 Calcium 8.1 mg/dl (8.5-10.1) L 11/06/19 06:22 POC Ioniz Calcium [place] 1.00 mmol/l (1.12-1.32) L 10/26/19 22:13 Phosphorus 4.2 mg/dl (2.5-4.9) 11/06/19 06:22 Magnesium 1.9 mg/dl (1.8-2.4) 11/06/19 06:22 Total Bilirubin 2.5 mg/dl (0.2-1) H 11/06/19 06:22 Direct Bilirubin 4.6 mg/dl (0-0.2) H 11/01/19 13:20 AST 44 U/L (15-37) H 11/06/19 06:22 ALT 18 U/L (12-78) 11/06/19 06:22 Alkaline Phosphatase 112 U/L (45-117) 11/06/19 06:22 Ammonia 31.0 umol/L (11-32) 11/01/19 13:20 Total Creatine Kinase 560 U/L (39-308) H 10/27/19 01:17 Troponin I 0.117 ng/ml (0-0.045) H* 10/28/19 04:07 C-Reactive Protein 12.20 mg/dl (0-0.29) H 11/01/19 13:20 NT-Pro-B Natriuret Pep 7080 pg/ml (0-900) H 11/01/19 13:20 Total Protein 5.8 gm/dl (6.4-8.2) L 11/06/19 06:22 Albumin 2.0 gm/dl (3.4-5.0) L 11/06/19 06:22 Globulin 3.8 gm/dl (2.5-4.0) 11/06/19 06:22 Albumin/Globulin Ratio 0.5 (0.9-2) L 11/06/19 06:22 Angiotensin Convert Enz 30 U/L (9-67) 10/27/19 08:43 Vitamin B12 1749 pg/ml (211-911) H 10/26/19 22:56 Folate 4.52 ng/ml (>5.38) L 10/26/19 22:56 Procalcitonin 0.50 ng/ml (0-0.5) 11/01/19 13:24 TSH 1.300 uIu/ml (0.300-4.500) 10/27/19 08:43 Random Cortisol 21.66 mcg/dl 10/26/19 22:56 Specimen Hemolysis 11/02/19 15:10 Urine Color Dark Yellow 11/02/19 10:15 Urine Appearance Clear (Clear) 11/02/19 10:15 Urine pH >= 9.0 (4.5-7.5) H 11/02/19 10:15 Ur Specific [place] 1.017 (1.000-1.030) 11/02/19 10:15 Urine Protein Negative (Negative) 11/02/19 10:15 Urine Glucose (UA) Negative (Negative) 11/02/19 10:15 Urine Ketones Trace (Negative) H 11/02/19 10:15 Urine Blood Negative (Negative) 11/02/19 10:15 Urine Nitrite Negative (Negative) 11/02/19 10:15 Urine Bilirubin 1+ (Negative) H 11/02/19 10:15 Urine Urobilinogen Negative (Negative) 11/02/19 10:15 Ur Leukocyte Esterase Negative (Negative) 11/02/19 10:15 Nasal Screen MRSA (PCR) Negative (Negative) 10/27/19 00:05 Vancomycin Trough 27.0 mcg/ml (See Comment) 11/02/19 17:33 Salicylates Cancelled 10/27/19 01:17 Acetaminophen Cancelled 10/27/19 01:17 Ethyl Alcohol mg/dL < 3.0 mg/dl (0-3) 10/26/19 22:03 Adenovirus (PCR) Not Detected (NotDetected) 10/27/19 11:46 B. pertussis DNA (PCR) Not Detected (NotDetected) 10/27/19 11:46 B.parapertussis DNA PCR Not Detected (NotDetected) 10/27/19 11:46 C. pneumoniae DNA (PCR) Not Detected (NotDetected) 10/27/19 11:46 Coronavirus OC43 (PCR) Not Detected (NotDetected) 10/27/19 11:46 Coronavirus HKU1 (PCR) Not Detected (NotDetected) 10/27/19 11:46 Coronavirus 229E (PCR) Not Detected (NotDetected) 10/27/19 11:46 COVID-19 PCR NEGATIVE (Negative) 10/26/19 21:49 Coronavirus NL63 (PCR) Not Detected (NotDetected) 10/27/19 11:46 Hepatitis A IgM Ab NON-REACTIVE (NON-REACTIVE) 10/26/19 22:02 Hep Bs Antigen Neg (Neg) 10/27/19 01:17 Hep B Core IgM Ab NON-REACTIVE (NON-REACTIVE) 10/26/19 22:02 Hepatitis C Ab Screen Neg (Neg) 10/27/19 01:17 Hepatitis C Antibody Neg (Neg) 10/27/19 01:17 Human Metapneumovir PCR Not Detected (NotDetected) 10/27/19 11:46 Influenza Type A (PCR) Not Detected (NotDetected) 10/27/19 11:46 Influenza Type B (PCR) Not Detected (NotDetected) 10/27/19 11:46 M. pneumoniae (PCR) Not Detected (NotDetected) 10/27/19 11:46 Parainfluenza 1 (PCR) Not Detected (NotDetected) 10/27/19 11:46 Parainfluenza 2 (PCR) Not Detected (NotDetected) 10/27/19 11:46 Parainfluenza 3 (PCR) Not Detected (NotDetected) 10/27/19 11:46 Parainfluenza 4 (PCR) Not Detected (NotDetected) 10/27/19 11:46 RSV (PCR) Not Detected (NotDetected) 10/27/19 11:46 Entero/Rhino (PCR) Not Detected (NotDetected) 10/27/19 11:46 Bld Cult Staph aureus PCR Negative (Negative) 10/26/19 22:04 Blood Culture MRSA PCR Negative (Negative) 10/26/19 22:04 Blood Type O Positive 10/26/19 22:02 Blood Type Recheck O Positive 10/26/19 22:57 Antibody Screen NEGATIVE 10/26/19 22:02 Crossmatch See Detail 10/26/19 22:02
[2019-11-07] MEDS: PANTOprazole 40 MG in SYRINGE 0 ML IV SCH (11:36)
[2019-11-07] MEDS ORDERED: Custom Peripheral Pn 2,000 ML in TPN BAG 0 ML IV SCH (16:00)
--- NOTE | 2019-11-07 19:52 | Billing Data ---
Date of Service November 07, 2019 Coding Level of Care Code 15739 Subseq Hosp Care Lvl 2
[2019-11-08] MEDS: INSULIN ASPART 100 UNITS/ML 3 ML PEN SC SCH ×4 (00:21→19:04)
[2019-11-08] MEDS: PIPERACILLIN/TAZOBACTAM 4.5 GM in DEXTROSE 5% 100 ML IV SCH ×2 (05:49→13:58)
[2019-11-08 07:12] LABS: BUN Creatinine Ratio 20.1 (10-20); Calcium 8.1 mg/dl (8.5-10.1); Creatinine Clr Calc Pharmacy 103.9 ml/min; Est GFR (African American) 139.3; Est GFR (Non-African American) 120.2; Magnesium 1.8 mg/dl (1.8-2.4); Phosphorus 4.1 mg/dl (2.5-4.9); Potassium 4.1 mmol/L (3.5-5.1)
[2019-11-08] MEDS: AMMONIUM LACTATE 12% LOTION 225 GM BTL EXT SCH ×2 (07:54→19:38)
--- NOTE | 2019-11-08 10:33 | Hospitalist Progress Note ---
Date of Service November 08, 2019 Assessment & Plan (1) Septic shock: Ariel Mendoza is a 54 y/o male who was admitted for septic shock on 10/25 and directly sent to ICU for vasopressors. Source of sepsis thought to be aspiration PNA (left lower lobe) and R LE cellulitis, was placed on IV zosyn. Patient was weaned off pressors and downgraded from ICU on 10/28. Patient was transferred back to ICU on 10/31 for worsening respiratory status, with CXR suspicious for progressive aspiration pneumonitis. IV doxycycline was subsequently added. Video swallow on 11/01 showing aspiration with all textures. Recurrent aspiration thought to be from diminished cognitive status. Palliative consult placed to fa cilitate goals of care discussion. Primary team met with family 11/02 at bedside who are in agreement with a trial of PPN in order to "buy time" in hopes his cognitive status improves/returns to baseline level. However, patient with liver cirrhosis (MELD score 18)- looking at limited life expectancy regardless. Multiple discussions with son+daughter in law, and sister separately today, however no clear decision for care reached and continuing disagreement regarding primary decision maker for patient. 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 Waxes and wanes in between patient taking naps. - Head CT on admission WNL - ammonia level WNL - no recent sedating medications given - GI: rifaxamin 550 BID, lactulose titrated to 2-3 bowel movements per day Bilateral pneumonia/aspiration pneumonitis: resolved - GI 11/07: patient not good candidate for PEG given risk of infection with cirrhosis, recommend palliation - video swallow 11/01 showing aspiration to all textures: NPO initially, started PPN 11/03. - treated with 10 days of zosyn Alcohol Abuse/Liver Cirrhosis - INR elevated, low albumin, suppressed blood cell lines - Suspected long standing alcohol abuse which led to Liver disease - Currently on IV thiamine / Folate - AST: ALT 2:1 ratio consistent with alcohol abuse - Negative EtOH upon admission - patient was initially placed on protocol, but Ativan d/c due to AMS Pancytopenia - Suspect longstanding chronic decline since appeared to have been able to tolerate/survive - Most likely from alcohol bone marrow toxicity and coagulopathy from liver disease making him prone to bleed -Trend CBC daily Acute hyponatremia:stable - Na was 117 upon admission, up to 132 today - suspect from dietary/poor sodium content in alcohol Hyperbilirubinemia: - T bili trending down since admission, now at 2.5 - most likely secondary to liver disease (alcoholic cirrhosis) - MELD score of 18, poor prognosis in absence of other co-morbidities (6 months) - palliative care consult ongoing Non-STEMI (non-ST elevated myocardial infarction): - etiology considered demand ischemia Hypoalbuminemia: - albumin 2.0 on admission - suspected from liver impairment/ inadequate protein calorie intake -Started PPN as above. Appreciate pharmacy assistance Wound of foot/Dystrophic nail: - wound care consulted - appreciate podiatry consult Ribs, multiple fractures - Multiple rib fractures as noted above - Tylenol PRN PO for mild pain, avoiding NSAIDs because of coagulopathy and bleeding risk. - Oxycodone IR d/c due to AMS Diet: PPN + strict NPO Code:DNR/DNI Dispo:medsurg. Appreciate palliative consult, family discussion pending. Admission and Anticipated Discharge Date Admission Date: October 26, 2019 Supervising Physician Co-Signing Physician Notes I personally examined the patient and verified all zavaleta points of history and exam, discussed case, and agree with decision making with Dr Aguilera. no meaningful HPI or ROS. case d/w GI vitals noted nad breathing unlabored no accessory muscles good effort skin no rashes no pallor neuro no focal deficits at rest sepsis POA probable aspiration pneumonia, concern on EtOH induced dementia, severe dysphagia -ongoing discussions on goals of care, appears family divided, team continues to try to facilitate discussions, one family member apparently pursuing POA -nutrition support while family decides - ongoing PPN for now but need to move to more robust nutrition unless he becomes comfort only -GI input appreciated will empirically treat as ?hepatic encephalopathy -ongoing supportive care, appears to be doing ok off abx since has had a long course of Rx -otherwise as above Subjective continues to have worsening mental status. pt pulled out us guided IV today and been increasingly disruptive with nursing. Review of Systems Review of Systems: Unobtainable due to cognitive status Physical Exam Constitutional: + ill appearing, + thin, + frail appearing, + disheveled and comfortable Eyes: + anicteric sclerae Respiratory: normal respiratory effort and + cough Auscultation: + rhonchi and + wheezes Cardiovascular: RRR, no murmur, no edema Gastrointestinal (Abdomen): normal bowel sounds, soft, nontender, no hepatosplenomegaly Psychiatric: Orientation: alert, oriented to person and cooperative Eye Contact: + fair eye contact Insight: + impaired insight Judgement: + impaired judgement Lymphatic: no cervical or axillary lymphadenopathy Results & Data Results & Data ([facility]) Vital Signs (Past 12 Hours) Vital Signs Temp Pulse Resp BP Pulse Ox 11/08/19 07:08 36.8 C 96 H 15 130/75 98 11/07/19 23:04 36.6 C 102 H 18 110/71 99 Laboratory Results WBC 3.49 K/uL (4.8-10.8) L 11/06/19 06:22 RBC 3.30 M/uL (4.7-6.1) L 11/06/19 06:22 Hgb 10.2 g/dL (14.0-18.0) L 11/06/19 06:22 POC Hgb 9.5 g/dl (14.0-18.0) L 11/02/19 05:34 Hct 29.9 % (42-52) L 11/06/19 06:22 POC Hct 28 % (42-52) L 11/02/19 05:34 MCV 90.6 fL (80-100) 11/06/19 06:22 MCH 30.9 pg (25-34) 11/06/19 06:22 MCHC 34.1 g/dL (32-36) 11/06/19 06:22 RDW Std Deviation 49.3 fL (36.4-46.3) H 11/06/19 06:22 RDW Coeff of Bina 15.4 % (11.5-14.5) H 11/06/19 06:22 Plt Count 73 K/uL (130-400) L 11/06/19 06:22 MPV 11.0 fL (7.4-10.4) H 11/06/19 06:22 Immature Gran % (Auto) 0.6 % 11/06/19 06:22 Neut % (Auto) 61.3 % 11/06/19 06:22 Lymph % (Auto) 28.7 % 11/06/19 06:22 [place] % (Auto) 7.7 % 11/06/19 06:22 Eos % (Auto) 1.4 % 11/06/19 06:22 Baso % (Auto) 0.3 % 11/06/19 06:22 Reticulocyte % (Auto) 2.6 % (0.5-2.0) H 10/27/19 08:43 Neut # (Auto) 2.14 K/uL (1.4-6.5) 11/06/19 06:22 Lymph # (Auto) 1.00 K/uL (1.2-3.4) L 11/06/19 06:22 [place] # (Auto) 0.27 K/uL (0.11-0.59) 11/06/19 06:22 Eos # (Auto) 0.05 K/uL (0-0.5) 11/06/19 06:22 Baso # (Auto) 0.01 K/uL (0-0.2) 11/06/19 06:22 Reticulocyte # 0.09 10^6/uL (0.02-0.10) 10/27/19 08:43 Immature Gran # (Auto) 0.02 K/uL (0.00-0.02) 11/06/19 06:22 Platelet Estimate Decreased (Normal) L 10/26/19 22:03 Giant Platelets 1+ 11/04/19 04:52 RBC Morphology Unremarkable 11/03/19 04:16 Echinocytes 2+ 10/29/19 04:18 ESR 11 mm/hr (0-14) 11/01/19 06:58 PT 12.2 Seconds (9.0-12.0) H 11/06/19 06:22 INR 1.2 (0.9-1.1) H 11/06/19 06:22 APTT 32.8 Seconds (21.0-31.0) H 10/29/19 04:18 PTT Ratio 1.2 10/29/19 04:18 Sample Site R Radial 11/03/19 04:39 POC pH 7.55 (7.35-7.45) H* 11/03/19 04:39 POC pCO2 25 mmHg (35-46) L 11/03/19 04:39 POC pO2 55 mmHg (80-95) L 11/03/19 04:39 POC HCO3 22 eddie/L (19-24) 11/03/19 04:39 POC Total CO2 22 mmol/L (24-31) L 11/03/19 04:39 POC Base Excess -1.0 eddie/L (-9-1.8) 11/03/19 04:39 ABG pH 7.48 (7.35-7.45) H 11/01/19 13:20 ABG pH (Temp Correct) 7.547 (7.35-7.45) H* 11/02/19 05:34 ABG pCO2 33 mmHg (35-46) L 11/01/19 13:20 ABG pCO2 (Temp Corrct 29 mmHg (35-46) L 11/02/19 05:34 ABG pO2 53 mmHg (80-95) L 11/01/19 13:20 POC ABG pO2 at Pt Temp 76 11/02/19 05:34 ABG HCO3 25 mmol/L (19-24) H 11/01/19 13:20 POC ABG O2 Sat 93.0 % (90-95) 11/03/19 04:39 ABG O2 Saturation 86.4 % (90-95) L 11/01/19 13:20 ABG Base Excess 1.3 mEq/L (-9-1.8) 11/01/19 13:20 Anthony Test Pass 11/03/19 04:39 Barometric Pressure 733.7 mm/Hg 11/01/19 13:20 Oxygen Given 4L 11/01/19 13:20 O2 Delivery Device Room Air 11/03/19 04:39 POC O2 Rate 14 11/02/19 05:34 POC FiO2 30 % 11/02/19 05:34 IPAP 12 11/02/19 05:34 POC Sodium 132 mmol/L (135-144) L 11/02/19 05:34 Sodium 133 mmol/L (136-145) L 11/08/19 06:21 POC Potassium 2.7 mmol/L (3.3-5.0) L 11/02/19 05:34 Potassium 4.1 mmol/L (3.5-5.1) D 11/08/19 06:21 POC Chloride 89 mmol/L (101-112) L 10/26/19 22:13 Chloride 105 mmol/L (98-107) 11/08/19 06:21 Carbon Dioxide 21 mmol/L (21-32) 11/08/19 06:21 POC Total CO2 12 mmol/L (24-31) L 10/26/19 22:13 Anion Gap 7.0 (3-11) 11/08/19 06:21 POC Anion Gap 21.0 mmol/L (16-25) 10/26/19 22:13 POC BUN 16 mg/dl (7-18) 10/26/19 22:13 BUN 10 mg/dl (7-18) 11/08/19 06:21 Creatinine 0.51 mg/dl (0.6-1.4) L 11/08/19 06:21 POC Creatinine 1.1 mg/dl (0.6-1.3) 10/26/19 22:13 Est Cr Clr Drug Dosing 103.9 ml/min 11/08/19 06:21 Est GFR ( Amer) 139.3 11/08/19 06:21 Est GFR (Non-Af Amer) 120.2 11/08/19 06:21 BUN/Creatinine Ratio 20.1 (10-20) H 11/08/19 06:21 Glucose 97 mg/dl (70-99) 11/08/19 06:21 POC Glucose 100 mg/dl (70-99) H 11/08/19 05:50 POC Glucose (other) 89 mg/dl (70-99) 10/26/19 22:13 Estimat Average Glucose 80 mg/dl 10/27/19 08:43 Hemoglobin A1c 4.4 % (4.5-5.6) L 10/27/19 08:43 Lactate 1.9 mmol/L (0.4-2.0) 10/26/19 22:03 Calcium 8.1 mg/dl (8.5-10.1) L 11/08/19 06:21 POC Ioniz Calcium [place] 1.00 mmol/l (1.12-1.32) L 10/26/19 22:13 Phosphorus 4.1 mg/dl (2.5-4.9) 11/08/19 06:21 Magnesium 1.8 mg/dl (1.8-2.4) 11/08/19 06:21 Total Bilirubin 2.5 mg/dl (0.2-1) H 11/06/19 06:22 Direct Bilirubin 4.6 mg/dl (0-0.2) H 11/01/19 13:20 AST 44 U/L (15-37) H 11/06/19 06:22 ALT 18 U/L (12-78) 11/06/19 06:22 Alkaline Phosphatase 112 U/L (45-117) 11/06/19 06:22 Ammonia 31.0 umol/L (11-32) 11/01/19 13:20 Total Creatine Kinase 560 U/L (39-308) H 10/27/19 01:17 Troponin I 0.117 ng/ml (0-0.045) H* 10/28/19 04:07 C-Reactive Protein 12.20 mg/dl (0-0.29) H 11/01/19 13:20 NT-Pro-B Natriuret Pep 7080 pg/ml (0-900) H 11/01/19 13:20 Total Protein 5.8 gm/dl (6.4-8.2) L 11/06/19 06:22 Albumin 2.0 gm/dl (3.4-5.0) L 11/06/19 06:22 Globulin 3.8 gm/dl (2.5-4.0) 11/06/19 06:22 Albumin/Globulin Ratio 0.5 (0.9-2) L 11/06/19 06:22 Angiotensin Convert Enz 30 U/L (9-67) 10/27/19 08:43 Vitamin B12 1749 pg/ml (211-911) H 10/26/19 22:56 Folate 4.52 ng/ml (>5.38) L 10/26/19 22:56 Procalcitonin 0.50 ng/ml (0-0.5) 11/01/19 13:24 TSH 1.300 uIu/ml (0.300-4.500) 10/27/19 08:43 Random Cortisol 21.66 mcg/dl 10/26/19 22:56 Specimen Hemolysis 11/02/19 15:10 Urine Color Dark Yellow 11/02/19 10:15 Urine Appearance Clear (Clear) 11/02/19 10:15 Urine pH >= 9.0 (4.5-7.5) H 11/02/19 10:15 Ur Specific [place] 1.017 (1.000-1.030) 11/02/19 10:15 Urine Protein Negative (Negative) 11/02/19 10:15 Urine Glucose (UA) Negative (Negative) 11/02/19 10:15 Urine Ketones Trace (Negative) H 11/02/19 10:15 Urine Blood Negative (Negative) 11/02/19 10:15 Urine Nitrite Negative (Negative) 11/02/19 10:15 Urine Bilirubin 1+ (Negative) H 11/02/19 10:15 Urine Urobilinogen Negative (Negative) 11/02/19 10:15 Ur Leukocyte Esterase Negative (Negative) 11/02/19 10:15 Nasal Screen MRSA (PCR) Negative (Negative) 10/27/19 00:05 Vancomycin Trough 27.0 mcg/ml (See Comment) 11/02/19 17:33 Salicylates Cancelled 10/27/19 01:17 Acetaminophen Cancelled 10/27/19 01:17 Ethyl Alcohol mg/dL < 3.0 mg/dl (0-3) 10/26/19 22:03 Adenovirus (PCR) Not Detected (NotDetected) 10/27/19 11:46 B. pertussis DNA (PCR) Not Detected (NotDetected) 10/27/19 11:46 B.parapertussis DNA PCR Not Detected (NotDetected) 10/27/19 11:46 C. pneumoniae DNA (PCR) Not Detected (NotDetected) 10/27/19 11:46 Coronavirus OC43 (PCR) Not Detected (NotDetected) 10/27/19 11:46 Coronavirus HKU1 (PCR) Not Detected (NotDetected) 10/27/19 11:46 Coronavirus 229E (PCR) Not Detected (NotDetected) 10/27/19 11:46 COVID-19 PCR NEGATIVE (Negative) 10/26/19 21:49 Coronavirus NL63 (PCR) Not Detected (NotDetected) 10/27/19 11:46 Hepatitis A IgM Ab NON-REACTIVE (NON-REACTIVE) 10/26/19 22:02 Hep Bs Antigen Neg (Neg) 10/27/19 01:17 Hep B Core IgM Ab NON-REACTIVE (NON-REACTIVE) 10/26/19 22:02 Hepatitis C Ab Screen Neg (Neg) 10/27/19 01:17 Hepatitis C Antibody Neg (Neg) 10/27/19 01:17 Human Metapneumovir PCR Not Detected (NotDetected) 10/27/19 11:46 Influenza Type A (PCR) Not Detected (NotDetected) 10/27/19 11:46 Influenza Type B (PCR) Not Detected (NotDetected) 10/27/19 11:46 M. pneumoniae (PCR) Not Detected (NotDetected) 10/27/19 11:46 Parainfluenza 1 (PCR) Not Detected (NotDetected) 10/27/19 11:46 Parainfluenza 2 (PCR) Not Detected (NotDetected) 10/27/19 11:46 Parainfluenza 3 (PCR) Not Detected (NotDetected) 10/27/19 11:46 Parainfluenza 4 (PCR) Not Detected (NotDetected) 10/27/19 11:46 RSV (PCR) Not Detected (NotDetected) 10/27/19 11:46 Entero/Rhino (PCR) Not Detected (NotDetected) 10/27/19 11:46 Bld Cult Staph aureus PCR Negative (Negative) 10/26/19 22:04 Blood Culture MRSA PCR Negative (Negative) 10/26/19 22:04 Blood Type O Positive 10/26/19 22:02 Blood Type Recheck O Positive 10/26/19 22:57 Antibody Screen NEGATIVE 10/26/19 22:02 Crossmatch See Detail 10/26/19 22:02 Resident Activity Tracking Resident Involvement: Resident Care Provided Care Provided: Adult Hospital Medicine
[2019-11-08] MEDS: NICOTINE 21 MG/24 HR TDSY TD SCH (10:36)
[2019-11-08] MEDS: FOLIC ACID 1 MG in SYRINGE 9.8 ML IV SCH (10:38)
[2019-11-08] MEDS: THIAMINE HCL 100 MG in SYRINGE 9 ML IV SCH (10:38)
[2019-11-08] MEDS: PANTOprazole 40 MG in SYRINGE 0 ML IV SCH (10:38)
--- NOTE | 2019-11-08 11:21 | Palliative Care Progress Note ---
Date of Service November 08, 2019 Assessment & Plan (1) Goals of care, counseling/discussion: This is an unfortunate 54 year old male who was brought to the [facility] via EMS after his daughter discovered him at his home unkempt and jaundiced. She had seen him three days prior to that encounter. He has a recent admission in September 2019 where he sustained a fall, twisting his right ankle. Multiple fractures were discovered, but he did not follow up outpatient with orthopedics. On admission, his RLE had severe cellulitis and he was hypotensive. He was taken to the ICU and placed on Levophed, which was discontinued on 11/01. He is AAOx1. Per staff, his mental status waxes and wanes. A video swallow was performed yesterday indicating aspiration. He is currently receiving antibiotics for overall septic shock. He has been on/off BiPAP over the past 2 days. 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 His electrolytes are relatively normal aside from his MG+ and Ca+ being slightly low. Multiple conversations were held with the patients two daughters; Sarai ([phone]) and Nasima ([phone]) and another son regarding nutritional needs and options. For now, the patients family has decided to pursue PPN. Palliative Care was consulted to discuss overall goals of care. -I met with the patient in room 351-1. He was awake, sitting upright in his bed, He is oriented to person only; his mentation is improving; however, you can't have a meaningful conversation with him. -Per nursing, the patient did have a sister visiting, but no family at the bedside currently. -I did observe the patient being assisted to the [facility]. He was a 2 assist. -case management is working on placement referrals, both aggressive rehab and SNF. Challenging as to who will accept PPN/TPN. -Overall, I have multiple concerns for this patient. It is imperative to have a family meeting to discuss goals of care. Ultimately, we have a non-compliant patient who appears to be jaundiced and with encephalopathy. We need to consider the patients safety for return to home with careful consideration as to what his home restrictions may be. -At this time, it would not be deemed possible for him to return home and I really only see SNF placement as the only option for LONGTERM CARE which likely could be arranged through Adult Services. - I do not forsee a PEG tube being a viable option for this patient giving his non-compliance and low likelihood he would be able to care for it independently. -For now, patient to remain a Full Code since we can not have a conversation with him to discuss this due to his altered cognitive state. We will await direction from family. If no official advanced director in place, all 3 children will need to agree on code status and goals of care. -I called both of his daughters Sarai and Nasima ([phone]) and have left them voicemails. -30% (2) Pneumonia: (3) Acute respiratory failure with hypoxia: (4) Altered mental state: (5) Septic shock: Admission and Anticipated Discharge Date Admission Date: October 26, 2019 Subjective Pt evaluated today. Pt in no apparent distress. No agitation noted. Pt was able to tell me his name, made eye contact, but no meaningful conversation. Please see A/P for further details. Review of Systems Review of Systems: Unobtainable due to cognitive status Physical Exam Constitutional: + ill appearing, + thin, + frail appearing, + disheveled and comfortable Eyes: + anicteric sclerae Respiratory: normal respiratory effort and + cough Auscultation: + rhonchi and + wheezes Cardiovascular: RRR, no murmur, no edema Gastrointestinal (Abdomen): normal bowel sounds, soft, nontender, no hepatosplenomegaly Psychiatric: Orientation: alert, oriented to person and cooperative Eye Contact: + fair eye contact Insight: + impaired insight Judgement: + impaired judgement Lymphatic: no cervical or axillary lymphadenopathy Results & Data ([facility]) Vital Signs (Past 12 Hours) Vital Signs Temp Pulse Resp BP Pulse Ox 11/08/19 07:08 36.8 C 96 H 15 130/75 98 PG Care Time/CCT Total # of Minutes Spent Total Time Spent with Patient: Total time spent is greater than 50% in coordination of care (as documented) at patient's floor/unit and/or counseling patient: 35 Coding Level of Care Code 64158 Subseq Hosp Care Lvl 3 Diagnoses Goals of care, counseling/discussion Z71.89 Pneumonia J18.9 Acute respiratory failure with hypoxia J96.01 Altered mental state R41.0 Altered mental status type: delirium Septic shock A41.9; R65.21 Time Spent (min) 35 Time Spent Midlevel Total time spent 35 minutes with > 50% of that time spent assessing the patient, discussing goals of care with IDT (1) Altered mental state Altered mental status type: delirium Qualified Code(s): R41.0 - Disorientation, unspecified
[2019-11-08] MEDS ORDERED: Custom Peripheral Pn 2,000 ML in TPN BAG 0 ML IV SCH (16:00)
[2019-11-08] MEDS ORDERED: LACTULOSE SYRUP 20 GM/30 ML UDC PO ONE (16:46)
--- NOTE | 2019-11-08 16:53 | Gastroenterology Progress Note ---
Date of Service November 08, 2019 Assessment & Plan (1) Malnutrition: (2) Confusion: In regards to his malnutrition: he is high risk for complications including recurrent infection and bleeding, with PEG tube placement, would recommend continuing PPN or NG tube feeds at this time. Would continue to discuss goals of care with the family at this time Regarding his confusion, etiology remains unclear; can trial him on treatment for hepatic encephalopathy and monitor for improvement. would start rifaximin 550 mg BID, zinc sulfate daily, and lactulose 15 mL daily (titrate to 2-3 soft bms daily) Rest as per primary team. Admission and Anticipated Discharge Date Admission Date: October 26, 2019 Subjective GI recalled for consideration of PEG tube in the setting of ongoing confusion and illness. Patient pulled his IV out today, continues to have confusion, no evidence of asterixis on exam. He was getting PPN. Family has not decided yet on palliative care definitively. Remains on antibiotics zosyn, just recently recovering from infection and ICU stay. labs reviewed, MELD-Na 17, platelets noted to be 72. Review of Systems Constitutional: no fever and no chills Respiratory: no cough, no dyspnea and no dyspnea on exertion Cardiovascular: no chest pain and no dyspnea Gastrointestinal: as per Subjective / HPI Psychiatric: no depression and no anxiety Physical Exam Constitutional: WD/WN, vitals as above Respiratory: normal respiratory effort, lungs clear to auscultation Cardiovascular: RRR, no murmur, no edema Gastrointestinal (Abdomen): normal bowel sounds, soft, nontender, no hepatosplenomegaly no asterixis Musculoskeletal: no lower extremity edema Psychiatric: A+Ox3, euthymic affect Results & Data Results & Data ([facility]) Vital Signs (Past 12 Hours) Vital Signs Temp Pulse Resp BP BP Pulse Ox 11/08/19 15:55 36.6 C 103 H 20 128/61 100 11/08/19 07:08 36.8 C 96 H 15 130/75 98 PG Care Time/CCT Total # of Minutes Spent Total Time Spent with Patient: Total time spent is greater than 50% in coordination of care (as documented) at patient's floor/unit and/or counseling patient: Coding Level of Care Code 11265 Subseq Hosp Care Lvl 3 Diagnoses Malnutrition E46 Confusion R41.0
--- NOTE | 2019-11-08 19:36 | Billing Data ---
Date of Service November 08, 2019 Coding Level of Care Code 08119 Subseq Hosp Care Lvl 2
[2019-11-08] MEDS ORDERED: LACTULOSE 200 GM, WATER, STERILE IRRIG 700 ML, BARCODE IDENTIFIER 1 EA PR ONE (20:00)
[2019-11-08] MEDS ORDERED: RIFAXIMIN 550 MG TABLET PO SCH (21:00)
[2019-11-09] MEDS: INSULIN ASPART 100 UNITS/ML 3 ML PEN SC SCH ×3 (01:41→12:15)
[2019-11-09] MEDS: NICOTINE 21 MG/24 HR TDSY TD SCH (08:18)
[2019-11-09] MEDS: THIAMINE HCL 100 MG in SYRINGE 9 ML IV SCH (08:19)
[2019-11-09] MEDS: AMMONIUM LACTATE 12% LOTION 225 GM BTL EXT SCH ×2 (08:19→20:02)
[2019-11-09] MEDS: FOLIC ACID 1 MG in SYRINGE 9.8 ML IV SCH (08:19)
--- NOTE | 2019-11-09 10:49 | Gastroenterology Progress Note ---
Date of Service November 09, 2019 Assessment & Plan (1) Confusion: Patient did not have any significant improvement in confusion with addition of HE treatment. Liver normal in size contour and attenuation of 2 CT scans. Ammonia level 31 at highest. Doubt HE as the source. Consider other etiologies. 1. Can continue Xifaxan 550 mg BID as this is a low risk medication. 2. Defer further treatment to primary team. Admission and Anticipated Discharge Date Admission Date: October 26, 2019 Supervising Physician Co-Signing Physician Notes I personally evaluated the patient and agree with the findings as documented by MEÑO Villalba Exam: abd: soft, mild umbilical tenderness, nd still appears disoriented today, etiology for his confusion is unclear, unlikely to be HE but can continue rifaximin BID. Subjective Patient evaluated for the first time today. From review of records, appears the patient was only alert and oriented to person yesterday. Dr. Rodas did initiate lactulose and Xifaxan yesterday. Primary team discontinued the lactulose. Patient remains on lactulose. He offers no specific complaints but is unable to correctly identify his current location or day of the week. Review of Systems Review of Systems: Unobtainable due to cognitive status Physical Exam Constitutional: WD/WN, vitals as above well developed and well nourished Eyes: + anicteric sclerae Respiratory: no respiratory distress Auscultation: + diminished lung sounds and + crackles (bases) Cardiovascular: Rate/Rhythm: regular rate and regular rhythm Gastrointestinal (Abdomen): normal bowel sounds, soft, nontender, no hepatosplenomegaly Musculoskeletal: Ankle: no effusion Psychiatric: Orientation: alert and oriented to person Results & Data Results & Data ([facility]) Vital Signs (Past 12 Hours) Vital Signs Temp Pulse Pulse Resp BP Pulse Ox 11/09/19 07:20 36.3 C L 97 H 18 122/73 100 11/09/19 00:05 20 11/08/19 23:58 36.7 C 100 H 17 145/86 H 100 Laboratory Results Abnormal lab results 11/08/19 Range/Units 18:12 POC Glucose 100 H (70-99) mg/dl PG Care Time/CCT Total # of Minutes Spent Total Time Spent with Patient: Total time spent is greater than 50% in coordination of care (as documented) at patient's floor/unit and/or counseling patient: Coding Level of Care Code 92855 Subseq Hosp Care Lvl 3 Diagnoses Confusion R41.0
[2019-11-09] MEDS: PANTOprazole 40 MG in SYRINGE 0 ML IV SCH (11:15)
[2019-11-09] MEDS ORDERED: LORazepam 0.5 MG/1 ML VIAL IV PRN (13:04)
[2019-11-09] MEDS ORDERED: ATROPINE SULFATE 1% OP SOLN 2 ML BTL SL PRN (13:04)
--- NOTE | 2019-11-09 15:15 | Hospitalist Progress Note ---
Date of Service November 09, 2019 Assessment & Plan (1) Septic shock: Ariel Mendoza is a 54 y/o male who was admitted for septic shock on 10/25 and directly sent to ICU for vasopressors. Source of sepsis thought to be aspiration PNA (left lower lobe) and R LE cellulitis, was placed on IV zosyn. Patient was weaned off pressors and downgraded from ICU on 10/28. Patient was transferred back to ICU on 10/31 for worsening respiratory status, with CXR suspicious for progressive aspiration pneumonitis. IV doxycycline was subsequently added. Video swallow on 11/01 showing aspiration with all textures. Recurrent aspiration thought to be from diminished cognitive status. Palliative consult placed to fa cilitate goals of care discussion. Primary team met with family 11/02 at bedside who are in agreement with a trial of PPN in order to "buy time" in hopes his cognitive status improves/returns to baseline level. However, patient with liver cirrhosis (MELD score 18)- looking at limited life expectancy regardless. Multiple discussions with son+daughter in law, and sister separately today, however no clear decision for care reached and continuing disagreement regarding primary decision maker for patient. Goals of Care - family meeting with children of patient today (son and daughter in law here in person, sisters via videocall) to decide progression of care - family settled on DNR/DNI status, as well as continuing forward with comfort measures and hospice care. Sisters in agreement to have patient stay with one of them with some questions regarding help from multimedia teacher nursing from hospice coverage. I discussed that I was unsure how much help home hospice could pr ovide, just that it was an option. - after the discussion, son and daughter in law visibly upset regarding family dynamics and the possibility of improper care coming to the patient if one of the sisters was to be in charge of his well being. - Established with them that I would make the patient comfort care and continue with the PPN via peripheral IV, and that we would have another family meeting in person at 1pm tomorrow with the sisters physically present to find a final solution to the decision of where the patient is to go after the hospital. 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 Waxes and wanes, increasingly agitated and rude in the past few days. - Head CT on admission WNL - ammonia level WNL - no recent sedating medications given - GI: rifaxamin 550 BID + lacutlose, however patient unable to take medications PO. Bilateral pneumonia/aspiration pneumonitis: resolved - GI 11/07: patient not good candidate for PEG given risk of infection with cirrhosis, recommend palliation - video swallow 11/01 showing aspiration to all textures: NPO initially, started PPN 11/03. - treated with 10 days of zosyn Alcohol Abuse/Liver Cirrhosis - INR elevated, low albumin, suppressed blood cell lines - Suspected long standing alcohol abuse which led to Liver disease - Currently on IV thiamine / Folate - AST: ALT 2:1 ratio consistent with alcohol abuse - Negative EtOH upon admission - patient was initially placed on protocol, but Ativan d/c due to AMS - MELD 18, Chid-Gregory Class B Pancytopenia - Suspect longstanding chronic decline since appeared to have been able to tolerate/survive - Most likely from alcohol bone marrow toxicity and coagulopathy from liver disease making him prone to bleed Acute hyponatremia:stable - Na was 117 upon admission, up to 132 today - suspect from dietary/poor sodium content in alcohol Diet: PPN + strict NPO Code:DNR/DNI Dispo:medsurg. Appreciate palliative consult, family discussion ongoing Admission and Anticipated Discharge Date Admission Date: October 26, 2019 Supervising Physician Co-Signing Physician Notes I personally examined the patient and verified all zavaleta points of history and exam, discussed case, and agree with decision making with Dr Montoya. no meaningful HPI or ROS. 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 Subjective continues to be confused/delirious. Review of Systems Review of Systems: Unobtainable due to cognitive status Physical Exam Constitutional: + ill appearing, + thin, + frail appearing, + disheveled and comfortable Eyes: + anicteric sclerae Respiratory: normal respiratory effort and + cough Auscultation: + rhonchi and + wheezes Cardiovascular: RRR, no murmur, no edema Gastrointestinal (Abdomen): normal bowel sounds, soft, nontender, no hepatosplenomegaly Psychiatric: Orientation: alert, oriented to person and cooperative Eye Contact: + fair eye contact Insight: + impaired insight Judgement: + impaired judgement Lymphatic: no cervical or axillary lymphadenopathy Results & Data Results & Data ([facility]) Vital Signs (Past 12 Hours) Vital Signs Temp Pulse Pulse Resp BP BP Pulse Ox 11/09/19 15:06 36.7 C 98 H 16 124/71 99 11/09/19 07:20 36.3 C L 97 H 18 122/73 100 Laboratory Results WBC 3.49 K/uL (4.8-10.8) L 11/06/19 06:22 RBC 3.30 M/uL (4.7-6.1) L 11/06/19 06:22 Hgb 10.2 g/dL (14.0-18.0) L 11/06/19 06:22 POC Hgb 9.5 g/dl (14.0-18.0) L 11/02/19 05:34 Hct 29.9 % (42-52) L 11/06/19 06:22 POC Hct 28 % (42-52) L 11/02/19 05:34 MCV 90.6 fL (80-100) 11/06/19 06:22 MCH 30.9 pg (25-34) 11/06/19 06:22 MCHC 34.1 g/dL (32-36) 11/06/19 06:22 RDW Std Deviation 49.3 fL (36.4-46.3) H 11/06/19 06:22 RDW Coeff of Bina 15.4 % (11.5-14.5) H 11/06/19 06:22 Plt Count 73 K/uL (130-400) L 11/06/19 06:22 MPV 11.0 fL (7.4-10.4) H 11/06/19 06:22 Immature Gran % (Auto) 0.6 % 11/06/19 06:22 Neut % (Auto) 61.3 % 11/06/19 06:22 Lymph % (Auto) 28.7 % 11/06/19 06:22 [place] % (Auto) 7.7 % 11/06/19 06:22 Eos % (Auto) 1.4 % 11/06/19 06:22 Baso % (Auto) 0.3 % 11/06/19 06:22 Reticulocyte % (Auto) 2.6 % (0.5-2.0) H 10/27/19 08:43 Neut # (Auto) 2.14 K/uL (1.4-6.5) 11/06/19 06:22 Lymph # (Auto) 1.00 K/uL (1.2-3.4) L 11/06/19 06:22 [place] # (Auto) 0.27 K/uL (0.11-0.59) 11/06/19 06:22 Eos # (Auto) 0.05 K/uL (0-0.5) 11/06/19 06:22 Baso # (Auto) 0.01 K/uL (0-0.2) 11/06/19 06:22 Reticulocyte # 0.09 10^6/uL (0.02-0.10) 10/27/19 08:43 Immature Gran # (Auto) 0.02 K/uL (0.00-0.02) 11/06/19 06:22 Platelet Estimate Decreased (Normal) L 10/26/19 22:03 Giant Platelets 1+ 11/04/19 04:52 RBC Morphology Unremarkable 11/03/19 04:16 Echinocytes 2+ 10/29/19 04:18 ESR 11 mm/hr (0-14) 11/01/19 06:58 PT 12.2 Seconds (9.0-12.0) H 11/06/19 06:22 INR 1.2 (0.9-1.1) H 11/06/19 06:22 APTT 32.8 Seconds (21.0-31.0) H 10/29/19 04:18 PTT Ratio 1.2 10/29/19 04:18 Sample Site R Radial 11/03/19 04:39 POC pH 7.55 (7.35-7.45) H* 11/03/19 04:39 POC pCO2 25 mmHg (35-46) L 11/03/19 04:39 POC pO2 55 mmHg (80-95) L 11/03/19 04:39 POC HCO3 22 eddie/L (19-24) 11/03/19 04:39 POC Total CO2 22 mmol/L (24-31) L 11/03/19 04:39 POC Base Excess -1.0 eddie/L (-9-1.8) 11/03/19 04:39 ABG pH 7.48 (7.35-7.45) H 11/01/19 13:20 ABG pH (Temp Correct) 7.547 (7.35-7.45) H* 11/02/19 05:34 ABG pCO2 33 mmHg (35-46) L 11/01/19 13:20 ABG pCO2 (Temp Corrct 29 mmHg (35-46) L 11/02/19 05:34 ABG pO2 53 mmHg (80-95) L 11/01/19 13:20 POC ABG pO2 at Pt Temp 76 11/02/19 05:34 ABG HCO3 25 mmol/L (19-24) H 11/01/19 13:20 POC ABG O2 Sat 93.0 % (90-95) 11/03/19 04:39 ABG O2 Saturation 86.4 % (90-95) L 11/01/19 13:20 ABG Base Excess 1.3 mEq/L (-9-1.8) 11/01/19 13:20 Anthony Test Pass 11/03/19 04:39 Barometric Pressure 733.7 mm/Hg 11/01/19 13:20 Oxygen Given 4L 11/01/19 13:20 O2 Delivery Device Room Air 11/03/19 04:39 POC O2 Rate 14 11/02/19 05:34 POC FiO2 30 % 11/02/19 05:34 IPAP 12 11/02/19 05:34 POC Sodium 132 mmol/L (135-144) L 11/02/19 05:34 Sodium 133 mmol/L (136-145) L 11/08/19 06:21 POC Potassium 2.7 mmol/L (3.3-5.0) L 11/02/19 05:34 Potassium 4.1 mmol/L (3.5-5.1) D 11/08/19 06:21 POC Chloride 89 mmol/L (101-112) L 10/26/19 22:13 Chloride 105 mmol/L (98-107) 11/08/19 06:21 Carbon Dioxide 21 mmol/L (21-32) 11/08/19 06:21 POC Total CO2 12 mmol/L (24-31) L 10/26/19 22:13 Anion Gap 7.0 (3-11) 11/08/19 06:21 POC Anion Gap 21.0 mmol/L (16-25) 10/26/19 22:13 POC BUN 16 mg/dl (7-18) 10/26/19 22:13 BUN 10 mg/dl (7-18) 11/08/19 06:21 Creatinine 0.51 mg/dl (0.6-1.4) L 11/08/19 06:21 POC Creatinine 1.1 mg/dl (0.6-1.3) 10/26/19 22:13 Est Cr Clr Drug Dosing 103.9 ml/min 11/08/19 06:21 Est GFR ( Amer) 139.3 11/08/19 06:21 Est GFR (Non-Af Amer) 120.2 11/08/19 06:21 BUN/Creatinine Ratio 20.1 (10-20) H 11/08/19 06:21 Glucose 97 mg/dl (70-99) 11/08/19 06:21 POC Glucose 100 mg/dl (70-99) H 11/09/19 12:05 POC Glucose (other) 89 mg/dl (70-99) 10/26/19 22:13 Estimat Average Glucose 80 mg/dl 10/27/19 08:43 Hemoglobin A1c 4.4 % (4.5-5.6) L 10/27/19 08:43 Lactate 1.9 mmol/L (0.4-2.0) 10/26/19 22:03 Calcium 8.1 mg/dl (8.5-10.1) L 11/08/19 06:21 POC Ioniz Calcium [place] 1.00 mmol/l (1.12-1.32) L 10/26/19 22:13 Phosphorus 4.1 mg/dl (2.5-4.9) 11/08/19 06:21 Magnesium 1.8 mg/dl (1.8-2.4) 11/08/19 06:21 Total Bilirubin 2.5 mg/dl (0.2-1) H 11/06/19 06:22 Direct Bilirubin 4.6 mg/dl (0-0.2) H 11/01/19 13:20 AST 44 U/L (15-37) H 11/06/19 06:22 ALT 18 U/L (12-78) 11/06/19 06:22 Alkaline Phosphatase 112 U/L (45-117) 11/06/19 06:22 Ammonia 31.0 umol/L (11-32) 11/01/19 13:20 Total Creatine Kinase 560 U/L (39-308) H 10/27/19 01:17 Troponin I 0.117 ng/ml (0-0.045) H* 10/28/19 04:07 C-Reactive Protein 12.20 mg/dl (0-0.29) H 11/01/19 13:20 NT-Pro-B Natriuret Pep 7080 pg/ml (0-900) H 11/01/19 13:20 Total Protein 5.8 gm/dl (6.4-8.2) L 11/06/19 06:22 Albumin 2.0 gm/dl (3.4-5.0) L 11/06/19 06:22 Globulin 3.8 gm/dl (2.5-4.0) 11/06/19 06:22 Albumin/Globulin Ratio 0.5 (0.9-2) L 11/06/19 06:22 Angiotensin Convert Enz 30 U/L (9-67) 10/27/19 08:43 Vitamin B12 1749 pg/ml (211-911) H 10/26/19 22:56 Folate 4.52 ng/ml (>5.38) L 10/26/19 22:56 Procalcitonin 0.50 ng/ml (0-0.5) 11/01/19 13:24 TSH 1.300 uIu/ml (0.300-4.500) 10/27/19 08:43 Random Cortisol 21.66 mcg/dl 10/26/19 22:56 Specimen Hemolysis 11/02/19 15:10 Urine Color Dark Yellow 11/02/19 10:15 Urine Appearance Clear (Clear) 11/02/19 10:15 Urine pH >= 9.0 (4.5-7.5) H 11/02/19 10:15 Ur Specific [place] 1.017 (1.000-1.030) 11/02/19 10:15 Urine Protein Negative (Negative) 11/02/19 10:15 Urine Glucose (UA) Negative (Negative) 11/02/19 10:15 Urine Ketones Trace (Negative) H 11/02/19 10:15 Urine Blood Negative (Negative) 11/02/19 10:15 Urine Nitrite Negative (Negative) 11/02/19 10:15 Urine Bilirubin 1+ (Negative) H 11/02/19 10:15 Urine Urobilinogen Negative (Negative) 11/02/19 10:15 Ur Leukocyte Esterase Negative (Negative) 11/02/19 10:15 Nasal Screen MRSA (PCR) Negative (Negative) 10/27/19 00:05 Vancomycin Trough 27.0 mcg/ml (See Comment) 11/02/19 17:33 Salicylates Cancelled 10/27/19 01:17 Acetaminophen Cancelled 10/27/19 01:17 Ethyl Alcohol mg/dL < 3.0 mg/dl (0-3) 10/26/19 22:03 Adenovirus (PCR) Not Detected (NotDetected) 10/27/19 11:46 B. pertussis DNA (PCR) Not Detected (NotDetected) 10/27/19 11:46 B.parapertussis DNA PCR Not Detected (NotDetected) 10/27/19 11:46 C. pneumoniae DNA (PCR) Not Detected (NotDetected) 10/27/19 11:46 Coronavirus OC43 (PCR) Not Detected (NotDetected) 10/27/19 11:46 Coronavirus HKU1 (PCR) Not Detected (NotDetected) 10/27/19 11:46 Coronavirus 229E (PCR) Not Detected (NotDetected) 10/27/19 11:46 COVID-19 PCR NEGATIVE (Negative) 10/26/19 21:49 Coronavirus NL63 (PCR) Not Detected (NotDetected) 10/27/19 11:46 Hepatitis A IgM Ab NON-REACTIVE (NON-REACTIVE) 10/26/19 22:02 Hep Bs Antigen Neg (Neg) 10/27/19 01:17 Hep B Core IgM Ab NON-REACTIVE (NON-REACTIVE) 10/26/19 22:02 Hepatitis C Ab Screen Neg (Neg) 10/27/19 01:17 Hepatitis C Antibody Neg (Neg) 10/27/19 01:17 Human Metapneumovir PCR Not Detected (NotDetected) 10/27/19 11:46 Influenza Type A (PCR) Not Detected (NotDetected) 10/27/19 11:46 Influenza Type B (PCR) Not Detected (NotDetected) 10/27/19 11:46 M. pneumoniae (PCR) Not Detected (NotDetected) 10/27/19 11:46 Parainfluenza 1 (PCR) Not Detected (NotDetected) 10/27/19 11:46 Parainfluenza 2 (PCR) Not Detected (NotDetected) 10/27/19 11:46 Parainfluenza 3 (PCR) Not Detected (NotDetected) 10/27/19 11:46 Parainfluenza 4 (PCR) Not Detected (NotDetected) 10/27/19 11:46 RSV (PCR) Not Detected (NotDetected) 10/27/19 11:46 Entero/Rhino (PCR) Not Detected (NotDetected) 10/27/19 11:46 Bld Cult Staph aureus PCR Negative (Negative) 10/26/19 22:04 Blood Culture MRSA PCR Negative (Negative) 10/26/19 22:04 Blood Type O Positive 10/26/19 22:02 Blood Type Recheck O Positive 10/26/19 22:57 Antibody Screen NEGATIVE 10/26/19 22:02 Crossmatch See Detail 10/26/19 22:02
[2019-11-09] MEDS ORDERED: Custom Peripheral Pn 2,000 ML in TPN BAG 0 ML IV SCH (16:00)
--- NOTE | 2019-11-09 18:31 | Billing Data ---
Date of Service November 09, 2019 Coding Level of Care Code 05127 Subseq Hosp Care Lvl 2
[2019-11-10] MEDS: NICOTINE 21 MG/24 HR TDSY TD SCH (08:53)
[2019-11-10] MEDS: FOLIC ACID 1 MG in SYRINGE 9.8 ML IV SCH (08:55)
[2019-11-10] MEDS: THIAMINE HCL 100 MG in SYRINGE 9 ML IV SCH (08:55)
[2019-11-10] MEDS: AMMONIUM LACTATE 12% LOTION 225 GM BTL EXT SCH ×2 (08:56→22:17)
[2019-11-10] MEDS: PANTOprazole 40 MG in SYRINGE 0 ML IV SCH (11:16)
--- NOTE | 2019-11-10 15:47 | Hospitalist Progress Note ---
Date of Service November 10, 2019 Assessment & Plan (1) Septic shock: Ariel Mendoza is a 54 y/o male who was admitted for septic shock on 10/25 and directly sent to ICU for vasopressors. Source of sepsis thought to be aspiration PNA (left lower lobe) and R LE cellulitis, was placed on IV zosyn. Patient was weaned off pressors and downgraded from ICU on 10/28. Patient was transferred back to ICU on 10/31 for worsening respiratory status, with CXR suspicious for progressive aspiration pneumonitis. IV doxycycline was subsequently added. Video swallow on 11/01 showing aspiration with all textures. Recurrent aspiration thought to be from diminished cognitive status. Palliative consult placed to fa cilitate goals of care discussion. Primary team met with family 11/02 at bedside who are in agreement with a trial of PPN in order to "buy time" in hopes his cognitive status improves/returns to baseline level. However, patient with liver cirrhosis (MELD score 18)- looking at limited life expectancy regardless. Multiple discussions with son+daughter in law, and sister separately today, however no clear decision for care reached and continuing disagreement regarding primary decision maker for patient. Goals of Care - family meeting (Sarai + Spouse, Son + Spouse, Sister, Mother) - meeting overall was successful, however son was verbally aggressive and stormed out of the meeting prior to coming to a decision regarding care. - plan to go home with home hospice on Wednesday/Wednesday () - currently getting PPN while hospitalized, will likely be discontinued on discharge home. 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 Waxes and wanes, increasingly agitated and rude in the past few days. - Head CT on admission WNL - ammonia level WNL - no recent sedating medications given - GI: rifaxamin 550 BID + lacutlose, however patient unable to take medications PO. Bilateral pneumonia/aspiration pneumonitis: resolved - GI 11/07: patient not good candidate for PEG given risk of infection with cirrhosis, recommend palliation - video swallow 11/01 showing aspiration to all textures: NPO initially, started PPN 11/03. - treated with 10 days of zosyn Alcohol Abuse/Liver Cirrhosis - INR elevated, low albumin, suppressed blood cell lines - Suspected long standing alcohol abuse which led to Liver disease - Currently on IV thiamine / Folate - AST: ALT 2:1 ratio consistent with alcohol abuse - Negative EtOH upon admission - patient was initially placed on protocol, but Ativan d/c due to AMS - MELD 18, Chid-Gregory Class B Pancytopenia - Suspect longstanding chronic decline since appeared to have been able to tolerate/survive - Most likely from alcohol bone marrow toxicity and coagulopathy from liver disease making him prone to bleed Acute hyponatremia:stable - Na was 117 upon admission, now improved - suspect from dietary/poor sodium content in alcohol Diet: PPN + strict NPO Code:DNR/DNI Dispo:medsurg. Appreciate palliative consult, family discussion ongoing Admission and Anticipated Discharge Date Admission Date: October 26, 2019 Supervising Physician Co-Signing Physician Notes I personally examined the patient and verified all zavaleta points of history and exam, discussed case, and agree with decision making with Dr Montoya. no meaningful HPI or ROS. 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 A&Ox0. Review of Systems Review of Systems: Unobtainable due to cognitive status Physical Exam Constitutional: + ill appearing, + thin, + frail appearing, + disheveled and comfortable Eyes: + anicteric sclerae Respiratory: normal respiratory effort; no cough Cardiovascular: RRR, no murmur, no edema Gastrointestinal (Abdomen): normal bowel sounds, soft, nontender, no hepatosplenomegaly Psychiatric: Orientation: alert and cooperative; + not oriented to person Eye Contact: + fair eye contact Insight: + impaired insight Judgement: + impaired judgement Resident Activity Tracking Resident Involvement: Resident Care Provided Care Provided: Adult Hospital Medicine
[2019-11-10] MEDS ORDERED: Custom Peripheral Pn 2,000 ML in TPN BAG 0 ML IV SCH (16:00)
--- NOTE | 2019-11-10 19:42 | Billing Data ---
Date of Service November 10, 2019 Coding Level of Care Code 57100 Subseq Hosp Care Lvl 2
--- NOTE | 2019-11-11 08:15 | Hospitalist Progress Note ---
Date of Service November 11, 2019 Assessment & Plan (1) Septic shock: Ariel Mendoza is a 54 y/o male who was admitted for septic shock on 10/25 and directly sent to ICU for vasopressors. Source of sepsis thought to be aspiration PNA (left lower lobe) and R LE cellulitis, was placed on IV zosyn. Patient was weaned off pressors and downgraded from ICU on 10/28. Patient was transferred back to ICU on 10/31 for worsening respiratory status, with CXR suspicious for progressive aspiration pneumonitis. IV doxycycline was subsequently added. Video swallow on 11/01 showing aspiration with all textures. Recurrent aspiration thought to be from diminished cognitive status. Palliative consult placed to fa cilitate goals of care discussion. Primary team met with family 11/02 at bedside who are in agreement with a trial of PPN in order to "buy time" in hopes his cognitive status improves/returns to baseline level. However, patient with liver cirrhosis (MELD score 18)- looking at limited life expectancy regardless. Multiple discussions with son+daughter in law, and sister separately today, however no clear decision for care reached and continuing disagreement regarding primary decision maker for patient. 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 Waxes and wanes, increasingly agitated and rude in the past few days. Bilateral pneumonia/aspiration pneumonitis: resolved - GI 11/07: patient not good candidate for PEG given risk of infection with cirrhosis, recommend palliation - video swallow 11/01 showing aspiration to all textures: NPO initially, started PPN 11/03. - treated with 10 days of zosyn Alcohol Abuse/Liver Cirrhosis - INR elevated, low albumin, suppressed blood cell lines - Suspected long standing alcohol abuse which led to Liver disease - MELD 18, Chid-Gregory Class B Pancytopenia - Suspect longstanding chronic decline since appeared to have been able to tolerate/survive - Most likely from alcohol bone marrow toxicity and coagulopathy from liver disease making him prone to bleed Acute hyponatremia:stable - Na was 117 upon admission, down to 129 - suspect from dietary/poor sodium content in alcohol Diet: PPN + strict NPO Code:DNR/DNI, comfort care Dispo:medsurg. Admission and Anticipated Discharge Date Admission Date: October 26, 2019 Supervising Physician Co-Signing Physician Notes I personally examined the patient and verified all zavaleta points of history and exam, discussed case, and agree with decision making with Dr Aguilera. 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 no acute changes. Review of Systems Review of Systems: Unobtainable due to cognitive status Physical Exam Constitutional: + thin, + frail appearing, + disheveled and comfortable; not ill appearing Eyes: scleral icterus Respiratory: normal respiratory effort; no cough Psychiatric: Orientation: alert and cooperative; + not oriented to person Eye Contact: + fair eye contact Insight: + impaired insight Judgement: + impaired judgement Results & Data Results & Data ([facility]) Vital Signs (Past 12 Hours) Laboratory Results WBC 4.21 K/uL (4.8-10.8) L 11/11/19 10:17 RBC 3.12 M/uL (4.7-6.1) L 11/11/19 10:17 Hgb 9.8 g/dL (14.0-18.0) L 11/11/19 10:17 POC Hgb 9.5 g/dl (14.0-18.0) L 11/02/19 05:34 Hct 29.1 % (42-52) L 11/11/19 10:17 POC Hct 28 % (42-52) L 11/02/19 05:34 MCV 93.3 fL (80-100) 11/11/19 10:17 MCH 31.4 pg (25-34) 11/11/19 10:17 MCHC 33.7 g/dL (32-36) 11/11/19 10:17 RDW Std Deviation 55.3 fL (36.4-46.3) H 11/11/19 10:17 RDW Coeff of Bina 16.6 % (11.5-14.5) H 11/11/19 10:17 Plt Count 223 K/uL (130-400) 11/11/19 10:17 MPV 10.0 fL (7.4-10.4) 11/11/19 10:17 Immature Gran % (Auto) 0.6 % 11/06/19 06:22 Neut % (Auto) 61.3 % 11/06/19 06:22 Lymph % (Auto) 28.7 % 11/06/19 06:22 Faulkner % (Auto) 7.7 % 11/06/19 06:22 Eos % (Auto) 1.4 % 11/06/19 06:22 Baso % (Auto) 0.3 % 11/06/19 06:22 Reticulocyte % (Auto) 2.6 % (0.5-2.0) H 10/27/19 08:43 Neut # (Auto) 2.14 K/uL (1.4-6.5) 11/06/19 06:22 Lymph # (Auto) 1.00 K/uL (1.2-3.4) L 11/06/19 06:22 Faulkner # (Auto) 0.27 K/uL (0.11-0.59) 11/06/19 06:22 Eos # (Auto) 0.05 K/uL (0-0.5) 11/06/19 06:22 Baso # (Auto) 0.01 K/uL (0-0.2) 11/06/19 06:22 Reticulocyte # 0.09 10^6/uL (0.02-0.10) 10/27/19 08:43 Immature Gran # (Auto) 0.02 K/uL (0.00-0.02) 11/06/19 06:22 Platelet Estimate Decreased (Normal) L 10/26/19 22:03 Giant Platelets 1+ 11/04/19 04:52 RBC Morphology Unremarkable 11/03/19 04:16 Echinocytes 2+ 10/29/19 04:18 ESR 11 mm/hr (0-14) 11/01/19 06:58 PT 12.2 Seconds (9.0-12.0) H 11/06/19 06:22 INR 1.2 (0.9-1.1) H 11/06/19 06:22 APTT 32.8 Seconds (21.0-31.0) H 10/29/19 04:18 PTT Ratio 1.2 10/29/19 04:18 Sample Site R Radial 11/03/19 04:39 POC pH 7.55 (7.35-7.45) H* 11/03/19 04:39 POC pCO2 25 mmHg (35-46) L 11/03/19 04:39 POC pO2 55 mmHg (80-95) L 11/03/19 04:39 POC HCO3 22 eddie/L (19-24) 11/03/19 04:39 POC Total CO2 22 mmol/L (24-31) L 11/03/19 04:39 POC Base Excess -1.0 eddie/L (-9-1.8) 11/03/19 04:39 ABG pH 7.48 (7.35-7.45) H 11/01/19 13:20 ABG pH (Temp Correct) 7.547 (7.35-7.45) H* 11/02/19 05:34 ABG pCO2 33 mmHg (35-46) L 11/01/19 13:20 ABG pCO2 (Temp Corrct 29 mmHg (35-46) L 11/02/19 05:34 ABG pO2 53 mmHg (80-95) L 11/01/19 13:20 POC ABG pO2 at Pt Temp 76 11/02/19 05:34 ABG HCO3 25 mmol/L (19-24) H 11/01/19 13:20 POC ABG O2 Sat 93.0 % (90-95) 11/03/19 04:39 ABG O2 Saturation 86.4 % (90-95) L 11/01/19 13:20 ABG Base Excess 1.3 mEq/L (-9-1.8) 11/01/19 13:20 Anthony Test Pass 11/03/19 04:39 Barometric Pressure 733.7 mm/Hg 11/01/19 13:20 Oxygen Given 4L 11/01/19 13:20 O2 Delivery Device Room Air 11/03/19 04:39 POC O2 Rate 14 11/02/19 05:34 POC FiO2 30 % 11/02/19 05:34 IPAP 12 11/02/19 05:34 POC Sodium 132 mmol/L (135-144) L 11/02/19 05:34 Sodium 129 mmol/L (136-145) L 11/11/19 10:17 POC Potassium 2.7 mmol/L (3.3-5.0) L 11/02/19 05:34 Potassium 4.3 mmol/L (3.5-5.1) 11/11/19 10:17 POC Chloride 89 mmol/L (101-112) L 10/26/19 22:13 Chloride 99 mmol/L (98-107) 11/11/19 10:17 Carbon Dioxide 23 mmol/L (21-32) 11/11/19 10:17 POC Total CO2 12 mmol/L (24-31) L 10/26/19 22:13 Anion Gap 7.0 (3-11) 11/11/19 10:17 POC Anion Gap 21.0 mmol/L (16-25) 10/26/19 22:13 POC BUN 16 mg/dl (7-18) 10/26/19 22:13 BUN 10 mg/dl (7-18) 11/11/19 10:17 Creatinine 0.43 mg/dl (0.6-1.4) L 11/11/19 10:17 POC Creatinine 1.1 mg/dl (0.6-1.3) 10/26/19 22:13 Est Cr Clr Drug Dosing 132.9 ml/min 11/11/19 10:17 Est GFR ( Amer) 149.4 11/11/19 10:17 Est GFR (Non-Af Amer) 128.9 11/11/19 10:17 BUN/Creatinine Ratio 22.5 (10-20) H 11/11/19 10:17 Glucose 97 mg/dl (70-99) 11/11/19 10:17 POC Glucose 100 mg/dl (70-99) H 11/09/19 12:05 POC Glucose (other) 89 mg/dl (70-99) 10/26/19 22:13 Estimat Average Glucose 80 mg/dl 10/27/19 08:43 Hemoglobin A1c 4.4 % (4.5-5.6) L 10/27/19 08:43 Lactate 1.9 mmol/L (0.4-2.0) 10/26/19 22:03 Calcium 8.4 mg/dl (8.5-10.1) L 11/11/19 10:17 POC Ioniz Calcium Orlando 1.00 mmol/l (1.12-1.32) L 10/26/19 22:13 Phosphorus 5.0 mg/dl (2.5-4.9) H 11/11/19 10:17 Magnesium 2.0 mg/dl (1.8-2.4) 11/11/19 10:17 Total Bilirubin 1.5 mg/dl (0.2-1) H 11/11/19 10:17 Direct Bilirubin 4.6 mg/dl (0-0.2) H 11/01/19 13:20 AST 50 U/L (15-37) H 11/11/19 10:17 ALT 23 U/L (12-78) 11/11/19 10:17 Alkaline Phosphatase 150 U/L (45-117) H 11/11/19 10:17 Ammonia 31.0 umol/L (11-32) 11/01/19 13:20 Total Creatine Kinase 560 U/L (39-308) H 10/27/19 01:17 Troponin I 0.117 ng/ml (0-0.045) H* 10/28/19 04:07 C-Reactive Protein 12.20 mg/dl (0-0.29) H 11/01/19 13:20 NT-Pro-B Natriuret Pep 7080 pg/ml (0-900) H 11/01/19 13:20 Total Protein 5.8 gm/dl (6.4-8.2) L 11/06/19 06:22 Albumin 2.0 gm/dl (3.4-5.0) L 11/06/19 06:22 Globulin 3.8 gm/dl (2.5-4.0) 11/06/19 06:22 Albumin/Globulin Ratio 0.5 (0.9-2) L 11/06/19 06:22 Triglycerides 88 mg/dl (0-150) 11/11/19 10:17 Angiotensin Convert Enz 30 U/L (9-67) 10/27/19 08:43 Vitamin B12 1749 pg/ml (211-911) H 10/26/19 22:56 Folate 4.52 ng/ml (>5.38) L 10/26/19 22:56 Procalcitonin 0.50 ng/ml (0-0.5) 11/01/19 13:24 TSH 1.300 uIu/ml (0.300-4.500) 10/27/19 08:43 Random Cortisol 21.66 mcg/dl 10/26/19 22:56 Specimen Hemolysis 11/02/19 15:10 Urine Color Dark Yellow 11/02/19 10:15 Urine Appearance Clear (Clear) 11/02/19 10:15 Urine pH >= 9.0 (4.5-7.5) H 11/02/19 10:15 Ur Specific Henderson 1.017 (1.000-1.030) 11/02/19 10:15 Urine Protein Negative (Negative) 11/02/19 10:15 Urine Glucose (UA) Negative (Negative) 11/02/19 10:15 Urine Ketones Trace (Negative) H 11/02/19 10:15 Urine Blood Negative (Negative) 11/02/19 10:15 Urine Nitrite Negative (Negative) 11/02/19 10:15 Urine Bilirubin 1+ (Negative) H 11/02/19 10:15 Urine Urobilinogen Negative (Negative) 11/02/19 10:15 Ur Leukocyte Esterase Negative (Negative) 11/02/19 10:15 Nasal Screen MRSA (PCR) Negative (Negative) 10/27/19 00:05 Vancomycin Trough 27.0 mcg/ml (See Comment) 11/02/19 17:33 Salicylates Cancelled 10/27/19 01:17 Acetaminophen Cancelled 10/27/19 01:17 Ethyl Alcohol mg/dL < 3.0 mg/dl (0-3) 10/26/19 22:03 Adenovirus (PCR) Not Detected (NotDetected) 10/27/19 11:46 B. pertussis DNA (PCR) Not Detected (NotDetected) 10/27/19 11:46 B.parapertussis DNA PCR Not Detected (NotDetected) 10/27/19 11:46 C. pneumoniae DNA (PCR) Not Detected (NotDetected) 10/27/19 11:46 Coronavirus OC43 (PCR) Not Detected (NotDetected) 10/27/19 11:46 Coronavirus HKU1 (PCR) Not Detected (NotDetected) 10/27/19 11:46 Coronavirus 229E (PCR) Not Detected (NotDetected) 10/27/19 11:46 COVID-19 PCR NEGATIVE (Negative) 10/26/19 21:49 Coronavirus NL63 (PCR) Not Detected (NotDetected) 10/27/19 11:46 Hepatitis A IgM Ab NON-REACTIVE (NON-REACTIVE) 10/26/19 22:02 Hep Bs Antigen Neg (Neg) 10/27/19 01:17 Hep B Core IgM Ab NON-REACTIVE (NON-REACTIVE) 10/26/19 22:02 Hepatitis C Ab Screen Neg (Neg) 10/27/19 01:17 Hepatitis C Antibody Neg (Neg) 10/27/19 01:17 Human Metapneumovir PCR Not Detected (NotDetected) 10/27/19 11:46 Influenza Type A (PCR) Not Detected (NotDetected) 10/27/19 11:46 Influenza Type B (PCR) Not Detected (NotDetected) 10/27/19 11:46 M. pneumoniae (PCR) Not Detected (NotDetected) 10/27/19 11:46 Parainfluenza 1 (PCR) Not Detected (NotDetected) 10/27/19 11:46 Parainfluenza 2 (PCR) Not Detected (NotDetected) 10/27/19 11:46 Parainfluenza 3 (PCR) Not Detected (NotDetected) 10/27/19 11:46 Parainfluenza 4 (PCR) Not Detected (NotDetected) 10/27/19 11:46 RSV (PCR) Not Detected (NotDetected) 10/27/19 11:46 Entero/Rhino (PCR) Not Detected (NotDetected) 10/27/19 11:46 Bld Cult Staph aureus PCR Negative (Negative) 10/26/19 22:04 Blood Culture MRSA PCR Negative (Negative) 10/26/19 22:04 Blood Type O Positive 10/26/19 22:02 Blood Type Recheck O Positive 10/26/19 22:57 Antibody Screen NEGATIVE 10/26/19 22:02 Crossmatch See Detail 10/26/19 22:02 Intake and Output 11/11/19 11/11/19 11/11/19 06:59 14:59 22:59 Intake Total 1999 Output Total 452 / 1352 650 / 650 Balance -452 / 588.89 1350 / 1350 Intake: IV 1999 Custom Peripheral Pn 2,000 ML 2000 / 2000 In TPN Bag 0 ml @ 83.3 mls/hr IV .Q24H [facility] Rx#:[id number] Output: Urine Amount (Catheter) 450 / 1350 650 / 650 Temp Sensing Ceja 450 / 1350 650 / 650 # Bowel Movements 2 / 2 Other: Weight 48.988 kg Resident Activity Tracking Resident Involvement: Resident Care Provided Care Provided: Adult Hospital Medicine
[2019-11-11] MEDS: FOLIC ACID 1 MG in SYRINGE 9.8 ML IV SCH (08:44)
[2019-11-11] MEDS: AMMONIUM LACTATE 12% LOTION 225 GM BTL EXT SCH ×2 (08:44→22:25)
[2019-11-11] MEDS: THIAMINE HCL 100 MG in SYRINGE 9 ML IV SCH (08:44)
[2019-11-11] MEDS: NICOTINE 21 MG/24 HR TDSY TD SCH (09:10)
[2019-11-11 10:28] LABS: Hematocrit (blood only) 29.1 % (42-52); Hemoglobin 9.8 g/dL (14.0-18.0); Mean Corpuscular Hemoglobin 31.4 pg (25-34); Mean Corpuscular Hgb Conc 33.7 g/dL (32-36); Mean Corpuscular Volume 93.3 fL (80-100); Platelet Count 223 K/uL (130-400); RDW Coefficient of Variation 16.6 % (11.5-14.5); RDW Standard Deviation 55.3 fL (36.4-46.3); Red Blood Count 3.12 M/uL (4.7-6.1); White Blood Count 4.21 K/uL (4.8-10.8)
[2019-11-11 10:50] LABS: BUN Creatinine Ratio 22.5 (10-20); Calcium 8.4 mg/dl (8.5-10.1); Creatinine Clr Calc Pharmacy 132.9 ml/min; Est GFR (African American) 149.4; Est GFR (Non-African American) 128.9; Potassium 4.3 mmol/L (3.5-5.1)
[2019-11-11 10:53] LABS: Bilirubin,Total 1.5 mg/dl (0.2-1)
[2019-11-11] MEDS: PANTOprazole 40 MG in SYRINGE 0 ML IV SCH (13:35)
[2019-11-11] MEDS ORDERED: Custom Peripheral Pn 2,000 ML in TPN BAG 0 ML IV SCH (16:00)
[2019-11-11] MEDS: MoRPHine SULFATE 2 MG/ML CARP IV PRN (17:21)
--- NOTE | 2019-11-11 19:18 | Billing Data ---
Date of Service November 11, 2019 Coding Level of Care Code 76213 Subseq Hosp Care Lvl 1
[2019-11-12] MEDS: FOLIC ACID 1 MG in SYRINGE 9.8 ML IV SCH (09:33)
[2019-11-12] MEDS: THIAMINE HCL 100 MG in SYRINGE 9 ML IV SCH (09:33)
[2019-11-12] MEDS: NICOTINE 21 MG/24 HR TDSY TD SCH (09:34)
[2019-11-12] MEDS: AMMONIUM LACTATE 12% LOTION 225 GM BTL EXT SCH ×3 (09:34→19:59)
--- NOTE | 2019-11-12 10:03 | Hospitalist Progress Note ---
Date of Service November 12, 2019 Assessment & Plan (1) Septic shock: Ariel Mendoza is a 54 y/o male who was admitted for septic shock on 10/25 and directly sent to ICU for vasopressors. Source of sepsis thought to be aspiration PNA (left lower lobe) and R LE cellulitis, was placed on IV zosyn. Patient was weaned off pressors and downgraded from ICU on 10/28. Patient was transferred back to ICU on 10/31 for worsening respiratory status, with CXR suspicious for progressive aspiration pneumonitis. IV doxycycline was subsequently added. Video swallow on 11/01 showing aspiration with all textures. Recurrent aspiration thought to be from diminished cognitive status. Palliative consult placed to fa cilitate goals of care discussion. Primary team met with family 11/02 at bedside who are in agreement with a trial of PPN in order to "buy time" in hopes his cognitive status improves/returns to baseline level. However, patient with liver cirrhosis (MELD score 18)- looking at limited life expectancy regardless. Multiple discussions with son+daughter in law, and sister separately today, however no clear decision for care reached and continuing disagreement regarding primary decision maker for patient. 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 Waxes and wanes. Bilateral pneumonia/aspiration pneumonitis: resolved - GI 11/07: patient not good candidate for PEG given risk of infection with cirrhosis, recommend palliation - video swallow 11/01 showing aspiration to all textures: NPO initially, started PPN 11/03. - treated with 10 days of zosyn Alcohol Abuse/Liver Cirrhosis: chronic - INR elevated, low albumin, suppressed blood cell lines - Suspected long standing alcohol abuse which led to Liver disease - MELD 18, Chid-Gregory Class B Pancytopenia: chronic - Suspect longstanding chronic decline since appeared to have been able to tolerate/survive - Most likely from alcohol bone marrow toxicity and coagulopathy from liver disease making him prone to bleed Acute hyponatremia:stable - Na was 117 upon admission, down to 129 - suspect from dietary/poor sodium content in alcohol Diet: PPN + strict NPO Code:DNR/DNI, comfort care Dispo:medsurlorie. Admission and Anticipated Discharge Date Admission Date: October 26, 2019 Supervising Physician Co-Signing Physician Notes I personally examined the patient and verified all zavaleta points of history and exam, discussed case, and agree with decision making with Dr Aguilera. 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 appeared to recognize me however then was disoriented to place and time. Review of Systems Review of Systems: Unobtainable due to cognitive status Physical Exam Physical Exam: Constitutional: jaundiced,thin, asleep, in no apparent distress, laying comfortably in bed. Eyes: no scleral icterus Cardiac: RRR, no murmurs, gallops or rubs. Normal S1, S2 Pulm: CTA BL, no wheezes, rhonchi, crackles or rubs, moving air well throughout both lungs Abd: soft, nontender, nondistended, normal bowel sounds, no rebound or guarding Extremities:poor peripheral pulses, marked venous insufficiency changes and thinning/peeling of skin on anterior right penaloza Neuro: A&O to person Resident Activity Tracking Resident Involvement: Resident Care Provided Care Provided: Adult Hospital Medicine
[2019-11-12] MEDS: PANTOprazole 40 MG in SYRINGE 0 ML IV SCH (11:43)
[2019-11-12] MEDS ORDERED: Custom Peripheral Pn 2,000 ML in TPN BAG 0 ML IV SCH (16:00)
[2019-11-12] MEDS: MoRPHine SULFATE 2 MG/ML CARP IV PRN ×2 (19:40→23:40)
--- NOTE | 2019-11-12 19:56 | Billing Data ---
Date of Service November 12, 2019 Coding Level of Care Code 19409 Subseq Hosp Care Lvl 1
[2019-11-13] MEDS: NICOTINE 21 MG/24 HR TDSY TD SCH (09:07)
[2019-11-13] MEDS: FOLIC ACID 1 MG in SYRINGE 9.8 ML IV SCH (09:07)
[2019-11-13] MEDS: THIAMINE HCL 100 MG in SYRINGE 9 ML IV SCH (09:07)
[2019-11-13] MEDS: AMMONIUM LACTATE 12% LOTION 225 GM BTL EXT SCH ×2 (09:07→20:12)
[2019-11-13] MEDS: PANTOprazole 40 MG in SYRINGE 0 ML IV SCH (13:01)
[2019-11-14] MEDS: THIAMINE HCL 100 MG in SYRINGE 9 ML IV SCH (08:44)
[2019-11-14] MEDS: FOLIC ACID 1 MG in SYRINGE 9.8 ML IV SCH (08:44)
[2019-11-14] MEDS: AMMONIUM LACTATE 12% LOTION 225 GM BTL EXT SCH (08:45)
[2019-11-14] MEDS: NICOTINE 21 MG/24 HR TDSY TD SCH (08:45)
[2019-11-14] MEDS: PANTOprazole 40 MG in SYRINGE 0 ML IV SCH (11:15)
--- NOTE | 2019-11-14 12:35 | Discharge Summary ---
Date of Service November 14, 2019 Admission HPI Per Admitting Provider The patient is a 54-year-old male with a past medical history significant for alcohol abuse, and daughter reports that he does not follow with any physician or office routinely in the medical system. The daughter brought the patient into the ED after checking on him, when she had not seen him for 3 days, and found that he was lethargic, unkempt and jaundiced in his house. She reports that has not had alcohol to drink in 3 weeks. He was in the emergency department on 09/25/2019, and was noted to have twisted his ankle 1 week previous to that visit, and x-rays performed on 09/25/2019 revealed nondisplaced fractures in the distal aspects of the second and third metatarsals with a potential cortical fracture at the base of the proximal phalanx of the second toe. The patient did not follow-up with orthopedic surgery as advised. Upon arrival in the ED, he was noted to have a severe cellulitis of the right lower extremity, and the patient's blood pressure was noted to be 80/50. Despite the first 1 L of IV normal saline, his pressure continued to decrease to 63/43, and he was empirically started on Levophed infusion for blood pressure support at that time, and the ICU was called to be notified of his impending admission. Admission Exam Per Admitting Provider he patient is awake, lethargic, unkempt, emaciated appearing, pale, nor mocephalic and atraumatic, lying in bed and in no acute distress. HEENT--PERRL, EOMI, mucous membranes and oropharynx dry. Neck--supple. No JVD. No bruits. Thyroid normal, trachea midline, no adenopa thy. Heart--normal S1 and S2. No murmurs, rubs or gallops. Lungs--decreased breath sounds left base, with scattered coarse breath sounds throughout. No respiratory distress, no accessory muscle use. Abdomen--normal bowel sounds and soft. Nontender. Nondistended. Extremities/dermatologic-moderately severe erythema right lower extremity. 3+ pitting edema right lower extremity. Skin is jaundiced Neurologic--cranial nerves II through XII grossly intact. Rheumatologic--limited exam Psychiatric--lethargic Principal Diagnosis Septic Shock, Hepatic Encephalopathy Discharge Exam Constitutional: jaundiced,thin, asleep, in no apparent distress, laying comfortably in bed. Eyes: no scleral icterus Cardiac: RRR, no murmurs, gallops or rubs. Normal S1, S2 Pulm: CTA BL, no wheezes, rhonchi, crackles or rubs, moving air well throughout both lungs Abd: soft, nontender, nondistended, normal bowel sounds, no rebound or guarding Extremities:poor peripheral pulses, marked venous insufficiency changes and thinning/peeling of skin on anterior right penaloza with wound wrapping around R ankle Neuro: A&O to person and place Discharge Data Allergies Allergy/AdvReac Type Severity Reaction Status Date / Time No Known Allergies Allergy Unverified 10/26/19 21:35 Consultations 10/26/19 23:57 Consult Case Management - Discharge Planning Routine 11/02/19 10:10 Consult Palliative Care Routine Ordered Studies 10/26/19 22:49 CT abd pelvis wo con Urgent CT chest wo con Urgent CT head/brain wo con Urgent 10/27/19 00:03 US point of care ultrasound Urgent 10/27/19 00:57 US duplex portal hepatic veins Urgent US venous doppler LE RT Urgent 10/27/19 01:11 US gallbladder Urgent 10/27/19 01:34 CT abd pelvis IV con only Urgent CT cervical spine wo con Urgent CT chest w con Urgent CT lumbar spine wo con Urgent CT thoracic spine wo con Urgent 11/01/19 17:57 US point of care ultrasound Urgent 11/02/19 10:30 FL video swallow Routine Hospital Course (1) Septic shock: Ariel Mendoza is a 54 y/o male who was admitted for septic shock on 10/25 and directly sent to ICU for vasopressors. Source of sepsis thought to be aspiration PNA (left lower lobe) and R LE cellulitis, was placed on IV zosyn. Patient was weaned off pressors and downgraded from ICU on 10/28. Patient was transferred back to ICU on 10/31 for worsening respiratory status, with CXR suspicious for progressive aspiration pneumonitis. IV doxycycline was subsequently added. Video swallow on 11/01 showing aspiration with all textures. Recurrent aspiration thought to be from diminished cognitive status. Palliative consult placed to facilitate goals of care discussion. Primary team met with family 11/02 at bedside who are in agreement with a trial of PPN in order to "buy time" in hopes his cognitive status improves/returns to baseline level. Unable to progress to TPN given poor venous access, poor candidate for PEG and high possibility of esophageal varices making NG tube not an option. Patient with liver cirrhosis (MELD score 18)- looking at limited life expectancy regardless. Multiple discussions with son+daughter in law, daughters, and sister separately over the course of a week, ultimate family meeting led to decision for patient to go to sister Juli's house on home hospice. Total Time Total Time Spent Total Time Spent (In Minutes): see attending attestation Discharge Plan Discharge Items Patient Disposition: Hospice - Home Reason For Visit: HYPOVOLEMIC SHOCK Discharge Diagnosis: End Stage Cirrhosis, Hypovolemic Shock, Activity: Resume your previous activity Non-emergency contact: Primary Care Provider Call non-emergency contact if: your pain is unusual for you Follow-up/Referrals: PCP,NO [Primary Care Provider] - Diet: Nothing by Mouth Addtl Attending Provider Instructions: Mr. Mendoza was seen in the hospital for confusion that was due to a bloodstream infection and worsening liver disease. His bloodstream infection was completely treated while he was in the hospital, however his confusion and inability to take care of himself only worsened. This is most likely due to his worsening liver disease (End Stage Cirrhosis). Given that he swallows all foods and drinks into the "wrong tube", he had to receive nutrition through an IV while in the hospital. The decision was made with family to make him comfort care as he is unlikely to bounce back and regain his full mental status even with external nutrition. Hospice services will aid in management of medications for comfort. Pending Studies at Discharge: No Stand-Alone Forms: My [facility] Medications and DC Order Prescriptions: [place]in Five 5 % Lotion 1 g EXT BID 30 Days RF: 0 atropine 1 % Drops 4 drp sublingual Q1H PRN (Reason: secretions) 30 Days RF: 0 morphine 20 mg/5 mL (4 mg/mL) solution 5 mg PO Q6H Qty: 100 RF: 0 lorazepam 2 mg/mL concentrate 1 mg PO TID Qty: 30 RF: 0 No Action No Known Home Medications RF: 0 Discharge Orders: Discharge Order (Routine); Ordered 11/14/19 Ordered By: Kalie Angelo Admission Data Admit Date/Time: 10/26/19 22:48 Attending Provider: Kalie Angelo Admit Provider: Steve Reardon Primary Care Provider: PCP,NO Other Providers: Steve Reardon ; [facility] ; [facility], ; Zaki London ; Marilyn Aguilera ; Orlando Landon ; Juli Kelley ; Nishant Story ; [facility] Other Interventions: Discharge Summary Assessment (RN) Last Done: 11/14/19 09:57 Supervising Physician Co-Signing Physician Notes Resident Physician Supervision Note: I independently interviewed and examined the patient and verified the zavaleta history and physical, reviewed labs and image studies, discussed the case with the resident Dr. Aguilera and agree with the findings and care plan. Resident Activity Tracking Resident Involvement: Resident Care Provided Care Provided: Adult Hospital Medicine
--- NOTE | 2019-11-14 14:13 | Palliative Care Progress Note ---
Date of Service November 14, 2019 Assessment & Plan (1) Goals of care, counseling/discussion: Pt is a 54 yo male with a history of alcoholism now with end-stage liver disease who was brought to the [facility] via EMS after his daughter discovered him at his home unkempt and jaundiced. She had seen him three days prior to that encounter. He has a recent admission in September 2019 where he sustained a fall, twisting his right ankle. Multiple fractures were discovered, but he did not follow up outpatient with orthopedics. On admission, his RLE had severe cellulitis and he was hypotensive. He was taken to the ICU and placed on Levophed, which was discontinued on 11/01. He is AAOx1. Per staff, his mental status waxes and wanes. A video swallow indicated aspiration -patient seen and examined in room 351-2. He was awake, lying in bed, He is oriented to person and place only; his mentation is improving; however, you can't have a meaningful conversation with him. -Patient's CODE STATUS was changed to DNR after discussions with the family, plan is for him to return to home with family with hospice care. -PPS 30% (2) Pneumonia: (3) Acute respiratory failure with hypoxia: (4) Altered mental state: (5) Septic shock: Admission and Anticipated Discharge Date Admission Date: October 26, 2019 Subjective Patient seen and examined, no acute distress. No family or friends at bedside Patient is for discharge home with hospice today-patient states his mother and sister plan to care for him at home. Patient reports his approximately a year ago of cancer. Review of Systems Review of Systems: Patient denies fever, chills, chest pain, shortness of breath, or abdominal pain. Physical Exam Physical Exam: PE: Patient awake and alert, no acute distress at rest HEENT: EOMI, dry mucous membranes Respirations: Clear breath sounds, good O2 sats on room air CV: Regular rate Abdomen: Soft, nontender to palpation Extremities: Right lower extremity with chronic skin discoloration, lower extremity wound with dressing in place. Skin: Dry Neuro: Oriented to person and place Results & Data ([facility]) Vital Signs (Past 12 Hours) Vital Signs Temp Pulse Pulse Resp BP BP BP 11/14/19 09:57 98.1 F 98 H 97 H 16 122/73 124/71 116/69 Pulse Ox 11/14/19 09:57 99 PG Care Time/CCT Total # of Minutes Spent Total Time Spent with Patient: Total time spent 35 minutes with greater than 50% of the time spent at bedside discussing with the patient aspiration precautions, if he chose comfort feeds he will aspirate-hospice to follow-up once discharged. Coding Level of Care Code 96600 Subseq Hosp Care Lvl 3 Diagnoses Goals of care, counseling/discussion Z71.89 Pneumonia J18.9 Acute respiratory failure with hypoxia J96.01 Altered mental state R41.0 Altered mental status type: delirium Septic shock A41.9; R65.21 Time Spent (min) 35 (1) Altered mental state Altered mental status type: delirium Qualified Code(s): R41.0 - Disorientation, unspecified
== END 2019-11-14 12:45 | disposition hospice, home (50) | DRG 871 ==
LOC: ED 20:51 → 1E 22:48 → SUATTDRO 22:48 → 1E 23:08 → 2S 10-29 15:50 → 1E 11-01 16:40 → 2S 11-04 15:24 → 2N 11-07 14:07 → 3W 11-07 18:21